=== PATIENT | male | born 1950 | race Caucasian/White ===

== ENCOUNTER 2020-11-28 06:53 | Outpatient (REF) | payer OTHER, SELFPAY ==
[2020-11-28 11:22] LABS: Estimated Average Glucose 148 mg/dL; Hemoglobin A1c % 6.8 %
[2020-11-28 11:23] LABS: Hematocrit 44.8 % (42-52); Hemoglobin 14.2 g/dl (14.0-18.0); Mean Corpuscular HGB Conc 31.7 g/dl (31.0-36.0); Mean Corpuscular Hemoglobin 30.2 pg (27.0-33.0); Mean Corpuscular Volume 95.3 fL (80-98); Mean Platelet Volume 10.6 fL (9.4-12.4); Platelet Count 388 X10*3/uL (160-400); Red Cell Distribution Width 14.3 % (11.0-16.0); White Blood Count 8.9 X10*3/uL (4.8-10.8)
[2020-11-28 11:45] LABS: Alanine Aminotransferase 15 U/L (0-40); Albumin Level 4.1 g/dL (3.5-5.0); Alkaline Phosphatase 62 U/L (39-117); Anion Gap 16 (12-20); Aspartate Amino Transferase 15 U/L (5-37); Blood Urea Nitrogen 37 mg/dL (9-16); Calcium 9.8 mg/dL (8.4-10.2); Carbon Dioxide 25 mmol/L (22-29); Chloride 103 mmol/L (96-108); Cholesterol 145 mg/dL; Estimated Glomerular Filt Rate 26; Glucose Fasting 109 mg/dL (60-99); HDL Cholesterol 31 mg/dL; LDL Cholesterol Calculated 63 mg/dl; Potassium 4.7 mmol/L (3.3-5.1); Sodium 139 mmol/L (135-145); Total Protein 6.9 g/dL (6.5-8.0); Triglycerides 258 mg/dL
[2020-11-28 12:08] LABS: TSH reflex Free T4 1.41 uIU/mL (0.32-4.0)
[2020-11-28 12:15] LABS: Vitamin B12 1770 pg/mL (200-900)
[2020-12-01 10:52] LABS: Vitamin D 25-OH, D2 <4 ng/mL; Vitamin D 25-OH, D3 57 ng/mL; Vitamin D 25-OH, Total 57 ng/mL (30-100)
[2020-12-02 16:27] LABS: Testosterone, Free 107.7 pg/mL (35.0-155.0); Testosterone, Total 411 ng/dL (250-1100)
== END 2020-11-28 06:54 | disposition home or self-care (01) ==
LOC: HO.HMGCLDS 06:53
PROVIDERS: PCP Internal Medicine; Visit Provider Internal Medicine
DX: E78.5 Hyperlipidemia, unspecified (principal); E11.22 Type 2 diabetes mellitus with diabetic chronic kidney disease; I12.9 Hypertensive chronic kidney disease with stage 1 through stage 4 chronic kidney disease, or unspecified chronic kidney disease; N18.30 Chronic kidney disease, stage 3 unspecified; E03.9 Hypothyroidism, unspecified; I25.10 Atherosclerotic heart disease of native coronary artery without angina pectoris; E53.8 Deficiency of other specified B group vitamins
CPT/HCPCS: 36415; 80053; 80061; 82306; 82607; 83036; 84402; 84403; 84443; 85027

== ENCOUNTER 2021-02-21 13:50 | Outpatient (REF) | payer OTHER, SELFPAY ==
[2021-02-21 16:46] LABS: Anion Gap 15 (12-20); Blood Urea Nitrogen 17 mg/dL (9-16); Calcium 9.6 mg/dL (8.4-10.2); Carbon Dioxide 24 mmol/L (22-29); Chloride 106 mmol/L (96-108); Estimated Glomerular Filt Rate 36; Glucose Random 101 mg/dL (60-115); Magnesium 2.2 mg/dL (1.6-2.6); Potassium 4.3 mmol/L (3.3-5.1); Sodium 141 mmol/L (135-145)
[2021-02-21 17:03] LABS: Microalbum/Creatinine Ratio Ur 219.6 ug/mg cr
[2021-02-21 17:11] LABS: TSH reflex Free T4 0.72 uIU/mL (0.32-4.0)
== END 2021-02-21 13:51 | disposition home or self-care (01) ==
LOC: HO.HMGCLDS 13:50
PROVIDERS: PCP Internal Medicine; Visit Provider Internal Medicine
DX: I12.9 Hypertensive chronic kidney disease with stage 1 through stage 4 chronic kidney disease, or unspecified chronic kidney disease (principal); N18.30 Chronic kidney disease, stage 3 unspecified; E11.22 Type 2 diabetes mellitus with diabetic chronic kidney disease; E03.9 Hypothyroidism, unspecified; E78.5 Hyperlipidemia, unspecified
CPT/HCPCS: 36415; 80048; 82043; 83735; 84443

== ENCOUNTER 2021-05-23 08:17 | Outpatient (REF) | payer OTHER, SELFPAY ==
[2021-05-23 11:45] LABS: Creatinine Urine 76.54 mg/dL; Microalbum/Creatinine Ratio Ur 410.2 ug/mg cr
[2021-05-23 11:52] LABS: Hematocrit 46.3 % (42-52); Hemoglobin 14.4 g/dl (14.0-18.0); Mean Corpuscular HGB Conc 31.1 g/dl (31.0-36.0); Mean Corpuscular Volume 93.3 fL (80-98); Platelet Count 289 X10*3/uL (160-400); Red Blood Count 4.96 X10*6/uL (4.60-5.80); Red Cell Distribution Width 14.8 % (11.0-16.0); White Blood Count 8.2 X10*3/uL (4.8-10.8)
[2021-05-23 11:55] LABS: Estimated Average Glucose 128 mg/dL; Hemoglobin A1c % 6.1 %
[2021-05-23 12:10] LABS: Glucose Urine UA NEG (NEG); Leukocyte Esterase Urine NEG (NEG); Nitrite Urine NEG (NEG); UACC Culture Trigger NO; Urine Blood 3+ (NEG); Urine Ketones NEG (NEG); Urine Protein 1+ MG/DL (NEG-TRACE)
[2021-05-23 12:10] LABS: Alanine Aminotransferase 14 U/L (0-40); Alkaline Phosphatase 68 U/L (39-117); Anion Gap 14 (12-20); Aspartate Amino Transferase 16 U/L (5-37); Bilirubin Total 1.3 mg/dL (0.0-1.0); Blood Urea Nitrogen 26 mg/dL (9-16); Calcium 9.8 mg/dL (8.4-10.2); Carbon Dioxide 25 mmol/L (22-29); Chloride 106 mmol/L (96-108); Cholesterol 141 mg/dL; Estimated Glomerular Filt Rate 34; Glucose Fasting 111 mg/dL (60-99); HDL Cholesterol 35 mg/dL; LDL Cholesterol Calculated 75 mg/dl; Potassium 4.8 mmol/L (3.3-5.1); Sodium 140 mmol/L (135-145); Total Protein 6.8 g/dL (6.5-8.0); Triglycerides 159 mg/dL
[2021-05-23 12:22] LABS: Appearance Urine HAZY; Color Urine YELLOW
[2021-05-23 12:46] LABS: RBC Urine 30-49 /HPF (0); Squamous Epithelial Cell Urine TRACE /LPF; WBC Urine 0-2 /HPF (0-4)
== END 2021-05-23 08:18 | disposition home or self-care (01) ==
LOC: HO.HMGCLDS 08:17
PROVIDERS: PCP Internal Medicine; Visit Provider Internal Medicine
DX: I12.9 Hypertensive chronic kidney disease with stage 1 through stage 4 chronic kidney disease, or unspecified chronic kidney disease (principal); N18.30 Chronic kidney disease, stage 3 unspecified; E03.9 Hypothyroidism, unspecified; E11.9 Type 2 diabetes mellitus without complications
CPT/HCPCS: 36415; 80053; 80061; 81001; 81003; 82043; 83036; 85027

== ENCOUNTER 2021-07-04 07:51 | Outpatient (RCR) | payer OTHER, SELFPAY | END 2021-07-10 15:45 | disposition home or self-care (01) | LOC: HO.WCC 07:51 | PROVIDERS: PCP Internal Medicine; Visit Provider Surgery | DX: S81.812D Laceration without foreign body, left lower leg, subsequent encounter (principal); R60.9 Edema, unspecified | CPT/HCPCS: 99212 ==

== ENCOUNTER 2021-07-17 08:16 | Outpatient (REF) | payer OTHER, SELFPAY ==
--- NOTE | ~2021-07-17 | CT_ITS ---
EXAMINATION: CT HEAD WITHOUT CONTRAST CLINICAL INFORMATION: TIA COMPARISON: None TECHNIQUE: Contiguous axial imaging was performed from the skull base to vertex without intravenous administration of contrast. This CT examination was performed using dose optimization techniques as appropriate, variously including the following: *Automated exposure control *Adjustment of mA and/or kV according to patient size (this includes techniques or standardized protocols for targeted exams where dose is matched to indication/reason for exam; i.e. extremities or head) *Use of iterative reconstruction technique DLP: 1095 mGy-cm FINDINGS: There is no evidence of acute intracranial hemorrhage or territorial infarction. No abnormal mass effect or midline shift is seen. Kovacs to white matter differentiation is well preserved. No extra-axial fluid collections are identified. The ventricles are normal in size. There is no abnormal attenuation within the brain parenchyma. There is mild mucoperiosteal thickening right posterior ethmoid sinus. CT/CT head/brain wo con IMPRESSION: 1. No acute intracranial process seen. 2. Mild chronic right posterior ethmoid sinus inflammatory changes.
== END 2021-07-17 08:17 | disposition home or self-care (01) ==
LOC: HO.CT 08:16
PROVIDERS: PCP Internal Medicine; Visit Provider Internal Medicine
DX: G45.9 Transient cerebral ischemic attack, unspecified (principal); E11.9 Type 2 diabetes mellitus without complications
CPT/HCPCS: 70450

== ENCOUNTER 2022-01-22 08:04 | Outpatient (REF) | payer OTHER, SELFPAY ==
[2022-01-22 12:02] LABS: Hematocrit 41.5 % (42.0-52.0); Hemoglobin 13.3 g/dl (14.0-18.0); Mean Corpuscular Hemoglobin 29.8 pg (27.0-33.0); Mean Corpuscular Volume 92.8 fL (80.0-98.0); Mean Platelet Volume 11.1 fL (9.4-12.4); Platelet Count 294 X10*3/uL (160-400); Red Blood Count 4.47 X10*6/uL (4.60-5.80); Red Cell Distribution Width 13.5 % (11.0-16.0); White Blood Count 6.8 X10*3/uL (4.8-10.8)
[2022-01-22 12:45] LABS: Alanine Aminotransferase 12 U/L (0-40); Albumin Level 3.8 g/dL (3.5-5.0); Alkaline Phosphatase 66 U/L (39-117); Anion Gap 10 (12-20); Aspartate Amino Transferase 12 U/L (5-37); Bilirubin Total 0.8 mg/dL (0.0-1.0); Blood Urea Nitrogen 19 mg/dL (9-16); Calcium 9.9 mg/dL (8.4-10.2); Carbon Dioxide 27 mmol/L (22-29); Chloride 108 mmol/L (96-108); Cholesterol 137 mg/dL; Estimated Glomerular Filt Rate 29; Glucose Fasting 131 mg/dL (60-99); HDL Cholesterol 33 mg/dL; LDL Cholesterol Calculated 80 mg/dl; Potassium 4.2 mmol/L (3.3-5.1); Sodium 141 mmol/L (135-145); Total Protein 6.7 g/dL (6.5-8.0); Triglycerides 121 mg/dL
[2022-01-22 12:59] LABS: Estimated Average Glucose 128 mg/dL; Hemoglobin A1c % 6.1 %
[2022-01-22 13:00] LABS: Microalbum/Creatinine Ratio Ur 501.1 ug/mg cr
== END 2022-01-22 08:05 | disposition home or self-care (01) ==
LOC: HO.HMGCLDS 08:04
PROVIDERS: PCP Internal Medicine; Visit Provider Internal Medicine
DX: I12.9 Hypertensive chronic kidney disease with stage 1 through stage 4 chronic kidney disease, or unspecified chronic kidney disease (principal); N18.30 Chronic kidney disease, stage 3 unspecified; E11.22 Type 2 diabetes mellitus with diabetic chronic kidney disease; F02.80 Dementia in other diseases classified elsewhere, unspecified severity, without behavioral disturbance, psychotic disturbance, mood disturbance, and anxiety; G31.09 Other frontotemporal neurocognitive disorder; E03.9 Hypothyroidism, unspecified
CPT/HCPCS: 36415; 80053; 80061; 82043; 83036; 85027

== ENCOUNTER 2022-02-06 06:35 | Outpatient (REF) | payer OTHER, SELFPAY ==
[2022-02-06 11:42] LABS: Anion Gap 17 (12-20); Blood Urea Nitrogen 32 mg/dL (9-16); Calcium 9.8 mg/dL (8.4-10.2); Carbon Dioxide 20 mmol/L (22-29); Chloride 108 mmol/L (96-108); Estimated Glomerular Filt Rate 23; Glucose Random 145 mg/dL (60-115); Potassium 4.4 mmol/L (3.3-5.1); Sodium 141 mmol/L (135-145)
== END 2022-02-06 06:36 | disposition home or self-care (01) ==
LOC: HO.HMGCLDS 06:35
PROVIDERS: Visit Provider Internal Medicine
DX: E86.0 Dehydration (principal)
CPT/HCPCS: 36415; 80048

== ENCOUNTER 2022-09-02 08:00 | Outpatient (REF) | payer OTHER, SELFPAY ==
[2022-09-02 12:05] LABS: Alanine Aminotransferase 21 U/L (0-40); Albumin Level 3.9 g/dL (3.5-5.0); Alkaline Phosphatase 80 U/L (39-117); Anion Gap 16 (12-20); Aspartate Amino Transferase 18 U/L (5-37); Blood Urea Nitrogen 25 mg/dL (9-16); Calcium 9.1 mg/dL (8.4-10.2); Carbon Dioxide 23 mmol/L (22-29); Chloride 105 mmol/L (96-108); Cholesterol 184 mg/dL; Estimated Glomerular Filt Rate 32; Glucose Fasting 219 mg/dL (60-99); HDL Cholesterol 38 mg/dL; LDL Cholesterol Calculated 102 mg/dl; Potassium 4.6 mmol/L (3.3-5.1); Sodium 139 mmol/L (135-145); Total Protein 6.9 g/dL (6.5-8.0); Triglycerides 224 mg/dL
[2022-09-02 12:31] LABS: Estimated Average Glucose 200 mg/dL; Hemoglobin A1c % 8.6 %; PSA,Total (Free>4and<10) 0.38 ng/mL (0.00-4.00)
[2022-09-02 12:51] LABS: Creatinine Urine 113.96 mg/dL
[2022-09-02 13:04] LABS: Microalbum/Creatinine Ratio Ur 620.3 ug/mg cr
[2022-09-07 21:28] LABS: Testosterone, Free 27.2 pg/mL (30.0-135.0); Testosterone, Total 171 ng/dL (250-1100)
== END 2022-09-02 08:01 | disposition home or self-care (01) ==
LOC: HO.HMGCLDS 08:00
PROVIDERS: PCP Internal Medicine; Visit Provider Internal Medicine
DX: Z12.5 Encounter for screening for malignant neoplasm of prostate (principal); E03.9 Hypothyroidism, unspecified; I12.9 Hypertensive chronic kidney disease with stage 1 through stage 4 chronic kidney disease, or unspecified chronic kidney disease; E11.22 Type 2 diabetes mellitus with diabetic chronic kidney disease; N18.30 Chronic kidney disease, stage 3 unspecified
CPT/HCPCS: 36415; 80053; 80061; 82043; 83036; 84153; 84402; 84403

== ENCOUNTER 2022-12-04 12:20 | Outpatient (REF) | payer OTHER, SELFPAY ==
[2022-12-04 14:16] LABS: Estimated Average Glucose 154 mg/dL
[2022-12-04 14:27] LABS: Cholesterol 180 mg/dL; HDL Cholesterol 33 mg/dL; LDL Cholesterol Calculated 105 mg/dl; Triglycerides 212 mg/dL
[2022-12-04 14:46] LABS: TSH reflex Free T4 1.42 uIU/mL (0.32-4.0)
== END 2022-12-04 12:21 | disposition home or self-care (01) ==
LOC: HO.HMGCLDS 12:20
PROVIDERS: PCP Internal Medicine; Visit Provider Internal Medicine
DX: E03.9 Hypothyroidism, unspecified (principal); I12.9 Hypertensive chronic kidney disease with stage 1 through stage 4 chronic kidney disease, or unspecified chronic kidney disease; E11.22 Type 2 diabetes mellitus with diabetic chronic kidney disease; N18.30 Chronic kidney disease, stage 3 unspecified
CPT/HCPCS: 36415; 80061; 83036; 84443

== ENCOUNTER 2023-02-25 09:17 | Outpatient (REF) | payer OTHER, SELFPAY ==
[2023-02-25 12:11] LABS: Alanine Aminotransferase 20 U/L (0-40); Albumin Level 3.7 g/dL (3.5-5.0); Alkaline Phosphatase 73 U/L (39-117); Anion Gap 11 (12-20); Aspartate Amino Transferase 19 U/L (5-37); Bilirubin Total 1.1 mg/dL (0.0-1.0); Blood Urea Nitrogen 28 mg/dL (9-16); Calcium 9.4 mg/dL (8.4-10.2); Carbon Dioxide 26 mmol/L (22-29); Chloride 109 mmol/L (96-108); Cholesterol 197 mg/dL; Estimated Glomerular Filt Rate 29; Glucose Fasting 154 mg/dL (60-99); HDL Cholesterol 35 mg/dL; LDL Cholesterol Calculated 114 mg/dl; Potassium 4.7 mmol/L (3.3-5.1); Sodium 141 mmol/L (135-145); Total Protein 6.7 g/dL (6.5-8.0); Triglycerides 241 mg/dL
[2023-02-25 12:14] LABS: TSH reflex Free T4 2.25 uIU/mL (0.32-4.0)
[2023-02-25 12:32] LABS: Creatinine Urine 80.11 mg/dL; Microalbum/Creatinine Ratio Ur 414.4 ug/mg cr
[2023-02-25 12:35] LABS: Estimated Average Glucose 183 mg/dL
== END 2023-02-25 09:18 | disposition home or self-care (01) ==
LOC: HO.HMGCLDS 09:17
PROVIDERS: PCP Internal Medicine; Visit Provider Internal Medicine
DX: E03.9 Hypothyroidism, unspecified (principal); I12.9 Hypertensive chronic kidney disease with stage 1 through stage 4 chronic kidney disease, or unspecified chronic kidney disease; N18.30 Chronic kidney disease, stage 3 unspecified
CPT/HCPCS: 36415; 80053; 80061; 82043; 83036; 84443

== ENCOUNTER 2023-03-12 09:31 | Outpatient (REF) | payer OTHER, SELFPAY ==
[2023-03-19 15:59] LABS: Testosterone, Free 119.8 pg/mL (30.0-135.0); Testosterone, Total 599 ng/dL (250-1100)
== END 2023-03-12 09:32 | disposition home or self-care (01) ==
LOC: HO.HMGCLDS 09:31
PROVIDERS: PCP Internal Medicine; Visit Provider Internal Medicine
DX: E29.1 Testicular hypofunction (principal)
CPT/HCPCS: 36415; 84402; 84403

== ENCOUNTER 2023-06-30 08:08 | Outpatient (REF) | payer OTHER, SELFPAY ==
[2023-06-30 11:24] LABS: MANUAL DIFF FLAG NO
[2023-06-30 11:27] LABS: Basophils Absolute Auto 0.1 X10*3/uL (0.0-0.2); Basophils Percent Auto 1.1 % (0-2); Eosinophils Absolute Auto 0.3 X10*3/uL (0.0-0.4); Eosinophils Percent Auto 3.7 % (0-4); Hematocrit 48.6 % (42.0-52.0); Hemoglobin 15.7 g/dl (14.0-18.0); Imm Gran Abs Auto 0.26 X10*3/uL (0.00-0.03); Imm Gran Pct Auto 3.6 % (0.0-0.4); Lymphocytes Absolute Auto 1.6 X10*3/uL (1.2-4.9); Mean Corpuscular HGB Conc 32.3 g/dl (31.0-36.0); Mean Corpuscular Hemoglobin 30.9 pg (27.0-33.0); Mean Corpuscular Volume 95.7 fL (80.0-98.0); Mean Platelet Volume 10.4 fL (9.4-12.4); Monocytes Absolute Auto 0.8 X10*3/uL (0.1-1.2); Monocytes Percent Auto 10.4 % (2-11); Neutrophils Absolute Auto 4.3 x10*3/uL (2.0-8.3); Neutrophils Percent Auto 59.2 % (45-73); Platelet Count 349 X10*3/uL (160-400); Red Blood Count 5.08 X10*6/uL (4.60-5.80); Red Cell Distribution Width 14.8 % (11.0-16.0); White Blood Count 7.3 X10*3/uL (4.8-10.8)
[2023-06-30 12:08] LABS: Appearance Urine Clear; Color Urine Yellow; Glucose Urine UA >=1000 mg/dL (Negative); Leukocyte Esterase Urine Negative (Negative); Nitrite Urine Negative (Negative); PH 6.5 (5.0-9.0); Specific Gravity - Urine 1.025 (1.005-1.025); UMIC TRIGGER UA YES; Urine Blood Small (1+) (Negative); Urine Ketones Negative (Negative); Urine Protein 100 (2+) mg/dL (Neg-Trace)
[2023-06-30 12:11] LABS: Bacteria Urine None Seen (None Seen); Hyaline Casts Urine 0-2 /LPF (0-2); RBC Urine >20 /HPF (0-2); Squamous Epithelial Cell Urine 0-2 /HPF (0-2); WBC Urine 0-5 /HPF (0-5)
[2023-06-30 12:25] LABS: Alanine Aminotransferase 29 U/L (0-40); Albumin Level 3.7 g/dL (3.5-5.0); Alkaline Phosphatase 72 U/L (39-117); Anion Gap 14 (12-20); Aspartate Amino Transferase 21 U/L (5-37); Bilirubin Total 0.7 mg/dL (0.0-1.0); Blood Urea Nitrogen 19 mg/dL (9-16); Calcium 9.4 mg/dL (8.4-10.2); Carbon Dioxide 23 mmol/L (22-29); Chloride 108 mmol/L (96-108); Cholesterol 171 mg/dL (<200); Estimated Glomerular Filt Rate 31; Glucose Fasting 167 mg/dL (60-99); HDL Cholesterol 33 mg/dL (>40); LDL Cholesterol Calculated 81 mg/dL (<100); Potassium 4.5 mmol/L (3.3-5.1); Sodium 140 mmol/L (135-145); Triglycerides 289 mg/dL (<150)
[2023-06-30 12:40] LABS: Estimated Average Glucose 140 mg/dL; Hemoglobin A1c % 6.5 % (<6.0)
[2023-06-30 12:51] LABS: Creatinine Urine 113.79 mg/dL; Microalbum/Creatinine Ratio Ur 326.9 ug/mg cr (<30)
== END 2023-06-30 08:09 | disposition home or self-care (01) ==
LOC: HO.HMGCLDS 08:08
PROVIDERS: PCP Internal Medicine; Visit Provider Internal Medicine
DX: E11.22 Type 2 diabetes mellitus with diabetic chronic kidney disease (principal); I12.9 Hypertensive chronic kidney disease with stage 1 through stage 4 chronic kidney disease, or unspecified chronic kidney disease; E03.9 Hypothyroidism, unspecified; N18.30 Chronic kidney disease, stage 3 unspecified
CPT/HCPCS: 36415; 80053; 80061; 81001; 82043; 82570; 83036; 85025

== ENCOUNTER 2023-07-06 08:49 | Outpatient (AMB) | payer OTHER, SELFPAY ==
[2023-07-06 08:51] VITALS: BP 118/68; PULSE 56; O2SAT 96; BMI 46.1
--- NOTE | 2023-07-06 08:51 | A.OFFPC_ITS ---
Vital Signs 07/06/23 08:51 Height 6 ft Weight 340 lb BMI 46.1 BP 118/68 Blood Pressure Location Lt brachial Position Sitting Pulse 56 Pulse Source Pulse Oximeter Pulse Oximetry (%) 96 Oxygen Delivery Method Room Air Intake Visit Reasons: Annual PE Intake Note: Pt is here today for PE. Allergies codeine Allergy (Unknown, Verified 07/06/23 08:58) Vomiting irbesartan Adverse Reaction (Unknown, Verified 07/06/23 08:58) worsening renal function Medication List - Last Reconciled 07/06/23 by Berenice Mix MD amlodipine 10 mg PO DAILY blood sugar diagnostic (FreeStyle Lite Strips) use 1 strip twice a day to test blood sugar 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 meter (FreeStyle Lite Meter kit) As directed cholecalciferol (vitamin D3) 125 mcg PO DAILY dapagliflozin propanediol (Farxiga) 5 mg PO DAILY dulaglutide (Trulicity) 3 mg (0.5 mL) subcut QWEEK flu vac 2020 [id number](PF) 60 mcg (15 mcg x 4)/0.5 mL mL IM insulin glargine-yfgn (Semglee (insulin glargine-yfgn) Pen) 40 units subcutaneously 2 times a day; levothyroxine 1 tab PO for 5 days and 2 tabs PO two days a week PO; losartan 25 mg PO DAILY metoprolol succinate ER 200 mg (2 x 100 mg) PO DAILY mirabegron ER 50 mg PO DAILY rosuvastatin 40 mg PO DAILY sertraline 50 mg PO DAILY syringe with needle As directed testosterone cypionate mg IM varicella-zoster [id number] (PF) 50 mcg/0.5 mL IM Tobacco use date assessed: 07/06/23 Dental Screening Dental Screen Date: 07/06/23 Did you have a dental visit in the last 12 months?: Yes Did you have a dental problem in the last 6 months where you did not have access to dental care?: No Was dental information given to patient?: Patient has dentist HPI Annual PE HPI Details Patient presents for physical. He follows up with Urology and will have a PET scan for increasing PSA level. Patient follows up with Urology at [facility]. [facility] Medical History (Updated 07/06/23 @ 09:36 by Berenice Mix MD) Frontal lobe dementia TIA (transient ischemic attack) Wound of left leg Memory loss Annual physical exam Hematuria Hypogonadism Vitamin B 12 deficiency Microalbuminuria CKD (chronic kidney disease), stage III Chronic venous insufficiency Hypothyroidism Prostate cancer Overweight Type 2 diabetes mellitus CAD (coronary artery disease) Hyperlipidemia HTN (hypertension) Surgical History H/O colonoscopy No pertinent past surgical history Family History (Updated 03/04/23 @ 11:50 by Latha Gunn [facility]) Father No problems noted. Mother No problems noted. Social History Housing: House Alcohol intake: unknown Patient Tobacco Use Status: Former Tobacco user e-Cigarette/Vaping Use: Never Used Second Hand Smoke Exposure: No Current occupational status: retired Cognitive needs: No Hearing needs: No Vision needs: Yes Questionnaire Thrive Questionnaire Date Thrive assessed: 12/04/22 AUDIT C Alcohol Use Questionnaire (AUDIT-C) 1. How often do you have a drink containing alcohol?: Never 3. How often do you have six or more drinks on one occasion?: Never Total Score: 0 NATANAEL-7 AMB Questionnaire NATANAEL-7 Date NATANAEL - 7 assessed: 12/04/22 Source: Developed by Drs. Kameron Cherry, Kiley Knapp, Shad Mosquera and colleagues, with an educational duane from [employer]. Review of Systems Const All systems reviewed & are unremarkable except as noted in HPI and below Reports no additional complaints Eyes Reports no additional complaints ENT Reports no additional complaints Card Reports no additional complaints Resp Reports no additional complaints GI Reports no additional complaints Reports no additional complaints Physical exam (Primary Care) Vital Signs: Last Vital Signs Pulse 56 07/06/23 08:51 BP 118/68 07/06/23 08:51 Pulse Ox 96 07/06/23 08:51 Oxygen Delivery Method Room Air 07/06/23 08:51 BMI result Body Mass Index 46.1 Tobacco/Smoking Status: Tobacco use Status Tobacco use date assessed 07/06/23 07/06/23 09:04 Patient Tobacco Use Status Former Tobacco user 07/06/23 09:04 e-Cigarette/Vaping Use Never Used 07/06/23 08:53 Thrive Assessment: Date of Thrive Assessment Date Thrive assessed 12/04/22 07/06/23 08:53 Const General: no acute distress HENMT Head: Yes normal to inspection General nose exam: Normal external nose present Eyes General: appearance normal, both eyes and all related structures Neck Neck: Yes supple Resp Effort & Inspection: normal respiratory effort Auscultation: clear to auscultation bilaterally Cardio Rhythm: regular rhythm Heart sounds: S1 normal heart sound present and S2 normal heart sound present GI Inspection: Yes normal to inspection Palpation (GI): Soft to palpation Percussion: Yes normal to percussion Auscultation: normal bowel sounds Extrem Other: 2+ pitting edema bilaterally and chronic venous stasis Assessment and Plan Assessment & Plan (1) Hypothyroidism: Code(s): E03.9 - Hypothyroidism, unspecified Plan: Continue levothyroxine (2) HTN (hypertension): Comment: Intolerant to ARB and JUAN inhibitor, hyperkalemia worsening renal function Code(s): I10 - Essential (primary) hypertension Plan: Continue current medications (3) CKD (chronic kidney disease), stage III: 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 pt follows up with Nephrology (4) Type 2 diabetes mellitus: Comment: on insulin Code(s): E11.9 - Type 2 diabetes mellitus without complications Plan: A1c is down to 6.9 and patient reports occasionally hypoglycemia. He will increase Farxiga to 10 mg a day and decreased Semglee to 30 u in AM and 40 q PM (5) Vitamin B 12 deficiency: Code(s): E53.8 - Deficiency of other specified B group vitamins (6) Prostate cancer: Comment: follows up with urologist at [facility] Code(s): C61 - Malignant neoplasm of prostate Orders: Orders Complete Blood Count Auto Diff 3 Months E03.9 - Hypothyroidism, unspecified, E11.9 - Type 2 diabetes mellitus without complications, E53.8 - Deficiency of other specified B group vitamins, I10 - Essential (primary) hypertension, N18.30 - Chronic kidney disease, stage 3 unspecified Hemoglobin A1c 3 Months E03.9 - Hypothyroidism, unspecified, E11.9 - Type 2 diabetes mellitus without complications, E53.8 - Deficiency of other specified B group vitamins, I10 - Essential (primary) hypertension, N18.30 - Chronic kidney disease, stage 3 unspecified TSH reflex Free T4 3 Months E03.9 - Hypothyroidism, unspecified, E11.9 - Type 2 diabetes mellitus without complications, E53.8 - Deficiency of other specified B group vitamins, I10 - Essential (primary) hypertension, N18.30 - Chronic kidney disease, stage 3 unspecified Comprehensive [place]. Panel Fast 3 Months E03.9 - Hypothyroidism, unspecified, E11.9 - Type 2 diabetes mellitus without complications, E53.8 - Deficiency of other specified B group vitamins, I10 - Essential (primary) hypertension, N18.30 - Chronic kidney disease, stage 3 unspecified Lipid Panel 3 Months E03.9 - Hypothyroidism, unspecified, E11.9 - Type 2 diabetes mellitus without complications, E53.8 - Deficiency of other specified B group vitamins, I10 - Essential (primary) hypertension, N18.30 - Chronic kidney disease, stage 3 unspecified Microalbumin, Random (w Creat) 3 Months E03.9 - Hypothyroidism, unspecified, E11.9 - Type 2 diabetes mellitus without complications, E53.8 - Deficiency of other specified B group vitamins, I10 - Essential (primary) hypertension, N18.30 - Chronic kidney disease, stage 3 unspecified Medications: New dapagliflozin propanediol (Farxiga) 10 mg PO DAILY 90 tabs 3RF Discontinued dapagliflozin propanediol (Farxiga) Discontinued Reason: Doctor's Order 5 mg PO DAILY 90 tabs 3RF Coding Level of Care Code Est Pt Prev Care >65y(13088) Diagnoses Hypothyroidism E03.9 HTN (hypertension) I10 CKD (chronic kidney disease), stage III N18.30 Type 2 diabetes mellitus E11.9 Vitamin B 12 deficiency E53.8 Prostate cancer C61
== END 2023-07-06 09:37 | disposition home or self-care (01) ==
PROVIDERS: Visit Provider Internal Medicine
DX: Z00.00 Encounter for general adult medical examination without abnormal findings (principal); I12.9 Hypertensive chronic kidney disease with stage 1 through stage 4 chronic kidney disease, or unspecified chronic kidney disease; N18.30 Chronic kidney disease, stage 3 unspecified; E11.22 Type 2 diabetes mellitus with diabetic chronic kidney disease; E03.9 Hypothyroidism, unspecified; C61 Malignant neoplasm of prostate; E53.8 Deficiency of other specified B group vitamins
CPT/HCPCS: 99397

== ENCOUNTER 2023-10-06 08:00 | Outpatient (AMB) | payer OTHER, SELFPAY ==
[2023-10-06 08:30] VITALS: BP 122/74; PULSE 69; O2SAT 97; BMI 43.8
--- NOTE | 2023-10-06 08:30 | MHC.PC.OV ---
Vital Signs 10/06/23 08:30 Height 6 ft Weight 323 lb BMI 43.8 BP 122/74 Blood Pressure Location Lt brachial Position Sitting Pulse 69 Pulse Source Pulse Oximeter Pulse Oximetry (%) 97 Oxygen Delivery Method Room Air Intake Visit Reasons: 3 month follow up Intake Note: Pt is here today for 3 months follow up visit. Allergies codeine Allergy (Unknown, Verified 10/06/23 08:36) Vomiting irbesartan Adverse Reaction (Unknown, Verified 10/06/23 08:36) worsening renal function Medication List - Last Reconciled 10/06/23 by Berenice Mix MD amlodipine 10 mg PO DAILY blood sugar diagnostic (FreeStyle Lite Strips) use 1 strip twice a day to test blood sugar 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 meter (FreeStyle Lite Meter kit) As directed cholecalciferol (vitamin D3) 125 mcg PO DAILY dapagliflozin propanediol (Farxiga) 10 mg PO DAILY donepezil (Aricept) 10 mg PO DAILY dulaglutide (Trulicity) 3 mg (0.5 mL) subcut QWEEK flu vac 2020 [id number](PF) 60 mcg (15 mcg x 4)/0.5 mL mL IM insulin glargine-yfgn (Semglee (insulin glargine-yfgn) Pen) 40 units subcutaneously 2 times a day; levothyroxine 1 tab PO for 5 days and 2 tabs PO two days a week PO; losartan 25 mg PO DAILY metoprolol succinate ER 200 mg (2 x 100 mg) PO DAILY mirabegron ER 50 mg PO DAILY rosuvastatin 40 mg PO DAILY sertraline 50 mg PO DAILY syringe with needle As directed testosterone cypionate mg IM varicella-zoster [id number] (PF) 50 mcg/0.5 mL IM Tobacco use date assessed: 07/06/23 Dental Screening Dental Screen Date: 10/06/23 Did you have a dental visit in the last 12 months?: Yes Did you have a dental problem in the last 6 months where you did not have access to dental care?: No Was dental information given to patient?: Patient has dentist HPI 3 month follow up HPI Details Patient presents for the follow-up of hypertension hyperlipidemia type 2 diabetes chronic kidney disease stage 3 and mild dementia. [facility] Medical History (Updated 10/06/23 @ 09:29 by Berenice Mix MD) Frontal lobe dementia TIA (transient ischemic attack) Wound of left leg Memory loss Annual physical exam Hematuria Hypogonadism Vitamin B 12 deficiency Microalbuminuria CKD (chronic kidney disease), stage III Chronic venous insufficiency Hypothyroidism Prostate cancer Overweight Type 2 diabetes mellitus CAD (coronary artery disease) Hyperlipidemia HTN (hypertension) Surgical History H/O colonoscopy No pertinent past surgical history Family History Father No problems noted. Mother No problems noted. Social History Housing: House Alcohol intake: unknown Patient Tobacco Use Status: Former Tobacco user e-Cigarette/Vaping Use: Never Used Second Hand Smoke Exposure: No Current occupational status: retired Cognitive needs: No Hearing needs: No Vision needs: Yes Questionnaire Thrive Questionnaire Date Thrive assessed: 12/04/22 NATANAEL-7 AMB Questionnaire NATANAEL-7 Date NATANAEL - 7 assessed: 12/04/22 Source: Developed by Drs. Kameron Cherry, Kiley Knapp, Shad Mosquera and colleagues, with an educational duane from [employer]. Review of Systems Const All systems reviewed & are unremarkable except as noted in HPI and below Reports no additional complaints Eyes Reports no additional complaints ENT Reports no additional complaints Card Reports no additional complaints Resp Reports no additional complaints GI Reports no additional complaints Reports no additional complaints Physical exam (Primary Care) Vital Signs: Last Vital Signs Pulse 69 10/06/23 08:30 BP 122/74 10/06/23 08:30 Pulse Ox 97 10/06/23 08:30 Oxygen Delivery Method Room Air 10/06/23 08:30 BMI result Body Mass Index 43.8 Tobacco/Smoking Status: Tobacco use Status Tobacco use date assessed 07/06/23 10/06/23 08:43 Patient Tobacco Use Status Former Tobacco user 10/06/23 08:43 e-Cigarette/Vaping Use Never Used 10/06/23 08:43 Thrive Assessment: Date of Thrive Assessment Date Thrive assessed 12/04/22 10/06/23 08:43 Const General: no acute distress HENMT Head: Yes normal to inspection Ears: hearing grossly normal bilaterally Face and sinus: Yes normal facial exam Throat: Yes posterior oropharynx normal Eyes General: appearance normal, both eyes and all related structures Neck Neck: Yes no lymphadenopathy and Yes supple Resp Effort & Inspection: normal respiratory effort Auscultation: clear to auscultation bilaterally Cardio Rhythm: regular rhythm Heart sounds: S1 normal heart sound present and S2 normal heart sound present GI Inspection: Yes normal to inspection Palpation (GI): Soft to palpation Percussion: Yes normal to percussion Auscultation: normal bowel sounds Assessment and Plan Assessment & Plan (1) Prostate cancer: Comment: follows up with urologist at [facility] negative PET scan for metastatic dx 10/17 Code(s): C61 - Malignant neoplasm of prostate Plan: f/u with urology (2) Frontal lobe dementia: Comment: f/u neurology at [facility] Code(s): G31.09 - Other frontotemporal neurocognitive disorder; F02.80 - Dementia in other diseases classified elsewhere, unspecified severity, without behavioral disturbance, psychotic disturbance, mood disturbance, and anxiety (3) CKD (chronic kidney disease), stage III: 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 Code(s): N18.30 - Chronic kidney disease, stage 3 unspecified Plan: monitor renal function (4) Type 2 diabetes mellitus: Comment: on insulin Code(s): E11.9 - Type 2 diabetes mellitus without complications Plan: cont ADA diet, increase exercise, check A1C today (5) Vitamin B 12 deficiency: Code(s): E53.8 - Deficiency of other specified B group vitamins (6) Hypothyroidism: Code(s): E03.9 - Hypothyroidism, unspecified Plan: cont Levothyroxine (7) HTN (hypertension): Comment: ARB and JUAN inhibitor caused hyperkalemia worsening renal function Code(s): I10 - Essential (primary) hypertension Plan: cont meds, f/u 3 months Orders: Orders Complete Blood Count Auto Diff 3 Months E03.9 - Hypothyroidism, unspecified, E11.9 - Type 2 diabetes mellitus without complications, I10 - Essential (primary) hypertension, N18.30 - Chronic kidney disease, stage 3 unspecified Lipid Panel 3 Months E03.9 - Hypothyroidism, unspecified, E11.9 - Type 2 diabetes mellitus without complications, I10 - Essential (primary) hypertension, N18.30 - Chronic kidney disease, stage 3 unspecified Comprehensive [place]. Panel Fast 3 Months E03.9 - Hypothyroidism, unspecified, E11.9 - Type 2 diabetes mellitus without complications, I10 - Essential (primary) hypertension, N18.30 - Chronic kidney disease, stage 3 unspecified Hemoglobin A1c 3 Months E03.9 - Hypothyroidism, unspecified, E11.9 - Type 2 diabetes mellitus without complications, I10 - Essential (primary) hypertension, N18.30 - Chronic kidney disease, stage 3 unspecified Medications: New losartan 50 mg PO DAILY 90 tabs 3RF Coding Level of Care Code Est Pt Level 4 (21572) Diagnoses Prostate cancer C61 Frontal lobe dementia G31.09; F02.80 CKD (chronic kidney disease), stage III N18.30 Type 2 diabetes mellitus E11.9 Vitamin B 12 deficiency E53.8 Hypothyroidism E03.9 HTN (hypertension) I10
== END 2023-10-06 09:33 | disposition home or self-care (01) ==
PROVIDERS: PCP Internal Medicine; Visit Provider Internal Medicine
DX: C61 Malignant neoplasm of prostate (principal); I12.9 Hypertensive chronic kidney disease with stage 1 through stage 4 chronic kidney disease, or unspecified chronic kidney disease; G31.09 Other frontotemporal neurocognitive disorder; F02.80 Dementia in other diseases classified elsewhere, unspecified severity, without behavioral disturbance, psychotic disturbance, mood disturbance, and anxiety; N18.30 Chronic kidney disease, stage 3 unspecified; E53.8 Deficiency of other specified B group vitamins; E03.9 Hypothyroidism, unspecified; I10 Essential (primary) hypertension
CPT/HCPCS: 99214

== ENCOUNTER 2023-10-06 09:20 | Outpatient (REF) | payer OTHER, SELFPAY ==
[2023-10-06 11:19] LABS: MANUAL DIFF FLAG NO
[2023-10-06 11:21] LABS: Basophils Absolute Auto 0.1 X10*3/uL (0.0-0.2); Basophils Percent Auto 0.6 % (0-2); Eosinophils Absolute Auto 0.3 X10*3/uL (0.0-0.4); Eosinophils Percent Auto 3.4 % (0-4); Hematocrit 42.9 % (42.0-52.0); Hemoglobin 13.7 g/dl (14.0-18.0); Imm Gran Abs Auto 0.08 X10*3/uL (0.00-0.03); Imm Gran Pct Auto 0.9 % (0.0-0.4); Lymphocytes Absolute Auto 1.4 X10*3/uL (1.2-4.9); Lymphocytes Percent Auto 16.1 % (20-40); Mean Corpuscular HGB Conc 31.9 g/dl (31.0-36.0); Mean Corpuscular Hemoglobin 30.6 pg (27.0-33.0); Mean Corpuscular Volume 95.8 fL (80.0-98.0); Mean Platelet Volume 10.7 fL (9.4-12.4); Monocytes Absolute Auto 0.8 X10*3/uL (0.1-1.2); Neutrophils Absolute Auto 6.1 x10*3/uL (2.0-8.3); Platelet Count 326 X10*3/uL (160-400); Red Blood Count 4.48 X10*6/uL (4.60-5.80); Red Cell Distribution Width 14.4 % (11.0-16.0); White Blood Count 8.6 X10*3/uL (4.8-10.8)
[2023-10-06 11:35] LABS: Estimated Average Glucose 192 mg/dL; Hemoglobin A1c % 8.3 % (<6.0)
[2023-10-06 11:50] LABS: Alanine Aminotransferase 18 U/L (0-40); Albumin Level 3.7 g/dL (3.5-5.0); Alkaline Phosphatase 76 U/L (39-117); Anion Gap 12 (12-20); Aspartate Amino Transferase 23 U/L (5-37); Bilirubin Total 0.8 mg/dL (0.0-1.0); Blood Urea Nitrogen 28 mg/dL (9-16); Calcium 9.3 mg/dL (8.4-10.2); Carbon Dioxide 24 mmol/L (22-29); Chloride 108 mmol/L (96-108); Cholesterol 162 mg/dL (<200); Estimated Glomerular Filt Rate 27; Glucose Fasting 163 mg/dL (60-99); HDL Cholesterol 32 mg/dL (>40); LDL Cholesterol Calculated 65 mg/dL (<100); Potassium 4.4 mmol/L (3.3-5.1); Sodium 140 mmol/L (135-145); Total Protein 7.3 g/dL (6.5-8.0); Triglycerides 327 mg/dL (<150)
[2023-10-06 12:12] LABS: TSH reflex Free T4 1.06 uIU/mL (0.32-4.0)
[2023-10-06 12:18] LABS: Creatinine Urine 106.46 mg/dL; Microalbum/Creatinine Ratio Ur 154.9 ug/mg cr (<30)
== END 2023-10-06 09:21 | disposition home or self-care (01) ==
LOC: HO.HMGCLDS 09:20
PROVIDERS: PCP Internal Medicine; Visit Provider Internal Medicine
DX: I12.9 Hypertensive chronic kidney disease with stage 1 through stage 4 chronic kidney disease, or unspecified chronic kidney disease (principal); E11.22 Type 2 diabetes mellitus with diabetic chronic kidney disease; N18.30 Chronic kidney disease, stage 3 unspecified; E53.8 Deficiency of other specified B group vitamins; E03.9 Hypothyroidism, unspecified
CPT/HCPCS: 36415; 80053; 80061; 82043; 82570; 83036; 84443; 85025

== ENCOUNTER 2024-01-05 07:26 | Outpatient (AMB) | payer OTHER, SELFPAY ==
--- NOTE | 2024-01-05 07:45 | MHC.PC.OV ---
Vital Signs 01/05/24 07:49 Height 6 ft Weight 347 lb BMI 47.1 BP 130/60 Blood Pressure Location Lt brachial Position Sitting Pulse 66 Pulse Source Pulse Oximeter Pulse Oximetry (%) 97 Oxygen Delivery Method Room Air Intake Visit Reasons: 3 Month follow Allergies codeine Allergy (Unknown, Verified 01/05/24 07:45) Vomiting irbesartan Adverse Reaction (Unknown, Verified 01/05/24 07:45) worsening renal function Medication List - Last Reconciled 01/05/24 by Berenice Mix MD amlodipine 10 mg PO DAILY blood sugar diagnostic (FreeStyle Lite Strips) use 1 strip twice a day to test blood sugar 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 meter (FreeStyle Lite Meter kit) As directed cholecalciferol (vitamin D3) 125 mcg PO DAILY dapagliflozin propanediol (Farxiga) 10 mg PO DAILY donepezil (Aricept) 10 mg PO DAILY dulaglutide (Trulicity) 3 mg (0.5 mL) subcut QWEEK insulin glargine-yfgn (Semglee (insulin glargine-yfgn) Pen) 40 units subcutaneously 2 times a day; levothyroxine 1 tab PO for 5 days and 2 tabs PO two days a week PO; losartan 50 mg PO DAILY metoprolol succinate ER 200 mg (2 x 100 mg) PO DAILY mirabegron ER 50 mg PO DAILY rosuvastatin 40 mg PO DAILY sertraline 50 mg PO DAILY syringe with needle As directed testosterone cypionate mg IM Tobacco use date assessed: 01/05/24 Fall risk assessment: 1 Fall in past year Last assessed Fall Risk: 01/05/24 Dental Screening Dental Screen Date: 01/05/24 Did you have a dental visit in the last 12 months?: Yes Did you have a dental problem in the last 6 months where you did not have access to dental care?: Yes Was dental information given to patient?: Patient has dentist HPI 3 Month follow HPI Details Patient presents for the follow-up of hypertension hyperlipidemia chronic kidney disease stage 3/4 type 2 diabetes. He underwent R percutaneous nephrostolithotomy at [facility] for large obstructing nephrolithiasis. Patient tolerated procedure well and has a follow-up next week for residual kidney stone fragments. He has not been compliant with ADA diet and has been checking blood glucose twice a day. 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 [facility] Medical History Frontal lobe dementia TIA (transient ischemic attack) Wound of left leg Memory loss Annual physical exam Hematuria Hypogonadism Vitamin B 12 deficiency Microalbuminuria CKD (chronic kidney disease), stage III Chronic venous insufficiency Hypothyroidism Prostate cancer Overweight Type 2 diabetes mellitus CAD (coronary artery disease) Hyperlipidemia HTN (hypertension) Surgical History H/O colonoscopy No pertinent past surgical history Family History Father No problems noted. Mother No problems noted. Social History Housing: House Alcohol intake: unknown Patient Tobacco Use Status: Former Tobacco user e-Cigarette/Vaping Use: Never Used Second Hand Smoke Exposure: No Current occupational status: retired Cognitive needs: No Hearing needs: No Vision needs: Yes Questionnaire PHQ-9 Over the last 2 weeks, how often have you been bothered by any of the following problems? 1. Little interest or pleasure in doing things: not at all 2. Feeling down, depressed, or hopeless: not at all 3. Trouble falling or staying asleep, or sleeping too much: not at all 4. Feeling tired or having little energy: not at all 5. Poor appetite or overeating: not at all 6. Feeling bad about yourself - or that you are a failure or have let yourself or your family down: not at all 7. Trouble concentrating on things, such as reading the newspaper or watching television: not at all 8. Moving or speaking so slowly that other people could have noticed. Or the opposite - being so fidgety or restless that you have been moving around a lot more than usual: not at all 9. Thoughts that you would be better off or of hurting yourself in some way: not at all Total score: 0 Depression Screening Interpretation: Negative Depression Screening Done: Yes Source: Developed by Drs. Kameron Cherry, Kiley Knapp, Shad Mosquera and colleagues, with an educational duane from [employer]. Thrive Questionnaire Date Thrive assessed: 01/05/24 I am a: Patient What is your living situation today?: I have a steady place to live Within the past 12 months, did the food you bought not last and you didn't have the money to get more?: Never true Within the past 12 months, did you worry whether your food would run out before you got money to buy more?: Never true Do you have trouble paying for medicines?: No Do you have trouble getting transportation to medical appointments?: No Do you have trouble paying your heating and electricity bill?: No Do you have trouble taking care of your child, family member or friend?: No Do you have trouble with day-to-day activities such as bathing, preparing meals, shopping, managing finances, etc.?: No Are you currently unemployed and looking for a job?: No Are you interested in more education?: No THRIVE Score: 0 NATANAEL-7 AMB Questionnaire NATANAEL-7 Date NATANAEL - 7 assessed: 01/05/24 Feeling nervous, anxious, or on edge: 0 = Not at all Not being able to stop or control worryin = Not at all Worrying too much about different things: 0 = Not at all Trouble relaxin = Not at all Being so restless that it is hard to sit still: 0 = Not at all Becoming easily annoyed or irritable: 0 = Not at all Feeling afraid as if something awful might happen: 0 = Not at all Total NATANAEL-7 score (0-4 normal; 5-9 mild; 10-14 moderate; 15-21 severe): 0 Source: Developed by Drs. Kameron Cherry, Kiley Knapp, Shad Mosquera and colleagues, with an educational duane from [employer]. Review of Systems Const All systems reviewed & are unremarkable except as noted in HPI and below Reports no additional complaints Eyes Reports no additional complaints ENT Reports no additional complaints Card Reports no additional complaints Resp Reports no additional complaints GI Reports no additional complaints Reports no additional complaints Physical exam (Primary Care) Vital Signs: Last Vital Signs Pulse 66 01/05/24 07:49 BP 130/60 01/05/24 07:49 Pulse Ox 97 01/05/24 07:49 Oxygen Delivery Method Room Air 01/05/24 07:49 BMI result Body Mass Index 47.1 Tobacco/Smoking Status: Tobacco use Status Tobacco use date assessed 01/05/24 01/05/24 07:48 Patient Tobacco Use Status Former Tobacco user 01/05/24 07:48 e-Cigarette/Vaping Use Never Used 01/05/24 07:48 PHQ-9: PHQ-9 Score PHQ-9: Total score 0 01/05/24 07:58 Depression Screening Interpretation: Negative Thrive Assessment: Date of Thrive Assessment Date Thrive assessed 01/05/24 01/05/24 07:58 Const General: no acute distress HENMT Head: Yes normal to inspection Mouth: Normal oral and palatal mucosa present Eyes General: appearance normal, both eyes and all related structures Neck Neck: Yes no lymphadenopathy and Yes supple Resp Effort & Inspection: normal respiratory effort Auscultation: clear to auscultation bilaterally Cardio Rhythm: regular rhythm Heart sounds: S1 normal heart sound present and S2 normal heart sound present GI Inspection: Yes normal to inspection Palpation (GI): Soft to palpation Percussion: Yes normal to percussion Auscultation: normal bowel sounds Extrem Other: 2+ nonpitting edema bilaterally Results AMB Hemoglobin A1c AMB Hemoglobin A1c 7.2 % Last Edit by Genesis Robert CMA on 01/05/24 08:16 Results Reviewed Results Reviewed: Laboratory Last Values Hgb A1c (Clinic) 7.2 % (4.0-6.0) H 01/05/24 07:57 Assessment and Plan Assessment & Plan (1) Lipoma: Comment: neck Code(s): D17.9 - Benign lipomatous neoplasm, unspecified Plan: refer to Dermatology (2) OSBORN (dyspnea on exertion): Code(s): R06.09 - Other forms of dyspnea Plan: Obtain echocardiogram to evaluate for ejection fraction and segmental wall motion abnormalities (3) HTN (hypertension): Code(s): I10 - Essential (primary) hypertension Plan: Continue current medications (4) Prostate cancer: Comment: follows up with urologist at [facility] negative PET scan for metastatic dx 10/17 Code(s): C61 - Malignant neoplasm of prostate Plan: Follow-up with urology (5) Frontal lobe dementia: Comment: f/u neurology at [facility] Code(s): G31.09 - Other frontotemporal neurocognitive disorder; F02.80 - Dementia in other diseases classified elsewhere, unspecified severity, without behavioral disturbance, psychotic disturbance, mood disturbance, and anxiety Plan: Continue donepezil and sertraline and follow-up with Neurology (6) CKD (chronic kidney disease), stage III: Comment: stage 3/4 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 He was advised to start monitoring his blood glucose with Dexcom 7 at least 3 times a day, patient will continue the same medications and will follow-up in 1 month to review blood glucose readings (8) Nephrolithiasis: Comment: Status post right percutaneous nephrostolithotomy at [facility] 12/31/23 Code(s): N20.0 - Calculus of kidney Plan: Follow-up with urology Orders: Orders AMB Hemoglobin A1c Today E11.9 - Type 2 diabetes mellitus without complications CA echo transthoracic complete Today R06.09 - Other forms of dyspnea Basic Metabolic Panel 6 Weeks I10 - Essential (primary) hypertension Referrals Dermatology Referral D17.9 - Benign lipomatous neoplasm, unspecified Medications: New mirabegron ER 50 mg PO DAILY 90 tabs 3RF 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 sensor (Dexcom G7 Sensor device) As directed 2 ea 3RF Coding Level of Care Code Est Pt Level 4 (47727) Diagnoses Lipoma D17.9 OSBORN (dyspnea on exertion) R06.09 HTN (hypertension) I10 Prostate cancer C61 Frontal lobe dementia G31.09; F02.80 CKD (chronic kidney disease), stage III N18.30 Type 2 diabetes mellitus E11.9 Nephrolithiasis N20.0
[2024-01-05 07:49] VITALS: BP 130/60; PULSE 66; O2SAT 97; BMI 47.1
== END 2024-01-05 08:28 | disposition home or self-care (01) ==
PROVIDERS: PCP Internal Medicine; Visit Provider Internal Medicine
DX: I12.9 Hypertensive chronic kidney disease with stage 1 through stage 4 chronic kidney disease, or unspecified chronic kidney disease (principal); N18.30 Chronic kidney disease, stage 3 unspecified; E11.22 Type 2 diabetes mellitus with diabetic chronic kidney disease; C61 Malignant neoplasm of prostate; G31.09 Other frontotemporal neurocognitive disorder; F02.80 Dementia in other diseases classified elsewhere, unspecified severity, without behavioral disturbance, psychotic disturbance, mood disturbance, and anxiety; D17.9 Benign lipomatous neoplasm, unspecified; R06.09 Other forms of dyspnea; N20.0 Calculus of kidney
CPT/HCPCS: 83036; 99214

== ENCOUNTER 2024-02-23 11:51 | Outpatient (AMB) | payer OTHER, SELFPAY ==
--- NOTE | 2024-02-23 11:54 | MHC.PC.OV ---
Vital Signs 02/23/24 11:55 Height 6 ft Weight 342 lb BMI 46.4 BP 120/74 Blood Pressure Location Rt brachial Position Sitting Pulse 74 Pulse Source Pulse Oximeter Pulse Oximetry (%) 97 Oxygen Delivery Method Room Air Intake Visit Reasons: 6WK F/U Intake Note: Pt is here today for 6 weeks follow up visit. Allergies codeine Allergy (Unknown, Verified 02/23/24 12:01) Vomiting irbesartan Adverse Reaction (Unknown, Verified 02/23/24 12:01) worsening renal function Medication List - Last Reconciled 02/23/24 by Berenice Mix MD amlodipine 10 mg PO DAILY blood sugar diagnostic (FreeStyle Lite Strips) use 1 strip twice a day to test blood sugar 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 meter (FreeStyle Lite Meter kit) As directed 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 sensor (Dexcom G7 Sensor device) As directed cholecalciferol (vitamin D3) 125 mcg PO DAILY dapagliflozin propanediol (Farxiga) 10 mg PO DAILY Dexcom G7 [employer] Vault Attendant (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 meter,continuous) As directed NS donepezil (Aricept) 10 mg PO DAILY dulaglutide (Trulicity) 3 mg (0.5 mL) subcut QWEEK insulin glargine-yfgn (Semglee (insulin glargine-yfgn) Pen) 40 units subcutaneously 2 times a day; levothyroxine 1 tab PO for 5 days and 2 tabs PO two days a week PO; losartan 50 mg PO DAILY metoprolol succinate ER 200 mg (2 x 100 mg) PO DAILY mirabegron ER 50 mg PO DAILY rosuvastatin 40 mg PO DAILY sertraline 50 mg PO DAILY syringe with needle As directed testosterone cypionate mg IM vibegron (Gemtesa) 75 mg PO DAILY Tobacco use date assessed: 02/23/24 Dental Screening Dental Screen Date: 01/05/24 HPI 6WK F/U HPI Details Patient presents for the follow-up on hypertension hyperlipidemia type 2 diabetes chronic kidney disease stage 3. Patient has not been monitoring his blood glucose with Dexcom and has not been compliant with ADA diet. He follows up with Urology at [facility] for nephrolithiasis. [facility] Medical History Frontal lobe dementia TIA (transient ischemic attack) Wound of left leg Memory loss Annual physical exam Hematuria Hypogonadism Vitamin B 12 deficiency Microalbuminuria CKD (chronic kidney disease), stage III Chronic venous insufficiency Hypothyroidism Prostate cancer Overweight Type 2 diabetes mellitus CAD (coronary artery disease) Hyperlipidemia HTN (hypertension) Surgical History H/O colonoscopy No pertinent past surgical history Family History Father No problems noted. Mother No problems noted. Social History Housing: House Alcohol intake: unknown Patient Tobacco Use Status: Former Tobacco user e-Cigarette/Vaping Use: Never Used Second Hand Smoke Exposure: No service: No Current occupational status: retired Cognitive needs: No Hearing needs: No Vision needs: Yes Questionnaire Thrive Questionnaire Date Thrive assessed: 01/05/24 NATANAEL-7 AMB Questionnaire NATANAEL-7 Date NATANAEL - 7 assessed: 01/05/24 Source: Developed by Drs. Kameron Cherry, Kiley Knapp, Shad Mosquera and colleagues, with an educational duane from [employer]. Review of Systems Const All systems reviewed & are unremarkable except as noted in HPI and below Eyes Reports no additional complaints ENT Reports no additional complaints Card Reports no additional complaints Resp Reports no additional complaints GI Reports no additional complaints Reports no additional complaints Physical exam (Primary Care) Vital Signs: Last Vital Signs Pulse 74 02/23/24 11:55 BP 120/74 02/23/24 11:55 Pulse Ox 97 02/23/24 11:55 Oxygen Delivery Method Room Air 02/23/24 11:55 BMI result Body Mass Index 46.4 Tobacco/Smoking Status: Tobacco use Status Tobacco use date assessed 02/23/24 02/23/24 11:56 Patient Tobacco Use Status Former Tobacco user 02/23/24 11:56 e-Cigarette/Vaping Use Never Used 02/23/24 11:56 Thrive Assessment: Date of Thrive Assessment Date Thrive assessed 01/05/24 02/23/24 11:56 Const General: no acute distress HENMT Face and sinus: Yes normal facial exam Eyes General: appearance normal, both eyes and all related structures Neck Neck: Yes supple Resp Effort & Inspection: normal respiratory effort Auscultation: clear to auscultation bilaterally Cardio Rhythm: regular rhythm Heart sounds: S1 normal heart sound present and S2 normal heart sound present GI Inspection: Yes normal to inspection Palpation (GI): Soft to palpation Percussion: Yes normal to percussion Auscultation: normal bowel sounds Assessment and Plan Assessment & Plan (1) HTN (hypertension): Code(s): I10 - Essential (primary) hypertension Plan: Continue medications (2) Type 2 diabetes mellitus: Comment: on insulin Code(s): E11.9 - Type 2 diabetes mellitus without complications Plan: ADA diet regular physical activity weight loss discussed with the patient continue Farxiga Trulicity and insulin. Patient is planning to start using Dexcom to monitor his glucose. Follow-up in 3 months with a fasting labs before (3) Hypothyroidism: Code(s): E03.9 - Hypothyroidism, unspecified Plan: Continue Levothyroxine (4) CKD (chronic kidney disease), stage III: Comment: stage 3/4 f/u [employer] Code(s): N18.30 - Chronic kidney disease, stage 3 unspecified Plan: Avoid nephrotoxins (5) Vitamin B 12 deficiency: Code(s): E53.8 - Deficiency of other specified B group vitamins Plan: Continue vitamin B12 supplement Orders: Orders Hemoglobin A1c 3 Months E03.9 - Hypothyroidism, unspecified, E11.9 - Type 2 diabetes mellitus without complications, E53.8 - Deficiency of other specified B group vitamins, I10 - Essential (primary) hypertension, N18.30 - Chronic kidney disease, stage 3 unspecified Complete Blood Count Auto Diff 3 Months E03.9 - Hypothyroidism, unspecified, E11.9 - Type 2 diabetes mellitus without complications, E53.8 - Deficiency of other specified B group vitamins, I10 - Essential (primary) hypertension, N18.30 - Chronic kidney disease, stage 3 unspecified TSH reflex Free T4 3 Months E03.9 - Hypothyroidism, unspecified, E11.9 - Type 2 diabetes mellitus without complications, E53.8 - Deficiency of other specified B group vitamins, I10 - Essential (primary) hypertension, N18.30 - Chronic kidney disease, stage 3 unspecified Microalbumin, Random (w Creat) 3 Months E03.9 - Hypothyroidism, unspecified, E11.9 - Type 2 diabetes mellitus without complications, E53.8 - Deficiency of other specified B group vitamins, I10 - Essential (primary) hypertension, N18.30 - Chronic kidney disease, stage 3 unspecified Comprehensive [place]. Panel Fast 3 Months E03.9 - Hypothyroidism, unspecified, E11.9 - Type 2 diabetes mellitus without complications, E53.8 - Deficiency of other specified B group vitamins, I10 - Essential (primary) hypertension, N18.30 - Chronic kidney disease, stage 3 unspecified Lipid Panel 3 Months E03.9 - Hypothyroidism, unspecified, E11.9 - Type 2 diabetes mellitus without complications, E53.8 - Deficiency of other specified B group vitamins, I10 - Essential (primary) hypertension, N18.30 - Chronic kidney disease, stage 3 unspecified Coding Level of Care Code Est Pt Level 4 (35918) Diagnoses HTN (hypertension) I10 Type 2 diabetes mellitus E11.9 Hypothyroidism E03.9 CKD (chronic kidney disease), stage III N18.30 Vitamin B 12 deficiency E53.8
[2024-02-23 11:55] VITALS: BP 120/74; PULSE 74; O2SAT 97; BMI 46.4
== END 2024-02-23 12:47 | disposition home or self-care (01) ==
PROVIDERS: PCP Internal Medicine; Visit Provider Internal Medicine
DX: I12.9 Hypertensive chronic kidney disease with stage 1 through stage 4 chronic kidney disease, or unspecified chronic kidney disease (principal); E11.22 Type 2 diabetes mellitus with diabetic chronic kidney disease; N18.30 Chronic kidney disease, stage 3 unspecified; E03.9 Hypothyroidism, unspecified; E53.8 Deficiency of other specified B group vitamins
CPT/HCPCS: 99214

== ENCOUNTER 2024-05-23 09:21 | Outpatient (AMB) | payer OTHER, SELFPAY ==
--- NOTE | 2024-05-23 09:44 | A.OFFPC_ITS ---
Vital Signs 05/23/24 09:45 Height 6 ft Weight 332 lb BMI 45.0 BP 120/72 Blood Pressure Location Rt brachial Position Sitting Pulse 75 Pulse Source Pulse Oximeter Pulse Oximetry (%) 98 Oxygen Delivery Method Room Air Intake Visit Reasons: 3M F/U Intake Note: Pt is here today for 3 months follow up visit on DM. Pt states that he does not like the Dexcom as he has been having issues with it. Pt states that he gets pain in the arm where the dexcome is. Allergies codeine Allergy (Unknown, Verified 05/23/24 10:12) Vomiting irbesartan Adverse Reaction (Unknown, Verified 05/23/24 10:12) worsening renal function Medication List - Last Reconciled 05/23/24 by Berenice Mix MD amlodipine 10 mg PO DAILY blood sugar diagnostic (FreeStyle Lite Strips) use 1 strip twice a day to test blood sugar 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 meter (FreeStyle Lite Meter kit) As directed 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 sensor (Dexcom G7 Sensor device) As directed cholecalciferol (vitamin D3) 125 mcg PO DAILY dapagliflozin propanediol (Farxiga) 10 mg PO DAILY Dexcom G7 Air Quality Specialist (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 meter,continuous) As directed NS donepezil (Aricept) 10 mg PO DAILY dulaglutide (Trulicity) 3 mg (0.5 mL) subcut QWEEK insulin glargine-yfgn (Semglee (insulin glargine-yfgn) Pen) 40 units subcutaneously 2 times a day; levothyroxine 1 tab PO for 5 days and 2 tabs PO two days a week PO; losartan 50 mg PO DAILY metoprolol succinate ER 200 mg (2 x 100 mg) PO DAILY mirabegron ER 50 mg PO DAILY rosuvastatin 40 mg PO DAILY semaglutide (Ozempic) 2 mg (0.75 mL) subcut QWEEK sertraline 50 mg PO DAILY syringe with needle As directed testosterone cypionate mg IM vibegron (Gemtesa) 75 mg PO DAILY Tobacco use date assessed: 05/23/24 Fall risk assessment: No Falls in past year Last assessed Fall Risk: 05/23/24 Dental Screening Dental Screen Date: 01/05/24 HPI 3M F/U HPI Details Patient presents for the follow-up of hypertension type 2 diabetes hyperlipidemia chronic kidney disease stage 4. He reports glucose control 85% according to Dexcom. Patient has been having difficulty with the attachment of the meter to the skin. Patient has difficulty walking because of bilateral knee pain. Patient denies knee swelling erythema or warmth [facility] Medical History Frontal lobe dementia TIA (transient ischemic attack) Wound of left leg Memory loss Annual physical exam Hematuria Hypogonadism Vitamin B 12 deficiency Microalbuminuria CKD (chronic kidney disease), stage III Chronic venous insufficiency Hypothyroidism Prostate cancer Overweight Type 2 diabetes mellitus CAD (coronary artery disease) Hyperlipidemia HTN (hypertension) Surgical History H/O colonoscopy No pertinent past surgical history Family History Father No problems noted. Mother No problems noted. Social History Housing: House Alcohol intake: unknown Patient Tobacco Use Status: Former Tobacco user e-Cigarette/Vaping Use: Never Used Second Hand Smoke Exposure: No service: No Current occupational status: retired Cognitive needs: No Hearing needs: No Vision needs: Yes Questionnaire PHQ-9 Over the last 2 weeks, how often have you been bothered by any of the following problems? 1. Little interest or pleasure in doing things: not at all 2. Feeling down, depressed, or hopeless: not at all 3. Trouble falling or staying asleep, or sleeping too much: not at all 4. Feeling tired or having little energy: not at all 5. Poor appetite or overeating: not at all 6. Feeling bad about yourself - or that you are a failure or have let yourself or your family down: not at all 7. Trouble concentrating on things, such as reading the newspaper or watching television: not at all 8. Moving or speaking so slowly that other people could have noticed. Or the opposite - being so fidgety or restless that you have been moving around a lot more than usual: not at all 9. Thoughts that you would be better off or of hurting yourself in some way: not at all Total score: 0 Depression Screening Interpretation: Negative Depression Screening Done: Yes Source: Developed by Geovanny Albertoet B.W. Ra, Shad Mosquera and colleagues, with an educational duane from [employer]. Thrive Questionnaire Date Thrive assessed: 05/23/24 I am a: Patient What is your living situation today?: I have a steady place to live Within the past 12 months, did the food you bought not last and you didn't have the money to get more?: I choose not to answer this question Within the past 12 months, did you worry whether your food would run out before you got money to buy more?: I choose not to answer this question Do you have trouble paying for medicines?: I choose not to answer this question Do you have trouble getting transportation to medical appointments?: I choose not to answer this question Do you have trouble paying your heating and electricity bill?: I choose not to answer this question Do you have trouble taking care of your child, family member or friend?: I choose not to answer this question Do you have trouble with day-to-day activities such as bathing, preparing meals, shopping, managing finances, etc.?: I choose not to answer this question Are you currently unemployed and looking for a job?: I choose not to answer this question Are you interested in more education?: I choose not to answer this question Please select the resources that you would like help with: Housing/Assisted Currently or been in a relationship where the following occur: I choose not to answer THRIVE Score: 0 AUDIT C Alcohol Use Questionnaire (AUDIT-C) 1. How often do you have a drink containing alcohol?: Never 3. How often do you have six or more drinks on one occasion?: Never Total Score: 0 NATANAEL-7 AMB Questionnaire NATANAEL-7 Date NATANAEL - 7 assessed: 05/23/24 Feeling nervous, anxious, or on edge: 0 = Not at all Not being able to stop or control worryin = Not at all Worrying too much about different things: 0 = Not at all Trouble relaxin = Not at all Being so restless that it is hard to sit still: 0 = Not at all Becoming easily annoyed or irritable: 0 = Not at all Feeling afraid as if something awful might happen: 0 = Not at all Total NATANAEL-7 score (0-4 normal; 5-9 mild; 10-14 moderate; 15-21 severe): 0 Source: Developed by Drs. Kameron Cherry, Kiley Knapp, Shad Mosquera and colleagues, with an educational duane from [employer]. Review of Systems Const All systems reviewed & are unremarkable except as noted in HPI and below Eyes Reports no additional complaints Card Reports no additional complaints Resp Reports no additional complaints GI Reports no additional complaints Physical exam (Primary Care) Vital Signs: Last Vital Signs Pulse 75 05/23/24 09:45 BP 120/72 05/23/24 09:45 Pulse Ox 98 05/23/24 09:45 Oxygen Delivery Method Room Air 05/23/24 09:45 BMI result Body Mass Index 45.0 Tobacco/Smoking Status: Tobacco use Status Tobacco use date assessed 05/23/24 05/23/24 09:46 Patient Tobacco Use Status Former Tobacco user 05/23/24 09:45 e-Cigarette/Vaping Use Never Used 05/23/24 09:45 PHQ-9: PHQ-9 Score PHQ-9: Total score 0 05/23/24 10:14 Depression Screening Interpretation: Negative Thrive Assessment: Date of Thrive Assessment Date Thrive assessed 05/23/24 05/23/24 10:14 Currently or been in a relationship where the following occur: I choose not to answer Const General: no acute distress HENMT Head: Yes normal to inspection Throat: Yes posterior oropharynx normal Neck Neck: Yes supple Resp Effort & Inspection: normal respiratory effort Auscultation: clear to auscultation bilaterally Cardio Rhythm: regular rhythm Heart sounds: S1 normal heart sound present and S2 normal heart sound present GI Inspection: Yes normal to inspection Palpation (GI): Soft to palpation Percussion: Yes normal to percussion Auscultation: normal bowel sounds Extrem Other: Decreased range of motion and crepitus of both knees, 2+ pitting edema and chronic venous stasis on both lower extremities Assessment and Plan Assessment & Plan (1) HTN (hypertension): Code(s): I10 - Essential (primary) hypertension Plan: Continue current medications (2) Type 2 diabetes mellitus: Comment: on insulin Code(s): E11.9 - Type 2 diabetes mellitus without complications Plan: ADA diet regular physical activity due weight loss discussed with the patient continue same medications patient will have blood work today and in 3 months (3) Hypothyroidism: Code(s): E03.9 - Hypothyroidism, unspecified Plan: Continue levothyroxine check TSH (4) CKD (chronic kidney disease), stage III: 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 Panel Fast 3 Months E03.9 - Hypothyroidism, unspecified, E11.9 - Type 2 diabetes mellitus without complications, I10 - Essential (primary) hypertension, N18.30 - Chronic kidney disease, stage 3 unspecified Complete Blood Count Auto Diff 3 Months E03.9 - Hypothyroidism, unspecified, E11.9 - Type 2 diabetes mellitus without complications, I10 - Essential (primary) hypertension, N18.30 - Chronic kidney disease, stage 3 unspecified Hemoglobin A1c 3 Months E03.9 - Hypothyroidism, unspecified, E11.9 - Type 2 diabetes mellitus without complications, I10 - Essential (primary) hypertension, N18.30 - Chronic kidney disease, stage 3 unspecified TSH reflex Free T4 3 Months E03.9 - Hypothyroidism, unspecified, E11.9 - Type 2 diabetes mellitus without complications, I10 - Essential (primary) hypertension, N18.30 - Chronic kidney disease, stage 3 unspecified PT Evaluation and Treatment Today M25.561 - Pain in right knee, M25.562 - Pain in left knee Lipid Panel 3 Months E03.9 - Hypothyroidism, unspecified, E11.9 - Type 2 diabetes mellitus without complications, I10 - Essential (primary) hypertension, N18.30 - Chronic kidney disease, stage 3 unspecified Medications: Discontinued dulaglutide (Trulicity) Discontinued Reason: Doctor's Order 3 mg (0.5 mL) subcut QWEEK 6 mL 3RF Coding Level of Care Code Est Pt Level 4 (20264) Diagnoses HTN (hypertension) I10 Type 2 diabetes mellitus E11.9 Hypothyroidism E03.9 CKD (chronic kidney disease), stage III N18.30 Bilateral knee pain M25.561; M25.562
[2024-05-23 09:45] VITALS: BP 120/72; PULSE 75; O2SAT 98; BMI 45.0
== END 2024-05-23 11:08 | disposition home or self-care (01) ==
PROVIDERS: PCP Internal Medicine; Visit Provider Internal Medicine
DX: I12.9 Hypertensive chronic kidney disease with stage 1 through stage 4 chronic kidney disease, or unspecified chronic kidney disease (principal); E11.22 Type 2 diabetes mellitus with diabetic chronic kidney disease; N18.30 Chronic kidney disease, stage 3 unspecified; E03.9 Hypothyroidism, unspecified; M25.561 Pain in right knee; M25.562 Pain in left knee
CPT/HCPCS: 99214

== ENCOUNTER 2024-05-23 10:36 | Outpatient (REF) | payer OTHER, SELFPAY ==
[2024-05-23 13:29] LABS: MANUAL DIFF FLAG NO
[2024-05-23 13:53] LABS: Basophils Absolute Auto 0.1 X10*3/uL (0.0-0.2); Eosinophils Absolute Auto 0.3 X10*3/uL (0.0-0.4); Eosinophils Percent Auto 3.7 % (0-4); Hematocrit 39.4 % (42.0-52.0); Hemoglobin 12.7 g/dl (14.0-18.0); Imm Gran Abs Auto 0.05 X10*3/uL (0.00-0.03); Imm Gran Pct Auto 0.7 % (0.0-0.4); Lymphocytes Absolute Auto 1.4 X10*3/uL (1.2-4.9); Lymphocytes Percent Auto 19.6 % (20-40); Mean Corpuscular HGB Conc 32.2 g/dl (31.0-36.0); Mean Corpuscular Hemoglobin 30.8 pg (27.0-33.0); Mean Corpuscular Volume 95.4 fL (80.0-98.0); Mean Platelet Volume 10.6 fL (9.4-12.4); Monocytes Absolute Auto 0.8 X10*3/uL (0.1-1.2); Monocytes Percent Auto 10.4 % (2-11); Neutrophils Absolute Auto 4.8 x10*3/uL (2.0-8.3); Neutrophils Percent Auto 64.6 % (45-73); Platelet Count 289 X10*3/uL (160-400); Red Blood Count 4.13 X10*6/uL (4.60-5.80); Red Cell Distribution Width 13.6 % (11.0-16.0); White Blood Count 7.3 X10*3/uL (4.8-10.8)
[2024-05-23 14:25] LABS: Alanine Aminotransferase 29 U/L (0-40); Albumin Level 3.8 g/dL (3.5-5.0); Alkaline Phosphatase 75 U/L (39-117); Anion Gap 12 (12-20); Aspartate Amino Transferase 26 U/L (5-37); Bilirubin Total 0.8 mg/dL (0.0-1.0); Blood Urea Nitrogen 22 mg/dL (9-16); Calcium 9.7 mg/dL (8.4-10.2); Carbon Dioxide 24 mmol/L (22-29); Chloride 109 mmol/L (96-108); Cholesterol 146 mg/dL (<200); Estimated Glomerular Filt Rate 30; Glucose Fasting 132 mg/dL (60-99); HDL Cholesterol 34 mg/dL (>40); LDL Cholesterol Calculated 75 mg/dL (<100); Potassium 4.5 mmol/L (3.3-5.1); Sodium 140 mmol/L (135-145); TSH reflex Free T4 0.09 uIU/mL (0.32-4.0); Total Protein 7.1 g/dL (6.5-8.0); Triglycerides 189 mg/dL (<150)
[2024-05-23 14:35] LABS: Estimated Average Glucose 174 mg/dL; Hemoglobin A1c % 7.7 % (<6.0)
[2024-05-23 14:43] LABS: Creatinine Urine 108.25 mg/dL; Microalbum/Creatinine Ratio Ur 87.7 ug/mg cr (<30)
[2024-05-23 15:25] LABS: Free T4 (Free Thyroxine) 1.13 ng/dL (0.71-1.85)
== END 2024-05-23 10:37 | disposition home or self-care (01) ==
LOC: HO.HMGCLDS 10:36
PROVIDERS: PCP Internal Medicine; Visit Provider Internal Medicine
DX: E53.8 Deficiency of other specified B group vitamins (principal); E03.9 Hypothyroidism, unspecified; I10 Essential (primary) hypertension; N18.30 Chronic kidney disease, stage 3 unspecified; E11.9 Type 2 diabetes mellitus without complications
CPT/HCPCS: 36415; 80053; 80061; 82043; 82570; 83036; 84439; 84443; 85025

== ENCOUNTER → 2024-07-06 08:48 | Outpatient (REF) | payer OTHER, SELFPAY ==
--- NOTE | 2024-07-06 08:50 | CA_ITS ---
Transthoracic Echocardiogram Patient (Last, First, Middle): Stanley Burton, Gender: Male Date of : 1950 Age: 74 Procedure Date: 07/06/2024 Procedure Type: Transthoracic Echocardiogram Location: OP Height: 185.42 cm Weight: 136.08 kg BSA: 2.56 m2 Heart Rate: bpm BP: 130 / 90 mmHg Kier Hand: TO Referring MD: Berenice Mix MD Telephone Cleaner: Boyd Leon MD Symptoms: R06.09 - Other forms of dyspnea Study Quality: Technically Difficult/Contrast ECG Rhythm: Sinus Conclusions: - 1. Technically difficult study 2. Normal LV ejection fraction of 60-65% with impaired relaxation filling pattern 3. Calcific mitral and aortic valve changes noted with slightly increased velocity across aortic valve which may suggest early aortic stenosis Findings Procedure Information Contrast agent, definity, is being given per protocol without apparent complications. The study quality is limited by patients body habitus. Left Ventricle The left ventricle was not well visualized. Normal left ventricular cavity size. The left ventricular systolic function is normal. The visually estimated ejection fraction is between 60-65%. Spectral Doppler is indicative of an impaired relaxation filling pattern. E/E prime ratio is between 8 and 15 consistent with indeterminate filling pressures. Right Ventricle The right ventricle was not well visualized. Atria The left atrium is normal in size. Interatrial shunt cannot be excluded. The right atrium was not well visualized. Aortic Valve The aortic valve was not well visualized. There is mild calcification of the aortic valve. There is no aortic valve stenosis. There is no aortic valve regurgitation. Mitral Valve The mitral valve was not well visualized. There is mild mitral annular calcification. There is no mitral valve regurgitation. There is no mitral valve stenosis. Pulmonic Valve The pulmonic valve was not well visualized. Tricuspid Valve The tricuspid valve was not well visualized. The right ventricular systolic pressure is not calculated. Indeterminate right atrial pressure. Great Vessels The aorta was not well visualized. The pulmonary artery was not well visualized. Venous The inferior vena cava was not well visualized. Pericardium/Pleural The pericardium was not well visualized. Prior Study Comparison No prior study available for comparison. Measurements 2D Linear Measurements LVOT Diam: 2.30 3.0+(-)1.3 cm 2D Systolic Function EF 2C: 58.50 >55% Mitral Valve MV Pk E: 0.72 MV PK A: 1.05 MV Decel Time: 336.00 E/A: 0.70 E'Lateral: 5.55 E'Medial: 4.24 E/E' Med: 17.10 E/E' Lat: 13.00 PHT: 98.00 MVA PHT: 2.24 Decel [place]: 2.16 Aortic Valve AoV Pk Rahul: 2.04 AoV Mn Rahul: 1.36 AoV VTI: 0.37 AoV Pk Grad: 17.00 Aov Mn Grad: 9.00 GINGER Cont.VTI: 2.90 LVOT LVOT Pk Rahul: 1.18 LVOT Mn Rahul: 0.78 LVOT VTI: 0.26 LVOT Pk Grad: 6.00 LVOT Mn Grad: 3.00 LVOT Diam: 2.30 LVOT Area: 4.15 Diastolic Function MV Pk E: 0.72 MV Pk A: 1.05 E/A: 0.70 E'Medial: 4.24 E/E' Med: 17.10 E' Laterial: 5.55 E/E' Lat: 13.00 Right Ventricle TAPSE (mm): 26.20 TVS' Rahul: 13.90 Great Vessels Aorta Sinus of Valsalva: 3.73 2.0-3.5 cm Ao Asc: 4.00 2.1-3.4 cm Updated in Other Vendor System with Status of Final Boyd Leon MD electronically signed on 07/07/2024 8:34:31 AM with status of Final
== END ==
LOC: HO.CARD 08:48
PROVIDERS: PCP Internal Medicine; Visit Provider Internal Medicine
DX: R06.09 Other forms of dyspnea (principal)
CPT/HCPCS: 93306; Q9957

== ENCOUNTER → 2024-07-06 08:50 | Outpatient (BNV) | payer OTHER, SELFPAY | PROVIDERS: PCP Internal Medicine; Visit Provider Internal Medicine Cardiovascular Disease | DX: I35.8 Other nonrheumatic aortic valve disorders (principal); I34.81 Nonrheumatic mitral (valve) annulus calcification | CPT/HCPCS: 93306 ==

== ENCOUNTER 2024-07-08 08:00 | Outpatient (AMB) | payer OTHER, SELFPAY ==
[2024-07-08 08:01] VITALS: BP 130/60; PULSE 74; O2SAT 98; BMI 44.6
--- NOTE | 2024-07-08 08:01 | A.OFFPC_ITS ---
Vital Signs 07/08/24 08:01 Height 6 ft Weight 329 lb BMI 44.6 BP 130/60 Blood Pressure Location Rt brachial Position Sitting Pulse 74 Pulse Source Pulse Oximeter Pulse Oximetry (%) 98 Oxygen Delivery Method Room Air Intake Visit Reasons: Annual PE Intake Note: pt is here for annual exam Required: No Accompanied by: Self / Same As Patient Allergies codeine Allergy (Unknown, Verified 07/08/24 08:02) Vomiting irbesartan Adverse Reaction (Unknown, Verified 07/08/24 08:02) worsening renal function Medication List - Last Reconciled 07/08/24 by Berenice Mix MD amlodipine 10 mg PO DAILY blood sugar diagnostic (FreeStyle Lite Strips) use 1 strip twice a day to test blood sugar 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 meter (FreeStyle Lite Meter kit) As directed 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 sensor (Dexcom G7 Sensor device) As directed cholecalciferol (vitamin D3) 125 mcg PO DAILY dapagliflozin propanediol (Farxiga) 10 mg PO DAILY Dexcom G7 Professor Of Historical Theology (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 meter,continuous) As directed NS donepezil (Aricept) 10 mg PO DAILY insulin glargine-yfgn (Semglee (insulin glargine-yfgn) Pen) 40 units subcutaneously 2 times a day; levothyroxine 1 tab PO for 5 days and 2 tabs PO two days a week PO; losartan 50 mg PO DAILY metoprolol succinate ER 200 mg (2 x 100 mg) PO DAILY rosuvastatin 40 mg PO DAILY semaglutide (Ozempic) 2 mg (0.75 mL) subcut QWEEK sertraline 50 mg PO DAILY syringe with needle As directed vibegron (Gemtesa) 75 mg PO DAILY Tobacco use date assessed: 05/23/24 Fall risk assessment: No Falls in past year Last assessed Fall Risk: 07/08/24 Dental Screening Dental Screen Date: 01/05/24 HPI Annual PE HPI0 Details Patient is for physical [facility] Medical History Frontal lobe dementia TIA (transient ischemic attack) Wound of left leg Memory loss Annual physical exam Hematuria Hypogonadism Vitamin B 12 deficiency Microalbuminuria CKD (chronic kidney disease), stage III Chronic venous insufficiency Hypothyroidism Prostate cancer Overweight Type 2 diabetes mellitus CAD (coronary artery disease) Hyperlipidemia HTN (hypertension) Surgical History H/O colonoscopy No pertinent past surgical history Family History Father No problems noted. Mother No problems noted. Social History Housing: House Alcohol intake: unknown Patient Tobacco Use Status: Former Tobacco user e-Cigarette/Vaping Use: Never Used Second Hand Smoke Exposure: No service: No Current occupational status: retired Cognitive needs: No Hearing needs: No Vision needs: Yes Questionnaire PHQ-9 Over the last 2 weeks, how often have you been bothered by any of the following problems? 1. Little interest or pleasure in doing things: not at all 2. Feeling down, depressed, or hopeless: not at all 3. Trouble falling or staying asleep, or sleeping too much: not at all 4. Feeling tired or having little energy: not at all 5. Poor appetite or overeating: not at all 6. Feeling bad about yourself - or that you are a failure or have let yourself or your family down: not at all 7. Trouble concentrating on things, such as reading the newspaper or watching television: not at all 8. Moving or speaking so slowly that other people could have noticed. Or the opposite - being so fidgety or restless that you have been moving around a lot more than usual: not at all 9. Thoughts that you would be better off or of hurting yourself in some way: not at all Total score: 0 Depression Screening Interpretation: Negative Depression Screening Done: Yes 33232 - PHQ-9 Billing: Yes Source: Developed by Drs. Kameron Cherry, Kiley Knapp, Shad Mosquera and colleagues, with an educational duane from [employer]. Thrive Questionnaire Date Thrive assessed: 07/08/24 I am a: Patient What is your living situation today?: I have a steady place to live Within the past 12 months, did the food you bought not last and you didn't have the money to get more?: I choose not to answer this question Within the past 12 months, did you worry whether your food would run out before you got money to buy more?: I choose not to answer this question Do you have trouble paying for medicines?: I choose not to answer this question Do you have trouble getting transportation to medical appointments?: I choose not to answer this question Do you have trouble paying your heating and electricity bill?: I choose not to answer this question Do you have trouble taking care of your child, family member or friend?: I choose not to answer this question Do you have trouble with day-to-day activities such as bathing, preparing meals, shopping, managing finances, etc.?: I choose not to answer this question Are you currently unemployed and looking for a job?: I choose not to answer this question Are you interested in more education?: I choose not to answer this question Please select the resources that you would like help with: None Currently or been in a relationship where the following occur: I choose not to answer THRIVE Score: 0 AUDIT C Alcohol Use Questionnaire (AUDIT-C) 1. How often do you have a drink containing alcohol?: Never 2. How many drinks containing alcohol do you have on a typical day when you are drinking?: 1 or 2 3. How often do you have six or more drinks on one occasion?: Never Total Score: 0 Score Reviewed/Action Taken: Yes NATANAEL-7 AMB Questionnaire NATANAEL-7 Date NATANAEL - 7 assessed: 07/08/24 Feeling nervous, anxious, or on edge: 0 = Not at all Not being able to stop or control worryin = Not at all Worrying too much about different things: 0 = Not at all Trouble relaxin = Not at all Being so restless that it is hard to sit still: 0 = Not at all Becoming easily annoyed or irritable: 0 = Not at all Feeling afraid as if something awful might happen: 0 = Not at all Total NATANAEL-7 score (0-4 normal; 5-9 mild; 10-14 moderate; 15-21 severe): 0 Source: Developed by Drs. Kameron Cherry, Kiley Knapp, Shad Mosquera and colleagues, with an educational duane from [employer]. NATANAEL-7 Assessment Billing NATANAEL-7 Assessment Tool: NATANAEL-7 Assessment 54942 Review of Systems Const All systems reviewed & are unremarkable except as noted in HPI and below Card Reports no additional complaints Resp Reports no additional complaints GI Reports no additional complaints Physical exam (Primary Care) Vital Signs: Last Vital Signs Pulse 74 07/08/24 08:01 BP 130/60 07/08/24 08:01 Pulse Ox 98 07/08/24 08:01 Oxygen Delivery Method Room Air 07/08/24 08:01 BMI result Body Mass Index 44.6 Tobacco/Smoking Status: Tobacco use Status Tobacco use date assessed 05/23/24 07/08/24 08:03 Patient Tobacco Use Status Former Tobacco user 07/08/24 08:03 e-Cigarette/Vaping Use Never Used 07/08/24 08:03 PHQ-9: PHQ-9 Score PHQ-9: Total score 0 07/08/24 08:09 Depression Screening Interpretation: Negative Thrive Assessment: Date of Thrive Assessment Date Thrive assessed 07/08/24 07/08/24 08:03 Currently or been in a relationship where the following occur: I choose not to answer Const General: no acute distress HENMT Head: Yes normal to inspection Ears: hearing grossly normal bilaterally Face and sinus: Yes normal facial exam Throat: Yes posterior oropharynx normal Eyes General: appearance normal, both eyes and all related structures Neck Neck: Yes supple Resp Effort & Inspection: normal respiratory effort Auscultation: clear to auscultation bilaterally Cardio Rhythm: regular rhythm Heart sounds: S1 normal heart sound present and S2 normal heart sound present GI Inspection: Yes normal to inspection Palpation (GI): Soft to palpation Percussion: Yes normal to percussion Auscultation: normal bowel sounds Assessment and Plan Assessment & Plan (1) Shoulder pain, left: Code(s): M25.512 - Pain in left shoulder Plan: pt will schedule PT in [place] (2) Prostate cancer: Comment: follows up with urologist at [facility] negative PET scan for metastatic dx 10/17 Code(s): C61 - Malignant neoplasm of prostate Plan: Follow-up with urology (3) Frontal lobe dementia: Comment: f/u neurology at 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 (6) Type 2 diabetes mellitus: Comment: on insulin Code(s): E11.9 - Type 2 diabetes mellitus without complications Plan: A1c is 7.7, ADA diet increase exercise weight loss discussed with the patient continue current medications Coding Level of Care Code Est Pt Prev Care >65y(37874) Diagnoses Shoulder pain, left M25.512 Prostate cancer C61 Frontal lobe dementia G31.09; F02.80 CKD (chronic kidney disease), stage III N18.30 Annual physical exam Z00.00 Type 2 diabetes mellitus E11.9 Additional Codes NATANAEL-7 Assessment Billing - NATANAEL-7 Assessment Tool: NATANAEL-7 Assessment 76303 ([id number])
== END 2024-07-08 08:41 | disposition home or self-care (01) ==
PROVIDERS: PCP Internal Medicine; Visit Provider Internal Medicine
DX: Z00.00 Encounter for general adult medical examination without abnormal findings (principal); C61 Malignant neoplasm of prostate; G31.09 Other frontotemporal neurocognitive disorder; F02.80 Dementia in other diseases classified elsewhere, unspecified severity, without behavioral disturbance, psychotic disturbance, mood disturbance, and anxiety; N18.30 Chronic kidney disease, stage 3 unspecified; E11.22 Type 2 diabetes mellitus with diabetic chronic kidney disease; M25.512 Pain in left shoulder
CPT/HCPCS: 99397

== ENCOUNTER 2024-09-06 09:51 | Outpatient (AMB) | payer OTHER, SELFPAY ==
[2024-09-06 09:59] VITALS: BP 134/76; PULSE 81; O2SAT 98; BMI 45.0
--- NOTE | 2024-09-06 09:59 | A.OFFPC_ITS ---
Vital Signs 09/06/24 09:59 Height 6 ft Weight 332 lb BMI 45.0 BP 134/76 Blood Pressure Location Rt brachial Position Sitting Pulse 81 Pulse Source Pulse Oximeter Pulse Oximetry (%) 98 Oxygen Delivery Method Room Air Intake Visit Reasons: 2 month f/u Intake Note: Pt is here today for 2 months follow up visit. Allergies codeine Allergy (Unknown, Verified 09/06/24 10:11) Vomiting irbesartan Adverse Reaction (Unknown, Verified 09/06/24 10:11) worsening renal function Medication List - Last Reconciled 09/06/24 by Berenice Mix MD amlodipine 10 mg PO DAILY blood sugar diagnostic (FreeStyle Lite Strips) use 1 strip twice a day to test blood sugar 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 meter (FreeStyle Lite Meter kit) As directed 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 sensor (Dexcom G7 Sensor device) As directed cholecalciferol (vitamin D3) 125 mcg PO DAILY dapagliflozin propanediol (Farxiga) 10 mg PO DAILY Dexcom G7 Equipment Operator/Laborer (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 meter,continuous) As directed NS donepezil (Aricept) 10 mg PO DAILY insulin glargine-yfgn (Semglee (insulin glargine-yfgn) Pen) 40 units subcutaneously 2 times a day; levothyroxine 1 tab PO for 5 days and 2 tabs PO two days a week PO; losartan 50 mg PO DAILY metoprolol succinate ER 200 mg (2 x 100 mg) PO DAILY rosuvastatin 40 mg PO DAILY sertraline 50 mg PO DAILY syringe with needle As directed Trulicity (dulaglutide) 4.5 mg (0.5 mL) subcut QWEEK NS vibegron (Gemtesa) 75 mg PO DAILY Tobacco use date assessed: 09/06/24 Dental Screening Dental Screen Date: 01/05/24 HPI 2 month f/u HPI Details Pt presents for f/u HTN, DM 2, CKD 3, dementia. Pt states Trulicity has not been effective but Ozempic is not covered by insurance. Patient has been attending physical therapy twice a week to improve lower extremity strength and balance. He is contemplating moving to [place] because his son and his family lives there. [facility] Medical History Frontal lobe dementia TIA (transient ischemic attack) Wound of left leg Memory loss Annual physical exam Hematuria Hypogonadism Vitamin B 12 deficiency Microalbuminuria CKD (chronic kidney disease), stage III Chronic venous insufficiency Hypothyroidism Prostate cancer Overweight Type 2 diabetes mellitus CAD (coronary artery disease) Hyperlipidemia HTN (hypertension) Surgical History H/O colonoscopy No pertinent past surgical history Family History Father No problems noted. Mother No problems noted. Social History Housing: House Alcohol intake: unknown Patient Tobacco Use Status: Former Tobacco user e-Cigarette/Vaping Use: Never Used Second Hand Smoke Exposure: No service: No Current occupational status: retired Cognitive needs: No Hearing needs: No Vision needs: Yes Questionnaire Thrive Questionnaire Date Thrive assessed: 05/23/24 I am a: Patient What is your living situation today?: I have a steady place to live Within the past 12 months, did the food you bought not last and you didn't have the money to get more?: I choose not to answer this question Within the past 12 months, did you worry whether your food would run out before you got money to buy more?: I choose not to answer this question Do you have trouble paying for medicines?: I choose not to answer this question Do you have trouble getting transportation to medical appointments?: I choose not to answer this question Do you have trouble paying your heating and electricity bill?: I choose not to answer this question Do you have trouble taking care of your child, family member or friend?: I choose not to answer this question Do you have trouble with day-to-day activities such as bathing, preparing meals, shopping, managing finances, etc.?: I choose not to answer this question Are you currently unemployed and looking for a job?: I choose not to answer this question Are you interested in more education?: I choose not to answer this question Please select the resources that you would like help with: None Currently or been in a relationship where the following occur: I choose not to answer THRIVE Score: 0 NATANAEL-7 AMB Questionnaire NATANAEL-7 Date NATANAEL - 7 assessed: 07/08/24 Source: Developed by Kiley Alberto Ra, Shad Mosquera and colleagues, with an educational duane from [employer]. Review of Systems Const All systems reviewed & are unremarkable except as noted in HPI and below Eyes Reports no additional complaints ENT Reports no additional complaints Card Reports no additional complaints Resp Reports no additional complaints GI Reports no additional complaints Reports no additional complaints Physical exam (Primary Care) Vital Signs: Last Vital Signs Pulse 81 09/06/24 09:59 BP 134/76 09/06/24 09:59 Pulse Ox 98 09/06/24 09:59 Oxygen Delivery Method Room Air 09/06/24 09:59 BMI result Body Mass Index 45.0 Tobacco/Smoking Status: Tobacco use Status Tobacco use date assessed 09/06/24 09/06/24 10:14 Patient Tobacco Use Status Former Tobacco user 09/06/24 10:00 e-Cigarette/Vaping Use Never Used 09/06/24 10:00 Thrive Assessment: Date of Thrive Assessment Date Thrive assessed 05/23/24 09/06/24 10:00 Currently or been in a relationship where the following occur: I choose not to answer Const General: no acute distress Eyes General: appearance normal, both eyes and all related structures Resp Effort & Inspection: normal respiratory effort Auscultation: clear to auscultation bilaterally Cardio Rhythm: regular rhythm Heart sounds: S1 normal heart sound present and S2 normal heart sound present GI Inspection: Yes normal to inspection Palpation (GI): Soft to palpation Percussion: Yes normal to percussion Auscultation: normal bowel sounds Coding Level of Care Code Est Pt Level 4 (65129) Diagnoses HTN (hypertension) I10 Type 2 diabetes mellitus E11.9 Hypothyroidism E03.9 CKD (chronic kidney disease), stage III N18.30 Assessment & Plan Assessment & Plan (1) HTN (hypertension): Code(s): I10 - Essential (primary) hypertension Category: Medical Plan: Continue current medications (2) Type 2 diabetes mellitus: Comment: on insulin Code(s): E11.9 - Type 2 diabetes mellitus without complications Category: Medical Plan: Check A1c today continue current medications. 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 Panel Fast 4 Months E03.9 - Hypothyroidism, unspecified, E11.9 - Type 2 diabetes mellitus without complications, I10 - Essential (primary) hypertension, N18.30 - Chronic kidney disease, stage 3 unspecified Microalbumin, Random (w Creat) 4 Months E03.9 - Hypothyroidism, unspecified, E11.9 - Type 2 diabetes mellitus without complications, I10 - Essential (primary) hypertension, N18.30 - Chronic kidney disease, stage 3 unspecified Lipid Panel 4 Months E03.9 - Hypothyroidism, unspecified, E11.9 - Type 2 diabetes mellitus without complications, I10 - Essential (primary) hypertension, N18.30 - Chronic kidney disease, stage 3 unspecified Medications: Discontinued Trulicity (dulaglutide) Discontinued Reason: Doctor's Order 4.5 mg (0.5 mL) subcut QWEEK 2 mL 3RF NS
== END 2024-09-06 10:49 | disposition home or self-care (01) ==
PROVIDERS: PCP Internal Medicine; Visit Provider Internal Medicine
DX: I10 Essential (primary) hypertension (principal); E11.9 Type 2 diabetes mellitus without complications; E03.9 Hypothyroidism, unspecified; N18.30 Chronic kidney disease, stage 3 unspecified

== ENCOUNTER 2024-09-06 09:51 | Outpatient (REF) | payer OTHER, SELFPAY ==
[2024-09-06 13:17] LABS: MANUAL DIFF FLAG NO
[2024-09-06 13:37] LABS: Basophils Absolute Auto 0.1 X10*3/uL (0.0-0.2); Basophils Percent Auto 0.9 % (0-2); Eosinophils Absolute Auto 0.3 X10*3/uL (0.0-0.4); Eosinophils Percent Auto 3.4 % (0-4); Hematocrit 37.4 % (42.0-52.0); Imm Gran Abs Auto 0.11 X10*3/uL (0.00-0.03); Imm Gran Pct Auto 1.5 % (0.0-0.4); Lymphocytes Absolute Auto 1.4 X10*3/uL (1.2-4.9); Lymphocytes Percent Auto 18.5 % (20-40); Mean Corpuscular HGB Conc 32.1 g/dl (31.0-36.0); Mean Corpuscular Hemoglobin 29.9 pg (27.0-33.0); Mean Corpuscular Volume 93.3 fL (80.0-98.0); Mean Platelet Volume 10.6 fL (9.4-12.4); Monocytes Absolute Auto 0.7 X10*3/uL (0.1-1.2); Monocytes Percent Auto 9.5 % (2-11); Neutrophils Absolute Auto 4.9 x10*3/uL (2.0-8.3); Neutrophils Percent Auto 66.2 % (45-73); Platelet Count 301 X10*3/uL (160-400); Red Blood Count 4.01 X10*6/uL (4.60-5.80); Red Cell Distribution Width 14.4 % (11.0-16.0); White Blood Count 7.4 X10*3/uL (4.8-10.8)
[2024-09-06 13:49] LABS: Estimated Average Glucose 131 mg/dL; Hemoglobin A1C 140.7385 umol/L; Hemoglobin A1c % 6.2 % (<6.0); Total Hemoglobin (HGBA1C) 3195.5923 umol/L
[2024-09-06 14:29] LABS: Alanine Aminotransferase 28 U/L (0-40); Albumin Level 3.7 g/dL (3.5-5.0); Alkaline Phosphatase 71 U/L (39-117); Anion Gap 11 (12-20); Aspartate Amino Transferase 29 U/L (5-37); Bilirubin Total 0.7 mg/dL (0.0-1.0); Blood Urea Nitrogen 18 mg/dL (9-16); Calcium 9.7 mg/dL (8.4-10.2); Carbon Dioxide 25 mmol/L (22-29); Chloride 109 mmol/L (96-108); Cholesterol 160 mg/dL (<200); Estimated Glomerular Filt Rate 33; Glucose Fasting 167 mg/dL (60-99); HDL Cholesterol 35 mg/dL (>40); LDL Cholesterol Calculated 73 mg/dL (<100); Potassium 4.4 mmol/L (3.3-5.1); Sodium 141 mmol/L (135-145); Total Protein 6.8 g/dL (6.5-8.0); Triglycerides 264 mg/dL (<150)
[2024-09-06 14:30] LABS: TSH reflex Free T4 1.21 uIU/mL (0.32-4.0)
== END 2024-09-06 09:52 | disposition home or self-care (01) ==
LOC: HO.HMGCLDS 09:51
PROVIDERS: PCP Internal Medicine; Visit Provider Internal Medicine
DX: I10 Essential (primary) hypertension (principal); E03.9 Hypothyroidism, unspecified; N18.30 Chronic kidney disease, stage 3 unspecified; E11.9 Type 2 diabetes mellitus without complications
CPT/HCPCS: 36415; 80053; 80061; 83036; 84443; 85025

== ENCOUNTER 2024-10-03 08:42 | Outpatient (REF) | payer OTHER, SELFPAY ==
[2024-10-03 10:49] LABS: Iron 91 mcg/dL (45-160); Percent Iron Saturation 35 % (15-50); Total Iron Binding Capacity 257 mcg/dL (228-428); Unsaturated Iron Binding 166 ug/dL
[2024-10-03 11:26] LABS: Folate 13.9 ng/mL (> or = 4.0); Vitamin B12 435 pg/mL (200-900)
--- OUTSIDE RECORDS SUMMARY | 2024-10-05 13:11 | XMS_ITS ---
[facility] Address [address] [place] [address] Care Team Providers Care Police Cadet Name Role Phone Berenice Mix MD Primary Care Provider Kb Andres Unavailable [phone] REASON FOR VISIT questioning Rx Encounters Encounter Location Date Provider Diagnosis [address] [address] 08/29/2024 Kb Marti Plan Of Treatment No Information Progress Notes * Stanley CH EDOB:[birth year] (74 yo M)Acc No.[id number]:08/29/2024 Patient:?Stanley Ch :1950???Age:74 Y???Sex:Male Address:[address] [place] [address], [id number] * true * Date:? Generated for Printi jad/Kin/eTransmitting on:?10/05/2024 01:11 PM EST
--- OUTSIDE RECORDS SUMMARY | 2024-10-05 13:12 | XMS_ITS ---
Author Organization [facility] [place] Address [address] [place] [address] Care Team Providers Care Brim Pouncer Name Role Phone Berenice Mix MD Primary Care Provider Kb Andres Unavailable [phone] Allergies No Known Allergies REASON FOR VISIT At Risk Footcare, Painful Nail(s) aggravated by shoes and causing difficulty standing/walking, Skinproblem(s) Medications Medication SIG (Take, Route, Frequency, Duration) Notes Start Date End Date Status Losartan Potassium 50 MG Oral for 90 Days Active Farxiga 10 MG TAKE 1 TABLET (10 MG ) ORALLY DAILY Oral for 90 Days Active oxyBUTYnin Chloride ER 10 MG Oral for 90 Days Active Metoprolol Succinate ER 100 MG Oral for 90 Days Active Levothyroxine Sodium 75 MCG Oral for 84 Days Active Ammonium Lactate 12 % 1 application Exte rnally to affected areas of skin to feet except for between the toes Twice a day for 30 days Active Testosterone Cypionate 200 MG/ML INJECT 1.5 ML (300 MG TOTAL) INTO THE SHOULDER, THIGH, OR BUTTOCKS MUSCLE DIRECTED EVERY 21 DAYS. Intramuscular for 21 Days Not-Taking Donepezil HCl 10 MG Oral for 90 Days Active Myrbetriq 50 MG Oral for 90 Days Not-Taking amLODIPine Besylate 10 MG Oral for 90 Days Active Extra Depth Orthopedic Shoes, (1) Pair With (3) Pair Custom Heat Molded Multidensity Innersoles Dx: NIDDM/PVD(E11.51), Hammertoe Foot Deformity(M20.41,M20.42) , Preulcerative Skin Lesion(s)(L85.1) Wear Daily for 365 days Active Trulicity 3 MG/0.5ML INJECT 3 MG (0.5 ML ) SUBCUTANEOUSLY EVERY WEEK Subcutaneous for 84 Days Active Sertraline HCl 50 MG Oral for 90 Days Active Rosuvastatin Calcium 40 MG Oral for 90 Days Active prednisoLONE 5 MG 1 tablet in the morn ing with food or milk Orally Once a day for 30 day(s) 10/12/2023 Active Social History Tobacco Use: Social History Observation Description Date Details (start date - stop date) Former Smoker NA - NA Tobacco Use/Smoking Question Answer Notes Are you a: former smoker Additional Findings: Tobacco Non-User Current no n-smoker Alcohol Screen Question Answer Notes Did you have a drink containing alcohol in the p ast year? Yes Points 0 Interpretation Negative Tobacco use other than smoking: Question Answer Notes Are you an other tobacco user? No Vital Signs Weight 330 lbs 08/29/2024 BMI 42.37 kg/m2 08/29/2024 Procedures Procedure Date Ordered Date Performed Result Body Sit e 73766-ABGGKAD NAIL, 6 OR MORE 08/29/2024 N/A 75028-RSIY SKIN LESIONS, OVER 4 08/29/2024 N/A Encounters Encounter Location Date Provider Diagnosis [facility] [address] [address] 08/29/2024 Kb Marti Type 2 diabetes mellitus with diabetic peripheral angiopathy without gangrene E11.51 ; Tinea unguium B35.1 ; Pain in right toe(s) M79.674 ; Pain in left toe(s) M79.675 and Xerosis of skin L85.3 Assessments Encounter Date Diagnosis (ICD Code) Assessment Notes Treatment Notes Treatment Clinical Notes Section Notes 08/29/2024 Type 2 diabetes mellitus with diabetic peripheral angiopathy without gangrene (ICD-10 - E11.51) Q7(A), Q8(2B), Q9(1B,2C) 08/29/2024 Tinea unguium (ICD-10 - B35.1) 08/29/2024 Pain in right toe(s) (ICD-10 - M79.674) 08/29/2024 Pain in left toe(s) (ICD-10 - M79.675) 08/29/2024 Xerosis of skin (ICD-10 - L85.3) Plan Of Treatment Medication Medication Name Sig Start Date Stop Date Notes Ammonium Lactate 12 % 1 application Exte rnally to affected areas of skin to feet except for between the toes Twice a day for 30 days Pending Test Test Name Order Date 77426-IZLZACJ NAIL, 6 OR MORE 08/29/2024 54763-FCFB SKIN LESIONS, OVER 4 08/29/20 24 Next Appt Details Follow Up: prn, Reason: Procedure Notes * Category Sub-Category Detail Notes Debride Nail 6-10 Nail debridement Performance o f this nail treatment by a nonprofessional would put this patients foot and overall health at risk. Therefore, nail debridement was performed extensively to reduce/remove overall nail length, girth, thickness, subungual debris, and necrotic tissue, by manual and/or electrical means through the use of a nail nipper and/or dremel-type refractory grinder operator, to a more viable healthy nail plate or bed tissue 6-10. Silver nitrate used for any petechial bleeding as necessary. Definitive antifungal treatment options have been reviewed and discussed with the patient. The patient chooses, no pharmaceutical tx - 13579 Keratoma Treatment Parring or Cutting o f Benign Hyperkeratotic Lesion(s) (-57) More than 4 Lesions - The Benign hyperkeratotic lesions, as described above were pared, and/or cut utilizing a sterile 15 blade, tissue nippers, and/or dremel - 78382 , Q8 Progress Notes * Stanley CH EDOB:[birth year] (74 yo M)Acc No.[id number]:08/29/2024 Progress Note Patient:?Stanley Ch Provider:?Kb Marti DPM :1950???Age:74 Y???Sex:Male Darrick e:08/29/2024 Address:[address] [place] [id number] Pcp:Berenice Mix MD Subjective: * Chief Complaints: * ???At Risk FootcarePainful N ail(s) aggravated by shoes and causing difficulty standing/walkingSkin problem(s) * HPI: ???At Risk footcare:?Pt States Last PCP Visit:?Date?04/20/2024 ???Skin problems:?Nature:?dryness , scaling.?Location:?B/L .?Duration:?several days.?Course:?worse.? * ROS:?General/Constitutional:?Nausea?denies.?Vomiting?denies.?Hunger Thirst?denies.?Loss appetite?denies.?Chills?denies.?Fatigue?denies.?Fever?denies.?Night Sweats?denies.?Unexplained weight loss?denies.?Unexplained weight gain?denies.?HEENTM:?Dentures?denies.?Dizziness?denies.?Glasses/contacts?admits.?Retinopathy?de nies.?Blurred/double vision?denies.?TMJ?denies.?Discharge/drainage?denies.?Implants?denies.?Sore throat?denies.?Dental implants?denies.?Hard of hearing ?denies.?Difficulty chewing/swallowing/speaking?denies.?Nose bleeds?denies.?Sore mouth?denies.?Respiratory:?On Oxygen?denies.?Pneumonia/pleurisy?denies.?Bronchitis?denies.?Emphysema?denies.?C oughing?denies.?Cough blood?denies.?Shortness of breath?denies.?Wheezing?denies.?Cardiovascular:?Pacemaker?denies.?MVP?denies.?WPW?denies.?CHF?denies.?Heart attack?denies.?Septal defect?denies.?Rapid beat?denies.?Chest pain ?denies.?Atrial Fib.?denies.?Murmur/Palpitations?denies.?Gastrointestinal:?Hemorrhoids?denies.?Stomach/Abdominal pain?denies.?Dark blood stool?denies.?Irritable bowel ?denies.?Constipation?denies.?Diarrhea?denies.?Hematology:?Swelling?admits.?Clots?denies.?Varicose Veins?denies.?Bruising?denies.?Bleeding problem?denies.?Genitourinary:?Blood urine?denies.?Frequent/Painfu/urination/bladder control?denies.?Kidney stones?denies.?Infection (UTI)?denies.?Nephropathy?denies.?sex trans dis (STD)?denies.?Prostate?denies.?Musculoskeletal:?Hammertoes?admits.?Bunions?denies.?Back Pain?admits.?Muscle Cramps/ Resting?denies.?Muscle cramps / walking?admits.?Generalized aches and pains?admits.?Weakness?denies.?Integ.:?Schaeffer?denies.?Scars?denies.?Corns/calluses?admits.?Ingrown nails?admits.?Painful nails?admits.?Open Sores?denies.?Rashes?denies.?Neurologic:?Difficulty sleeping?denies.?Brain disorder?denies.?Numbness?denies.?Balance trouble?admits.?Confusion?admits.?Fainting/blackouts?denies.?Tingling?denies.?Tr emors?denies.? * Medical History:? * Surgical History:?trans-radi al Breast Stents * Hospitalization/Major Diagno stic Procedure:?Denies Past Hospitalization * Family History:?Mother: dece ased, diagnosed with Diabetic - NIDDM, Unspecified essential hypertension.?Father: , diagnosed with Other malignant neoplasm of unspecified site.?Spouse: alive.? * Social History:?Tobacco Use:?Tobacco Use/Smoking?Are you a:?former smoker ?Additional Findings: Tobacco Non-User?Current non-smoker ?Tobacco use other than smoking?Are you an other tobacco user??No ???Drugs/Alcohol:?Drugs?Have you used drugs other than those for medical reasons in the past 12 months??No ?Alcohol Screen?Did you have a drink containing alcohol in the past year??Yes ?Points?0 ?Interpretation?Negative ???Miscellaneous:?Caffeine: yes, frequency:, 1-2 cups per day. ?no Children. ?Marital status: . ?Occupation: Retired. * Medications:?TakingamLODIPin e Besylate 10 MG Tablet Oral Donepezil HCl 10 MG Tablet Oral Farxiga 10 MG Tablet TAKE 1 TABLET (10 MG) ORALLY DAILY Oral Losartan Potassium 50 MG Tablet Oral Levothyroxine Sodium 75 MCG Tablet Oral Metoprolol Succinate ER 100 MG Tablet Extended Release 24 Hour Oral oxyBUTYnin Chloride ER 10 MG Tablet Extended Release 24 Hour Oral prednisoLONE 5 MG Tablet 1 tablet in the morning with food or milk Orally Once a dayRosuvastatin Calcium 40 MG Tablet Oral Sertraline HCl 50 MG Tablet Oral Trulicity 3 MG/0.5ML Solution Pen-injector INJECT 3 MG (0.5 ML) SUBCUTANEOUSLY EVERY WEEK Subcutaneous Extra Depth Orthopedic Shoes, (1) Pair With (3) Pair Custom Heat Molded Multidensity Innersoles . Dx: NIDDM/PVD(E11.51), Hammertoe Foot Deformity(M20.41,M20.42), Preulcerative Skin Lesion(s)(L85.1) Wear DailyTaking amLODIPine Besylate 10 MG Tablet Oral Taking Donepezil HCl 10 MG Tablet Oral Taking Farxiga 10 MG Tablet TAKE 1 TABLET (10 MG) ORALLY DAILY Oral Taking Losartan Potassium 50 MG Tablet Oral Taking Levothyroxine Sodium 75 MCG Tablet Oral Taking Metoprolol Succinate ER 100 MG Tablet Extended Release 24 Hour Oral Taking oxyBUTYnin Chloride ER 10 MG Tablet Extended Release 24 Hour Oral Taking prednisoLONE 5 MG Tablet 1 tablet in the morning with food or milk Orally Once a dayTaking Rosuvastatin Calcium 40 MG Tablet Oral Taking Sertraline HCl 50 MG Tablet Oral Taking Trulicity 3 MG/0.5ML Solution Pen-injector INJECT 3 MG (0.5 ML) SUBCUTANEOUSLY EVERY WEEK Subcutaneous Taking Extra Depth Orthopedic Shoes, (1) Pair With (3) Pair Custom Heat Molded Multidensity Innersoles . Dx: NIDDM/PVD(E11.51), Hammertoe Foot Deformity(M20.41,M20.42), Preulcerative Skin Lesion(s)(L85.1) Wear DailyNot-Taking/PRNMyrbetriq 50 MG Tablet Extended Release 24 Hour Oral Testosterone Cypionate 200 MG/ML Solution INJECT 1.5 ML (300 MG TOTAL) INTO THE SHOULDER, THIGH, OR BUTTOCKS MUSCLE DIRECTED EVERY 21 DAYS. Intramuscular Medication List reviewed and reconciled with the patientNot-Taking/PRN Myrbetriq 50 MG Tablet Extended Release 24 Hour Oral Not-Taking/PRN Testosterone Cypionate 200 MG/ML Solution INJECT 1.5 ML (300 MG TOTAL) INTO THE SHOULDER, THIGH, OR BUTTOCKS MUSCLE DIRECTED EVERY 21 DAYS. Intramuscular Medication List reviewed and reconciled with the patient * Allergies:?N.K.D.A.yes[Aller gies Verified] Objective: * Vitals:?Wt:330, BMI:42.37, S hoe size:12W, BS:227, Ht-cm: 187.96 cm, Wt-k.69 kg. * Examination: ???Vascular: ?DP PULSES(B):?1/4, B/L.?PT PULSES(B):? 0/4, B/L.?CAPILLARY FILL TIME:? delayed, all digits, B/L.?TROPHIC CONDITION-TEXTURE/ELASTICITY/TURGOR/HAIR GROWTH(B):? decreased, with sparse to absent hair growth, B/L.?TEMPERTURE GRADIENT(C):? decreased, cool to cool, proximal to distal, B/L.?PIGMENTATION:?rubrous, B/L.?EDEMA(C):?3/4 , pitting , without aching pain , Leg(s) , Ankle(s) , Foot , B/L.?CLAUDICATION(C):?denies, B/L.?REST PAIN:?denies, B/L.?Nails: ?NAILS are:?Elongated, overgrown, dystrophic, lytic, greater than 3mm thick, discolored and friable with crumbly malodorous subungual debris, with pain on palpation , 1-5 Left foot , T5 , T6 , T7 , T9.?Dermatologic: ?SKIN FINDINGS:?Skin exam reveals Keratotic lesion(s) located at , SUB MTH (s), 1, B/L, SUB MTH (s) , 5 , B/L , Heel(s) , B/L , Skin shows sign(s) of, dryness, scaling, in a stocking fashion, no fissure(s) present, B/L.? Assessment: * Assessment: 1.?Type 2 diabetes mellitus with diabetic peripheral angiopathy without gangrene - E11.51, Q7(A), Q8(2B), Q9(1B,2C)?2.?Tinea unguium - B35.1?3.?Pain in right toe(s) - M79.674 4.?Pain in left toe(s) - M79.675?5.?Xerosis of skin - L85.3, Acute problem, Uncomplicated (3),Rx Management (4)? Plan: * Treatment: 2.?Tinea unguium?Procedure: 07409-PVCOIWZ NAIL, 6 OR MORE 3.?Xerosis of skin? Start Ammonium Lactate Cream, 12 %, 1 application, Externally to affected areas of skin to feet except for between the toes, Twice a day, 30 days, 140, Refills 2.?? * Procedures:?Debride Nail 6-10:?Nail debridement?Performance of this nail treatment by a nonprofessional would put this patients foot and overall health at risk. Therefore, nail debridement was performed extensively to reduce/remove overall nail length, girth, thickness, subungual debris, and necrotic tissue, by manual and/or electrical means through the use of a nail nipper and/or dremel-type refractory grinder operator, to a more viable healthy nail plate or bed tissue 6-10. Silver nitrate used for any petechial bleeding as necessary. Definitive antifungal treatment options have been reviewed and discussed with the patient. The patient chooses, no pharmaceutical tx - 54762.?Keratoma Treatment:?Parring or Cutting of Benign Hyperkeratotic Lesion(s)?(-57) More than 4 Lesions - The Benign hyperkeratotic lesions, as described above were pared, and/or cut utilizing a sterile 15 blade, tissue nippers, and/or dremel - 97231 , Q8.? * Procedure Codes:?43504 DEBRI DE NAIL, 6 OR MORE, Modifiers: XS 81384 TRIM SKIN LESIONS, OVER 4, Modifiers: XS , Q8 * Preventive Medicine:? ??Counseling:?Discussion:?-13: Office or other outpatient visit for the evaluation and management of an established patient, which required a medically appropriate history and/or examination and LOW level of DECISION MAKING for: 1 STABLE ACUTE UNCOMPLICATED PROBLEM, 2 OR MORE MINOR PROBLEMS, OR 1 STABLE CHRONIC PROBLEM, THAT POSE(S) A LOW RISK FOR MORBIDITY/MORTALITY. The visit on the day of the encounter encompassed interpreting the data and educating the patient as to the nature of their condition, treatment options available according to their individual PMH, meds, allergies, and overall health/living conditions, as well as any potential risks or complications that may occur from a failure to adhere to, and participate in, the recommended course of therapy. The discussion included a complete verbal, and/or written explanation of the examination results, any x-rays taken, the proposed diagnosis, and outline of the treatment plan. A schedule for future care needs was also explained. The patient verbalized an understanding of the instructions at this time and agreed to be an active participant in their treatment. If the patient should think of any questions or concerns after the visit, I have encouraged the patient to call the office.?Xerosis:?The patient was counseled on the diagnosis, potential etiologies, and treatment options for their skin condition. We discussed the risks and benefits of each option from performing no treatment, to utilizing OTC topical skin creams/ointments, to utilizing prescription topical creams/ointments, to utilizing customized compounded topical medications and use of nocturnal occlusion with any/all previously detailed therapies. We discussed the advantages and disadvantages of each possible treatment and importance for adherence to all the recommended therapies for optimum success and avoid potential complications such as open sore/infection/possible hospitalization. We discussed the potential effectiveness of each topical preparation as well as each ones possible side effects and/or patient medication interactions. Patient questions re: use, dosage, successful outcomes, and application consistency were reviewed and the patient verbalized that all answers were clearly understood. The patient has decided to apply Rx skin creams to their feet save the interspaces while paying special attention to the heels. Such was sent to their pharmacy at the time of visit.? * Follow Up:?prn * Images: * Sign off status: Completed true * Provider:?Kb Marti DPM Date:?[address]/Kin/Jasvir on:?10/05/2024 01:11 PM EST History and Physical Notes * HPI (History of Present Illness) Category Sub-Category Detail Notes Category Not es Skin problems Nature: dryness , scaling Location: B/L Duration: several days Course: worse At Risk footcare Pt States Last PCP Visit: Date: 4 Examination Category Sub-Category Detail Notes Category Not es Dermatologic SKIN FINDINGS: Skin exam reveal s Keratotic lesion(s) located at , SUB MTH (s), 1, B/L, SUB MTH (s) , 5 , B/L , Heel(s) , B/L , Skin shows sign(s) of, dryness, scaling, in a stocking fashion, no fissure(s) present, B/L Vascular DP PULSES(B): 1/4, B/L PT PULSES(B): 0/4, B/L CAPILLARY FILL TIME: delayed, all digits , B/L TEMPERTURE GRADIENT(C): decreased, cool to cool, proximal to distal, B/L TROPHIC CONDITION-TEXTURE/ELASTICITY/TURGOR/HAIR GROWTH(B): decreased, with sparse to absent hair gr owth, B/L EDEMA(C): 3/4 , pitting , with out aching pain , Leg(s) , Ankle(s) , Foot , B/L CLAUDICATION(C): denies, B/L REST PAIN: denies, B/L PIGMENTATION: rubrous, B/L Nails NAILS are: Elongated, overg rown, dystrophic, lytic, greater than 3mm thick, discolored and friable with crumbly malodorous subungual debris, with pain on palpation , 1-5 Left foot , T5 , T6 , T7 , T9
--- OUTSIDE RECORDS SUMMARY | 2024-10-05 13:12 | XMS_ITS | Patient Health Record ---
Author Organization [facility] Radha nicky [place] Address [address] [place] [address] Care Team Providers Care Quotation Clerk Name Role Phone Berenice Mix MD Primary Care Provider Kb Andres Unavailable [phone] Allergies No Known Allergies Reason For Referral No Information Medications Medication SIG (Take, Route, Frequency, Duration) Notes Start Date End Date Status Ammonium Lactate 12 % 1 application Exte rnally to affected areas of skin to feet except for between the toes Twice a day for 30 days Active Losartan Potassium 50 MG Oral for 90 Days Active Farxiga 10 MG TAKE 1 TABLET (10 MG ) ORALLY DAILY Oral for 90 Days Active Testosterone Cypionate 200 MG/ML INJECT 1.5 [...] a day for 30 day(s) 10/12/2023 Active oxyBUTYnin Chloride ER 10 MG Oral for 90 Days Active Metoprolol Succinate ER 100 MG Oral for 90 Days Active Levothyroxine Sodium 75 MCG Oral for 84 Days Active Social History Tobacco Use: Social History [...] Are you an other tobacco user? No Problems Problem Type SNOMED Code ICD Code Onset Dates Problem Status W/U Status Risk Notes Problem Acquired hammer toe of right foot (0949879038651 105) Other hammer toe(s) (acquired), right foot (M20.41) Active confirmed Problem Type 2 diabetes mellitus with peripheral angiopathy (207427105) Type 2 diabetes mellitus with diabetic peripheral angiopathy without gangrene (E11.51) Active confirmed Q7(A), Q8(2B), Q9(1B,2C) Problem Acquired hammer toe of left foot (8240712107501 103) Other hammer toe(s) (acquired), left foot (M20.42) Active confirmed Vital Signs Height 6ft 2 in in 05/30/2024 Weight 330 lbs 08/29/2024 BMI 42.37 kg/m2 08/29/2024 Procedures Procedure Date Ordered Date Performed Result Body Sit e 31390-ZFIIWVV NAIL, 6 OR MORE 12/21/2023 N/A 50808-HHVS SKIN LESIONS, 2 TO 4 12/21/2023 N/A 51063-XSHMNGN NAIL, 6 OR MORE 05/30/2024 N/A 73565-Gjckuenk Plate 05/30/2024 N/A 72251-RCZV SKIN LESIONS, OVER 4 05/30/2024 N/A 68799-GNGCQNB NAIL, 6 OR MORE 08/29/2024 N/A 78393-BUSH SKIN LESIONS, OVER 4 08/29/2024 N/A Encounters Encounter Location Date Provider Diagnosis [facility] [address] [address] 12/21/2023 Kb Marti Type 2 diabetes mellitus with diabetic peripheral angiopathy without gangrene E11.51 ; Tinea unguium B35.1 ; Pain in right toe(s) M79.674 ; Pain in left toe(s) M79.675 ; Other hammer toe(s) (acquired), left foot M20.42 and Other hammer toe(s) (acquired), right foot M20.[address] [address] 05/30/2024 Kb Marti Type 2 diabetes mellitus with diabetic peripheral angiopathy without gangrene E11.51 ; Tinea unguium B35.1 ; Pain in right toe(s) M79.674 ; Pain in left toe(s) M79.675 ; Other hammer toe(s) (acquired), left foot M20.42 ; Other hammer toe(s) (acquired), right foot M20.41 and Ingrown nail L60.[address] [address] 08/29/2024 Kb Marti Type 2 diabetes mellitus with diabetic peripheral angiopathy without gangrene E11.51 ; Tinea unguium B35.1 ; Pain in right toe(s) M79.674 ; Pain in left toe(s) M79.675 and Xerosis of skin L85.[address] [address] 10/12/2023 Kb Marti [address] [address] 08/29/2024 Kb Marti Assessments Encounter Date Diagnosis (ICD Code) Assessment Notes Treatment Notes Treatment Clinical Notes Section Notes 12/21/2023 Type 2 diabetes mellitus with diabetic peripheral angiopathy without gangrene (ICD-10 - E11.51) 05/30/2024 Type 2 diabetes mellitus with diabetic peripheral angiopathy without gangrene (ICD-10 - E11.51) 08/29/2024 Type 2 diabetes mellitus with diabetic peripheral angiopathy without gangrene (ICD-10 - E11.51) Q7(A), Q8(2B), Q9(1B,2C) 08/29/2024 Tinea unguium (ICD-10 - B35.1) 08/29/2024 Pain in right toe(s) (ICD-10 - M79.674) 05/30/2024 Tinea unguium (ICD-10 - B35.1) 12/21/2023 Tinea unguium (ICD-10 - B35.1) 12/21/2023 Pain in right toe(s) (ICD-10 - M79.674) 05/30/2024 Pain in right toe(s) (ICD-10 - M79.674) 08/29/2024 Pain in left toe(s) (ICD-10 - M79.675) 08/29/2024 Xerosis of skin (ICD-10 - L85.3) 05/30/2024 Pain in left toe(s) (ICD-10 - M79.675) 12/21/2023 Pain in left toe(s) (ICD-10 - M79.675) 12/21/2023 Other hammer toe(s) (acquired), left foot (ICD-10 - M20.42) 05/30/2024 Other hammer toe(s) (acquired), left foot (ICD-10 - M20.42) 05/30/2024 Other hammer toe(s) (acquired), right foot (ICD-10 - M20.41) Patient Educated with: DIABETIC FOOT CARE INSTRUCTIONS.p df (DIABETIC FOOT CARE INSTRUCTIONS.p df) 05/30/2024 Ingrown nail (ICD-10 - L60.0) 12/21/2023 Other hammer toe(s) (acquired), right foot (ICD-10 - M20.41) Patient Educated with: DIABETIC FOOT CARE INSTRUCTIONS.p df (DIABETIC FOOT CARE INSTRUCTIONS.p df) Plan Of Treatment Pending Test Test Name Order Date 19154-BGKVLEL NAIL, 6 OR MORE 12/21/2023 28720-HZZZLFI NAIL, 6 OR MORE 05/30/2024 60087-HEKOXRR NAIL, 6 OR MORE 08/29/2024 58072-Jnixuggk Plate 05/30/2024 43409-RUUV SKIN LESIONS, OVER 4 05/30/20 24 49172-MLSG SKIN LESIONS, OVER 4 08/29/20 24 64296-GGOA SKIN LESIONS, 2 TO 4 12/21/19 24 Insurance Providers Payer Name Payer Address Payer Phone Subscriber Number Group Number Insured Name Patient Relationship to Insured Coverage Start Date Coverage End Date [facility] ([facility] [address] [place] [address] [phone] [id number] A[address] Burton Spouse - patient is the spouse of the insured Medical (General) History Medical History History ICD Code Anxiety Back,Hip,and Knee pain Cancer Dementia Diabetic High blood pressure Kidney disease Poor circulation Measles Mumps Chicken pox Surgical History Surgery Date(Month/Year) trans-radial Breast Stents
--- OUTSIDE RECORDS SUMMARY | 2024-10-05 13:12 | XMS_ITS ---
[facility] [place] Address [address] [place] [address] Care Team Providers Care Roll Bucker Name Role Phone Berenice Mix MD Primary Care Provider Kb Andres Unavailable [phone] Allergies No Known Allergies REASON FOR VISIT At Risk Footcare, Painful Nail(s) aggrevated by shoes and causing difficulty standing/walking, Toe Irritation, Ingrown Nail Medications Medication SIG (Take, Route, Frequency, Duration) Notes Start Date End Date Status Farxiga 10 MG TAKE 1 TABLET (10 MG ) ORALLY DAILY Oral for 90 Days Active Donepezil HCl 10 MG Oral for 90 Days Active Trulicity 3 MG/0.5ML INJECT 3 MG (0.5 ML ) SUBCUTANEOUSLY EVERY WEEK Subcutaneous for 84 Days Active Extra Depth Orthopedic Shoes, (1) Pair With (3) Pair Custom Heat Molded Multidensity Innersoles Dx: NIDDM/PVD(E11.51), Hammertoe Foot Deformity(M20.41,M20.42) , Preulcerative Skin Lesion(s)(L85.1) Wear Daily for 365 days Active amLODIPine Besylate 10 MG Oral for 90 Days Active Testosterone Cypionate 200 MG/ML INJECT 1.5 ML (300 MG TOTAL) INTO THE SHOULDER, THIGH, OR BUTTOCKS MUSCLE DIRECTED EVERY 21 DAYS. Intramuscular for 21 Days Not-Taking oxyBUTYnin Chloride ER 10 MG Oral for 90 Days Active prednisoLONE 5 MG 1 tablet in the morn ing with food or milk Orally Once a day for 30 day(s) 10/12/2023 Active Sertraline HCl 50 MG Oral for 90 Days Active Rosuvastatin Calcium 40 MG Oral for 90 Days Active Losartan Potassium 50 MG Oral for 90 Days Active Myrbetriq 50 MG Oral for 90 Days Not-Taking Metoprolol Succinate ER 100 MG Oral for [...] an other tobacco user? No Vital Signs Height 6ft 2 in in 05/30/2024 Weight 330 lbs 05/30/2024 BMI 42.36 kg/m2 05/30/2024 Procedures Procedure Date Ordered Date Performed Result Body Sit e 34610-IDPPGLC NAIL, 6 OR MORE 05/30/2024 N/A 33086-Pldghgmq Plate 05/30/2024 N/A 00436-VXZO SKIN LESIONS, OVER 4 05/30/2024 N/A Encounters Encounter Location Date Provider Diagnosis [facility] [address] [address] 05/30/2024 Kb Marti Type 2 diabetes mellitus with diabetic peripheral angiopathy without gangrene E11.51 ; Tinea unguium B35.1 ; Pain in right toe(s) M79.674 ; Pain in left toe(s) M79.675 ; Other hammer toe(s) (acquired), left foot M20.42 ; Other hammer toe(s) (acquired), right foot M20.41 and Ingrown nail L60.0 Assessments Encounter Date Diagnosis (ICD Code) Assessment Notes Treatment Notes Treatment Clinical Notes Section Notes 05/30/2024 Type 2 diabetes mellitus with diabetic peripheral angiopathy without gangrene (ICD-10 - E11.51) 05/30/2024 Tinea unguium (ICD-10 - B35.1) 05/30/2024 Pain in right toe(s) (ICD-10 - M79.674) 05/30/2024 Pain in left toe(s) (ICD-10 - M79.675) 05/30/2024 Other hammer toe(s) (acquired), left foot (ICD-10 - M20.42) 05/30/2024 Other hammer toe(s) (acquired), right foot (ICD-10 - M20.41) Patient Educated with: DIABETIC FOOT CARE INSTRUCTIONS.p df (DIABETIC FOOT CARE INSTRUCTIONS.p df) 05/30/2024 Ingrown nail (ICD-10 - L60.0) Plan Of Treatment Medication Medication Name Sig Start Date Stop Date Notes Extra Depth Orthopedic Shoes , (1) Pair With (3) Pair Custom Heat Molded Multidensity Innersoles Dx: NIDDM/PVD(E11.51), Hammertoe Foot Deformity(M20.41,M20.42), Preulcerative Skin Lesion(s)(L85.1) Wear Daily for 365 days Treatment Notes Assessment Notes Other hammer toe(s) (acquired), right fo ot Patient Educated with: DIABETIC FOOT CARE INSTRUCTIONS.pdf (DIABETIC FOOT CARE INSTRUCTIONS.pdf) Pending Test Test Name Order Date 65586-JBIPRUD NAIL, 6 OR MORE 05/30/2024 59879-Khmkesuq Plate 05/30/2024 09908-LXUU SKIN LESIONS, OVER 4 05/30/20 24 Next Appt Details Follow Up: 3 Months, Reason: Procedure Notes * Category Sub-Category Detail Notes Nail Avulsion Procedure A fine sterile e levator was placed between the eponychium, nail fold, and nail plate to separate the structures. A sterile nail splitter, and/or sterile 316 blade, was then used to longitudinally section the nail along its entire length through the eponychium to the area under the nail fold. The offending portion of nail was from the nail bed with a rolling action and then removed with a hemostat. No underlying bone was identified. There was minimal bleeding as hemostasis was achieved through the temporary use of either a digital tourniquet or the aforementioned local with epinephrine. A bacitracin sterile dressing was applied. Local wound aftercare instructions were discussed and dispensed. The patient was informed of both conservative and future surgical procedures to prevent recurrence. Tylenol or Motrin was recommended for pain or discomfort (25793) , DIABETES: Pt was advised as to the risk of delayed or nonhealing due to diabetes. Pt is to call the office with any questions, concerns, or complications Anesthesia was accomplished TOP ICALLY with Lidocaine Hydrochloride Jelly 2 percent Location Lateral nail border , T5 Debride Nail 6-10 Nail debridement Nail debridem ent performed extensively to reduce/remove overall nail length, girth, thickness, subungual debris, and necrotic tissue, by manual and electrical means through the use of a nail nipper and/or dremel, to more viable healthy nail plate or bed tissue 6-10. Silver nitrate used for any petechial bleeding as necessary. Patient chooses, no pharmaceutical tx (85792) Keratoma Treatment Parring or Cutting o f Benign Hyperkeratotic Lesion(s) 68509 ( More than 4 Lesions ) - The Benign hyperkeratotic lesions, as described above were pared, and/or cut utilizing a sterile 15 blade, tissue nippers, and/or dremel , Q8 Progress Notes * ERASMOStanley BOCANEGRA EDOB:[birth year] (74 yo M)Acc No.[id number]:05/30/2024 Progress Note Patient:?Stanley Burton Provider:?Kb Marti DPM :1950???Age:74 Y???Sex:Male Darrick e:05/30/2024 Address:[address] [place] [id number] Pcp:Berenice Mix MD Subjective: * Chief Complaints: * ???At Risk FootcarePainful N ail(s) aggrevated by shoes and causing difficulty standing/walkingToe IrritationIngrown Nail * HPI: ???At Risk footcare:?Pt States Last PCP Visit:?Date?04/20/2024 ???Toe pain:?Location:?B/L feet.?Duration:?several years.?Course:?worse.?Aggravated by:?shoes, any pressure.?Treatments:?change in shoes.? * ROS:?General/Constitutional:?Nausea?denies.?Vomiting?denies.?Hunger Thirst?denies.?Loss appetite?denies.?Chills?denies.?Fatigue?denies.?Fever?denies.?Night Sweats?denies.?Unexplained weight loss?denies.?Unexplained weight gain?denies.?HEENTM:?Dentures?denies.?Dizziness?denies.?Glasses/contacts?denies.?Retinopathy?de nies.?Blurred/double vision?denies.?TMJ?denies.?Discharge/drainage?denies.?Implants?denies.?Sore throat?denies.?Dental implants?denies.?Hard of hearing ?denies.?Difficulty [...] al Breast Stents * Hospitalization/Major Diagno stic Procedure:?No Hospitalization History. * Family History:?Spouse: vandana blackman?Mother: diagnosed with Diabetic - NIDDM, Unspecified essential hypertension.?Father: diagnosed with Other malignant neoplasm of unspecified site.? * Social History:?Tobacco Use:?Tobacco Use/Smoking?Are you a:?former [...] patient * Allergies:?N.K.D.A.yes[Aller gies Verified] Objective: * Vitals:?Ht:6ft 2 in, Wt:330, BMI:42.36, Shoe size:12W, Ht-cm: 187.96 cm, Wt-k.69 kg. * Examination: ???Vascular: ?DP PULSES:?1/4, B/L.?PT PULSES:? 0/4, B/L.?CAPILLARY FILL TIME:? delayed, all digits, B/L.?SKIN TEMPERTURE GRADIENT OF THE LOWER EXTERMITIES:? decreased, cool to cool, proximal to distal, B/L.?HAIR GROWTH/TEXTURE/ELASTICITY/TURGOR:? decreased, B/L.?PIGMENTATION:?rubrous, B/L.?EDEMA:?3/4 , pitting , without aching pain , Leg(s) , Ankle(s) , Foot , B/L.?CLAUDICATION:?denies, B/L.?REST PAIN:?denies, B/L.?Nails: ?NAILS are:?Elongated, overgrown, dystrophic, lytic, greater than 3mm thick, discolored and friable with crumbly malodorous subungual debris, with pain on palpation , 1-5 Left foot , T5 , T6 , T7 , T9.?Ingrown Nail: ?INSPECTION:?Reveals nail incurvation, pain on palpation, groove hypertrophy , Lateral nail border , T5.?Dermatologic: ?SKIN FINDINGS:?Skin exam reveals Keratotic lesion(s) located at , SUB MTH (s), 1, B/L, SUB MTH (s) , 5 , B/L , Heel(s) , B/L.?Orthopedic: ?MUSCLE STRENGTH:?5/5 all groups in a symmetrical fashion, B/L.?FOOT MORPHOLOGY:?Pes Planus structure, (-) Charcot collapse/destruction noted at MTJ.?DIGITAL DEFORMITIES:?Digital contracture, PIPJ, 2-5 B/L, incompl-reducible to push-up test, no over, nor underlapping, with evidence of shoe producing skin irritation.?FOOTWEAR:?worn, non-supportive, shoe gear properties exacerbate patient's foot/toe deformity , shoe gear properties exacerbate patients foot/toe deformity.?Neurological: ?SENSORY:?Neurological exam reveals intact sensorium, pain sensation normal, vibration sensation intact, pinprick sensation is normal in the lower extremities, 5.07 monofilament test performed at plantar aspects of 5 varied sites per foot shows sensation, normal, B/L, Pt denies, anesthesia, burning, paresthesia, tingling, B/L.?Ophthalmology Referral: ?DIABETES EYE EXAM?General Examination: ?GENERAL APPEARANCE:?Reveals a pleasant, alert, well nourished, well- developed, well hydrated individual, who demonstrates proper attention to hygiene/body habitus, and is in no acute distress, Pt serves as own historian for office visit today.?ORIENTED:?person, place, and time.?FOOT EXAM:?Footwear Evaluation? Assessment: * Assessment: 1.?Type 2 diabetes mellitus with diabetic peripheral angiopathy without gangrene - E11.51?2.?Tinea unguium - B35.1?3.?Pain in right toe(s) - M79.674?4.?Pain in left toe(s) - M79.675?5.?Other hammer toe(s) (acquired), left foot - M20.42, Chronic problem, Worse (4),Rx Management (4)?6.?Ingrown nail - L60.0, Lateral nail border , T5?7.?Other hammer toe(s) (acquired), right foot - M20.41 (Primary), Chronic problem, Worse (4),Rx Management (4)? Plan: * Treatment: 2.?Type 2 diabetes mellitus with diabetic peripheral angiopathy without gangrene?Procedure: 09927-VUOU SKIN LESIONS, OVER 4 3.?Tinea unguium?Procedure: 88786-MMTDGQA NAIL, 6 OR MORE 4.?Ingrown nail?Procedure: 87609-Hruqciyl Plate * Procedures:?Debride Nail 6-10:?Nail debridement?Nail debridement performed extensively to reduce/remove overall nail length, girth, thickness, subungual debris, and necrotic tissue, by manual and electrical means through the use of a nail nipper and/or dremel, to more viable healthy nail plate or bed tissue 6-10. Silver nitrate used for any petechial bleeding as necessary. Patient chooses, no pharmaceutical tx (18277).?Keratoma Treatment:?Parring or Cutting of Benign Hyperkeratotic Lesion(s)?06375 ( More than 4 Lesions ) - The Benign hyperkeratotic lesions, as described above were pared, and/or cut utilizing a sterile 15 blade, tissue nippers, and/or dremel , Q8.?Nail Avulsion:?Location?Lateral nail border?,?T5.?Anesthesia?was accomplished TOPICALLY with Lidocaine Hydrochloride Jelly 2 percent.?Procedure?A fine sterile elevator was placed between the eponychium, nail fold, and nail plate to separate the structures. A sterile nail splitter, and/or sterile 316 blade, was then used to longitudinally section the nail along its entire length through the eponychium to the area under the nail fold. The offending portion of nail was from the nail bed with a rolling action and then removed with a hemostat. No underlying bone was identified. There was minimal bleeding as hemostasis was achieved through the temporary use of either a digital tourniquet or the aforementioned local with epinephrine. A bacitracin sterile dressing was applied. Local wound aftercare instructions were discussed and dispensed. The patient was informed of both conservative and future surgical procedures to prevent recurrence. Tylenol or Motrin was recommended for pain or discomfort (21702) , DIABETES: Pt was advised as to the risk of delayed or nonhealing due to diabetes. Pt is to call the office with any questions, concerns, or complications.? * Procedure Codes:?42005 Avuls ion Plate, Modifiers: XS , [id number] DEBRIDE NAIL, 6 OR MORE, Modifiers: XS 42299 TRIM SKIN LESIONS, OVER 4, Modifiers: XS , Q8 * Preventive Medicine:? ??Counseling:?Discussion:?-14: Office or other outpatient visit for the evaluation and management of an established patient, which required a medically appropriate history and/or examination and MODERATE level of DECISION MAKING for: 1 OR MORE CHRONIC PROBLEM(S) THATS WORSENING, 2 STABLE CHRONIC PROBLEMS, A NEWLY DIAGNOSED PROBLEM WITH UNCERTAIN PROGNOSIS, AN ACUTE COMPLICATED INJURY WITH MULTIPLE TREATMENT OPTIONS, OR AN ACUTE PROBLEM WITH ACCOMPANYING SYSTEMIC SYMPTOMS, THAT POSE(S) A MODERATE RISK OF MORBIDITY. THIS CONDITION MAY ALSO INCLUDE RX DRUG MANAGEMENT, OR A DECISON FOR MINOR SURGERY. The visit on the day of the [...] have encouraged the patient to call the office.?Digital Surgery:?Digital surgery was discussed with the patient, We elected to try conservative treatment at the present time, due to the patients medical history and increased asssociated post-operative risks.?Digital Treatment:?HT- I explained to the patient the possible etiologies of Hammertoes, including genetics/foot type/shoegear/activity level/exercise routine and the risks/benefits of all the different treatment options for their pain including: No treatment at all, Rest, Ice, New/supportive/wider/deeper Shoegear, Digital Padding/Strapping/Taping/Bracing/Gel protective sleeves, Foot/Ankle AFO Bracing, Stretching exercises, Deep Tissue Massage, Arch support/shoe inserts with splay metatarsal padding, and Custom orthoses. I insisted that any digital devices be removed daily and not worn overnight for safety. The patient is to carefully examine the toes daily for any skin irritation while using any splinting or padding device. The advantages and disadvantages of each option were discussed and the patients questions re: shoegear, padding, custom vs prefabricated inserts, activity level, and consistency in home treatment regimens for optimal success were answered to their verbally confirmed satisfaction.?Shoe Gear Counseling:?SHOE Rx - The patient was counseled in great detail on their muscoloskeletal foot and toe deformities which coincided with the dermatological presentations visualized on exam. We discussed how their deformities put the integrity of their feet at risk for potential pedal complications which makes the accomidative diabetic shoes and cutomizable inserts medically necessary. We discussed the different shoe and insert treatment types and options, as well as the important advantages for adhering to regularly wearing these accomidative devices daily. The patient was made aware of the fact that a failure to abide by these recommedations may be deleterious to their foot health as they are able to prevent many pedal complications such as skin irritation, skin ulceration, infection, and even loss of toe/foot/leg/or life. Time was also spent with the patient dispensing and discussing proper diabetic footcare techniques including daily skin moisturization, daily foot inspection for any interruption in skin integrity including open lesions, or sign of infection such as redness/malodor/drainage/swelling. Also discussed and recommended were procedures regarding daily shoe inspection for the presence of internal foreign bodies as well as any visualized irregular shoe or insert wear. Patient questions re: shoes, inserts, and self foot inspections were answered to their satisfaction as the patient verbally confirmed a full understanding of the above information. A Rx for Extra Depth Orthopedic Shoes with 3 pair of custom heat-molded inserts was dispensed.? ??Screening/Special Tests:?Fall Risk?Assessment:?Performed ?Plan of Care:?Documented ?Screening:?No falls in the past year Despite related balance issues ?FALLS: Screening for Future Fall Risk?Have you had any falls with injury in the past year??No * Follow Up:?3 Months * Images: * Sign off status: Completed true * Provider:?Kb Marti DPM Date:?[address]/Kin/Jasvir on:?10/05/2024 01:11 PM EST History and Physical Notes * HPI (History of Present Illness) Category Sub-Category Detail Notes Category Not es Toe pain Location: B/L feet Duration: several years Course: worse Aggravated by: shoes, any pressure Treatments: change in shoes At Risk footcare Pt States Last PCP Visit: Date: 4 Examination Category Sub-Category Detail Notes Category Not es Ingrown Nail INSPECTION: Reveals nail inc urvation, pain on palpation, groove hypertrophy , Lateral nail border , T5 Neurological SENSORY: Neurological exa m reveals intact sensorium, pain sensation normal, vibration sensation intact, pinprick sensation is normal in the lower extremities, 5.07 monofilament test performed at plantar aspects of 5 varied sites per foot shows sensation, normal, B/L, Pt denies, anesthesia, burning, paresthesia, tingling, B/L Dermatologic SKIN FINDINGS: Skin exam reveal s Keratotic lesion(s) located at , SUB MTH (s), 1, B/L, SUB MTH (s) , 5 , B/L , Heel(s) , B/L Orthopedic FOOT MORPHOLOGY: Pes Planus stru cture, (-) Charcot collapse/destruction noted at MTJ FOOTWEAR: worn, non-supportive , shoe gear properties exacerbate patient's foot/toe deformity , shoe gear properties exacerbate patients foot/toe deformity DIGITAL DEFORMITIES: Digital contracture , PIPJ, 2-5 B/L, incompl-reducible to push-up test, no over, nor underlapping, with evidence of shoe producing skin irritation MUSCLE STRENGTH: 5/5 all groups in a symmetrical fashion, B/L General Examination GENERAL APPEARANCE: Reveals a pleasant, alert, well nourished, well-developed, well hydrated individual, who demonstrates proper attention to hygiene/body habitus, and is in no acute distress, Pt serves as own historian for office visit today FOOT EXAM: Lower Extremity Neurological Exa m performed:: Yes ORIENTED: person, place, and t jammie Footwear Evaluation Footwear Evaluation performe d:: Yes Ophthalmology Referral DIABETES EYE EXAM Diabetic Retinopa thy Screening:: No Vascular DP PULSES(B): 1/4, B/L PT PULSES(B): 0/4, B/L CAPILLARY FILL TIME: delayed, all digits , B/L TEMPERTURE GRADIENT(C): decreased, cool to cool, proximal to distal, B/L TROPHIC CONDITION-TEXTURE/ELASTICITY/TURGOR/HAIR GROWTH(B): decreased, B/L EDEMA(C): 3/4 , pitting , with [...]
[2024-10-05 23:09] LABS: IgA 602 mg/dL (70-320); IgG 997 mg/dL (600-1540); IgM 81 mg/dL (50-300)
== END 2024-10-03 08:43 | disposition home or self-care (01) ==
LOC: HO.HMGCLDS 08:42
PROVIDERS: PCP Internal Medicine; Visit Provider Internal Medicine
DX: D64.9 Anemia, unspecified (principal)
CPT/HCPCS: 36415; 82607; 82746; 82784; 83540; 86334

== ENCOUNTER 2025-01-03 08:03 | Outpatient (REF) | payer MEDICARE, OTHER, SELFPAY ==
--- OUTSIDE RECORDS SUMMARY | 2025-01-03 08:29 | XMS_ITS | Clinical Summary ---
Author Organization [facility] Address [address] [place] [address] Care Team Providers Care Surveillance Operator Name Role Phone Berenice Mix Primary Care Provider [phone] Allergies Active Allergy Reactions Criticality Noted Date Comments Latex Itching 12/18/2023 Medications metoprolol succinate XL (TOPROL XL) 100 mg tablet Take 200 mg by mouth once a day. 07/22/20 22 Active rosuvastatin (CRESTOR) 40 mg tablet Take 40 mg by mouth daily. 01/18/20 22 Active sertraline (ZOLOFT) 25 mg tablet Take 50 mg by mouth. 07/05/20 22 Active losartan (COZAAR) 25 mg tablet Take 50 mg by mouth once a day. 07/10/20 22 Active Semglee,insuli n glarg-yfgn,Pen 100 unit/mL (3 mL) insulin pen 40 Units 2 times a day. 07/14/20 22 Active amLODIPine (NORVASC) 10 mg tablet Take 10 mg by mouth daily. 02/18/20 22 Active BD Luer-Madeleine Syringe 3 mL 20 gauge x 1 1/2 syringe USE FOR TESTOSTERONE INJECTIONS EVERY 3 WEEKS 9 each 11 05/22/20 23 Active Freestyle Lite test strips USE 1 STRIP TWICE A DAY TO TEST BLOOD SUGAR 05/31/20 23 Active Farxiga 10 mg SMARTSI Tablet(s) By Mouth Daily Active donepeziL (ARICEPT) 10 mg tablet Take 10 mg by mouth daily. 07/20/20 23 Active levothyroxine (SYNTHROID, LEVOTHROID) 75 mcg tablet TAKE 1 TABLET BY MOUTH EVERY DAY FOR 5 DAYS A WEEK, AND 2 TABS TWO DAYS A WEEK 08/17/20 23 Active vit A/vit C/vit E/zinc/copper (PRESERVISION AREDS ORAL) Take 3 tablets by mouth daily. Active acetaminophen (TYLENOL) 325 mg tablet Take 2 tablets (650 mg total) by mouth every 6 hours as needed for pain. 01/01/20 24 Active Gemtesa 75 mg tablet SMARTSI Tablet(s) By Mouth Daily 01/08/20 24 Active tamsulosin (FLOMAX) 0.4 mg capsule Take 2 capsules (0.8 mg total) by mouth once a day. 30 capsule 4 11:36 AM EDT 02/03/20 24 Active acetaminophen (TYLENOL) 325 mg tablet Take 2 tablets (650 mg total) by mouth every 6 hours as needed for pain. 30 tablet 4 11:36 AM EDT 02/03/20 24 Active oxybutynin XL (DITROPAN XL) 10 mg tablet Take 1 tablet (10 mg total) by mouth once a day. 90 tablet 3 06/08/20 24 025 Active Dexcom G7 Sensor device USE DIRECTED, CHANGE EVERY 10 DAYS 07/08/20 24 Active Ozempic 2 mg/dose (8 mg/3 mL) pen injector SMARTSI.25 Milliliter(s) SUB-Q Once a Week 10/10/20 24 Active Trulicity 3 mg/0.5 mL injection dose SMARTSI.5 Milliliter(s) SUB-Q Once a Week 06/22/20 23 025 Discontinued Active Problems Problem Noted Date Diagnosed Date Hypertension 08/25/2022 Hyperlipidemia 08/25/2022 Hypogonadism in male 08/25/2022 Nephrolithiasis 08/25/2022 Stage 2 chronic kidney disease 03/10/2022 Malignant neoplasm of prostate 04/08/2012 Overview (08/08/2022): Malignant tumor of prostate Malignant tumor of prostate Hypothyroidism 04/08/2012 Overview (08/08/2022): Hypothyroidism Hypothyroidism Diabetes mellitus 04/08/2012 Overview (08/08/2022): Diabetes mellitus Diabetes mellitus Encounters Date Type Department Care Team Description 12/12/2024 Fliiby Message [facility] [address] [place] [phone] Encoding Clerk: Dennys Collins MD Missed your call 12/08/2024 Fliiby Message [facility] [address] [place] [phone] Encoding Clerk: Dennys Collins MD Lab test results questions 12/06/2024 8:20 AM EST Follow-Up [facility] [address] [place] [phone] Encoding Clerk: Dennys Collins MD Stage 3b chronic kidney disease (HCC) (Primary Dx); Pre-transplant evaluation for CKD (chronic kidney disease); Primary hypertension; Nephrolithiasis from Last 3 Months Family History Medical History Relation Name Comments Prostate cancer Father Cancer Mother Relation Name Status Comments Father Mother Social History Tobacco Use Types Packs/Day Years Used Date Smoking Tobacco: Former Cigarettes 2 10 1 992 - 2001 Smokeless Tobacco: Never Alcohol Use Standard Drinks/Week Comments Not Currently 0 (1 standard drink = 0.6 oz pur e alcohol) Occasionally Sex and Gender Information Value Date Recorded Sex Assigned at Male 02/05/2023 2:56 PM EDT Legal Sex Male 8:15 AM EDT Gender Identity Male 08/11/2023 8:30 AM EDT Sexual Orientation Straight 02/05/2023 2: 56 PM EDT Occupation Industry Job Start Date Job End Date Retired Not on file Not on file Not on file Last Filed Vital Signs Vital Sign Reading Time Taken Comments Blood Pressure 135/79 12/06/2024 8:38 AM EST Pulse 78 12/06/2024 8:38 AM EST Temperature 36.6 ??C (97.8 ??F) 12/06/2024 8:38 AM ES T Respiratory Rate 18 02/03/2024 12:5 1 PM EDT Oxygen Saturation 99% 02/03/2024 12: 51 PM EDT Inhaled Oxygen Concentration - - Weight 150.6 kg (332 lb 0.2 oz) 12/06/2024 8:38 AM EST Height 188 cm (6' 2 ) 12/06/2024 8:38 AM EST Body Mass Index 42.63 12/06/2024 8:38 AM EST Plan of Treatment Upcoming Encounters Date Type Department Care Team (Late st Contact Info) Description 02/08/2025 10:15 AM EDT Follow-Up [facility] [address] [place] [phone] Encoding Clerk: Johnna Moss, DENY Lara [address] [place] [phone] 03/07/2025 9:20 AM EDT Follow-Up [facility] [address] [place] [phone] Encoding Clerk: Dennys Collins MD [address] [place] [phone] Health Maintenance Due Date Last Done Comments 25 Hydroxy / Vitamin D 1950 Cologuard 1950 Colon Cancer Screening 1950 Colonoscopy 1950 FOBT / Fit Test 1950 Hepatitis C Screening 1950 Phosphorus 1950 Sigmoidoscopy 1950 Medicare AWV 1952 RSV Vaccine (60+ years old and patients) (1 - Risk 60-74 years 1-dose series) 2011 Hemoglobin A1C 01/13/2023 07/16/2022, 03/27, 03/10/2022 Ophthalmology Exam 09/10/2023 09/10/2022 COVID-19 Vaccine (2023- season) 2024 08/03/2022, 03/25/2022, 07/28/2021, Additional history exists Alcohol/Substance Use Screening 10/26/2024 Depression Screening and Follow-Up 10/26/2024 Health Care Proxy Review 10/26/2024 AJ Team Products of Health Annual Screening 10/26/2024 Basic Metabolic Panel 04/05/2025 12/06/2024 , 12/01/2024, 07/19/2024, Additional history exists PTH 07/19/2025 07/19/2024 Hemoglobin 12/06/2025 12/06/2024, 06/27, 01/01/2024, Additional history exists Urine Microalbumin 12/06/2025 12/06/2024, 0 07/19/2024, 11/26/2022, Additional history exists DTaP,Tdap,and Td Vaccines (3 - Td or Tdap) 06/17/2031 06/17/2021, 04/13/2012 Zoster Vaccines Completed 02/21/2022, 07/02/2020 Abdominal Aortic Aneurysm (AAA) Screening Completed 01/01/2024, 01/01/2024, 08/31/2023, Additional history exists Influenza Vaccine Completed 08/27/2024, , 07/15/2022, Additional history exists Pneumococcal Vaccine: 50+ Years Completed 10/04/2024 Hepatitis B Vaccines Aged Out No long er eligible based on patient's age to complete this topic Medical Devices Implanted Type Area Optician Device Identifier Shelf Expiration Date Model / Serial / Lot Stent Ureteral Firm Hydroplus Coating 6fr 28cm Percuflex Plus - [id number] - [id number] Implanted:Qty: 1 on 02/03/2024 by Sophia Salazar MD at [facility] Stent Right: Ureter [employer] 03/08/2026 [id number] / [id number] / [id number] Explanted Type Area Optician Device Identifier Shelf Expiration Date Model / Serial / Lot Stent Ureteral Firm Hydroplus Coating 6fr 28cm Percuflex Plus - [id number] Implanted:Qty: 1 on 12/31/2023 by Ernesto Freedman MD at [facility] Explanted:Qty: 1 on 02/03/2024 by Sophia Salazar MD at [facility] Stent Right: Ureter [employer] 04/17/2026 [id number] / / [id number] Procedures * Due to [place] state law, this organization might not be sharing negative HIV tests. Procedure Name Priority Date/Time Associated Diagnosis Comments VITAMIN D, 25-OH (D2, D3), LC/MS/MS Routine 12/06/2024 10:29 AM EST Stage 3b chronic kidney disease (HCC) SEDIMENTATION RATE, AUTOMATED Today 12/06/2024 10:29 AM EST Stage 3b chronic kidney disease (HCC) CBC AUTO DIFFERENTIAL Today 12/06/2024 10:29 AM EST Stage 3b chronic kidney disease (HCC) IMMUNOFIXATION, SERUM Routine 12/06/2024 10:28 AM EST Stage 3b chronic kidney disease (HCC) PSA Today 12/06/2024 10:28 AM EST Stage 3b chronic kidney disease (HCC) PROTEIN ELECTROPHORESIS W/REFLEX TO IMMUNOFIXATION, SERUM Today 12/06/2024 10:28 AM EST Stage 3b chronic kidney disease (HCC) C-REACTIVE PROTEIN Today 12/06/2024 10 :28 AM EST Stage 3b chronic kidney disease (HCC) KAPPA & LAMBDA, FREE W/RATIO Today 12/06/2024 10:28 AM EST Stage 3b chronic kidney disease (HCC) COMPREHENSIVE METABOLIC PANEL Today 12/06/2024 10:28 AM EST Stage 3b chronic kidney disease (HCC) PHILLIPS TOP, URN Today 12/06/2024 10:20 AM EST Stage 3b chronic kidney disease (HCC) UA/CULTURE REFLEX Today 12/06/2024 10: 20 AM EST Stage 3b chronic kidney disease (HCC) URINALYSIS W/REFLEX TO MICROSCOPIC & CULTURE Today 12/06/2024 10:20 AM EST Stage 3b chronic kidney disease (HCC) MICROALBUMIN, RANDOM URINE WITH CREATININE Today 12/06/2024 10:20 AM EST Stage 3b chronic kidney disease (HCC) PTH, INTACT (WITHOUT CALCIUM) Routine 07/19/2024 10:25 AM EDT Stage 3b chronic kidney disease (HCC) CT ABDOMEN PELVIS WO CONTRAST Routine 01/01/2024 8:22 AM EST from Last 3 Months or Most Recently Relevant to Health Maintenance Results * Due to [place] state law, this organization might not be sharing negative HIV tests. * Vitamin D, 25-OH (D2, D3), LC/MS/MS (12/06/2024 10:29 AM EST) Vitamin D, 25-OH, Total 40 30 - 100 ng/mL 12/09/2024 10:35 AM EST [facility] (ALEXANDRU) Comment: Vitamin D, 25-Hydroxy reports concentrations of two common forms, 25-OHD2 and 25-OHD3. 25-OHD3 indicates both endogenous production and supplementation. 25-OHD2 is an indicator of exogenous sources such as diet or supplementation. ??Therapy is based on measurement of Total 25-OHD, with levels <20 ng/mL indicative of Vitamin D deficiency, while levels between 20 ng/mL and 30 ng/mL suggest insufficiency. Optimal levels are > or = 30 ng/mL. For additional information, please refer to http://education.[employer].DFMSim/faq/FSX097 (This link is being provided for informational/ educational purposes only.) Vitamin D, 25-OH, D3 40 ng/mL 12/09/2024 10:35 AM EST [facility] (ALEXANDRU) Comment: This test was developed and its analytical performance characteristics have been determined by [facility] [place], [place]. It has not been cleared or approved by the U.S. Food and Drug Administration. This assay has been validated pursuant to the CLIA regulations and is used for clinical purposes. Vitamin D, 25-OH, D2 <4 ng/mL 12/09/2024 10:35 AM EST MARIOL[facility] TOMLIN (ALEXANDRU) Comment: This test was developed and its analytical performance characteristics have been determined by [facility] [place], [place]. It has not been cleared or approved by the U.S. Food and Drug Administration. This assay has been validated pursuant to the CLIA regulations and is used for clinical purposes. Blood Structure of peripheral vein / Unknown Venipuncture / Unknown 12/06/2024 10:29 AM EST 12/06/2024 10:30 AM EST [facility] - 12/09/2024 10:35 AM EST [facility] Received Date: us Dennys Roberto MD LAB BLOOD ORDERABLES Final Re sult [facility] LUNA [address] [place] [address] [address] Floor, [place] [address], MARIOLA TOMLIN (ALEXANDRU) [address] [place] [address], [place] * (ABNORMAL) CBC Auto Differential (12/06/2024 10:29 AM EST) WBC 8.4 3.8 - 10.8 10*3/uL 12/06/2024 10:38 AM EST [facility] RBC 4.26 4.20 - 5.80 10*6/uL 12/06/2024 10:38 AM EST [facility] Hemoglobin 12.5(L) 13.2 - 17.1 g/dL 12/06/2024 10:38 AM EST [facility] Hematocrit 38.7 38.5 - 50.0 % 12/06/2024 10:38 AM EST [facility] MCV 90.8 80.0 - 100.0 fL 12/06/2024 10:38 AM EST [facility] MCH 29.3 27.0 - 33.0 pg 12/06/2024 10:38 AM EST [facility] MCHC 32.3 32.0 - 36.0 g/dL 12/06/2024 10:38 AM EST [facility] RDW 14.0 11.0 - 15.0 % 12/06/2024 10:38 AM EST [facility] Platelets 295 140 - 400 10*3/uL 12/06/2024 10:38 AM EST [facility] MPV 10.8 7.5 - 12.5 fL 12/06/2024 10:38 AM EST [facility] Neutrophil % 70.2 % 12/06/2024 10:38 AM EST [facility] Immature Grans % 0.9 0.0 - 0.9 % 12/06/2024 10:38 AM EST [facility] Lymphocyte % 15.7 % 12/06/2024 10:38 AM EST [facility] Monocyte % 8.1 % 12/06/2024 10:38 AM EST [facility] Eosinophil % 4.0 % 12/06/2024 10:38 AM EST [facility] Basophil % 1.1 % 12/06/2024 10:38 AM EST [facility] Neutrophil # 5.92 1.50 - 7.80 10*3/uL 12/06/2024 10:38 AM EST [facility] Immature Grans # 0.08(H) <=0.03 10*3/uL 12/06/2024 10:38 AM EST [facility] Lymphocyte # 1.30 0.85 - 3.90 10*3/uL 12/06/2024 10:38 AM EST [facility] Monocyte # 0.70 0.20 - 0.95 10*3/uL 12/06/2024 10:38 AM EST [facility] Eosinophil # 0.30 0.02 - 0.50 10*3/uL 12/06/2024 10:38 AM EST [facility] Basophil # 0.10 0.00 - 0.20 10*3/uL 12/06/2024 10:38 AM EST [facility] nRBC % 0.0 /100 WBCs 12/06/2024 10:38 AM EST [facility] nRBC # <0.01 <0.01 10*3/uL 12/06/2024 10:38 AM EST [facility] Blood Structure of peripheral vein / Unknown Venipuncture / Unknown 12/06/2024 10:29 AM EST 12/06/2024 10:31 AM EST Dennys Roberto MD LAB BLOOD ORDERABLES Final Re sult Performing Organization Address City/[facility]/ZIP Co de Phone Number [facility] [address] [place] [phone], * (ABNORMAL) Sedimentation Rate (12/06/2024 10:29 AM EST) [facility] Sed Rate 37(H) <20 mm/Hr mm/Hr 12/06/2024 10:50 AM EST [facility] Blood Structure of peripheral vein / Unknown Venipuncture / Unknown 12/06/2024 10:29 AM EST 12/06/2024 10:31 AM EST Dennys Roberto MD LAB BLOOD ORDERABLES Final Re sult [facility] [address] [place] [address], [place] * Immunofixation, Serum (12/06/2024 10:28 AM EST) [facility] Immunofixation, Serum, Interpretation See Comments 12/08/2024 3:[address] [facility] [facility] Comment: No monoclonal proteins detected. Blood Structure of peripheral vein / Unknown Venipuncture / Unknown 12/06/2024 10:28 AM EST 12/06/2024 10:31 AM EST Narrative [facility] - 12/08/2024 3:00 PM EST [facility] Received Date: Dennys Roberto MD LAB BLOOD ORDERABLES Final Re sult [facility] [address] [facility] [address]rd Floor, [place] [address], [facility] [address] [facility] [address]rd Floor, [place] [address], * (ABNORMAL) [employer] [place] & Lambda, Free w/Ratio (12/06/2024 10:28 AM EST) [facility] [employer] [place] Light Chain, Free, Serum 99.6(H) 3.3 - 19.4 mg/L 12/07/2024 11:25 AM EST [employer] Lambda Light Chain, Free, Serum 52.3(H) 5.7 - 26.3 mg/L 12/07/2024 11:[address] [facility] [place]/Lambda Light Chains Free With Ratio 1.90(H) 0.26 - 1.65 12/07/2024 11:[address] [facility] Comment: Free kappa/lambda ratio in serum of normal individuals is 0.26-1.65. Excess production of free kappa or lambda chains can alter this ratio. Monoclonal free light chains are found in serum of patients with multiple myeloma, Waldenstrom's macroglobulinemia, mu-heavy chain disease, primary amyloidosis, light chain deposition disease, monoclonal gammopathy of undetermined significance, and lymphoproliferative disorders. Measurement of free light chain concentration in serum is useful for diagnosis, prognosis, monitoring disease activity and following response to therapy of these disorders. Blood Structure of peripheral vein / Unknown 12/06/2024 10:28 AM EST 12/06/2024 10:30 AM EST Narrative [facility] - 12/07/2024 11:25 AM EST [facility] Received Date: us Dennys Roberto MD LAB BLOOD ORDERABLES Final Re sult [facility] LU[facility] [address] [facility] [address]rd Floor, [place] [address], [place] [phone] [facility] [address] [facility] [address]rd Floor, [place] [address], [place] [phone] * (ABNORMAL) Protein Electrophoresis w/Reflex to Immunofixation, Serum (12/06/2024 10:28 AM EST) Protein, Total 6.4 6.1 - 8.1 g/dL 12/08/2024 7:52 AM EST [facility] Albumin 3.6(L) 3.8 - 4.8 g/dL 12/08/2024 7:52 AM EST [facility] Alpha 1 Globulin 0.3 0.2 - 0.3 g/dL 12/08/2024 7:52 AM EST [facility] Alpha 2 Globulin 0.5 0.5 - 0.9 g/dL 12/08/2024 7:52 AM EST [facility] Beta 1 Globulin 0.5 0.4 - 0.6 g/dL 12/08/2024 7:52 AM EST [facility] [facility] Beta 2 Globulin 0.6(H) 0.2 - 0.5 g/dL 12/08/2024 7:52 AM EST [facility] Gamma Globulin 1.0 0.8 - 1.7 g/dL 12/08/2024 7:52 AM EST [facility] Abnormal Protein Band 1 See Comments NONE DETECTED g/dL 12/08/2024 7:[address] [facility] Comment: See below Interpretation See Comments 12/08/2024 7:[address] [facility] [facility] Comment: Electrophoretic studies reveal an isolated elevation of beta-2 globulins. This pattern is suggestive of acute inflammation; however, the presence of a monoclonal protein cannot be ruled out. Consider serum immunofixation to rule out monoclonal protein (if not already ordered). Blood Structure of peripheral vein / Unknown Venipuncture / Unknown 12/06/2024 10:28 AM EST 12/06/2024 10:31 AM EST Narrative [facility] - 12/08/2024 7:52 AM EST [facility] Received Date: Dennys Roberto MD LAB BLOOD ORDERABLES Final Re sult [facility] [address] [facility] [address]rd Floor, [place] [address], [place] [phone] [employer] [address] [facility] [address]rd Floor, [place] [address], [place] [phone] * CRP (C-Reactive Protein) (12/06/2024 10:28 AM EST) C Reactive Protein <3.0 <=9.9 mg/L 12/06/2024 11:07 AM EST [facility] Blood Structure of peripheral vein / Unknown Venipuncture / Unknown 12/06/2024 10:28 AM EST 12/06/2024 10:31 AM EST Dennys Roberto MD LAB BLOOD ORDERABLES Final Re sult Performing Organization Address City/[facility]/ZIP Co de Phone Number [facility] [address] [place] [phone], * PSA (12/06/2024 10:28 AM EST) PSA 0.03 <=4.00 ng/mL 12/06/2024 11:06 AM EST [facility] Comment: The total PSA value from this assay system is standardized against the WHO standard. ??The test result will be slightly lower (< 3 %) when compared to the equimolar-standardized total PSA([place]). ??Comparison of Serial PSA results should be interpreted with this fact in mind. ??PSA level, regardless of value should not be interpreted as absolute evidence of the presence or absence of disease. This test was performed using Lynne chemiluminescent method. ??Values obtained by different assay methods cannot be used interchangeably. Blood Structure of peripheral vein / Unknown Venipuncture / Unknown 12/06/2024 10:28 AM EST 12/06/2024 10:31 AM EST us Dennys Roberto MD LAB BLOOD ORDERABLES Final Re sult [facility] [address] [place] [address], * (ABNORMAL) Comprehensive Metabolic Panel (12/06/2024 10:28 AM EST) NA 142 135 - 145 mmol/L 12/06/2024 11:06 AM EST [facility] K 4.2 3.5 - 5.3 mmol/L 12/06/2024 11:06 AM EST [facility] Cl 107 98 - 107 mmol/L 12/06/2024 11:06 AM EST [facility] CO2 23 22 - 32 mmol/L 12/06/2024 11:06 AM EST [facility] Anion Gap 12 5 - 15 12/06/2024 11:06 AM EST [facility] Glucose 180(H) 65 - 99 mg/dL 12/06/2024 11:06 AM EST [facility] Creatinine 2.27(H) 0.60 - 1.30 mg/dL 12/06/2024 11:06 AM EST [facility] Calcium 9.5 8.6 - 10.5 mg/dL 12/06/2024 11:06 AM EST [facility] Total Protein 6.6 6.0 - 8.0 g/dL 12/06/2024 11:06 AM EST [facility] Albumin 3.8 3.5 - 5.2 g/dL 12/06/2024 11:06 AM EST [facility] Bilirubin, Total 0.7 0.2 - 1.2 mg/dL 12/06/2024 11:06 AM EST [facility] Alkaline Phosphatase 76 35 - 129 U/L 12/06/2024 11:06 AM EST [facility] AST 25 10 - 40 U/L 12/06/2024 11:06 AM EST [facility] ALT 21 10 - 40 U/L 12/06/2024 11:06 AM EST [facility] BUN 23 7 - 23 mg/dL 12/06/2024 11:06 AM EST [facility] eGFR 30(L) >=60 mL/min/1 .73m2 12/06/2024 11:06 AM EST [facility] Comment:The estimated glomer ular filtration rate (eGFR) is calculated using a new formula developed by the NKF-ASN task force to eliminate race-based correction factors. The new formula uses serum/plasma creatinine, age, and gender to determine eGFR. A value below 60mls/min might indicate kidney disease and will be flagged. For additional information, see Jo et al, Am J Kidney Dis. 2021;79(2):268- 288, A Unifying Approach for GFR estimation: Recommendations of the NKF-ASN Task Force on Reassessing the Inclusion of Race in Diagnosing Kidney Disease . Globulin, Total 2.8 2.1 - 4.2 g/dL 12/06/2024 11:06 AM EST [facility] A/G Ratio 1.4(L) 1.5 - 3.0 12/06/2024 11:06 AM EST [facility] Blood Structure of peripheral vein / Unknown Venipuncture / Unknown 12/06/2024 10:28 AM EST 12/06/2024 10:31 AM EST us Dennys Roberto MD LAB BLOOD ORDERABLES Final Re sult [facility] [address] [place] [phone], [place] * Phillips Top, Urine (12/06/2024 10:20 AM EST) Extra Tube Hold for add-ons. 12/06/2024 3:06 PM EST [facility] Comment:Auto resulted. Urine Urine specimen collection, clean catch / Unknown Non-Blood Collection / Unknown 12/06/2024 10:20 AM EST 12/06/2024 10:20 AM EST us Dennys Roberto MD LAB URINE ORDERABLES Final Re sult [facility] [address] [place] [address], [place] * (ABNORMAL) Urinalysis W/Reflex to Microscopic & Culture (12/06/2024 10:20 AM EST) Color, Urine Light Yellow Colorless, Light Yellow, Yellow, Dark Yellow 12/06/2024 10:32 AM EST [facility] Clarity, Urine Clear Clear 12/06/2024 10:32 AM EST [facility] Specific [place], Urine 1.022 1.005 - 1.030 12/06/2024 10:32 AM EST [facility] pH, Urine 6.0 4.6 - 8.0 12/06/2024 10:32 AM EST [facility] Protein, Urine 1+(A) Negative 12/06/2024 10:32 AM EST [facility] Glucose, Urine 3+(A) Negative 12/06/2024 10:32 AM EST [facility] Ketones, Urine Negative Negative 12/06/2024 10:32 AM EST [facility] Bilirubin, Urine Negative Negative 12/06/2024 10:32 AM EST [facility] Blood, Urine Negative Negative 12/06/2024 10:32 AM EST [facility] Nitrite, Urine Negative Negative 12/06/2024 10:32 AM EST [facility] Urobilinogen, Urine Normal Normal 12/06/2024 10:32 AM EST [facility] Leukocyte Esterase, Urine Negative Negative 12/06/2024 10:32 AM EST [facility] WBC, Urine 2 0 - 2 /HPF 12/06/2024 10:32 AM EST [facility] RBC, Urine <1 0 - 2 /HPF 12/06/2024 10:32 AM EST [facility] Hyaline Casts, Urine 0 0 - 2 /LPF 12/06/2024 10:32 AM EST [facility] Squamous Epithelial Cells, Urine <1 /HPF 12/06/2024 10:32 AM EST [facility] Bacteria, Urine None None /HPF /HPF 12/06/2024 10:32 AM EST [facility] Mucus, Urine Rare /LPF 12/06/2024 10:32 AM EST [facility] Urine Urine specimen collection, clean catch / Unknown Non-Blood Collection / Unknown 12/06/2024 10:20 AM EST 12/06/2024 10:20 AM EST us Dennys Roberto MD LAB URINE ORDERABLES Final Re sult [facility] [address] [place] [address], * (ABNORMAL) Microalbumin, Random Urine with Creatinine (12/06/2024 10:20 AM EST) Microalbumin, Urine 4.2 mg/dL 12/06/2024 10:56 AM EST [facility] Creatinine, Urine 74 22 - 328 mg/dL 12/06/2024 10:56 AM EST [facility] Microalb/Creat Ratio, Random Urine 56.8(H) <30.0 mcg/mgCr 12/06/2024 10:56 AM EST [facility] Comment: Microalbumin Reference Range: Normal ? <30 mcg/mg Creatinine Microalbuminuria ? 30-300 mcg/mg Creatinine Clinical Albuminuria >300 mcg/mg Creatinine Reference: ADA Guideline. Diabetes Care. 2004;27 (suppl 1) Urine Voided urine specimen / Unknown Non-Blood Collection / Unknown 12/06/2024 10:20 AM EST 12/06/2024 10:20 AM EST us Dennys Roberto MD LAB URINE ORDERABLES Final Re sult [facility] [address] [place] [address], * PTH, Intact (without Calcium) (07/19/2024 10:25 AM EDT) Parathyroid Hormone, Intact 44 16 - 77 pg/mL 07/19/2024 10:55 PM EDT [facility] Comment: Interpretive Guide ?Intact PTH ? Calcium ? ------- Normal Parathyroid ?Normal ? Normal Hypoparathyroidism ?Low or Low Normal ?Low Hyperparathyroidism ?? Primary ?Normal or High ? High ?? Secondary ?High ? Normal or Low ?? Tertiary ? High ? High Non-Parathyroid ?? Hypercalcemia ?Low or Low Normal ?High Blood Structure of peripheral vein / Unknown Venipuncture / Unknown 07/19/2024 10:25 AM EDT 07/19/2024 10:51 AM EDT Narrative MARIOLA LUNA - 07/19/2024 10:55 PM EDT [facility] Received Date: us Dennys Roberto MD LAB BLOOD ORDERABLES Final Re sult [facility] [address] [facility] [address], [place] [address], [place] [phone] [employer] [facility] [address], [place] [address], [place] [phone] * CT Abdomen Pelvis without Contrast (01/01/2024 8:22 AM EST) Anatomical Region Laterality Modality Body Computed Tomogra phy 01/01/2024 9:17 AM EST Impressions 01/01/2024 10:14 AM EST Residual stone seen within the right lower pole kidney. 9 mm and 12 mm respectively. If this radiology report contains a blank impression section, it is an incomplete radiology report. ??Please contact the interpreting radiologist or applicable radiology division as soon as possible to obtain the completed interpretation. ? Workstation ID: [id number] Up-to-date CT equipment and radiation dose reduction techniques were employed. CTDIvol: 8.7 mGy. DLP: 478 mGy-cm. Narrative 01/01/2024 10:14 AM EST EXAMINATION: CT ABDOMEN PELVIS WO CONTRAST INDICATION: Status post percutaneous nephrolithotripsy: Evaluate stone burden. TECHNIQUE: Images of the abdomen and pelvis were obtained without intravenous contrast, without oral contrast. Coronal and sagittal reformats were generated. COMPARISON: 08/31/2023 ?? FINDINGS: Lack of intravenous contrast decreases sensitivity for the detection of focal lesions and vascular pathology. LOWER THORAX: Volume loss at the lung bases. Coronary artery calcification. HEPATOBILIARY: Liver contour mildly nodular. Cholelithiasis gallbladder. SPLEEN: No splenomegaly. PANCREAS: Normal-appearing pancreas. ADRENAL GLANDS: No adrenal nodules. KIDNEYS/URETERS: Symmetric sizes of the kidneys. Right kidney: Residual right renal calculi noted, lower pole, 1.2 cm and renal pelvis 9 mm image 480 series 904. Double-J stent seen from the right collecting system to the bladder. No obvious stones along the stent. Right upper pole renal cyst 3.4 cm. Left kidney demonstrates mild senescent perinephric fat stranding. Lower pole renal cyst is noted, 2.1 cm. GI TRACT: Bowel loops are not thick-walled or dilated. No evidence for bowel obstruction. No inflammatory change. PERITONEUM/RETROPERITONEUM: No ascites, no free air. LYMPH NODES: No retroperitoneal lymphadenopathy. VESSELS: Atherosclerotic changes are seen within the abdominal aorta and bilateral iliac arteries. No aneurysm. PELVIC ORGANS/BLADDER: Urinary bladder is unremarkable. The double-J stent from the right kidney terminates at the left aspect of the urinary bladder on image 86 of series 901. Changes of prior radical prostatectomy noted. BONES AND SOFT TISSUES: Multilevel degenerative disc disease seen in the spine. Kyphosis at the focal lumbar junction. Resulting Agency Comment [id number] Procedure Note Irina Gomez MD - 01/01/2024 EXAMINATION: CT ABDOMEN PELVIS WO CONTRAST INDICATION: Status post percutaneous nephrolithotripsy: Evaluate stoneburden. TECHNIQUE: Images of the abdomen and pelvis were obtained withoutintravenous contrast, without oral contrast. Coronal and sagittalreformats were generated. COMPARISON: 08/31/2023 FINDINGS: Lack of intravenous contrast decreases sensitivity for thedetection of focal lesions and vascular pathology. LOWER THORAX: Volume loss at the lung bases. Coronary arterycalcification. HEPATOBILIARY: Liver contour mildly nodular. Cholelithiasis gallbladder. SPLEEN: No splenomegaly. PANCREAS: Normal-appearing pancreas. ADRENAL GLANDS: No adrenal nodules. KIDNEYS/URETERS: Symmetric sizes of the kidneys. Right kidney: Residual right renal calculi noted, lower pole, 1.2 cm andrenal pelvis 9 mm image 480 series 904. Double-J stent seen from the rightcollecting system to the bladder. No obvious stones along the stent. Rightupper pole renal cyst 3.4 cm. Left kidney demonstrates mild senescent perinephric fat stranding. Lowerpole renal cyst is noted, 2.1 cm. GI TRACT: Bowel loops are not thick-walled or dilated. No evidence forbowel obstruction. No inflammatory change. PERITONEUM/RETROPERITONEUM: No ascites, no free air. LYMPH NODES: No retroperitoneal lymphadenopathy. VESSELS: Atherosclerotic changes are seen within the abdominal aorta andbilateral iliac arteries. No aneurysm. PELVIC ORGANS/BLADDER: Urinary bladder is unremarkable. The double-J stentfrom the right kidney terminates at the left aspect of the urinary bladderon image 86 of series 901. Changes of prior radical prostatectomy noted. BONES AND SOFT TISSUES: Multilevel degenerative disc disease seen in thespine. Kyphosis at the focal lumbar junction. IMPRESSION: Residual stone seen within the right lower pole kidney. 9 mm and 12 mmrespectively. If this radiology report contains a blank impression section, it is anincomplete radiology report. Please contact the interpreting radiologistor applicable radiology division as soon as possible to obtain thecompleted interpretation. Workstation ID: [id number] Up-to-date CT equipment and radiation dose reduction techniques wereemployed. CTDIvol: 8.7 mGy. DLP: 478 mGy-cm. 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
--- OUTSIDE RECORDS SUMMARY | 2025-01-03 08:29 | XMS_ITS | Continuity of Care Document ---
Author Organization [facility] Adult Address [address] [place] [address]- Care Team Providers Care Wildlife Officer Name Role Phone Berenice Mix MD Primary [id number] Date(s): 08/20/24 - 12/18/[address] [address] Type: Pre Office Visit Allergies, Adverse Reactions, Alerts No Known Allergies Immunizations Given and Recorded Vaccine Date Status Refusal Reason influenza virus vaccine, inactivated 1 01/14/06 [facility] 1Result Comment: Lot #[id number] Exp 01/15/06 Medications amlodipine 10 mg oral tablet By Mouth, Daily, 0 Refills, Maintenance, 08/10/13 6:30:28 PM EDT, Tablet Start Date: 08/10/13 Status: Ordered Repeat number: 1 Aspirin Tablet 81 mg, By Mouth, Daily, Maintenance, 08/10/13 6:30:37 PM EDT Start Date: 08/10/13 Status: Ordered Repeat number: 1 Crestor 40 mg oral tablet 1 tablet = 40 mg, By Mouth, Daily, # 30 tablet, 0 Refills, Maintenance, 08/07/13 11:54:11 PM EDT, Tablet Start Date: 08/07/13 Status: Ordered Quantity: 30.0 Unit: tablet Repeat number: 1 ergocalciferol 48800 iu oral capsule 1 capsule = 50,000 International_Units, By Mouth, Every 7 days, # 13 capsule, 1 Refills, Maintenance, 08/10/13 5:43:34 PM EDT, Capsule, [id number] Start Date: 08/10/13 Status: Ordered Quantity: 13.0 Unit: capsule Repeat number: 2 levothyroxine 75 mcg (0.075 mg) oral tablet By Mouth, Daily, 0 Refills, Maintenance, 08/10/13 6:30:51 PM EDT, Tablet Start Date: 08/10/13 Status: Ordered Repeat number: 1 metoprolol 100 mg oral tablet, extended release By Mouth, Daily, 0 Refills, Maintenance, 08/10/13 6:31:01 PM EDT, XL Tablet Start Date: 08/10/13 Status: Ordered Repeat number: 1 Patient Care team information Care Team Personnel Name: Berenice Mix MD Position: [facility] Physician - Primary Care Member Role: PCP Address: [address] [place] [address] Telecom: Care Team Related Persons Name: DEANNA CH Name: LIZZETH CH Insurance Providers Guarantor name: ARLETTE Health Plan Information #: 1 Payer: [facility] Member Number: [id number] Policy Number: NA Group Number: [id number] Health Plan Information #: 2 Payer: [facility] Member Number: [id number] Policy Number: NA Group Number: NA
--- OUTSIDE RECORDS SUMMARY | 2025-01-03 08:29 | XMS_ITS | Referral Summary ---
Author Organization [facility] Address [address] [place] [address] Care Team Providers Care Environmental Compliance Manager Name Role Phone Berenice Mix Primary Care Provider [phone] Encounters Date Type Department Care Team Description 12/12/2024 [employer]t Message [facility] [address] [place] [phone] Accounting Director: Dennys Collins MD Missed your call 12/08/2024 [employer] Message [facility] [address] [place] [address] [phone] Accounting Director: Dennys Collins MD Lab test results questions 12/06/2024 8:20 AM EST Follow-Up [facility] [address] [place] [phone] Accounting Director: Dennys Collins MD Stage 3b chronic kidney disease (HCC) (Primary Dx); Pre-transplant evaluation for CKD (chronic kidney disease); Primary hypertension; Nephrolithiasis from Last 3 Months Allergies Active Allergy Reactions Criticality Noted Date Comments Latex Itching 12/18/2023 Medications metoprolol succinate XL (TOPROL XL) 100 mg tablet Take 200 mg by mouth once a day. 07/22/20 22 Active rosuvastatin (CRESTOR) 40 mg tablet Take 40 mg by mouth daily. 01/18/20 Active sertraline (ZOLOFT) 25 mg tablet Take 50 mg by mouth. 07/05/20 Active losartan (COZAAR) 25 mg tablet Take 50 mg by mouth once a day. 07/10/20 Active corrie Ritchie glarg-yfgn,Pen 100 unit/mL (3 mL) insulin pen 40 Units 2 times a day. 07/14/20 Active amLODIPine (NORVASC) 10 mg tablet Take [...] Take 10 mg by mouth daily. 07/20/20 Active levothyroxine (SYNTHROID, LEVOTHROID) 75 mcg tablet [...] 6 hours as needed for pain. 01/01/20 Active Gemtesa 75 mg tablet SMARTSI Tablet(s) [...] 90 tablet 3 06/08/20 24 025 Active KrowdPad G7 Sensor device USE DIRECTED, CHANGE EVERY [...] 04/08/2012 Overview (08/08/2022): Diabetes mellitus Diabetes mellitus Social History Tobacco Use Types Packs/Day Years [...] Info) Description 02/08/2025 10:15 AM EDT Follow-Up [facility] [address] [place] [phone] Accounting Director: Johnna Moss, DENY Lara [address] [place] [address] 03/07/2025 9:20 AM EDT Follow-Up [facility] [address] [place] [address]139 Accounting Director: Dennys Collins MD [address] [place] [phone] Medical Devices Implanted Type Area Lawn Sprinkler Installer Device Identifier Shelf Expiration Date Model / Serial / Lot Stent Ureteral Firm Hydroplus Coating 6fr 28cm Percuflex Plus - [id number] - [id number] Implanted:Qty: 1 on 02/03/2024 by Sophia Salazar MD at [facility] Stent Right: Ureter [employer] 03/08/2026 [id number] / [id number] / [id number] Explanted Type Area Lawn Sprinkler Installer Device Identifier Shelf Expiration Date Model / Serial / Lot Stent Ureteral Firm Hydroplus Coating 6fr 28cm Percuflex Plus - [id number] Implanted:Qty: 1 on 12/31/2023 by Ernesto Freedman MD at [facility] Explanted:Qty: 1 on 02/03/2024 by Sophia Salazar MD at [facility] Stent Right: Ureter [employer] 04/17/2026 [id number] / / [id number] Procedures * Due to [place] state law, this organization might not be [...] to Health Maintenance Results * Due to [place] state law, this organization might not be sharing negative HIV tests. * Vitamin D, 25-OH (D2, D3), LC/MS/MS (12/06/2024 10:29 AM EST) Vitamin D, 25-OH, Total 40 30 - 100 ng/mL 12/09/2024 10:35 AM EST [facility] SADA (ALEXANDRU) Comment: Vitamin D, 25-Hydroxy reports [...] ng/mL. For additional information, please refer to http://education.Eventful.Habitissimo/faq/JEJ116 (This link is being provided for informational/ educational purposes only.) Vitamin D, 25-OH, D3 40 ng/mL 12/09/2024 10:35 AM EST [facility] SADA (ALEXANDRU) Comment: This test was developed and its analytical performance characteristics have been determined by [employer], [place]. It has not been cleared or approved by the U.S. Food and Drug Administration. This assay has been validated pursuant to the CLIA regulations and is used for clinical purposes. Vitamin D, 25-OH, D2 <4 ng/mL 12/09/2024 10:35 AM EST [facility]ADA (GUZMAN) Comment: This test was developed and its analytical performance characteristics have been determined by [employer] [place], [place]. It has not been cleared or approved by the U.S. Food and Drug Administration. This assay has been validated pursuant to the CLIA regulations and is used for clinical purposes. Blood Structure of peripheral vein / Unknown Venipuncture / Unknown 12/06/2024 10:29 AM EST 12/06/2024 10:30 AM EST N[facility]ative [facility] 12/09/2024 10:35 AM EST [facility] Received Date: us Dennys Roberto MD LAB BLOOD ORDERABLES Final Re sult MARIOLA LUNA [address] [place] [address] [address]rd Floor, [place] [address], [place] [phone] [facility] SADA (GUZMAN) [address] [place] [address], [place] * (ABNORMAL) CBC Auto Differential (12/06/2024 10:29 AM EST) WBC 8.4 3.8 - 10.8 10*3/uL 12/06/2024 10:38 AM EST [facility] RBC 4.26 4.20 - 5.80 10*6/uL 12/06/2024 10:38 AM EST [facility] Hemoglobin 12.5(L) 13.2 - 17.1 g/dL 12/06/2024 10:38 AM EST [facility] Hematocrit 38.7 38.5 - 50.0 % 12/06/2024 10:38 AM EST [facility] MCV 90.8 80.0 - [...] - 0.95 10*3/uL 12/06/2024 10:38 AM EST [facility] Eosinophil # 0.30 0.02 - 0.50 10*3/uL 12/06/2024 10:38 AM EST [facility] Basophil # 0.10 0.00 - 0.20 10*3/uL 12/06/2024 10:38 AM EST [facility] nRBC % 0.0 /100 WBCs 12/06/2024 10:38 AM EST [facility] nRBC # <0.01 <0.01 10*3/uL 12/06/2024 10:38 AM EST [facility] Blood Structure of peripheral vein / Unknown Venipuncture / Unknown 12/06/2024 10:29 AM EST 12/06/2024 10:31 AM EST Dennys Roberto MD LAB BLOOD ORDERABLES Final Re sult Performing Organization Address City/[facility]/ZIP Co de Phone Number [facility] [address] [place] [address], [place] * (ABNORMAL) Sedimentation Rate (12/06/2024 10:29 AM EST) [facility] Sed Rate 37(H) <20 mm/Hr mm/Hr 12/06/2024 10:50 AM EST [facility] Blood Structure of peripheral vein / Unknown Venipuncture / Unknown 12/06/2024 10:29 AM EST 12/06/2024 10:31 AM EST Dennys Roberto MD LAB BLOOD ORDERABLES Final Re sult Performing Organization Address City/[facility]/ZIP Co de Phone Number [facility] [address] [place] [address], [place] * Immunofixation, Serum (12/06/2024 10:28 AM EST) [facility] Immunofixation, Serum, Interpretation See Comments 12/08/2024 3:00 PM EST [employer] Comment: No monoclonal proteins detected. Blood Structure of peripheral vein / Unknown Venipuncture / Unknown 12/06/2024 10:28 AM EST 12/06/2024 10:31 AM EST [facility] CH[facility]L - 12/08/2024 3:00 PM EST [facility] Received Date: Dennys Roberto MD LAB BLOOD ORDERABLES Final Re sult [facility] LUNA [address] [facility] 3rd Floor, [place] [address], [facility] [address] [facility] 3rd Floor, [place] [address], * (ABNORMAL) [place] & Lambda, Free w/Ratio (12/06/2024 10:28 AM EST) [place] Light Chain, Free, Serum 99.6(H) 3.3 - 19.4 mg/L 12/07/2024 11:25 AM EST [employer] Lambda Light Chain, Free, Serum 52.3(H) 5.7 - 26.3 mg/L 12/07/2024 11:25 AM EST [facility] South End/Lambda Light Chains Free With Ratio 1.90(H) 0.26 - 1.65 12/07/2024 11:25 AM [employer] Comment: Free kappa/lambda ratio in serum of [...] ORDERABLES Final Re sult MAR[facility]OLA LUNA [address] [facility] [address]rd Floor, [place] [address], [place] [phone] [facility] [address] [facility] 3rd Floor, [place] [address], [place] [phone] * (ABNORMAL) Protein Electrophoresis w/Reflex to Immunofixation, Serum (12/06/2024 10:28 AM EST) Protein, Total 6.4 6.1 - 8.1 g/dL 12/08/2024 7:52 AM EST [facility] Albumin 3.6(L) 3.8 - 4.8 g/dL 12/08/2024 7:52 AM EST [facility] [employer] [facility] Alpha 1 Globulin 0.3 0.2 - 0.3 g/dL 12/08/2024 7:52 AM EST [employer] [facility] Alpha 2 Globulin 0.5 0.5 - 0.9 g/dL 12/08/2024 7:52 AM EST [facility] Beta 1 Globulin 0.5 0.4 - 0.6 g/dL 12/08/2024 7:52 AM EST [employer] [facility] Beta 2 Globulin 0.6(H) 0.2 - 0.5 g/dL 12/08/2024 7:52 AM EST [facility] Gamma Globulin 1.0 0.8 - 1.7 g/dL 12/08/2024 7:52 AM EST [facility] Abnormal Protein Band 1 See Comments NONE DETECTED g/dL 12/08/2024 7:52 AM EST [facility] Comment: See below Interpretation See Comments 12/08/2024 7:52 AM [employer] Comment: Electrophoretic studies reveal an isolated elevation of beta-2 globulins. This pattern is suggestive of acute inflammation; however, the presence of a monoclonal protein cannot be ruled out. Consider serum immunofixation to rule out monoclonal protein (if not already ordered). Blood Structure of peripheral vein / Unknown Venipuncture / Unknown 12/06/2024 10:28 AM EST 12/06/2024 10:31 AM EST Narrative [facility] - 12/08/2024 7:52 AM EST [facility] Received Date: Dennys Roberto MD LAB BLOOD ORDERABLES Final Re sult [facility] [address] [facility] [address]rd Floor, [place] [address], [place] [phone] [employer] [facility] [address] [facility] 3rd Floor, [place] [address], [place] [phone] * CRP (C-Reactive Protein) (12/06/2024 10:28 AM EST) C Reactive Protein <3.0 <=9.9 mg/L 12/06/2024 11:07 AM EST [facility] Blood Structure of peripheral vein / Unknown Venipuncture / Unknown 12/06/2024 10:28 AM EST 12/06/2024 10:31 AM EST Dennys Roberto MD LAB BLOOD ORDERABLES Final Re sult [facility] [address] [place] [address], * PSA (12/06/2024 10:28 AM EST) PSA 0.03 <=4.00 ng/mL 12/06/2024 11:06 AM EST [facility] Comment: The total PSA value from this assay system is standardized against the WHO standard. ??The test result will be slightly lower (< 3 %) when compared to the equimolar-standardized total PSA([place]). ??Comparison of Serial PSA results should be [...] MD LAB BLOOD ORDERABLES Final Re sult [facility] [address] [place] [address], * (ABNORMAL) Comprehensive Metabolic Panel (12/06/2024 10:28 AM EST) NA 142 135 - 145 mmol/L 12/06/2024 11:06 AM EST [facility] K 4.2 3.5 - 5.3 mmol/L 12/06/2024 11:06 AM EST [facility] Cl 107 98 - 107 mmol/L 12/06/2024 11:06 AM EST [facility] CO2 23 22 - 32 mmol/L 12/06/2024 11:06 AM EST [facility] Anion Gap 12 5 - 15 12/06/2024 11:06 AM EST [facility] Glucose 180(H) 65 - 99 mg/dL 12/06/2024 11:06 AM EST [facility] Creatinine 2.27(H) 0.60 - 1.30 mg/dL 12/06/2024 11:06 AM EST [facility] Calcium 9.5 8.6 - 10.5 mg/dL 12/06/2024 11:06 AM EST [facility] Total Protein 6.6 6.0 - 8.0 g/dL 12/06/2024 11:06 AM EST [facility] Albumin 3.8 3.5 - 5.2 g/dL 12/06/2024 11:06 AM EST [facility] Bilirubin, Total 0.7 0.2 - 1.2 mg/dL 12/06/2024 11:06 AM EST [facility] Alkaline Phosphatase 76 35 - 129 U/L 12/06/2024 11:06 AM EST [facility] AST 25 10 - 40 U/L 12/06/2024 11:06 AM EST [facility] ALT 21 10 - 40 U/L 12/06/2024 11:06 AM EST [facility]ERVennsa TechnologiesOR [facility] BUN 23 7 - 23 mg/dL 12/06/2024 11:06 AM EST [facility]123[facility] eGFR 30(L) >=60 mL/min/1 .73m2 12/06/2024 11:06 AM EST [facility] Comment:The estimated glomer ular [...] - 4.2 g/dL 12/06/2024 11:06 AM EST [facility] CENTERHyperWeekNORWALK [facility] A/G Ratio 1.4(L) 1.5 - 3.0 12/06/2024 11:06 AM EST [facility]azarus Effect[facility] Blood Structure of peripheral vein / Unknown Venipuncture / Unknown 12/06/2024 10:28 AM EST 12/06/2024 10:31 AM EST us Dennys Roberto MD LAB BLOOD ORDERABLES Final Re sult [facility] [address] [place] [address], [place] * Phillips Top, Urine (12/06/2024 10:20 AM EST) Extra Tube Hold for add-ons. 12/06/2024 3:06 PM EST [facility] Comment:Auto resulted. Urine Urine specimen collection, clean catch / Unknown Non-Blood Collection / Unknown 12/06/2024 10:20 AM EST 12/06/2024 10:20 AM EST us Dennys Roberto MD LAB URINE ORDERABLES Final Re sult [facility] [address] [place] [address], [place] * (ABNORMAL) Urinalysis W/Reflex to Microscopic & Culture (12/06/2024 10:20 AM EST) Pathologist [facility] Color, Urine Light Yellow Colorless, Light Yellow, Yellow, Dark Yellow 12/06/2024 10:32 AM EST [facility] Clarity, Urine Clear Clear 12/06/2024 10:32 AM EST [facility] Specific Coleridge, Urine 1.022 1.005 - 1.030 12/06/2024 10:32 AM EST [facility] pH, Urine 6.0 4.6 - 8.0 12/06/2024 10:32 AM EST [facility] Protein, Urine 1+(A) Negative 12/06/2024 10:32 AM EST [facility] Glucose, Urine 3+(A) Negative 12/06/2024 10:32 AM EST [facility] Ketones, Urine Negative Negative 12/06/2024 10:32 AM EST [facility] Bilirubin, Urine Negative Negative 12/06/2024 10:32 AM EST [facility] Blood, Urine Negative Negative 12/06/2024 10:32 AM EST [facility] Nitrite, Urine Negative Negative 12/06/2024 10:32 AM EST [facility] Urobilinogen, Urine Normal Normal 12/06/2024 10:32 AM EST [facility] Leukocyte Esterase, Urine Negative Negative 12/06/2024 10:32 AM EST [facility] WBC, Urine 2 0 - 2 /HPF 12/06/2024 10:32 AM EST [facility] RBC, Urine <1 0 - 2 /HPF 12/06/2024 10:32 AM EST [facility] Hyaline Casts, Urine 0 0 - 2 /LPF 12/06/2024 10:32 AM EST [facility] Squamous Epithelial Cells, Urine <1 /HPF 12/06/2024 10:32 AM EST [facility] Bacteria, Urine None None /HPF /HPF 12/06/2024 10:32 AM EST [facility] Mucus, Urine Rare /LPF 12/06/2024 10:32 AM EST [facility] Urine Urine specimen collection, clean catch / Unknown Non-Blood Collection / Unknown 12/06/2024 10:20 AM EST 12/06/2024 10:20 AM EST us Dennys Roberto MD LAB URINE ORDERABLES Final Re sult [facility] [address] [place] [address], * (ABNORMAL) Microalbumin, Random Urine with Creatinine (12/06/2024 10:20 AM EST) Microalbumin, Urine 4.2 mg/dL 12/06/2024 10:56 AM EST [facility] Creatinine, Urine 74 22 - 328 mg/dL 12/06/2024 10:56 AM EST [facility] Microalb/Creat Ratio, Random Urine 56.8(H) <30.0 mcg/mgCr 12/06/2024 10:56 AM EST [facility] Comment: Microalbumin Reference Range: Normal ? <30 mcg/mg Creatinine Microalbuminuria ? 30-300 mcg/mg Creatinine Clinical Albuminuria >300 mcg/mg Creatinine Reference: ADA Guideline. Diabetes Care. 2004;27 (suppl 1) Urine Voided urine specimen / Unknown Non-Blood Collection / Unknown 12/06/2024 10:20 AM EST 12/06/2024 10:20 AM EST us Dennys Roberto MD LAB URINE ORDERABLES Final Re sult [facility] [address] [place] [address], * PTH, Intact (without Calcium) (07/19/2024 10:25 AM EDT) Parathyroid Hormone, Intact 44 16 - 77 pg/mL 07/19/2024 10:55 PM EDT [facility] Comment: Interpretive Guide ?Intact PTH ? Calcium [...] 07/19/2024 10:55 PM EDT [facility] Received Date: Dennys Roberto MD LAB BLOOD ORDERABLES Final Re sult [facility] LUNA [address] [facility] [address], [place] [address], [place] [phone] [facility] [address] [facility] 3[address], [place] [address], [place] [phone] * CT Abdomen Pelvis without Contrast (01/01/2024 [...] obtain the completed interpretation. ? Workstation ID: [id number] Up-to-date CT equipment and radiation dose reduction [...] the focal lumbar junction. Resulting Agency Comment [id number] Procedure Note Irina Gomez MD - 01/01/2024 [...] possible to obtain thecompleted interpretation. Workstation ID: [id number] Up-to-date CT equipment and radiation dose reduction techniques wereemployed. CTDIvol: 8.7 mGy. DLP: 478 mGy-cm. Ernesto Freedman MD IMG CT PROCEDURES Final Re sult from Last 3 Months or Most Recently Relevant to Health [place] [id number] [facility] MEDICARE Advance Directives Documents on File Type Date Recorded Patient Radiation Therapist Expl anation Advance Directive 07/25/2013 12:00 AM Adva nce Care Directives Advance Directive 07/13/2013 12:00 AM Adva nce Care Directives Advance Directive 07/07/2013 12:00 AM sf M edical Dec Making (Adv.Dir) * Presumed Full Code (Latest Code Status on File) Date Activated Date Inactivated Comments 02/03/2024 6:12 AM 02/03/2024 3:22 PM * Presumed Full Code Date Activated Date Inactivated Comments 12/31/2023 8:26 AM 01/01/2024 2:37 PM Care Teams Environmental Compliance Manager Relationship Specialty Start Date End Date Berenice Mix [address] [place] [address] PCP - General 05/14/17
--- OUTSIDE RECORDS SUMMARY | 2025-01-03 08:29 | XMS_ITS | Patient Health Record ---
Author Organization [facility] Address [address] [place] [address] Care Team Providers Care Perianesthesia Rn Name Role Phone Berenice Mix MD Primary Care Provider Kb Andres Unavailable [phone] Allergies No Known Allergies Reason For Referral [...] Problem Acquired hammer toe of right foot (0027375680166 105) Other hammer toe(s) (acquired), right foot (M20.41) Active confirmed Problem Type 2 diabetes mellitus with peripheral angiopathy (744779222) Type 2 diabetes mellitus with diabetic peripheral angiopathy without gangrene (E11.51) Active confirmed Q7(A), Q8(2B), Q9(1B,2C) Problem Acquired hammer toe of left foot ([id number] 103) Other hammer toe(s) (acquired), left foot (M20.42) Active confirmed Vital Signs Height 6ft 2 in in 05/30/2024 Weight 330 lbs 08/29/2024 BMI 42.37 kg/m2 08/29/2024 Procedures Procedure Date Ordered Date Performed Result Body Sit e 74715-EPEUPSJ NAIL, 6 OR MORE 05/30/2024 N/A 56883-Pqncjtpg Plate 05/30/2024 N/A 06702-WFTO SKIN LESIONS, OVER 4 05/30/2024 N/A 05054-NFRWWUR NAIL, 6 OR MORE 08/29/2024 N/A 63648-PNYA SKIN LESIONS, OVER 4 08/29/2024 N/A Encounters Encounter Location Date Provider Diagnosis [facility] [place] [address] [place] [address] 05/30/2024 Kb Marti Type 2 diabetes mellitus with diabetic peripheral angiopathy without gangrene E11.51 ; Tinea unguium B35.1 ; Pain in right toe(s) M79.674 ; Pain in left toe(s) M79.675 ; Other hammer toe(s) (acquired), left foot M20.42 ; Other hammer toe(s) (acquired), right foot M20.41 and Ingrown nail L60.0 [facility] [address] [facility] [address] [place] [address] 08/29/2024 Kb Marti Type 2 diabetes mellitus with diabetic peripheral angiopathy without gangrene E11.51 ; Tinea unguium B35.1 ; Pain in right toe(s) M79.674 ; Pain in left toe(s) M79.675 and Xerosis of skin L85.3 [facility] [address] [address] 08/29/2024 Kb Marti Assessments Encounter Date Diagnosis [...] M79.674) 05/30/2024 Tinea unguium (ICD-10 - B35.1) 05/30/2024 [...] nail (ICD-10 - L60.0) Plan Of Treatment Pending Test Test Name Order Date 30829-ITIQKLI NAIL, 6 OR MORE 12/21/2023 60604-PKEJVDM NAIL, 6 OR MORE 05/30/2024 37640-ALBQTFX NAIL, 6 OR MORE 08/29/2024 81241-Kasdisps Plate 05/30/2024 66348-HSZL SKIN LESIONS, OVER 4 05/30/20 24 98956-YROK SKIN LESIONS, OVER 4 08/29/20 24 16247-KCCP SKIN LESIONS, 2 TO 4 12/21/19 24 Insurance Providers Payer Name Payer Address Payer Phone Subscriber Number Group Number Insured Name Patient Relationship to Insured Coverage Start Date Coverage End Date [facility] ([facility]) [address] [place] [address] [id number] Aundrea Burton Spouse - patient is the spouse of the insured Medical (General) History Medical History History ICD Code Anxiety Back,Hip,and Knee pain Cancer Dementia Diabetic High blood pressure Kidney disease Poor circulation Measles Mumps Chicken pox Surgical History Surgery Date(Month/Year) trans-radial Breast Stents
--- OUTSIDE RECORDS SUMMARY | 2025-01-03 08:29 | XMS_ITS | Encounter Summary ---
Author Organization [facility] Address [address] [place] [address] Care Team Providers Care Health Teacher Name Role Phone Berenice Mix Primary Care Provider [phone] Encounter Details Date Type Department Care Team (Late st Contact Info) Description 06/30/2023 Orders Only [facility] Interventional Radiology [address] [place] [address] Fran Conde, [address] [place] [address] Social History Tobacco Use Types Packs/Day Years Used Date Smoking Tobacco: Former Cigarettes Smokeless Tobacco: Never Alcohol Use Standard Drinks/Week Comments Yes 0 (1 standard drink = 0.6 oz [...] file Not on file Not on file documented as of this encounter Plan of Treatment Upcoming Encounters Date Type Department Care Team (Late st Contact Info) Description 02/08/2025 10:15 AM EDT Follow-Up [facility] [address] [place] [id number] Applications Support Lead: Olivia Batista PA [address] [place] [address] 03/07/2025 9:20 AM EDT Follow-Up [facility] Nephrology [facility] [address] [place] [address] Applications Support Lead: Dennys Collins MD [address] [place] [address] [phone] documented as of this encounter Visit Diagnoses Not on filedocumented in this encounter Care Teams Health Teacher Relationship Specialty Start Date End Date Berenice Mix [address] [place] [address] PCP - General 05/14/17 documented as of this encounter
--- OUTSIDE RECORDS SUMMARY | 2025-01-03 08:29 | XMS_ITS ---
Author Organization [facility] Address [address] [place] [address] Care Team Providers Care Estimator Paperboard Boxes Name Role Phone EvetteBerenice pereira Primary Care Provider [phone] Active Problems Problem Noted Date Diagnosed Date Hypertension 08/25/2022 Hyperlipidemia 08/25/2022 Hypogonadism in male 08/25/2022 Nephrolithiasis 08/25/2022 Stage 2 chronic kidney disease 03/10/2022 Malignant neoplasm of prostate 04/08/2012 Overview (08/08/2022): Malignant tumor of prostate Malignant tumor of prostate Hypothyroidism 04/08/2012 Overview (08/08/2022): Hypothyroidism Hypothyroidism Diabetes mellitus 04/08/2012 Overview (08/08/2022): Diabetes mellitus Diabetes mellitus Current Treatment and Therapy Plans No current plan information found. Past Treatment and Therapy Plans No past plan information found. Lifetime Dose Tracking * Chemical Lifetime Dose Automatic Entry Manual Entr y Fluoro Time 5.4 minutes 5.4 minutes 0 minutes TotalDLP 2,782 mGy 2,782 mGy 0 mGy [id number] 32 mSv 32 mSv 0 mSv CTDIvol Max 46.5 mGy 46.5 mGy 0 mGy CTDIvol Min 46.5 mGy 46.5 mGy 0 mGy Radiation - mGy 165.17 mGy 165.17 mGy 0 mGy
--- OUTSIDE RECORDS SUMMARY | 2025-01-03 08:29 | XMS_ITS | Continuity of Care Document ---
Author Organization [facility] Address [address] [place] [address]- Care Team Providers Care Windows Software Developer Name Role Phone Berenice Mix MD Primary Care Physician [phone] [id number] Date(s): 11/18/24 - 12/18/[address] [address] Attending Physician: Javier Randall Admitting Physician: Javier Randall Referring Physician: Javier Randall Encounter Type: Triage Allergies, Adverse Reactions, Alerts No Known Allergies Immunizations Given and Recorded Vaccine Date Status Refusal Reason influenza virus vaccine, inactivated 1 01/14/06 Gi ellen 1Result Comment: Lot #[id number] Exp 01/15/06 Medications amlodipine 10 mg oral [...] 30.0 Unit: tablet Repeat number: 1 ergocalciferol 40421 iu oral capsule 1 capsule = 50,000 [...] Team Personnel Name: Berenice Mix MD Position: [facility] Physician - Primary Care Member Role: PCP Address: [address] [place], [place] [address] Telecom: Care Team Related Persons Name: DEANNA CH Name: LIZZETH CH Insurance Providers Guarantor name: ARLETTE Health Plan Information #: 1 [facility] Member Number: ARLETTE Policy Number: NA Group Number: [id number]
--- OUTSIDE RECORDS SUMMARY | 2025-01-03 08:29 | XMS_ITS ---
Author [facility] [place] Address [address] [place] [address] Care Team Providers Care Lan/Wan Engineer Name Role Phone Berenice Mix MD Primary Care Provider Kb Andres Unavailable [phone] Allergies No Known Allergies REASON FOR VISIT [...] Ordered Date Performed Result Body Sit e 57787-FXBPRFD NAIL, 6 OR MORE 08/29/2024 N/A 00735-VFPI SKIN LESIONS, OVER 4 08/29/2024 N/A Encounters Encounter Location Date Provider Diagnosis [facility] [address] [address] 08/29/2024 Kb Marti Type 2 diabetes mellitus [...] days Pending Test Test Name Order Date 19923-GAMFLPG NAIL, 6 OR MORE 08/29/2024 18332-SVEG SKIN LESIONS, OVER 4 08/29/20 24 Next [...] use of a nail nipper and/or dremel-type external grinder, to a more viable healthy nail plate or bed tissue 6-10. Silver nitrate used for any petechial bleeding as necessary. Definitive antifungal treatment options have been reviewed and discussed with the patient. The patient chooses, no pharmaceutical tx - [address]19 Keratoma Treatment Parring or Cutting o f Benign Hyperkeratotic Lesion(s) (-57) More than 4 Lesions - The Benign hyperkeratotic lesions, as described above were pared, and/or cut utilizing a sterile 15 blade, tissue nippers, and/or dremel - 27746 , Q8 Progress Notes * Stanley CH EDOB:[birth year] (74 yo M)Acc No.[id number]:08/29/2024 Progress Note Patient:?Stanley Ch Provider:?Kb Marti DPM :1950???Age:74 Y???Sex:Male Darrick e:08/29/2024 Address:[address] [place] [phone] Pcp:Berenice Mix MD Subjective: * Chief Complaints: [...] Management (4)? Plan: * Treatment: 2.?Tinea unguium?Procedure: 41030-ZFURBIM NAIL, 6 OR MORE 3.?Xerosis of skin? [...] use of a nail nipper and/or dremel-type external grinder, to a more viable healthy nail plate or bed tissue 6-10. Silver nitrate used for any petechial bleeding as necessary. Definitive antifungal treatment options have been reviewed and discussed with the patient. The patient chooses, no pharmaceutical tx - 81000.?Keratoma Treatment:?Parring or Cutting of Benign Hyperkeratotic Lesion(s)?(-57) More than 4 Lesions - The Benign hyperkeratotic lesions, as described above were pared, and/or cut utilizing a sterile 15 blade, tissue nippers, and/or dremel - 90229 , Q8.? * Procedure Codes:?67939 DEBRI DE NAIL, 6 OR MORE, Modifiers: XS 78712 TRIM SKIN LESIONS, OVER 4, Modifiers: XS [...] Marti DPM Date:?[address]/Kin/Jasvir on:?01/03/2025 08:28 AM EDT History and Physical Notes * HPI (History of Present Illness) Category Sub-Category Detail Notes Category Not es Skin problems Nature: dryness , scaling Location: B/L Duration: several days Course: worse At Risk footcare Pt States Last PCP Visit: Date: Examination Category Sub-Category Detail Notes Category Not es Dermatologic SKIN FINDINGS: Skin exam reveal s Keratotic lesion(s) located at , SUB MTH (s), 1, B/L, SUB MTH (s) , 5 , B/L , Heel(s) , B/L , Skin shows sign(s) of, dryness, scaling, in a stocking fashion, no fissure(s) present, B/L Vascular DP PULSES (B): 1/4, B/L PT PULSES (B): 0/4, B/L CAPILLARY FILL TIME: delayed, all digits , B/L TEMPERTURE GRADIENT (C): decreased, cool to cool, proximal to distal, B/L TROPHIC CONDITION-TEXTURE/ELASTICITY/TURGOR/HAIR GROWTH (B): decreased, with sparse to absent hair gr owth, B/L EDEMA (C): 3/4 , pitting , with out aching pain , Leg(s) , Ankle(s) , Foot , B/L CLAUDICATION (C): denies, B/L REST PAIN: denies, B/L PIGMENTATION: rubrous, B/L Nails NAILS are: Elongated, overg rown, dystrophic, lytic, greater than 3mm thick, discolored and friable with crumbly malodorous subungual debris, with pain on palpation , 1-5 Left foot , T5 , T6 , T7 , T9
--- OUTSIDE RECORDS SUMMARY | 2025-01-03 08:29 | XMS_ITS ---
Author [facility] [place] Address [address] [place] [address] Care Team Providers Care Senior Recruitment Consultant Name Role Phone Berenice Mix MD Primary Care Provider Kb Andres Unavailable [phone] Allergies No Known Allergies REASON FOR VISIT [...] Ordered Date Performed Result Body Sit e 22307-TURCAYF NAIL, 6 OR MORE 05/30/2024 N/A 37826-Hlftuhmc Plate 05/30/2024 N/A 76969-TRNY SKIN LESIONS, OVER 4 05/30/2024 N/A Encounters Encounter Location Date Provider Diagnosis [facility] [address] [address] 05/30/2024 Kb Marti Type 2 diabetes mellitus [...] INSTRUCTIONS.pdf) Pending Test Test Name Order Date 79706-LKMUMCY NAIL, 6 OR MORE 05/30/2024 27612-Shcmdkfy Plate 05/30/2024 57129-TTQD SKIN LESIONS, OVER 4 05/30/20 24 Next [...] Motrin was recommended for pain or discomfort (96807) , DIABETES: Pt was advised as to [...] as necessary. Patient chooses, no pharmaceutical tx (02570) Keratoma Treatment Parring or Cutting o f Benign Hyperkeratotic Lesion(s) 70736 ( More than 4 Lesions ) - The Benign hyperkeratotic lesions, as described above were pared, and/or cut utilizing a sterile 15 blade, tissue nippers, and/or dremel , Q8 Progress Notes * ERASMOStanley BOCANEGRA EDOB:[birth year] (74 yo M)Acc No.[id number]:05/30/2024 Progress Note Patient:?Stanley CH Provider:?Kb Marti DPM :1950???Age:74 Y???Sex:Male Darrick e:05/30/2024 Address:[address] [place] [phone] Pcp:Berenice Mix MD Subjective: * Chief Complaints: [...] ???Miscellaneous:?Caffeine: yes, frequency:, 1-2 cups per day. ?Children: no. ?Marital status: . ?Occupation: Retired. * Medications:?TakingamLODIPin [...] food or milk Orally Once a day Rosuvastatin Calcium 40 MG Tablet Oral Sertraline HCl 50 MG Tablet Oral Trulicity 3 MG/0.5ML Solution Pen-injector INJECT 3 MG (0.5 ML) SUBCUTANEOUSLY EVERY WEEK Subcutaneous Extra Depth Orthopedic Shoes, (1) Pair With (3) Pair Custom Heat Molded Multidensity Innersoles . Dx: NIDDM/PVD(E11.51), Hammertoe Foot Deformity(M20.41,M20.42), Preulcerative Skin Lesion(s)(L85.1) Wear Daily Taking amLODIPine Besylate 10 MG Tablet Oral Taking [...] food or milk Orally Once a day Taking Rosuvastatin Calcium 40 MG Tablet Oral Taking Sertraline HCl 50 MG Tablet Oral Taking Trulicity 3 MG/0.5ML Solution Pen-injector INJECT 3 MG (0.5 ML) SUBCUTANEOUSLY EVERY WEEK Subcutaneous Taking Extra Depth Orthopedic Shoes, (1) Pair With (3) Pair Custom Heat Molded Multidensity Innersoles . Dx: NIDDM/PVD(E11.51), Hammertoe Foot Deformity(M20.41,M20.42), Preulcerative Skin Lesion(s)(L85.1) Wear Daily Not-Taking/PRNMyrbetriq 50 MG Tablet Extended Release 24 Hour [...] and reconciled with the patient * Allergies:?N.K.D.A.yes[Aller giiram Verified] Objective: * Vitals:?Ht:6ft 2 in, Wt:330, BMI:42.36, Shoe size:12W, Ht-cm: 187.96 cm, Wt-k.69 kg. * Examination: ???Vascular: ?DP PULSES (B):?1/4, B/L.?PT PULSES (B):? 0/4, B/L.?CAPILLARY FILL TIME:? delayed, all digits, B/L.?TROPHIC CONDITION-TEXTURE/ELASTICITY/TURGOR/HAIR GROWTH (B):? decreased, B/L.?TEMPERTURE GRADIENT (C):? decreased, cool to cool, proximal to distal, B/L.?PIGMENTATION:?rubrous, B/L.?EDEMA (C):?3/4 , pitting , without aching pain , Leg(s) , Ankle(s) , Foot , B/L.?CLAUDICATION (C):?denies, B/L.?REST PAIN:?denies, B/L.?Nails: ?NAILS are:?Elongated, overgrown, dystrophic, [...] burning, paresthesia, tingling, B/L.?Ophthalmology Referral: ?DIABETES EYE EXAM?Procedure Performed:?No ?Eye Exam not performed:?No reason specified ?Diabetic Retinopathy Screening:?No?General Examination: ?GENERAL APPEARANCE:?Reveals a pleasant, alert, well nourished, well- developed, well hydrated individual, who demonstrates proper attention to hygiene/body habitus, and is in no acute distress, Pt serves as own historian for office visit today.?ORIENTED:?person, place, and time.?FOOT EXAM:?Lower Extremity Neurological Exam performed:?Yes ?Visual exam of foot performed:?Yes ?Date?05/30/2024 ?Footwear Evaluation?Footwear Evaluation performed:?Yes??? Assessment: * Assessment: 1.?Type 2 diabetes mellitus with diabetic peripheral angiopathy without gangrene - E11.51???2.?Tinea unguium - B35.1???3.?Pain in right toe(s) - M79.674???4.?Pain in left toe(s) - M79.675???5.?Other hammer toe(s) (acquired), left foot - M20.42???Specify :Chronic problem, Worse (4),Rx Management (4)???6.?Ingrown nail - L60.0???Specify :Lateral nail border , T5???7.?Other hammer toe(s) (acquired), right foot - M20.41 (Primary)???Specify :Chronic problem, Worse (4),Rx Management (4)??? Plan: * Treatment: 2.?Type 2 diabetes mellitus with diabetic peripheral angiopathy without gangrene?Procedure: 25239-ROLT SKIN LESIONS, OVER 4 3.?Tinea unguium?Procedure: 27217-QLUYYGC NAIL, 6 OR MORE 4.?Ingrown nail?Procedure: 47050-Pbqgqcui Plate * Procedures:?Debride Nail 6-10:?Nail debridement?Nail debridement performed extensively to reduce/remove overall nail length, girth, thickness, subungual debris, and necrotic tissue, by manual and electrical means through the use of a nail nipper and/or dremel, to more viable healthy nail plate or bed tissue 6-10. Silver nitrate used for any petechial bleeding as necessary. Patient chooses, no pharmaceutical tx (05752).?Keratoma Treatment:?Parring or Cutting of Benign Hyperkeratotic Lesion(s)?61864 ( More than 4 Lesions ) - [...] Motrin was recommended for pain or discomfort (26937) , DIABETES: Pt was advised as to the risk of delayed or nonhealing due to diabetes. Pt is to call the office with any questions, concerns, or complications.? * Procedure Codes:?76605 Avuls ion Plate, Modifiers: XS , [id number] DEBRIDE NAIL, 6 OR MORE, Modifiers: XS 46972 TRIM SKIN LESIONS, OVER 4, Modifiers: XS [...] custom heat-molded inserts was dispensed.? ??Screening/Special Tests:?Fall Risk?Screening:?No falls in the past year Despite related [...] Lower Extremity Neurological Exa m performed:: Yes Visual exam of foot performed:: Yes Date: 05/30/2024 ORIENTED: person, place, and t jammie Footwear Evaluation Footwear Evaluation performe d:: Yes Ophthalmology Referral DIABETES EYE EXAM Procedure Perform ed:: No Eye Exam not performed:: No reason speci fied Diabetic Retinopathy Screening:: No Vascular DP PULSES (B): 1/4, B/L PT PULSES (B): 0/4, B/L CAPILLARY FILL TIME: delayed, all digits , B/L TEMPERTURE GRADIENT (C): decreased, cool to cool, proximal to distal, B/L TROPHIC CONDITION-TEXTURE/ELASTICITY/TURGOR/HAIR GROWTH (B): decreased, B/L EDEMA (C): 3/4 , pitting , [...]
--- OUTSIDE RECORDS SUMMARY | 2025-01-03 08:30 | XMS_ITS ---
Author Organization [facility] Address [address] [place] [address] Care Team Providers Care Webfocus Developer Name Role Phone Berenice Mix MD Primary Care Provider Kb Andres Unavailable [phone] REASON FOR VISIT questioning Rx Encounters Encounter Location Date Provider Diagnosis [address] [address] 08/29/2024 Kb Marti Plan Of Treatment No Information Progress Notes * Stanley CH EDOB:[birth year] (74 yo M)Acc No.[id number]:08/29/2024 Patient:?Stanley Ch :1950???Age:74 Y???Sex:Male Address:[address] [place] [address], [phone] * true * Date:? Generated for Printi ng/Fasjg/eTransmitting on:?01/03/2025 08:30 AM EDT
--- OUTSIDE RECORDS SUMMARY | 2025-01-03 08:30 | XMS_ITS | Clinical Summary ---
Author Organization [facility] Address [address] [place] [address] Phone Care Team Providers Care Accounting Machine Servicer Name Role Phone Berenice Mix MD Primary Care Provider [phone] Allergies Active Allergy Reactions Criticality Noted Date Comments Ibuprofen 08/11/2022 Medications [facility] D3 125 MCG (5000 UT) capsule 2 Active Trulicity 1.5 MG/0.5ML solution pen-injector 2 Active ergocalciferol 1.25 MG (37836 UT) capsule Take 50,000 Int'l Units by mouth 3 Active levothyroxine (SYNTHROID, LEVOTHROID) 75 MCG tablet Take by mouth 3 Active metoprolol succinate XL (TOPROL-XL) 100 MG 24 hr tablet Take 200 mg by mouth 1 (one) time each day 2 Active Myrbetriq 50 MG tablet sustained-releas e 24 hour Take 1 tablet by mouth 1 (one) time each day 2 Active oxyCODONE-acetam inophen (PERCOCET) 5-325 MG per tablet Take 1 tablet by mouth every 6 (six) hours if needed 2 Active rosuvastatin (CRESTOR) 40 MG tablet Take 40 mg by mouth 3 Active B-D 3CC LUER-LARS SYR 30DL5-3/2 20G X 1-1/2 3 ML misc USE DIRECTED ONCE EVERY 3 WEEKS 2 Active testosterone cypionate (DEPO-TESTOTERON E) 200 MG/ML injection INJECT 1.5MLS EVERY 3 WEEKS 2 Active Multiple Vitamins-Mineral s (ICAPS AREDS 2 PO) Take by mouth Active sertraline (ZOLOFT) 25 MG tablet Take 25 mg by mouth 1 (one) time each day Active amLODIPine (NORVASC) 10 MG tablet Take 10 mg by mouth 1 (one) time each day Active Dapagliflozin Propanediol (Farxiga) 10 MG tablet Take 10 mg by mouth 1 (one) time each day in the morning Active losartan (COZAAR) 50 MG tablet Take 1 tablet (50 mg total) by mouth 1 (one) time each day 90 tablet 3 3 Active Active Problems Problem Noted Date Diagnosed Date Hyperlipidemia 08/25/2022 05/27/2023 Male hypogonadism 08/25/2022 05/27/2023 Acute nontraumatic kidney injury 03/10/2022 Chronic kidney disease stage 2 03/10/2022 Acute nontraumatic kidney injury 03/10/2022 Diabetes mellitus 04/08/2012 Overview (03/10/2022): Diabetes mellitus Hypertensive disorder 04/08/2012 Overview (03/10/2022): Hypertensive disorder Hypothyroidism 04/08/2012 Overview (03/10/2022): Hypothyroidism Malignant neoplasm of prostate 04/08/2012 Overview (03/10/2022): Malignant tumor of prostate Social History Tobacco Use Types Packs/Day Years Used Date Smoking Tobacco: Never Smokeless Tobacco: Never Tobacco Cessation:Counseling Given: Not Answered Alcohol Use Standard Drinks/Week Comments Never 0 (1 standard drink = 0.6 oz pur e alcohol) Sex and Gender Information Value Date Recorded Sex Assigned at Not on file Legal Sex Male 5:05 PM EST Gender Identity Not on file Sexual Orientation Not on file Last Filed Vital Signs Vital Sign Reading Time Taken Comments Blood Pressure 142/70 07/29/2023 8:01 AM EDT Pulse 70 07/29/2023 8:01 AM EDT Temperature - - Respiratory Rate - - Oxygen Saturation 92% 07/29/2023 8:01 AM EDT Inhaled Oxygen Concentration - - Weight 156 kg (343 lb 3.2 oz) 07/29/2023 8:01 AM EDT Height 185.4 cm (6' 1 ) 11/26/2022 8:43 AM EST Body Mass Index 45.28 11/26/2022 8:43 AM EST Plan of Treatment Health Maintenance Due Date Last Done Comments Pneumococcal Vaccine: 65+ Years (1 of 2 - PCV) 1957 Colorectal Cancer Screening: Annual FOBT 2000 Colorectal Cancer Screening: Colonoscopy 2000 Colorectal Cancer Screening: Sigmoidoscopy 2000 Diabetes: Pedal Pulse Checked 03/10/2022 Diabetes: Sensory Foot Exam 03/10/2022 Diabetes: Visual Foot Exam 03/10/2022 Diabetes: Hemoglobin A1C 10/15/2022 022, 04/23/2022, 03/10/2022 Diabetes: Ophthalmology Exam 09/10/2023 09/10/2022 Influenza Vaccine (#1) 2024 07/15/2022 Hepatitis B Vaccine Aged Out No longe r eligible based on patient's age to complete this topic Procedures Procedure Name Priority Date/Time Associated Diagnosis Comments HEMOGLOBIN A1C Routine 07/16/2022 3:32 PM EDT Chronic kidney disease stage 2 Type 2 diabetes mellitus with diabetic chronic kidney disease (HCC) from Last 3 Months or Most Recently Relevant to Health Maintenance Results * (ABNORMAL) Hemoglobin A1c (07/16/2022 3:32 PM EDT) Hemoglobin A1C 7.7(H) (4.0-5.6) % [facility] Comment: MONITORING: In known diabetic patients, hemoglobin A1c targets should be discussed with health care provider. DIAGNOSTIC USE: ??The [place] Diabetes Association (ADA) and the World Health Organization (WHO) recommend the use of HbA1c to diagnose diabetes using a threshold of 6.5%. Patients who have an HbA1c between 5.7% and 6.4% are considered at increased risk for developing diabetes in the future. CAUTION: Falsely low HbA1c results may be observed in patients with hemolytic anemia, homozygous forms of abnormal hemoglobin (e.g. SS, CC, SC), , recent blood loss or hemoglobin F greater than 7%. Fructosamine may be used as an alternate test in these cases. REFERENCE: ADA: Standards of Medical Care in Diabetes 2020, The Journal of Clinical and Applied Research and Education Volume 43, Supplement 1 Testing performed or reported by [facility], a Service of [facility], [address] [place] [address] Renny Brenner MD, Petrophysicist [facility]# [id number] Blood (Blood, Venous) 07/16/2022 3:32 PM EDT 07/16/2022 3:39 PM EDT us Stanley Sánchez MD LAB BLOOD ORDERABLES Final Re sult [facility] from Last 3 Months or Most Recently Relevant to Health Maintenance Insurance [employer] [place] [id number] [place] [address] Care Teams Accounting Machine Servicer Relationship Specialty Start Date End Date Berenice Mix MD [address] [place], [place] [phone] PCP - General Internal Medicine 03/10/22
--- OUTSIDE RECORDS SUMMARY | 2025-01-03 08:31 | XMS_ITS | Encounter Summary ---
Author Organization [facility] Address [address] [place] [address] Care Team Providers Care Green Chain Operator Name Role Phone Berenice Mix Primary Care Provider [phone] Encounter Details Date Type Department Care Team (Late st Contact Info) Description 12/08/2024 myChart Message [facility] [address] [place] [phone] Internal Grinding Machine Operator: Dennys Collins MD [address] [place] [address] [phone] Lab test results questions Social History Tobacco Use Types Packs/Day Years Used Date Smoking Tobacco: Former Cigarettes 2 10 1 - 2001 Smokeless Tobacco: Never Alcohol Use [...] Info) Description 02/08/2025 10:15 AM EDT Follow-Up [facility] [address] [place] [address] Internal Grinding Machine Operator: Johnna Moss, DENY [address] [place] [address] 03/07/2025 9:20 AM EDT Follow-Up [facility] [address] [place] [address] [phone] Internal Grinding Machine Operator: Dennys Collins MD [address] [place] [phone] documented as of this encounter Visit Diagnoses Not on filedocumented in this encounter Care Teams Green Chain Operator Relationship Specialty Start Date End Date Berenice Mix [address] [place] [address] PCP - General 05/14/17 documented as of this encounter
--- OUTSIDE RECORDS SUMMARY | 2025-01-03 08:31 | XMS_ITS | Encounter Summary ---
Author Organization [facility] Address [address] [place] [address] Care Team Providers Care Poultry Packer Name Role Phone Berenice Mix Primary Care Provider [phone] Encounter Details Date Type Department Care Team (Late st Contact Info) Description 12/12/2024 myChart Message [facility] [address] [place] [address] [phone] Plant Hr Manager: Dennys Collins MD [address] [place] [address] Missed your call Social History Tobacco Use Types Packs/Day Years Used Date Smoking Tobacco: Former Cigarettes 2 10 1 2 - 2001 Smokeless Tobacco: Never Alcohol Use [...] Info) Description 02/08/2025 10:15 AM EDT Follow-Up [facility] [address] [place] [address] Plant Hr Manager: Johnna Moss, DENY [address] [place] [address] 03/07/2025 9:20 AM EDT Follow-Up [facility] [address] [place] [address] [phone] Plant Hr Manager: Dennys Collins MD [address] [place] [phone] documented as of this encounter Visit Diagnoses Not on filedocumented in this encounter Care Teams Poultry Packer Relationship Specialty Start Date End Date Berenice Mix [address] [place] [address] PCP - General 05/14/17 documented as of this encounter
--- OUTSIDE RECORDS SUMMARY | 2025-01-03 08:31 | XMS_ITS | Encounter Summary ---
Author Organization [facility] Address [address] [place] [address] Care Team Providers Care Presetter Operator Name Role Phone Berenice Mix Primary Care Provider [phone] Reason for Visit * Consultation (Routine) - Authorized Specialty Diagnoses / Procedures Referred By Dominick schroeder Referred To Contact Nephrology Diagnoses Nephrolithiasis Ernesto Freedman MD [address] [place] [address] Phone: tel: fax: Referral ID Status Reason Start Date Expiration Date Visits Requested Visits Authorized [id number] Authorized Specialty Services Required 03/14/2024 09/13/2025 6 6 Encounter Details Date Type Department Care Team (Late st Contact Info) Description 12/06/2024 8:20 AM EST Follow-Up [facility] [address] [place] [phone] Instructor Of Spanish: Dennys Collins MD [address] [place] [phone] Stage 3b chronic kidney disease (HCC) (Primary Dx); Pre-transplant evaluation for CKD (chronic kidney disease); Primary hypertension; Nephrolithiasis Social History Tobacco Use Types Packs/Day Years [...] on file documented as of this encounter Last Filed Vital Signs Vital Sign Reading Time Taken Comments Blood Pressure 135/79 12/06/2024 8:38 AM EST Pulse 78 12/06/2024 8:38 AM EST Temperature 36.6 ??C (97.8 ??F) 12/06/2024 8:38 AM ES T Respiratory Rate - - Oxygen Saturation - - Inhaled Oxygen Concentration - - Weight 150.6 kg (332 lb 0.2 oz) 025 8:38 AM EST Height 188 cm (6' 2 ) 12/06/2024 8:38 AM EST Body Mass Index 42.63 12/06/2024 8:38 AM EST documented in this encounter Patient Instructions * Patient Instructions* Dennys Roberto MD - 12/06/2024 9:23 AM EST A. Continue regular physical exercises 120-150 mint B. Blood sugar control C. Blood pressure eontrol D. Discuss ozempic dose with PCP to increase the dose to 2.5 mg per week based on the recent study ( FLOW STUDY) E. To cont Farxiga F. RTC in 3 months and to have BS and BP readings from home. . documented in this encounter Progress Notes * Dennys Roberto MD - 12/06/2024 8:59 AM EST Images from the original note were not included. [facility] DIVISION OF NEPHROLOGY AND TRANSPLANT Name: Stanley Burton MR#: [id number] : 1950 Date of service: 12/06/24 PCP: Berenice Mix Referring PHYSICIAN/PCP: Berenice Mix [address] [place] [address] Mix Thank you so much for sending Stanley Burton for [facility] renal clinic for follow up visit. I am delighted to meet him and his today in the renal clinic. CHIEF COMPLAINT: He presented today along with his for follow-up examination. He recently completed follow-up evaluation with Dr. Quintana for his new onset diagnosis of early Alzheimer's disease. He is currently tolerating Aricept and sertraline quite well. I am reading the note of Dr. Quintana I believe that he may be a candidate for therapy with Lecanemab- based therapy as well To prevent the progression in his Alzheimer's disease if confirmed amyloid related disease. We alsodiscussed in great detail about the status of his kidney disease today and the expected outcomes inthe next 3 to 5 years. Review of Systems: As per HPI; all systems reviewed and otherwise negative. Pt is doing well, tolerating current medications without adverse events Patient denies chest pain, shortness of breath, or PND. Patient denies N/V or abdominal pain. Patient denies dysuria or frequency of urination. Patient denies fever, or chills, or sweating. Patient reports good appetite and drinking plenty of fluids per day. Patient denies recent hospitalizations or ED visits HPI: Mx Stanley Burton is a 74 y.o. 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 He is here today with his , Aundrea. He has a history of prostate cancer and underwent a open radical prostatectomy in 06/2013 for Felicia grade 7 (3+4) stage [id number] adenocarcinoma of prostate with Dr Cason. Prior to surgery PSA 5.84. Hehas a family history of prostate cancer in his father. Most recent PSA from 06/2023 0.54, in 07/2023 returned at 0.3. At last visit we decided to obtain PSA which revealed no evidence of recurrent or metastatic disease. Urinary control - he has some urinary urgency. He wears 1 thick pad in a 24-hour period. He is known to have Hypogonadism - stopped taking it after the diagnosis of prostate cancer. Thoughhe is in remission of the disease after radical prostatectomy at [facility]. Nephrolithiasis - history of ESWL years ago, CT ABD/Pel from 08/31/2023 shows: H has had lithotripsyas well in the past. Focused PMH: - T2 DM for more than 25 years and uses ozempic now for the past five months 2 mg per week. 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 Focused Social History: -stopped smoking 23 years ago - social drinking - Not using marijuana any more PHYSICAL EXAM: Well developed and well nourished male without acute distress height is 1.88 m (6' 2 ) and weight is 150.6 kg (332 lb 0.2 oz) (abnormal). His oral temperature is36.6 ??C (97.8 ??F). His blood pressure is 135/79 and his pulse is 78. Wt Readings from Last 3 Encounters: 12/06/24 (!) 150.6 kg (332 lb 0.2 oz) 07/19/24 (!) 149.8 kg (330 lb 4 oz) 02/03/24 (!) 155.4 kg (342 lb 9.6 oz) Temp Readings from Last 3 Encounters: 12/06/24 36.6 ??C (97.8 ??F) (Oral) 07/19/24 36.3 ??C (97.3 ??F) (Oral) 02/03/24 36.4 ??C (97.5 ??F) (Axillary) BP Readings from Last 3 Encounters: 12/06/24 135/79 07/19/24 128/68 03/14/24 131/76 Pulse Readings from Last 3 Encounters: 12/06/24 78 07/19/24 73 03/14/24 76 Body mass index is 42.63 kg/m??. Weight: (!) 150.6 kg (332 lb 0.2 oz) General: Moderately obese, male, in no acute distress. HENT: Mild pallor. Normocephalic and atraumatic. Oropharynx clear, mucous membranes moist. Eyes: Conjunctivae pale, sclerae anicteric. Neck: Full, Supple without masses, or thyromegaly; no carotid bruits. Lymphatic: No cervical, axillary or inguinal adenopathy Respiratory: Good inspiratory effort. Lungs clear to auscultation bilaterally without crackles or wheezes. Cardiovascular: Regular rate and rhythm, S1 and S2 normal, no rubs, no gallops. no murmurs; trace edema Gastrointestinal/Abdomen: No adiposity or pannus, without hepatosplenomegaly or palpable masses, or hernias Musculoskeletal: No clubbing or cyanosis. No joint effusions, or joint deformities Vascular: 2+ bilateral femoral pulses. 2+ bilateral dorsalis pedis pulses. Integument: No rashes or nodules. No evidence of visible skin cancer Psychiatric: Normal mood and affect. Neurological: Cranial nerves grossly intact. Alert and oriented. No focal sensory or motor deficits. No asterixisor uremic flap/tremor. : No renal angle tenderness LABS/ IMAGING STUDIES: Lab Results Component Value Date NA 140 07/19/2024 K 4.0 07/19/2024 CL 108 (H) 07/19/2024 CO2 23 07/19/2024 BUN 22 07/19/2024 CREATININE 2.18 (H) 07/19/2024 EGFR 31 (L) 07/19/2024 EGFR 15 (L) 07/19/2024 GLUCOSE 143 (H) 07/19/2024 CALCIUM 8.9 07/19/2024 ALBUMIN 3.7 07/19/2024 ALBUMIN 3.5 (L) 07/19/2024 Lab Results Component Value Date EGFR 31 (L) 07/19/2024 EGFR 15 (L) 07/19/2024 EGFR 31 (L) 01/01/2024 EGFR 30 (L) 12/31/2023 EGFR 29 (L) 12/21/2023 Lab Results Component Value Date WBC 8.4 07/19/2024 HGB 11.5 (L) 07/19/2024 PLT 321 07/19/2024 Lab Results Component Value Date COLORU Light Yellow 01/25/2024 CLARITYU Slightly Cloudy (A) 01/25/2024 SPECGRAVU 1.020 01/25/2024 STEVEN 6.0 01/25/2024 LEUKESTU 1+ (A) 01/25/2024 NITRITEU Negative 01/25/2024 PROTEINU 1+ (A) 01/25/2024 GLUCOSEU 3+ (A) 01/25/2024 KETONESU Negative 01/25/2024 BILIRUBINU Negative 01/25/2024 UROBILINOGEN Normal 01/25/2024 BLOODU 3+ (A) 01/25/2024 Lab Results Component Value Date MICROALBCREA 89.9 (H) 07/19/2024 Lab Results Component Value Date NAUR 52 07/19/2024 CREATUR 99 07/19/2024 CREATUR 99 07/19/2024 Blood Cultures No results found for: BCRESULT Urine Microscopy and Urine Culture: N/A Lab Results Component Value Date COLORU Light Yellow 01/25/2024 CLARITYU Slightly Cloudy (A) 01/25/2024 SPECGRAVU 1.020 01/25/2024 STEVEN 6.0 01/25/2024 LEUKESTU 1+ (A) 01/25/2024 NITRITEU Negative 01/25/2024 PROTEINU 1+ (A) 01/25/2024 GLUCOSEU 3+ (A) 01/25/2024 KETONESU Negative 01/25/2024 BILIRUBINU Negative 01/25/2024 UROBILINOGEN Normal 01/25/2024 BLOODU 3+ (A) 01/25/2024 Urine culture : Culture Date Value Ref Range Status 01/25/2024 Final Mixed genital irwin isolated. These superficial bacteria are not indicative of a urinary tract infection. No further organism identification is warranted on this specimen. 01/09/2024 Final Additional non-predominating organism(s) isolated. These organisms, commonly found on external and internal genitalia, are considered colonizers. No further testing performed. 01/09/2024 Enterococcus faecalis (A) Final Comment: 10,000-49,000 CFU/mL of Enterococcus faecalis 12/21/2023 Final Mixed genital irwin isolated. These superficial bacteria are not indicative of a urinary tract infection. No further organism identification is warranted on this specimen. 11/16/2023 Final Mixed genital irwin isolated. These superficial bacteria are not indicative of a urinary tract infection. No further organism identification is warranted on this specimen. US Kidney Complete and Bladder Narrative: EXAMINATION: Ultrasound kidneys and bladder. INDICATION: History of kidney stones and ureteroscopy TECHNIQUE: Ultrasound evaluation of the kidneys and bladder. Multiple grayscale and color Doppler images were obtained. COMPARISON: 03/01/2023. Abdomen CT reports, 01/01/2024 and 08/31/2023 FINDINGS: RIGHT KIDNEY: The right kidney measures 12.8 cm. Exophytic at the mid to upper portion of the rightkidney is a simple cyst, 3.2 x 3.5 cm. The parenchyma is otherwise within normal limits. There is no shadowing stone or hydronephrosis. No perinephric urinoma. LEFT KIDNEY: The left kidney measures 11.3 cm. At the upper pole, a simple cyst measures 2.3 x 2.3 cm. The parenchyma is otherwise within normal limits. There is no shadowing stone or hydronephrosis.No perinephric urinoma. BLADDER: The bladder cannot be optimally assessed since it contains only 35 mL. However, no shadowing stone is identified. Impression: No residual shadowing stone fragments, hydronephrosis or perinephric urinoma. If this radiology report contains a blank impression section, it is an incomplete radiology report.Please contact the interpreting radiologist or applicable radiology division as soon as possible toobtain the completed interpretation. Workstation ID: [id number] No radiology results in the last 2 days Results for orders placed during the hospital encounter of 12/31/23 CT Abdomen Pelvis without Contrast Narrative EXAMINATION: CT ABDOMEN PELVIS WO CONTRAST INDICATION: Status post percutaneous nephrolithotripsy: Evaluate stone burden. TECHNIQUE: Images of the abdomen and pelvis were obtained without intravenous contrast, without oral contrast. Coronal and sagittal reformats were generated. COMPARISON: 08/31/2023 FINDINGS: Lack of intravenous contrast decreases sensitivity for the detection of focal lesions andvascular pathology. LOWER THORAX: Volume loss at the [...] collecting system to the bladder. No obvious stonesalong the stent. Right upper pole renal cyst [...] spine. Kyphosis at the focal lumbar junction. Impression Residual stone seen within the right lower pole kidney. 9 mm and 12 mm respectively. ASSESSMENT/PLAN: MDM: 12/06/24 Stanley Burton is a 74 y.o. male with T2DM, obesity, HTN, CAD with stents in place year 2005, hypothyroidism, macular degeneration, mild degree of dementia on medications, prostate cancer and treated with radical prostatectomy, and in remission of the disease, LIZABETH and not on CPAP, nephrolithiasis ( calcium oxalate stone and hyperurecemia). Last stone was removed on 02/03/2024 He is presenting today for the first time for the evaluation of his CKD. Review of date in his record demonstrates that he had elevated creat levels since 07/08/2013 with a first time creat noted at 1.50 mg/dL and then it peaked at 2.18 as of 07/19/2024. 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 His CKD in perhaps multifactorial. Whether the bump in his creat level is due to his progression orhas an element of [place] needs evaluation. He just completed his US via urology team following treatment of his stone disease, and it did not show any residual stones or obstructive uropathy. It was reassuring to see that kidney size was normal, though he is 62 inches tall male. Given the paucity of data regarding his CKD vas PAMELA on CKD, I discussed with them in details the goals of cares. Obviously, I plan to evaluate other systemic causes of his CKD, other than known risk factors such as T2 DM, HTN, Previous history of nephrolithiasis, and the control of his BS and BP. So initiated the work up today. Given the fact that he is already on Ozempic now and Dr. Mix has been kind enough to have it approved for use, I asked to him to discuss with you if it is possible to get the maximum dose now if possible. Given the recent evidence that dose of 2.5 mg per week can decrease the decay in renal function. On today s visit: A. Continue regular physical exercises 120 -150 mint/week B. To cont Fraxiga 10 mg daily and he is tolerating it well. C. Discuss with Dr. Mix to increase ozempic to 2.5 mg per week based on the FLOW Study dose usage, and he is tolerating it well 1. Chronic kidney disease (CKD), stage 3b Assessment & Plan -Detailed evaluation of the underlying cause of his CKD did not reveal any vasculitic disorders or intrinsic or extrinsic renal disease. He has of proteinuria, which has been nonprogressive, I believe could be related to very incipient type of diabetic nephropathy as well as age-related changes in the GFR. Nearly 6 months ago his Cystatin C level was 3.26, which corresponded to the GFR of 50 mL/min. However his creatinine based EGFR trends have been between 25 to 35 mL/min. Definitely remains at risk for further progression of his CKD and will bring the question about the potential need for renal replacement therapy. However I found it very reassuring when I look at the temporal trends of his creatinine based EGFR that since 2022 till now the lowest has been 29 pulm minute and the highesthas been 31 mL/min. Therefore it is very critical to control his blood pressure and sugar in a very meticulous manner. Furthermore we did discuss today about the benefit of escalating the dose of Ozempic since recent FLOWQ Study demonstrated preservation of GFR while on Ozempic 2.5 mg/week. I would like to discuss this dose escalation with Dr. Mix as well, since he is already tolerating current dose of 2 mg/week very nicely and without any adverse events. 2. CKD and Kidney function by Cystatin-C based GFR Assessment & Plan -Will need to repeated to see the temporal trends and Cystatin C based EGFR Lab Results Component Value Date CYSTATINC 3.26 (H) 07/19/2024 #. CKD AND LEVEL OF GFR for MEDICATION DOSE ADJUSTMENTS Assessment & Plan -To adjust all medication doses to eGFR 30 ml for now eGFR Calculator National [employer] - #. CKD AND ELECTROLYTES AND Metabolic acidosis Assessment & Plan - No evidence of metabolic acidosis - No Need for bicarbonate therapy 3. CKD AND Hypertension: Goal is to maintain a systolic blood pressure 130 or less Assessment & Plan BP Readings from Last 3 Encounters: 12/06/24 135/79 07/19/24 128/68 03/14/24 131/76 -need to optimize the therapy for CKD. He is already on farxiga and is tolerating it very well. Assessment & Plan -Need to review the trends in albuminuria to rule out progression in albumin/creat ratio Microalb/Creat Ratio, Random Urine (mcg/mgCr) Date Value 07/19/2024 89.9 (H) Lab Results Component Value Date MICROALBCREA 89.9 (H) 07/19/2024 No results found for: [id number] Lab Results Component Value Date CYSTATINC 3.26 (H) 07/19/2024 5. CKD symptoms: To determine the future need for CUSTOMER SERVICE RECEPTIONIST vs premptive kidney transplantation: Assessment & Plan -Deferred for now till more data points becomes available to FOLLOW PROGRESSION IN CKD. Latest Ref Rng & Units 07/19/2024 10:25 AM 01/01/2024 1:02 AM 12/31/2023 2:00 PM Creatinine Creatinine 0.60 - 1.30 mg/dL 2.18 2.18 2.26 EGFR >=60 mL/min/1.73m2 >=60 NA 31 15 31 30 Latest Ref Rng & Units 07/19/2024 10:25 AM Microalbumin/Creat Ratio Microalbumin/Creat Ratio <30.0 mcg/mgCr 89.9 6. CKD and USE of DISESE MODIFYING AGENTS to PREVENT THE PROGRESSION IN CKD: Assessment & Plan -Tolerating following CKD related disease modifying agents.combination of Cozarr, SGLT2 I and ozempic for now. 7. CKD AND VOLUME STATUS OR SIGNS OF CHRONIC HEART FAILURE: Assessment & Plan -No current signs or symptoms of either heart failure or volume overload. - to continue the maintenance Diuretic therapy for now or to increase the dose 8. CKD and ANEMIA: Assessment & Plan -Currently maintains a stable H&H and the goal is to keep the hematocrit level greater than 30-40. Iron deficiency to be excluded. Lab Results Component Value Date HCT 36.6 (L) 07/19/2024 HCT 34.9 (L) 01/01/2024 HCT 39.0 12/31/2023 Lab Results Component Value Date HGB 11.5 (L) 07/19/2024 HGB 11.5 (L) 01/01/2024 HGB 12.5 (L) 12/31/2023 No results found for: IRON , TIBC , FERRITIN 9. CKD AND SECONDARY/TERTIARY HYPERPARATHYROIDISM: Assessment & Plan -Currently no signs or symptoms of secondary hyperparathyroidism. Lab Results Component Value Date PTHINTACT 44 07/19/2024 CALCIUM 8.9 07/19/2024 11. CKD AND RENAL BONE MINERAL DISEASE/OSTEOPENIA/OSTEOPOROSIS: Assessment & Plan -For regular monitoring of PTH and vitamin D profile. Lab Results Component Value Date PTHINTACT 44 07/19/2024 CALCIUM 8.9 07/19/2024 12. CKD AND ATHEROSCLEROTIC CARDIOVASCULAR DISEASE & CKD: Score: not applicable due to his age. He is s.p. Stent placement in 2016. Assessment & Plan - Patient is currently on Fraxiag, metoprolol, losartan and crestor based therapy. NO active symptoms of angina although he does not move much based in the history for his . The 10-year ASCVD risk score (Mao TOSCANO, et al., 2019) is: 47.5% Values used to calculate the score: Age: 74 years Sex: Male Is Non- : No Diabetic: Yes Tobacco smoker: No Systolic Blood Pressure: 135 mmHg Is BP treated: Yes HDL Cholesterol: 32 mg/dL Total Cholesterol: 145 mg/dL Latest Ref Rng & Units 07/19/2024 10:25 AM Lipids Cholesterol <=199 mg/dL 145 Triglycerides <=149 mg/dL 180 Cholesterol, HDL 40 - 59 mg/dL 32 LDL Cholesterol <100 mg/dL 77 13. CKD AND FUNCTIONAL STATUS & FRAILTY: Yes Assessment & Plan -patient is frail and maintains a good quality of life with the use of the cane. 14. CKD AND NEED FOR ADVANCE CARE PLANNING: Assessment & Plan -Will be deferred at the moment given that kidney function is stable and we will monitor the progress. 15. CKD AND SOCIAL DETERMINANTS OF HEALTH(SDOH) & OTHER INITIATIVES: Assessment & Plan -None reported at the moment 16. ALLERGIES Allergies Allergen Reactions Latex Itching 17. Medication reconciliation: Refer to AVS I spent a total of 50 minutes on the date of encounter, which included: ?? Preparing to see the patient (e.g., review of test results) ?? Obtaining and/or reviewing separately obtained history ?? Performing a medically appropriate exam and/or evaluation ?? Counseling and educating the patient/family/caregiver ?? Ordering medications, tests, procedures ?? Referring and communicating with other healthcare professionals, when not separately reported ?? Independently interpreting results (not separately reported) and communicating results to the patient/family/caregiver ?? Care coordination not separately reported Dennys Roberto MD 12/06/2024 Pager: [phone] This note was generated, in part, by the [employer] system and the [employer] speech recognition program.It may contain unintended, inherent errors or omissions. documented in this encounter Plan of Treatment Upcoming Encounters Date Type Department Care Team (Late st Contact Info) Description 02/08/2025 10:15 AM EDT Follow-Up [facility] [address] [place] [id number] Instructor Of Spanish: Olivia Batista PA [address] [place] [phone] 03/07/2025 9:20 AM EDT Follow-Up [facility] [address] [place] [id number] Instructor Of Spanish: Dennys Collins MD [address] [place] [phone] documented as of this encounter Procedures * Due to [place] state law, this organization might not be [...] EST Stage 3b chronic kidney disease (HCC) documented in this encounter Results * Due to [place] state law, this organization might not be sharing negative HIV tests. * Vitamin D, 25-OH (D2, D3), LC/MS/MS (12/06/2024 10:29 AM EST) Vitamin D, 25-OH, Total 40 30 - 100 ng/mL 12/09/2024 10:35 AM EST [employer] (ALEXANDRU) Comment: Vitamin D, 25-Hydroxy reports concentrations [...] ng/mL. For additional information, please refer to http://education.menschmaschine publishing/faq/GSE897 (This link is being provided for informational/ educational purposes only.) Vitamin D, 25-OH, D3 40 ng/mL 12/09/2024 10:35 AM EST MARIOLA TOMLIN (ALEXANDRU) Comment: This test was developed and its analytical performance characteristics have been determined by [employer] [place], [place]. It has not been cleared or approved by the U.S. Food and Drug Administration. This assay has been validated pursuant to the CLIA regulations and is used for clinical purposes. Vitamin D, 25-OH, D2 <4 ng/mL 12/09/2024 10:35 AM EST MARIOLA TMOLIN (ALEXANDRU) Comment: This test was developed and its analytical performance characteristics have been determined by [employer] [place], [place]. It has not been cleared or approved by the U.S. Food and Drug Administration. This assay has been validated pursuant to the CLIA regulations and is used for clinical purposes. Blood Structure of peripheral vein / Unknown Venipuncture / Unknown 12/06/2024 10:29 AM EST 12/06/2024 10:30 AM EST Narrative [facility] - 12/09/2024 10:35 AM EST [facility] Received Date: us Dennys Roberto MD LAB BLOOD ORDERABLES Final Re sult MARIOLA LUNA [address] [place] [address] [address] Floor, [place] [address], MARIOLA NAVARRETE) [address] [place] [address], [place] * (ABNORMAL) Sedimentation Rate (12/06/2024 10:29 AM EST) Sed Rate 37(H) <20 mm/Hr mm/Hr 12/06/2024 10:50 AM EST [facility] Blood Structure of peripheral vein / Unknown Venipuncture / Unknown 12/06/2024 10:29 AM EST 12/06/2024 10:31 AM EST us Dennys Roberto MD LAB BLOOD ORDERABLES Final Re sult [facility] [address] [place] [address], [place] * (ABNORMAL) CBC Auto Differential (12/06/2024 10:29 AM EST) Pathologist [facility] WBC 8.4 3.8 - 10.8 10*3/uL 12/06/2024 10:38 AM EST [facility] RBC 4.26 4.20 - 5.80 10*6/uL 12/06/2024 10:38 AM EST [facility] Hemoglobin 12.5(L) 13.2 - 17.1 g/dL 12/06/2024 10:38 AM EST [facility] Hematocrit 38.7 38.5 - 50.0 % 12/06/2024 10:38 AM EST [facility] MCV 90.8 80.0 - 100.0 fL 12/06/2024 10:38 AM EST [facility] MCH 29.3 27.0 - 33.0 pg 12/06/2024 10:38 AM EST [facility] MCHC 32.3 32.0 - 36.0 g/dL 12/06/2024 10:38 AM EST [facility] [facility] RDW 14.0 [...] - 0.20 10*3/uL 12/06/2024 10:38 AM EST [facility] nRBC % 0.0 /100 WBCs 12/06/2024 10:38 AM EST [facility] nRBC # <0.01 <0.01 10*3/uL 12/06/2024 10:38 AM EST [facility] Blood Structure of peripheral vein / Unknown Venipuncture / Unknown 12/06/2024 10:29 AM EST 12/06/2024 10:31 AM EST Dennys Roberto MD LAB BLOOD ORDERABLES Final Re sult [facility] [address] [place] [address], * Immunofixation, Serum (12/06/2024 10:28 AM EST) Pathologist [facility] Immunofixation, Serum, Interpretation See Comments 12/08/2024 3:00 PM EST [facility] Comment: No monoclonal proteins detected. Blood Structure of peripheral vein / Unknown Venipuncture / Unknown 12/06/2024 10:28 AM EST 12/06/2024 10:31 AM EST Narrative [facility] - 12/08/2024 3:00 PM EST [facility] Received Date:[id number] Dennys Roberto MD LAB BLOOD ORDERABLES Final Re sult Performing Organization Address City/[facility]/ZIP Co de Phone Number [facility] [address] [facility] [address], [place] [address], [place] [phone] [facility] [address] [facility] [address], [place] [address], [place] [phone] * PSA (12/06/2024 10:28 AM EST) Pathologist [facility] PSA 0.03 <=4.00 ng/mL 12/06/2024 11:06 AM EST [facility] Comment: The total PSA value from this assay system is standardized against the WHO standard. ??The test result will be slightly lower (< 3 %) when compared to the equimolar-standardized total PSA(Leandro Shannock). ??Comparison of Serial PSA results should be [...] MD LAB BLOOD ORDERABLES Final Re sult [facility] [address] [place] [address], * (ABNORMAL) Protein Electrophoresis w/Reflex to Immunofixation, Serum (12/06/2024 10:28 AM EST) Protein, Total 6.4 6.1 - 8.1 g/dL 12/08/2024 7:52 AM EST [facility] Albumin 3.6(L) 3.8 - 4.8 g/dL 12/08/2024 7:52 AM [facility] Alpha 1 Globulin 0.3 0.2 - 0.3 g/dL 12/08/2024 7:52 AM [facility] [employer] Alpha 2 Globulin 0.5 0.5 - 0.9 g/dL 12/08/2024 7:52 AM EST [facility] [employer] Beta 1 Globulin 0.5 0.4 - 0.6 g/dL 12/08/2024 7:52 AM [facility] [employer] Beta 2 Globulin 0.6(H) 0.2 - 0.5 g/dL 12/08/2024 7:52 AM EST [facility] Gamma Globulin 1.0 0.8 - 1.7 g/dL 12/08/2024 7:52 AM [facility] Abnormal Protein Band 1 See Comments NONE DETECTED g/dL 12/08/2024 7:52 AM EST [facility] Comment: See below Interpretation See Comments 12/08/2024 7:52 AM EST [facility] Comment: Electrophoretic studies reveal an isolated elevation of beta-2 globulins. This pattern is suggestive of acute inflammation; however, the presence of a monoclonal protein cannot be ruled out. Consider serum immunofixation to rule out monoclonal protein (if not already ordered). Blood Structure of peripheral vein / Unknown Venipuncture / Unknown 12/06/2024 10:28 AM EST 12/06/2024 10:31 AM EST [facility] - 12/08/2024 7:52 AM EST [facility] Received Date: Dennys Roberto MD LAB BLOOD ORDERABLES Final Re sult [facility] [address] [facility] [address], [place] [address], [place] [phone] [facility] [address], [place] [address], [place] [phone] * CRP (C-Reactive Protein) (12/06/2024 10:28 AM EST) C Reactive Protein <3.0 <=9.9 mg/L 12/06/2024 11:07 AM EST [facility] Blood Structure of peripheral vein / Unknown Venipuncture / Unknown 12/06/2024 10:28 AM EST 12/06/2024 10:31 AM EST Dennys Roberto MD LAB BLOOD ORDERABLES Final Re sult [facility] [address] [place] [address], * (ABNORMAL) Foristell & Lambda, Free w/Ratio (12/06/2024 10:28 AM EST) [employer] Light Chain, Free, Serum 99.6(H) 3.3 - 19.4 mg/L 12/07/2024 11:25 AM EST [facility] Lambda Light Chain, Free, Serum 52.3(H) 5.7 - 26.3 mg/L 12/07/2024 11:25 AM EST [facility] Foristell/Lambda Light Chains Free With Ratio 1.90(H) 0.26 - 1.65 12/07/2024 11:25 AM EST [facility] Comment: Free kappa/lambda ratio in serum of [...] 10:28 AM EST 12/06/2024 10:30 AM EST [facility] [employer] [facility] - 12/07/2024 11:25 AM EST [facility] Received Date: Dennys Roberto MD LAB BLOOD ORDERABLES Final Re sult [facility] [address] [facility] [address], [place] [address], [facility] [address] [facility] [address], [place] [address], [place] [phone] * (ABNORMAL) Comprehensive Metabolic Panel (12/06/2024 10:28 AM EST) NA 142 135 - 145 mmol/L 12/06/2024 11:06 AM EST [facility] K 4.2 3.5 - 5.3 mmol/L 12/06/2024 11:06 AM EST [facility] Cl 107 98 - 107 mmol/L 12/06/2024 11:06 AM EST [facility] CO2 23 22 - 32 mmol/L 12/06/2024 11:06 AM EST [facility] Anion Gap 12 5 - 15 12/06/2024 11:06 AM [facility] Glucose 180(H) 65 - 99 mg/dL 12/06/2024 11:06 AM [facility] Creatinine 2.27(H) 0.60 - 1.30 mg/dL 12/06/2024 11:06 AM [facility] Calcium 9.5 8.6 - 10.5 mg/dL 12/06/2024 11:06 AM [facility] Total Protein 6.6 6.0 - 8.0 g/dL 12/06/2024 11:06 AM [facility] Albumin 3.8 3.5 - 5.2 g/dL 12/06/2024 11:06 AM [facility] Bilirubin, Total 0.7 0.2 - 1.2 mg/dL 12/06/2024 11:06 AM [facility] Alkaline Phosphatase 76 35 - 129 U/L 12/06/2024 11:06 AM [facility] AST 25 10 - 40 U/L 12/06/2024 11:06 AM [facility] ALT 21 10 - 40 U/L 12/06/2024 11:06 AM [facility] BUN 23 7 - 23 mg/dL 12/06/2024 11:06 AM [facility] eGFR 30(L) >=60 mL/min/1 .73m2 12/06/2024 11:06 AM [facility] Comment:The estimated glomer ular filtration rate (eGFR) is calculated using a new formula developed by the NKF-ASN task force to eliminate race-based correction factors. The new formula uses serum/plasma creatinine, age, and gender to determine eGFR. A value below 60mls/min might indicate kidney disease and will be flagged. For additional information, see Deysi et al, Am J Kidney Dis. 2021;79(2):268- 288, A Unifying Approach for GFR estimation: Recommendations of the NKF-ASN Task Force on Reassessing the Inclusion of Race in Diagnosing Kidney Disease . Globulin, Total 2.8 2.1 - 4.2 g/dL 12/06/2024 11:06 AM EST [facility] A/G Ratio 1.4(L) 1.5 - 3.0 12/06/2024 11:06 AM EST [facility] Blood Structure of peripheral vein / Unknown Venipuncture / Unknown 12/06/2024 10:28 AM EST 12/06/2024 10:31 AM EST Dennys Roberto MD LAB BLOOD ORDERABLES Final Re sult Performing Organization Address City/[facility]/ZIP Co de Phone Number [facility] [address] [place] [address], [place] * Phillips Top, Urine (12/06/2024 10:20 AM EST) Extra Tube Hold for add-ons. 12/06/2024 3:06 PM EST [facility] Comment:Auto resulted. Urine Urine specimen collection, clean catch / Unknown Non-Blood Collection / Unknown 12/06/2024 10:20 AM EST 12/06/2024 10:20 AM EST Dennys Roberto MD LAB URINE ORDERABLES Final Re sult Performing Organization Address City/[facility]/ZIP Co de Phone Number [facility] [address] [place] [address], [place] * (ABNORMAL) Urinalysis W/Reflex to Microscopic & Culture (12/06/2024 10:20 AM EST) Color, Urine Light Yellow Colorless, Light Yellow, Yellow, Dark Yellow 12/06/2024 10:32 AM EST [facility] Clarity, Urine Clear Clear 12/06/2024 10:32 AM EST [facility] Specific [place], Urine 1.022 1.005 - 1.030 12/06/2024 10:32 AM [facility] pH, Urine 6.0 4.6 - 8.0 12/06/2024 10:32 AM [facility] Protein, Urine 1+(A) Negative 12/06/2024 10:32 AM [facility] Glucose, Urine 3+(A) Negative 12/06/2024 10:32 AM [facility] Ketones, Urine Negative Negative 12/06/2024 10:32 AM [facility] Bilirubin, Urine Negative Negative 12/06/2024 10:32 AM [facility] Blood, Urine Negative Negative 12/06/2024 10:32 AM [facility] Nitrite, Urine Negative Negative 12/06/2024 10:32 AM [facility] Urobilinogen, Urine Normal Normal 12/06/2024 10:32 AM [facility] Leukocyte Esterase, Urine Negative Negative 12/06/2024 10:32 AM [facility] WBC, Urine 2 0 - 2 /HPF 12/06/2024 10:32 AM [facility] RBC, Urine <1 0 - 2 /HPF 12/06/2024 10:32 AM [facility] Hyaline Casts, Urine 0 0 - 2 /LPF 12/06/2024 10:32 AM [facility] Squamous Epithelial Cells, Urine <1 /HPF 12/06/2024 10:32 AM [facility] Bacteria, Urine None None /HPF /HPF 12/06/2024 10:32 AM [facility] Mucus, Urine Rare /LPF 12/06/2024 10:32 AM [facility] Urine Urine specimen collection, clean catch / Unknown Non-Blood Collection / Unknown 12/06/2024 10:20 AM EST 12/06/2024 10:20 AM EST us Dennys Roberto MD LAB URINE ORDERABLES Final Re sult Performing Organization Address [facility] Co de Phone Number [facility] [address] [place] [address], * (ABNORMAL) Microalbumin, Random Urine with Creatinine (12/06/2024 10:20 AM EST) Microalbumin, Urine 4.2 mg/dL 12/06/2024 10:56 AM EST [facility] Creatinine, Urine 74 22 - 328 mg/dL 12/06/2024 10:56 AM EST [facility] Microalb/Creat Ratio, Random Urine 56.8(H) <30.0 mcg/mgCr 12/06/2024 10:56 AM EST [facility] Comment: Microalbumin Reference Range: Normal ? <30 mcg/mg Creatinine Microalbuminuria ? 30-300 mcg/mg Creatinine Clinical Albuminuria >300 mcg/mg Creatinine Reference: ADA Guideline. Diabetes Care. 2004;27 (suppl 1) Urine Voided urine specimen / Unknown Non-Blood Collection / Unknown 12/06/2024 10:20 AM EST 12/06/2024 10:20 AM EST us Dennys Roberto MD LAB URINE ORDERABLES Final Re sult Performing Organization Address [facility] Co de Phone Number [facility] [address] [place] [address], documented in this encounter Visit Diagnoses Diagnosis Stage 3b chronic kidney disease (HCC)- Primary Pre-transplant evaluation for CKD (chronic kidney disease) Other specified pre-operative examination Primary hypertension Unspecified essential hypertension Nephrolithiasis Calculus of kidney documented in this encounter Care Teams Presetter Operator Relationship Specialty Start Date End Date Berenice Mix [address] [place] [address] PCP - General 05/14/17 documented as of this encounter
[2025-01-03 10:25] LABS: MANUAL DIFF FLAG NO
[2025-01-03 10:28] LABS: Basophils Absolute Auto 0.1 X10*3/uL (0.0-0.2); Basophils Percent Auto 1.2 % (0-2); Eosinophils Absolute Auto 0.5 X10*3/uL (0.0-0.4); Eosinophils Percent Auto 5.9 % (0-4); Hematocrit 40.1 % (42.0-52.0); Imm Gran Pct Auto 1.3 % (0.0-0.4); Lymphocytes Absolute Auto 1.6 X10*3/uL (1.2-4.9); Lymphocytes Percent Auto 20.9 % (20-40); Mean Corpuscular HGB Conc 32.4 g/dl (31.0-36.0); Mean Corpuscular Volume 92.6 fL (80.0-98.0); Mean Platelet Volume 10.8 fL (9.4-12.4); Monocytes Absolute Auto 0.7 X10*3/uL (0.1-1.2); Monocytes Percent Auto 9.5 % (2-11); Neutrophils Absolute Auto 4.7 x10*3/uL (2.0-8.3); Neutrophils Percent Auto 61.2 % (45-73); Platelet Count 320 X10*3/uL (160-400); Red Blood Count 4.33 X10*6/uL (4.60-5.80); Red Cell Distribution Width 14.1 % (11.0-16.0); White Blood Count 7.7 X10*3/uL (4.8-10.8)
[2025-01-03 10:37] LABS: Alanine Aminotransferase 26 U/L (0-40); Albumin Level 3.5 g/dL (3.5-5.0); Alkaline Phosphatase 72 U/L (39-117); Anion Gap 11 (12-20); Aspartate Amino Transferase 25 U/L (5-37); Bilirubin Total 0.9 mg/dL (0.0-1.0); Blood Urea Nitrogen 25 mg/dL (9-16); Carbon Dioxide 24 mmol/L (22-29); Chloride 111 mmol/L (96-108); Cholesterol 156 mg/dL (<200); Estimated Glomerular Filt Rate 29; Glucose Fasting 156 mg/dL (60-99); HDL Cholesterol 37 mg/dL (>40); LDL Cholesterol Calculated 88 mg/dL (<100); Potassium 4.3 mmol/L (3.3-5.1); Sodium 142 mmol/L (135-145); Total Protein 7.1 g/dL (6.5-8.0); Triglycerides 158 mg/dL (<150)
[2025-01-03 10:41] LABS: Creatinine Urine 125.06 mg/dL; Microalbum/Creatinine Ratio Ur 253.4 ug/mg cr (<30)
[2025-01-03 10:42] LABS: Estimated Average Glucose 157 mg/dL; Hemoglobin A1c % 7.1 % (<6.0)
== END 2025-01-03 08:04 | disposition home or self-care (01) ==
LOC: HO.HMGCLDS 08:03
PROVIDERS: PCP Internal Medicine; Visit Provider Internal Medicine
DX: D64.9 Anemia, unspecified (principal); N18.30 Chronic kidney disease, stage 3 unspecified; E11.9 Type 2 diabetes mellitus without complications; I10 Essential (primary) hypertension; E03.9 Hypothyroidism, unspecified
CPT/HCPCS: 36415; 80053; 80061; 82043; 82570; 83036; 85025

== ENCOUNTER 2025-01-06 08:49 | Outpatient (AMB) | payer MEDICARE, OTHER, SELFPAY ==
--- NOTE | 2025-01-06 08:58 | MHC.PC.OV ---
Vital Signs 01/06/25 08:59 Height 6 ft Weight 332 lb BMI 45.0 BP 106/66 Blood Pressure Location Rt brachial Position Sitting Pulse 64 Pulse Source Pulse Oximeter Temp 97.8 F Temp Source Oral Pulse Oximetry (%) 98 Oxygen Delivery Method Room Air Intake Visit Reasons: 4m follow up Intake Note: Pt is here today for 4 months follow up visit. Allergies codeine Allergy (Unknown, Verified 01/06/25 09:00) Vomiting irbesartan Adverse Reaction (Unknown, Verified 01/06/25 09:00) worsening renal function Medication List - Last Reconciled 01/06/25 by Berenice Mix MD amlodipine 10 mg PO DAILY blood sugar diagnostic (FreeStyle Lite Strips) use 1 strip twice a day to test blood sugar 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 meter (FreeStyle Lite Meter kit) As directed 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 sensor (Dexcom G7 Sensor device) Change sensor every 10 days cholecalciferol (vitamin D3) 125 mcg PO DAILY dapagliflozin propanediol (Farxiga) 10 mg PO DAILY Dexcom G7 Balloon Tester (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 meter,continuous) As directed NS donepezil (Aricept) 10 mg PO DAILY levothyroxine 1 tab PO for 5 days and 2 tabs PO two days a week PO; losartan 50 mg PO DAILY metoprolol succinate ER 200 mg (2 x 100 mg) PO DAILY Ozempic (semaglutide) 2 mg (0.75 mL) subcut QWEEK NS rosuvastatin 40 mg PO DAILY sertraline 50 mg PO DAILY syringe with needle As directed Tresiba FlexTouch U-100 (insulin degludec) 40 units (0.4 mL) subcut BID NS Trulicity (dulaglutide) 4.5 mg (0.5 mL) subcut QWEEK NS vibegron (Gemtesa) 75 mg PO DAILY Tobacco use date assessed: 01/06/25 Fall risk assessment: No Falls in past year Last assessed Fall Risk: 01/06/25 Dental Screening Dental Screen Date: 01/06/25 Did you have a dental visit in the last 12 months?: Yes Did you have a dental problem in the last 6 months where you did not have access to dental care?: No Was dental information given to patient?: Patient has dentist HPI 4m follow up HPI Details Patient presents for the follow-up on hypertension type 2 diabetes hypothyroidism hyperlipidemia chronic depression and recently diagnosed with Alzheimer disease by neurologist in [place]. Patient has been getting physical therapy for poor balance but is not interested in starting regular physical activity like riding stationary bike. [facility] Medical History (Updated 01/06/25 @ 15:53 by Berenice Mix MD) TIA (transient ischemic attack) Wound of left leg Annual physical exam Hematuria Hypogonadism Vitamin B 12 deficiency Microalbuminuria CKD (chronic kidney disease), stage III Chronic venous insufficiency Hypothyroidism Prostate cancer Overweight Type 2 diabetes mellitus CAD (coronary artery disease) Hyperlipidemia HTN (hypertension) Surgical History H/O colonoscopy No pertinent past surgical history Family History Father No problems noted. Mother No problems noted. Social History Housing: House Alcohol intake: unknown Patient Tobacco Use Status: Former Tobacco user e-Cigarette/Vaping Use: Never Used Second Hand Smoke Exposure: No service: No Current occupational status: retired Cognitive needs: No Hearing needs: No Vision needs: Yes Questionnaire PHQ-9 Over the last 2 weeks, how often have you been bothered by any of the following problems? 1. Little interest or pleasure in doing things: not at all 2. Feeling down, depressed, or hopeless: not at all 3. Trouble falling or staying asleep, or sleeping too much: not at all 4. Feeling tired or having little energy: not at all 5. Poor appetite or overeating: not at all 6. Feeling bad about yourself - or that you are a failure or have let yourself or your family down: not at all 7. Trouble concentrating on things, such as reading the newspaper or watching television: not at all 8. Moving or speaking so slowly that other people could have noticed. Or the opposite - being so fidgety or restless that you have been moving around a lot more than usual: not at all 9. Thoughts that you would be better off or of hurting yourself in some way: not at all Total score: 0 Depression Screening Interpretation: Negative Depression Screening Done: Yes 74935 - PHQ-9 Billing: Yes Source: Developed by Drs. Kameron Cherry, Kiley Knapp, Shad Mosquera and colleagues, with an educational duane from [employer]. Thrive Questionnaire Date Thrive assessed: 01/06/25 What is your living situation today?: I have a steady place to live Within the past 12 months, did the food you bought not last and you didn't have the money to get more?: I choose not to answer this question Within the past 12 months, did you worry whether your food would run out before you got money to buy more?: I choose not to answer this question Do you have trouble paying for medicines?: No Do you have trouble getting transportation to medical appointments?: No Do you have trouble paying your heating and electricity bill?: No Do you have trouble taking care of your child, family member or friend?: No Do you have trouble with day-to-day activities such as bathing, preparing meals, shopping, managing finances, etc.?: No Are you currently unemployed and looking for a job?: No Are you interested in more education?: I choose not to answer this question Please select the resources that you would like help with: None Currently or been in a relationship where the following occur: I choose not to answer THRIVE Score: 0 AUDIT C Alcohol Use Questionnaire (AUDIT-C) 1. How often do you have a drink containing alcohol?: Monthly or less 2. How many drinks containing alcohol do you have on a typical day when you are drinking?: 1 or 2 3. How often do you have six or more drinks on one occasion?: Never Total Score: 1 NATANAEL-7 AMB Questionnaire NATANAEL-7 Date NATANAEL - 7 assessed: 01/06/25 Feeling nervous, anxious, or on edge: 0 = Not at all Not being able to stop or control worryin = Not at all Worrying too much about different things: 0 = Not at all Trouble relaxin = Not at all Being so restless that it is hard to sit still: 0 = Not at all Becoming easily annoyed or irritable: 0 = Not at all Feeling afraid as if something awful might happen: 0 = Not at all Total NATANAEL-7 score (0-4 normal; 5-9 mild; 10-14 moderate; 15-21 severe): 0 Source: Developed by Drs. Kameron Cherry, Kiley Knapp, Shad Mosquera and colleagues, with an educational duane from [employer]. NATANAEL-7 Assessment Billing NATANAEL-7 Assessment Tool: NATANAEL-7 Assessment 42827 Review of Systems Const All systems reviewed & are unremarkable except as noted in HPI and below Eyes Reports no additional complaints ENT Reports no additional complaints Card Reports no additional complaints Resp Reports no additional complaints Reports no additional complaints Physical exam (Primary Care) Vital Signs: Last Vital Signs Temp 97.8 F 01/06/25 08:59 Pulse 64 01/06/25 08:59 BP 106/66 01/06/25 08:59 Pulse Ox 98 01/06/25 08:59 Oxygen Delivery Method Room Air 01/06/25 08:59 BMI result Body Mass Index 45.0 Tobacco/Smoking Status: Tobacco use Status Tobacco use date assessed 01/06/25 01/06/25 09:09 Patient Tobacco Use Status Former Tobacco user 01/06/25 09:00 e-Cigarette/Vaping Use Never Used 01/06/25 09:00 PHQ-9: PHQ-9 Score PHQ-9: Total score 0 01/06/25 09:09 Depression Screening Interpretation: Negative Thrive Assessment: Date of Thrive Assessment Date Thrive assessed 01/06/25 01/06/25 09:00 Currently or been in a relationship where the following occur: I choose not to answer Const General: no acute distress HENMT Head: Yes normal to inspection Neck Neck: Yes supple Resp Effort & Inspection: normal respiratory effort Auscultation: clear to auscultation bilaterally Cardio Rhythm: regular rhythm Heart sounds: S1 normal heart sound present and S2 normal heart sound present GI Inspection: Yes normal to inspection Palpation (GI): Soft to palpation Percussion: Yes normal to percussion Auscultation: normal bowel sounds Coding Level of Care Code Est Pt Level 4 (95932) Complex EM visit Add On G2211 Diagnoses Prostate cancer C61 Alzheimer dementia G30.9; F02.80 CKD (chronic kidney disease), stage III N18.30 Type 2 diabetes mellitus E11.9 HTN (hypertension) I10 Hypothyroidism E03.9 Additional Codes NATANAEL-7 Assessment Billing - NATANAEL-7 Assessment Tool: NATANAEL-7 Assessment 99943 ([id number]) PHQ-9 - 82651 - PHQ-9 Billing: Yes ([id number]) Assessment & Plan Assessment & Plan (1) Prostate cancer: Comment: follows up with urologist at [facility] negative PET scan for metastatic dx 10/17 Code(s): C61 - Malignant neoplasm of prostate Category: Medical Plan: Follow-up with urology (2) Alzheimer dementia: Code(s): G30.9 - Alzheimer's disease, unspecified; F02.80 - Dementia in other diseases classified elsewhere, unspecified severity, without behavioral disturbance, psychotic disturbance, mood disturbance, and anxiety Category: Medical Plan: Continue donepezil, increase physical activity discussed with the patient (3) CKD (chronic kidney disease), stage III: Comment: stage 3/4 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 Code(s): N18.30 - Chronic kidney disease, stage 3 unspecified Category: Medical Plan: Monitor renal function avoid nephrotoxins (4) Type 2 diabetes mellitus: Comment: on insulin Code(s): E11.9 - Type 2 diabetes mellitus without complications Category: Medical Plan: A1c is 7.1, ADA diet increase exercise weight loss discussed with the patient's continue Farxiga Ozempic and insulin (5) HTN (hypertension): Code(s): I10 - Essential (primary) hypertension Category: Medical Plan: Continue current medications (6) Hypothyroidism: Code(s): E03.9 - Hypothyroidism, unspecified Category: Medical Plan: Continue levothyroxine follow-up in 3 months with a fasting labs before Orders: Orders Comprehensive [place]. Panel Fast 3 Months E03.9 - Hypothyroidism, unspecified, E11.9 - Type 2 diabetes mellitus without complications, I10 - Essential (primary) hypertension, N18.30 - Chronic kidney disease, stage 3 unspecified Hemoglobin A1c 3 Months E03.9 - Hypothyroidism, unspecified, E11.9 - Type 2 diabetes mellitus without complications, I10 - Essential (primary) hypertension, N18.30 - Chronic kidney disease, stage 3 unspecified Complete Blood Count Auto Diff 3 Months E03.9 - Hypothyroidism, unspecified, E11.9 - Type 2 diabetes mellitus without complications, I10 - Essential (primary) hypertension, N18.30 - Chronic kidney disease, stage 3 unspecified Microalbumin, Random (w Creat) 3 Months E03.9 - Hypothyroidism, unspecified, E11.9 - Type 2 diabetes mellitus without complications, I10 - Essential (primary) hypertension, N18.30 - Chronic kidney disease, stage 3 unspecified Lipid Panel 3 Months E03.9 - Hypothyroidism, unspecified, E11.9 - Type 2 diabetes mellitus without complications, I10 - Essential (primary) hypertension, N18.30 - Chronic kidney disease, stage 3 unspecified TSH reflex Free T4 3 Months E03.9 - Hypothyroidism, unspecified, E11.9 - Type 2 diabetes mellitus without complications, I10 - Essential (primary) hypertension, N18.30 - Chronic kidney disease, stage 3 unspecified
[2025-01-06 08:59] VITALS: BP 106/66; PULSE 64; TEMP 36.6; O2SAT 98; BMI 45.0
--- OUTSIDE RECORDS SUMMARY | 2025-01-06 09:07 | XMS_ITS ---
Author Organization [facility] [place] [place] Address [address] [place] [address] Care Team Providers Care Pathology Secretary/Transcriptionist Name Role Phone Berenice Mix MD Primary Care Provider Kb Andres Unavailable [phone] Allergies No Known Allergies REASON FOR VISIT [...] Ordered Date Performed Result Body Sit e 48397-ADQKLOQ NAIL, 6 OR MORE 05/30/2024 N/A 19119-Uljiiwhy Plate 05/30/2024 N/A 72791-WXOX SKIN LESIONS, OVER 4 05/30/2024 N/A Encounters Encounter Location Date Provider Diagnosis [facility] [address] [address] 05/30/2024 Kb Marti Type 2 diabetes mellitus [...] INSTRUCTIONS.pdf) Pending Test Test Name Order Date 50019-DMQOASY NAIL, 6 OR MORE 05/30/2024 78094-Bsssxznh Plate 05/30/2024 93804-UPBO SKIN LESIONS, OVER 4 05/30/20 24 Next [...] Motrin was recommended for pain or discomfort (07305) , DIABETES: Pt was advised as to [...] as necessary. Patient chooses, no pharmaceutical tx (35285) Keratoma Treatment Parring or Cutting o f Benign Hyperkeratotic Lesion(s) 17494 ( More than 4 Lesions ) - The Benign hyperkeratotic lesions, as described above were pared, and/or cut utilizing a sterile 15 blade, tissue nippers, and/or dremel , Q8 Progress Notes * ERASMOStanley BOCANEGRA EDOB:[birth year] (74 yo M)Acc No.[id number]:05/30/2024 Progress Note Patient:?Stanley CH Provider:?Kb Marti DPM :1950???Age:74 Y???Sex:Male Darrick e:05/30/2024 Address:[address] [place] [id number] Pcp:Berenice Mix MD Subjective: * Chief Complaints: [...] mellitus with diabetic peripheral angiopathy without gangrene?Procedure: 92518-NXAO SKIN LESIONS, OVER 4 3.?Tinea unguium?Procedure: 79589-PXIZGXG NAIL, 6 OR MORE 4.?Ingrown nail?Procedure: 25464-Ulebzfdm Plate * Procedures:?Debride Nail 6-10:?Nail debridement?Nail debridement performed extensively to reduce/remove overall nail length, girth, thickness, subungual debris, and necrotic tissue, by manual and electrical means through the use of a nail nipper and/or dremel, to more viable healthy nail plate or bed tissue 6-10. Silver nitrate used for any petechial bleeding as necessary. Patient chooses, no pharmaceutical tx (63682).?Keratoma Treatment:?Parring or Cutting of Benign Hyperkeratotic Lesion(s)?29088 ( More than 4 Lesions ) - [...] Motrin was recommended for pain or discomfort (69421) , DIABETES: Pt was advised as to the risk of delayed or nonhealing due to diabetes. Pt is to call the office with any questions, concerns, or complications.? * Procedure Codes:?85392 Avuls ion Plate, Modifiers: XS , [id number] DEBRIDE NAIL, 6 OR MORE, Modifiers: XS 40283 TRIM SKIN LESIONS, OVER 4, Modifiers: XS [...] Marti DPM Date:?[address]/Kin/Jasvir on:?01/06/2025 09:07 AM EDT History and Physical Notes * [...]
--- OUTSIDE RECORDS SUMMARY | 2025-01-06 09:07 | XMS_ITS | Encounter Summary ---
Author Organization [facility] Address [address] [place] [address] Care Team Providers Care Real Estate Assistant Name Role Phone Berenice Mix Primary Care Provider [phone] Encounter Details Date Type Department Care Team (Late st Contact Info) Description 01/04/2025 myChart Message [facility] [address] [place] [address] [employer] Dies: Johnna Moss, Olivia Anderson, DENY [address] [place] [address] Raymundo's visit on 02/08/2025 Social History Tobacco Use Types Packs/Day Years [...] Info) Description 02/08/2025 10:15 AM EDT Follow-Up [facility] [address] [place] [address] [employer] Dies: Johnna Moss, DENY Lara [address] [place] [phone] 03/07/2025 9:20 AM EDT Follow-Up [facility] [address] [place] [phone] [employer] Dies: Dennys Collins MD [address] [place] [address] [phone] documented as of this encounter Visit Diagnoses Not on filedocumented in this encounter Care Teams Real Estate Assistant Relationship Specialty Start Date End Date Berenice Mix [address] [place] [address] PCP - General 05/14/17 documented as of this encounter
--- OUTSIDE RECORDS SUMMARY | 2025-01-06 09:07 | XMS_ITS | Encounter Summary ---
Author Organization [facility] Address [address] [place] [address] Care Team Providers Care Painter Foreman Name Role Phone Berenice Mix Primary Care Provider [phone] Encounter Details Date Type Department Care Team (Late st Contact Info) Description 06/30/2023 Orders Only [facility] Interventional Radiology [address] [place] [address] Fran Conde, [address] [place] [address] Social History Tobacco Use Types Packs/Day Years [...] Info) Description 02/08/2025 10:15 AM EDT Follow-Up [facility] [address] [place] [id number] [employer]: Olivia Batista PA [address] [place] [address] 03/07/2025 9:20 AM EDT Follow-Up [facility] [address] [place] [phone] [employer]: Dennys Collins MD [address] [place] [address] [phone] documented as of this encounter Visit Diagnoses Not on filedocumented in this encounter Care Teams Painter Foreman Relationship Specialty Start Date End Date Berenice Mix [address] [place] [address] PCP - General 05/14/17 documented as of this encounter
--- OUTSIDE RECORDS SUMMARY | 2025-01-06 09:07 | XMS_ITS | Clinical Summary ---
Author Organization [facility] Address [address] [place] [address] Care Team Providers Care Nursing Technician Name Role Phone Berenice Mix Primary Care Provider [phone] Allergies Active Allergy Reactions Criticality Noted Date Comments Latex Itching 12/18/2023 Medications metoprolol succinate XL (TOPROL XL) 100 mg tablet Take 200 mg by mouth once a day. 2 Active rosuvastatin (CRESTOR) 40 mg tablet Take 40 mg by mouth daily. 2 Active sertraline (ZOLOFT) 25 mg tablet Take 50 mg by mouth. 2 Active losartan (COZAAR) 25 mg tablet Take 50 mg by mouth once a day. 2 Active Semglee,insulin glarg-yfgn,Pen 100 unit/mL (3 mL) insulin pen 40 Units 2 times a day. 2 Active amLODIPine (NORVASC) 10 mg tablet Take 10 mg by mouth daily. 2 Active BD Luer-Madeleine Syringe 3 mL 20 gauge x 1 1/2 syringe USE FOR TESTOSTERONE INJECTIONS EVERY 3 WEEKS 9 each 11 3 Active Freestyle Lite test strips USE 1 STRIP TWICE A DAY TO TEST BLOOD SUGAR 3 Active Farxiga 10 mg SMARTSI Tablet(s) By Mouth Daily Active donepeziL (ARICEPT) 10 mg tablet Take 10 mg by mouth daily. 3 Active levothyroxine (SYNTHROID, LEVOTHROID) 75 mcg tablet TAKE 1 TABLET BY MOUTH EVERY DAY FOR 5 DAYS A WEEK, AND 2 TABS TWO DAYS A WEEK 3 Active vit A/vit C/vit E/zinc/copper (PRESERVISION AREDS ORAL) Take 3 tablets by mouth daily. Active acetaminophen (TYLENOL) 325 mg tablet Take 2 tablets (650 mg total) by mouth every 6 hours as needed for pain. 4 Active Gemtesa 75 mg tablet SMARTSI Tablet(s) By Mouth Daily 4 Active tamsulosin (FLOMAX) 0.4 mg capsule Take 2 capsules (0.8 mg total) by mouth once a day. 30 capsule 02/03/2024 11:36 AM EDT 4 Active acetaminophen (TYLENOL) 325 mg tablet Take 2 tablets (650 mg total) by mouth every 6 hours as needed for pain. 30 tablet 02/03/2024 11:36 AM EDT 4 Active oxybutynin XL (DITROPAN XL) 10 mg tablet Take 1 tablet (10 mg total) by mouth once a day. 90 tablet 3 4 06/08/20 25 Active Dexcom G7 Sensor device USE DIRECTED, CHANGE EVERY 10 DAYS 4 Active Ozempic 2 mg/dose (8 mg/3 mL) pen injector SMARTSI.25 Milliliter(s) SUB-Q Once a Week 4 Active Active Problems Problem Noted Date Diagnosed Date Hypertension 08/25/2022 Hyperlipidemia 08/25/2022 Hypogonadism in male 08/25/2022 Nephrolithiasis 08/25/2022 Stage 2 chronic kidney disease 03/10/2022 Malignant neoplasm of prostate 04/08/2012 Overview (08/08/2022): Malignant tumor of prostate Malignant tumor of prostate Hypothyroidism 04/08/2012 Overview (08/08/2022): Hypothyroidism Hypothyroidism Diabetes mellitus 04/08/2012 Overview (08/08/2022): Diabetes mellitus Diabetes mellitus Encounters Date Type Department Care Team Description 01/04/2025 [employer] Message [facility] [address] [place] [phone] Community Worker: Johnna Moss, DENY Lara's visit on 02/08/2025 12/12/2024 Immunity Project [facility] [address] [place] [address] Community Worker: Dennys Collins MD Missed your call 12/08/2024 Immun[employer] Project [facility] [address] [place] [address] Community Worker: Dennys Collins MD Lab test results questions 12/06/2024 8:20 AM EST Follow-Up [facility] [address] [place] [address] Community Worker: Dennys Collins MD Stage 3b chronic kidney [...] Info) Description 02/08/2025 10:15 AM EDT Follow-Up [facility] [address] [place] [address] Community Worker: Johnna Moss, DENY Lara [address] [place] [phone] 03/07/2025 9:20 AM EDT Follow-Up [facility] [address] [place] [address] Community Worker: Dennys Collins MD [address] [place] [address] Health Maintenance Due Date Last Done Comments [...] 03/10/2022 Ophthalmology Exam 09/10/2023 09/10/2022 COVID-19 Vaccine ( season) 2024 08/03/2022, 03/25/2022, 07/28/2021, Additional history exists Alcohol/Substance Use Screening 10/26/2024 Depression Screening and Follow-Up 10/26/2024 Health Care Proxy Review 10/26/2024 Social Drivers of Health Annual Screening 10/26/2024 Basic Metabolic [...] this topic Medical Devices Implanted Type Area Customer Resolution Specialist Device Identifier Shelf Expiration Date Model / Serial / Lot Stent Ureteral Firm Hydroplus Coating 6fr 28cm Percuflex Plus - [id number] - [id number] Implanted:Qty: 1 on 02/03/2024 by Sophia Salazar MD at [facility] Stent Right: Ureter [employer] 03/08/2026 [id number] / [id number] / [id number] Explanted Type Area Customer Resolution Specialist Device Identifier Shelf Expiration Date Model / Serial / Lot Stent Ureteral Firm Hydroplus Coating 6fr 28cm Percuflex Plus - [id number] Implanted:Qty: 1 on 12/31/2023 by Ernesto Freedman MD at [facility] Explanted:Qty: 1 on 02/03/2024 by Sophia Salazar MD at [facility] Stent Right: Ureter [employer] 04/17/2026 [id number] / / [id number] Procedures * Due to [place] state law, this organization might not be [...] to Health Maintenance Results * Due to [place] state law, this organization might not be sharing negative HIV tests. * Vitamin D, 25-OH (D2, D3), LC/MS/MS (12/06/2024 10:29 AM EST) Vitamin D, 25-OH, Total 40 30 - 100 ng/mL 12/09/2024 10:35 AM EST MARIOLA TOMLIN (ALEXANDRU) Comment: Vitamin D, 25-Hydroxy reports concentrations [...] ng/mL. For additional information, please refer to http://education.Familonet/faq/URN037 (This link is being provided for informational/ educational purposes only.) Vitamin D, 25-OH, D3 40 ng/mL 12/09/2024 10:35 AM EST [employer] SADA (HORVATH) Comment: This test was developed and its analytical performance characteristics have been determined by [employer] [place]. It has not been cleared or approved by the U.S. Food and Drug Administration. This assay has been validated pursuant to the CLIA regulations and is used for clinical purposes. Vitamin D, 25-OH, D2 <4 ng/mL 12/09/2024 10:35 AM EST [employer]IR[employer] To[employer]aden (HORVATH) Comment: This test was developed and its analytical performance characteristics have been determined by [employer] [place] [place]. It has not been cleared or approved by the U.S. Food and Drug Administration. This assay has been validated pursuant to the CLIA regulations and is used for clinical purposes. Blood Structure of peripheral vein / Unknown Venipuncture / Unknown 12/06/2024 10:29 AM EST 12/06/2024 10:30 AM EST [facility] - 12/09/2024 10:35 AM EST [facility] Received Date: us Dennys Roberto MD LAB BLOOD ORDERABLES Final Re sult [facility] [place] [address] [facility] 3rd Floor, [place] [address], [place] [phone] MARIOLA TOMLIN (travelfox) [address] [place] [address], [place] * (ABNORMAL) CBC Auto Differential (12/06/2024 10:29 AM EST) WBC 8.4 3.8 - 10.8 10*3/uL 12/06/2024 10:38 AM EST [facility] RBC 4.26 4.20 - 5.80 10*6/uL 12/06/2024 10:38 AM EST [facility] Hemoglobin 12.5(L) 13.2 - 17.1 g/dL 12/06/2024 10:38 AM EST [facility] Hematocrit 38.7 38.5 - 50.0 % 12/06/2024 10:38 AM EST [facility] MCV 90.8 [...] - 3.90 10*3/uL 12/06/2024 10:38 AM EST [facility] Monocyte # 0.70 0.20 - 0.95 10*3/uL 12/06/2024 10:38 AM EST [facility] Eosinophil # 0.30 0.02 - 0.50 10*3/uL 12/06/2024 10:38 AM EST [facility] Basophil # 0.10 0.00 - 0.20 10*3/uL 12/06/2024 10:38 AM EST [facility] nRBC % 0.0 /100 WBCs 12/06/2024 10:38 AM EST [facility] nRBC # <0.01 <0.01 10*3/uL 12/06/2024 10:38 AM EST [facility] [employer] [facility] Blood Structure of peripheral vein / Unknown Venipuncture / Unknown 12/06/2024 10:29 AM EST 12/06/2024 10:31 AM EST us Dennys Roberto MD LAB BLOOD ORDERABLES Final Re sult Performing Organization Address City/[facility]/ZIP Co de Phone Number [facility] [address] [place] [address], [place] * (ABNORMAL) Sedimentation Rate (12/06/2024 10:29 AM EST) Sed Rate 37(H) <20 mm/Hr mm/Hr 12/06/2024 10:50 AM EST [facility] Blood Structure of peripheral vein / Unknown Venipuncture / Unknown 12/06/2024 10:29 AM EST 12/06/2024 10:31 AM EST us Dennys Roberto MD LAB BLOOD ORDERABLES Final Re sult [facility] [address] [place] [address], [place] * Immunofixation, Serum (12/06/2024 10:28 AM EST) Immunofixation, Serum, Interpretation See Comments 12/08/2024 3:00 PM EST [facility] Comment: No monoclonal proteins detected. Blood Structure of peripheral vein / Unknown Venipuncture / Unknown 12/06/2024 10:28 AM EST 12/06/2024 10:31 AM EST Narrative [facility] - 12/08/2024 3:00 PM EST [facility] Received Date: us Dennys Roberto MD LAB BLOOD ORDERABLES Final Re sult MARIOLA ELMIRA [address] [facility] 3rd Floor, [place] [address], [facility] [address] [facility] 3rd Floor, [place] [address], * (ABNORMAL) [place] & Lambda, Free w/Ratio (12/06/2024 10:28 AM EST) Pathologist [facility] [place] Light Chain, Free, Serum 99.6(H) 3.3 - 19.4 mg/L 12/07/2024 11:25 AM EST [facility] Lambda Light Chain, Free, Serum 52.3(H) 5.7 - 26.3 mg/L 12/07/2024 11:25 AM EST [facility] [place]/Lambda Light Chains Free With Ratio 1.90(H) 0.26 - 1.65 12/07/2024 11:25 AM EST [facility] Comment: Free kappa/lambda ratio in [...] AM EST 12/06/2024 10:30 AM EST Narrative [facility] - 12/07/2024 11:25 AM EST [facility] Received Date: us Dennys Roberto MD LAB BLOOD ORDERABLES Final Re sult [facility] [address] [facility] [address]rd Floor, [place] [address], [facility] [address] [facility] 3rd Floor, [place] [address], * (ABNORMAL) Protein Electrophoresis w/Reflex to Immunofixation, Serum (12/06/2024 10:28 AM EST) Protein, Total 6.4 6.1 - 8.1 g/dL 12/08/2024 7:52 AM EST [facility] Albumin 3.6(L) 3.8 - 4.8 g/dL 12/08/2024 7:52 AM EST [facility] [place] [facility] Alpha 1 Globulin 0.3 0.2 - 0.3 g/dL 12/08/2024 7:52 AM [facility] [place] [facility] Alpha 2 Globulin 0.5 0.5 - 0.9 g/dL 12/08/2024 7:52 AM EST [facility] Beta 1 Globulin 0.5 0.4 - 0.6 g/dL 12/08/2024 7:52 AM EST [facility] Beta 2 Globulin 0.6(H) 0.2 - 0.5 g/dL 12/08/2024 7:52 AM EST [facility] Gamma Globulin 1.0 0.8 - 1.7 g/dL 12/08/2024 7:52 AM [employer] Abnormal Protein Band 1 See Comments NONE DETECTED g/dL 12/08/2024 7:52 AM EST [facility] Comment: See below Interpretation See Comments 12/08/2024 7:52 AM EST [facility] Comment: Electrophoretic studies reveal an isolated elevation of beta-2 globulins. This pattern is suggestive of acute inflammation; however, the presence of a monoclonal protein cannot be ruled out. Consider serum immunofixation to rule out monoclonal protein (if not already ordered). Blood Structure of peripheral vein / Unknown Venipuncture / Unknown 12/06/2024 10:28 AM EST 12/06/2024 10:31 AM EST Narrative [facility] - 12/08/2024 7:52 AM EST [facility] Received Date: Dennys Roberto MD LAB BLOOD ORDERABLES Final Re sult [facility] [address] [facility] 3rd [address], [place] [address], [place] [phone] [facility] [address] [facility], [place] [address], [place] [phone] * CRP (C-Reactive Protein) (12/06/2024 10:28 AM EST) C Reactive Protein <3.0 <=9.9 mg/L 12/06/2024 11:07 AM EST [facility] Blood Structure of peripheral vein / Unknown Venipuncture / Unknown 12/06/2024 10:28 AM EST 12/06/2024 10:31 AM EST Dennys Roberto MD LAB BLOOD ORDERABLES Final Re sult [facility] [address] [place] [address], [place] * PSA (12/06/2024 10:28 AM EST) PSA 0.03 <=4.00 ng/mL 12/06/2024 11:06 AM EST [facility] Comment: The total PSA value from this assay system is standardized against the WHO standard. ??The test result will be slightly lower (< 3 %) when compared to the equimolar-standardized total PSA(Leandro Emperatriz). ??Comparison of Serial PSA results should be [...] MD LAB BLOOD ORDERABLES Final Re sult [facility] [address] [place] [address], * (ABNORMAL) Comprehensive Metabolic Panel (12/06/2024 10:28 AM EST) NA 142 135 - 145 mmol/L 12/06/2024 11:06 AM EST [facility] K 4.2 3.5 - 5.3 mmol/L 12/06/2024 11:06 AM EST [facility] Cl 107 98 - 107 mmol/L 12/06/2024 11:06 AM EST [facility] CO2 23 22 - 32 mmol/L 12/06/2024 11:06 AM EST [facility] Anion Gap 12 5 - 15 12/06/2024 11:06 AM EST [facility] Glucose 180(H) 65 - 99 mg/dL 12/06/2024 11:06 AM EST [facility] Creatinine 2.27(H) 0.60 - 1.30 mg/dL 12/06/2024 11:06 AM EST [facility] Calcium 9.5 8.6 - 10.5 mg/dL 12/06/2024 11:06 AM EST [facility] Total Protein 6.6 6.0 - 8.0 g/dL 12/06/2024 11:06 AM EST [facility] Albumin 3.8 3.5 - 5.2 g/dL 12/06/2024 11:06 AM [facility] Bilirubin, Total 0.7 0.2 - 1.2 mg/dL 12/06/2024 11:06 AM [facility] Alkaline Phosphatase 76 35 - 129 U/L 12/06/2024 11:06 AM EST [facility] AST 25 10 - 40 U/L 12/06/2024 11:06 AM [facility] ALT 21 10 - 40 U/L 12/06/2024 11:06 AM EST [facility] BUN 23 7 - 23 mg/dL 12/06/2024 11:06 AM [facility] eGFR 30(L) >=60 mL/min/1 .73m2 12/06/2024 11:06 AM [facility] Comment:The estimated glomer ular [...] 2.1 - 4.2 g/dL 12/06/2024 11:06 AM [facility] A/G Ratio 1.4(L) 1.5 - 3.0 12/06/2024 11:06 AM [facility] Blood Structure of peripheral vein / Unknown Venipuncture / Unknown 12/06/2024 10:28 AM EST 12/06/2024 10:31 AM EST us Dennys Roberto MD LAB BLOOD ORDERABLES Final Re sult Performing Organization Address City/[facility]/ZIP Co de Phone Number [facility] [address] [place] [address], [place] * Phillips Top, Urine (12/06/2024 10:20 AM EST) Extra Tube Hold for add-ons. 12/06/2024 3:06 PM EST [facility] Comment:Auto resulted. Urine Urine specimen collection, clean catch / Unknown Non-Blood Collection / Unknown 12/06/2024 10:20 AM EST 12/06/2024 10:20 AM EST Dennys Roberto MD LAB URINE ORDERABLES Final Re sult Performing Organization Address [facility] Co de Phone Number [facility] [address] [place] [address], [place] * (ABNORMAL) Urinalysis W/Reflex to Microscopic & Culture (12/06/2024 10:20 AM EST) Pathologist [facility] [place] Color, Urine Light Yellow Colorless, Light Yellow, Yellow, Dark Yellow 12/06/2024 10:32 AM EST [facility] Clarity, Urine Clear Clear 12/06/2024 10:32 AM EST [facility] Specific Traphill, Urine 1.022 1.005 - 1.030 12/06/2024 10:32 AM EST [facility] pH, Urine 6.0 4.6 - 8.0 12/06/2024 10:32 AM EST [facility] [employer] [facility] Protein, Urine 1+(A) Negative 12/06/2024 10:32 AM EST [facility] Glucose, Urine 3+(A) Negative 12/06/2024 10:32 AM EST [facility] Ketones, Urine Negative Negative 12/06/2024 10:32 AM EST [facility] Bilirubin, Urine Negative Negative 12/06/2024 10:32 AM EST [facility] Blood, Urine Negative Negative 12/06/2024 10:32 AM EST [facility] Nitrite, Urine Negative Negative 12/06/2024 10:32 AM EST [facility] Urobilinogen, Urine Normal Normal 12/06/2024 10:32 AM EST [facility] Leukocyte Esterase, Urine Negative Negative 12/06/2024 10:32 AM EST [facility] WBC, Urine 2 0 - 2 /HPF 12/06/2024 10:32 AM EST [facility] RBC, Urine <1 0 - 2 /HPF 12/06/2024 10:32 AM EST [facility] Hyaline Casts, Urine 0 0 - 2 /LPF 12/06/2024 10:32 AM EST [facility] Squamous Epithelial Cells, Urine <1 /HPF 12/06/2024 10:32 AM EST [facility] Bacteria, Urine None None /HPF /HPF 12/06/2024 10:32 AM EST [facility] Mucus, Urine Rare /LPF 12/06/2024 10:32 AM EST [facility] Urine Urine specimen collection, clean catch / Unknown Non-Blood Collection / Unknown 12/06/2024 10:20 AM EST 12/06/2024 10:20 AM EST us Dennys Roberto MD LAB URINE ORDERABLES Final Re sult [facility] [address] [place] [address], * (ABNORMAL) Microalbumin, Random Urine with Creatinine (12/06/2024 10:20 AM EST) Microalbumin, Urine 4.2 mg/dL 12/06/2024 10:56 AM EST [facility] Creatinine, Urine 74 22 - 328 mg/dL 12/06/2024 10:56 AM EST [facility] Microalb/Creat Ratio, Random Urine 56.8(H) <30.0 mcg/mgCr 12/06/2024 10:56 AM EST [facility] Comment: Microalbumin Reference Range: Normal ? <30 mcg/mg Creatinine Microalbuminuria ? 30-300 mcg/mg Creatinine Clinical Albuminuria >300 mcg/mg Creatinine Reference: ADA Guideline. Diabetes Care. 2004;27 (suppl 1) Urine Voided urine specimen / Unknown Non-Blood Collection / Unknown 12/06/2024 10:20 AM EST 12/06/2024 10:20 AM EST us Dennys Roberto MD LAB URINE ORDERABLES Final Re sult [facility] [address] [place] [address], * PTH, Intact (without Calcium) (07/19/2024 10:25 AM EDT) Parathyroid Hormone, Intact 44 16 - 77 pg/mL 07/19/2024 10:55 PM EDT [facility] Comment: Interpretive Guide ?Intact PTH ? Calcium [...] LAB BLOOD ORDERABLES Final Re sult MARIOLA ELMIRA [address] [facility] [address]rd [address], [place] [address], [place] [phone] [facility] [address] [facility] 3rd [address], [place] [address], [place] [phone] * CT Abdomen Pelvis without Contrast (01/01/2024 [...] obtain the completed interpretation. ? Workstation ID: [id number] Up-to-date CT equipment and radiation dose reduction [...] the focal lumbar junction. Resulting Agency Comment [id number] Procedure Note Irina Gomez MD - 01/01/2024 [...] possible to obtain thecompleted interpretation. Workstation ID: [id number] Up-to-date CT equipment and radiation dose reduction techniques wereemployed. CTDIvol: 8.7 mGy. DLP: 478 mGy-cm. 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
--- OUTSIDE RECORDS SUMMARY | 2025-01-06 09:07 | XMS_ITS ---
Author Organization [facility] Address [address] [place] [address] Care Team Providers Care Biblical Studies Professor Name Role Phone EvetteBerenice pereira Primary Care Provider [phone] Active Problems Problem Noted Date Diagnosed Date [...] TotalDLP 2,782 mGy 2,782 mGy 0 mGy [id number] 32 mSv 32 mSv 0 mSv CTDIvol Max 46.5 mGy 46.5 mGy 0 mGy CTDIvol Min 46.5 mGy 46.5 mGy 0 mGy Radiation - mGy 165.17 mGy 165.17 mGy 0 mGy
--- OUTSIDE RECORDS SUMMARY | 2025-01-06 09:07 | XMS_ITS ---
Author Organization [facility] Address [address] [place] [address] Care Team Providers Care Informatics Educator Name Role Phone Berenice Mix MD Primary Care Provider Kb Andres Unavailable [phone] Allergies No Known Allergies REASON FOR VISIT [...] Ordered Date Performed Result Body Sit e 95362-SYTTYIZ NAIL, 6 OR MORE 08/29/2024 N/A 43289-LTBR SKIN LESIONS, OVER 4 08/29/2024 N/A Encounters Encounter Location Date Provider Diagnosis [facility] [address] [address] 08/29/2024 Kb Marti Type 2 diabetes mellitus [...] days Pending Test Test Name Order Date [id number] NAIL, 6 OR MORE 08/29/2024 86002-GEEW SKIN LESIONS, OVER 4 08/29/20 24 Next [...] use of a nail nipper and/or dremel-type tool grinder operator surface, to a more viable healthy nail plate or bed tissue 6-10. Silver nitrate used for any petechial bleeding as necessary. Definitive antifungal treatment options have been reviewed and discussed with the patient. The patient chooses, no pharmaceutical tx - 94532 Keratoma Treatment Parring or Cutting o f Benign Hyperkeratotic Lesion(s) (-57) More than 4 Lesions - The Benign hyperkeratotic lesions, as described above were pared, and/or cut utilizing a sterile 15 blade, tissue nippers, and/or dremel - 80456 , Q8 Progress Notes * Stanley CH EDOB:[birth year] (74 yo M)Acc No.[id number]:08/29/2024 Progress Note Patient:?Stanley Ch Provider:?Kb Marti DPM :1950???Age:74 Y???Sex:Male Darrick e:08/29/2024 Address:[address] [place] [id number] Pcp:Berenice Mix MD Subjective: * Chief Complaints: [...] Management (4)? Plan: * Treatment: 2.?Tinea unguium?Procedure: 72150-[id number] NAIL, 6 OR MORE 3.?Xerosis of skin? [...] use of a nail nipper and/or dremel-type tool grinder operator surface, to a more viable healthy nail plate or bed tissue 6-10. Silver nitrate used for any petechial bleeding as necessary. Definitive antifungal treatment options have been reviewed and discussed with the patient. The patient chooses, no pharmaceutical tx - 32220.?Keratoma Treatment:?Parring or Cutting of Benign Hyperkeratotic Lesion(s)?(-57) More than 4 Lesions - The Benign hyperkeratotic lesions, as described above were pared, and/or cut utilizing a sterile 15 blade, tissue nippers, and/or dremel - 63713 , Q8.? * Procedure Codes:?77394 DEBRI DE NAIL, 6 OR MORE, Modifiers: XS 81447 TRIM SKIN LESIONS, OVER 4, Modifiers: XS [...]
--- OUTSIDE RECORDS SUMMARY | 2025-01-06 09:07 | XMS_ITS | Referral Summary ---
Author Organization [facility] Address [address] [place] [address] Care Team Providers Care Agriculture Department Chair Name Role Phone Berenice Mix Primary Care Provider Encounters Date Type Department Care Team Description 01/04/2025 UK Work Studyt Message [facility] [address] [place] [address]43 Student Officer: Johnna Moss, DENY Lara's visit on 02/08/2025 12/12/2024 GO Outdoors Message [facility] [address] [place] [address] Student Officer: Dennys Collins MD Missed your call 12/08/2024 GO Outdoors Message [facility] [address] [place] [address] Student Officer: Dennys Collins MD Lab test results questions 12/06/2024 8:20 AM EST Follow-Up [facility] [address] [place] [address] Student Officer: Dennys Collins MD Stage 3b chronic kidney [...] Former Cigarettes 2 10 1 992 - 2002 Smokeless Tobacco: Never Alcohol Use Standard Drinks/Week [...] Info) Description 02/08/2025 10:15 AM EDT Follow-Up [facility] [address] [place] [address] 17221 Student Officer: Johnna Moss, DENY Lara [address] [place] [address] 03/07/2025 9:20 AM EDT Follow-Up [facility] [address] [place] [address] Student Officer: Dennys Collins MD [address] [place] [address]37 Medical Devices Implanted Type Area Cutter Out Device Identifier Shelf Expiration Date Model / Serial / Lot Stent Ureteral Firm Hydroplus Coating 6fr 28cm Percuflex Plus - [id number] - [id number] Implanted:Qty: 1 on 02/03/2024 by Sophia Salazar MD at [facility] Stent Right: Ureter [employer] [place] [employer] 03/08/2026 [id number] / [id number] / [id number] Explanted Type Area Cutter Out Device Identifier Shelf Expiration Date Model / Serial / Lot Stent Ureteral Firm Hydroplus Coating 6fr 28cm Percuflex Plus - [id number] Implanted:Qty: 1 on 12/31/2023 by Ernesto Freedman MD at [facility] Explanted:Qty: 1 on 02/03/2024 by Sophia Salazar MD at [facility] Stent Right: Ureter [employer] [place] [employer] 04/17/2026 [id number] / / [id number] Procedures * Due to [place] state law, this organization might not be [...] to Health Maintenance Results * Due to [place] state law, this organization might not be sharing negative HIV tests. * Vitamin D, 25-OH (D2, D3), LC/MS/MS (12/06/2024 10:29 AM EST) Vitamin D, 25-OH, Total 40 30 - 100 ng/mL 12/09/2024 10:35 AM EST [employer] (ALEXANDRU) Comment: Vitamin D, 25-Hydroxy reports concentrations [...] ng/mL. For additional information, please refer to http://education.Inspherion/faq/MMA771 (This link is being provided for informational/ educational purposes only.) Vitamin D, 25-OH, D3 40 ng/mL 12/09/2024 10:35 AM EST [employer] (ALEXANDRU) Comment: This test was developed and its analytical performance characteristics have been determined by [employer] [place], [place]. It has not been cleared or approved by the U.S. Food and Drug Administration. This assay has been validated pursuant to the CLIA regulations and is used for clinical purposes. Vitamin D, 25-OH, D2 <4 ng/mL 12/09/2024 10:35 AM EST MARIOLA TOMLIN (HORVATH) Comment: This test was developed and its analytical performance characteristics have been determined by [employer] [place]. It has not been cleared or approved by the U.S. Food and Drug Administration. This assay has been validated pursuant to the CLIA regulations and is used for clinical purposes. Blood Structure of peripheral vein / Unknown Venipuncture / Unknown 12/06/2024 10:29 AM EST 12/06/2024 10:30 AM EST [facility] - 12/09/2024 10:35 AM EST [facility] Received Date: us Dennys Roberto MD LAB BLOOD ORDERABLES Final Re sult MARIOLA FREEDGERMAINE [address] [facility] 3rd Floor, [place] [address], [place] [phone] MARIOLA TOMLIN (HORVATH) [address] [place] [address], [place] * (ABNORMAL) CBC Auto Differential (12/06/2024 10:29 AM EST) WBC 8.4 3.8 - 10.8 10*3/uL 12/06/2024 10:38 AM EST ip.access [facility] RBC 4.26 4.20 - 5.80 10*6/uL 12/06/2024 10:38 AM EST ip.access [facility] Hemoglobin 12.5(L) 13.2 - 17.1 g/dL 12/06/2024 10:38 AM EST ip.access [facility] Hematocrit 38.7 38.5 - [...] - 0.95 10*3/uL 12/06/2024 10:38 AM EST [facility] Eosinophil # 0.30 0.02 - 0.50 10*3/uL 12/06/2024 10:38 AM EST [facility] Basophil # 0.10 0.00 - 0.20 10*3/uL 12/06/2024 10:38 AM EST [facility] nRBC % 0.0 /100 WBCs 12/06/2024 10:38 AM EST [facility] nRBC # <0.01 <0.01 10*3/uL 12/06/2024 10:38 AM EST [employer] [employer] [facility] Blood Structure of peripheral vein / Unknown Venipuncture / Unknown 12/06/2024 10:29 AM EST 12/06/2024 10:31 AM EST Dennys Roberto MD LAB BLOOD ORDERABLES Final Re sult Performing Organization Address City/[facility]/ZIP Co de Phone Number [facility] [address] [place] [address], [place] * (ABNORMAL) Sedimentation Rate (12/06/2024 10:29 AM EST) Sed Rate 37(H) <20 mm/Hr mm/Hr 12/06/2024 10:50 AM EST ip.access [facility] Blood Structure of peripheral vein / Unknown Venipuncture / Unknown 12/06/2024 10:29 AM EST 12/06/2024 10:31 AM EST Dennys Roberto MD LAB BLOOD ORDERABLES [facility] [address] [place] [address], [place] * Immunofixation, Serum (12/06/2024 10:28 AM EST) Pathologist [facility] Immunofixation, Serum, Interpretation See Comments 12/08/2024 3:00 PM EST [facility] Comment: No monoclonal proteins detected. Blood Structure of peripheral vein / Unknown Venipuncture / Unknown 12/06/2024 10:28 AM EST 12/06/2024 10:31 AM EST Narrative [facility] CHERYL - 12/08/2024 3:00 PM EST [facility] Received Date: us Dennys Roberto MD LAB BLOOD ORDERABLES Final Re sult MARIOLA [place] [address] [facility] 3rd Floor, [place] [address], [facility] [address] [facility] 3rd Floor, [place] [address], * (ABNORMAL) [place] & Lambda, Free w/Ratio (12/06/2024 10:28 AM EST) Pathologist [facility] [place] Light Chain, Free, Serum 99.6(H) 3.3 - 19.4 mg/L 12/07/2024 11:25 AM EST [employer] Lambda Light Chain, Free, Serum 52.3(H) 5.7 - 26.3 mg/L 12/07/2024 11:25 AM EST [facility] [place]/Lambda Light Chains Free With Ratio 1.90(H) 0.26 - 1.65 12/07/2024 11:25 AM EST [facility] Comment: Free kappa/lambda ratio in serum [...] ORDERABLES Final Re sult MARIOLA LUNA [address] [facility] 3[address] Floor, [place] [address], [place] [phone] [facility] [address], [place] [address], [place] [phone] * (ABNORMAL) Protein Electrophoresis w/Reflex to Immunofixation, Serum (12/06/2024 10:28 AM EST) Protein, Total 6.4 6.1 - 8.1 g/dL 12/08/2024 7:52 AM EST [facility] Albumin 3.6(L) 3.8 - 4.8 g/dL 12/08/2024 7:52 AM EST [email or web address] [facility] Alpha 1 Globulin 0.3 0.2 - 0.3 g/dL 12/08/2024 7:52 AM EST [email or web address] [place] [employer] Alpha 2 Globulin 0.5 0.5 - 0.9 g/dL 12/08/2024 7:52 AM EST [email or web address] [place] [employer] Beta 1 Globulin 0.5 0.4 - 0.6 g/dL 12/08/2024 7:52 AM EST [email or web address] [facility] Beta 2 Globulin 0.6(H) 0.2 - 0.5 g/dL 12/08/2024 7:52 AM EST [facility] Gamma Globulin 1.0 0.8 - 1.7 g/dL 12/08/2024 7:52 AM EST [email or web address] [facility] Abnormal Protein Band 1 See Comments NONE DETECTED g/dL 12/08/2024 7:52 AM EST [facility] Comment: See below Interpretation See Comments 12/08/2024 7:52 AM [facility] Comment: Electrophoretic studies reveal an isolated [...] LAB BLOOD ORDERABLES Final Re sult [facility] [address] [facility] [address]rd [address], [place] [address], [place] [phone] [email or web address] [facility] [address] [facility] 3rd Floor, [place] [address], [place] [phone] * CRP (C-Reactive Protein) (12/06/2024 10:28 AM EST) C Reactive Protein <3.0 <=9.9 mg/L 12/06/2024 11:07 AM EST ip.access [facility] Blood Structure of peripheral vein / Unknown Venipuncture / Unknown 12/06/2024 10:28 AM EST 12/06/2024 10:31 AM EST Dennys Roberto MD LAB BLOOD ORDERABLES Final Re sult Performing Organization Address City/[facility]/ZIP Co de Phone Number ip.access [facility] [address] [place] [address], * PSA (12/06/2024 10:28 AM EST) PSA 0.03 <=4.00 ng/mL 12/06/2024 11:06 AM EST ip[facility]access [facility] Comment: The total PSA value from this assay system is standardized against the WHO standard. ??The test result will be slightly lower (< 3 %) when compared to the equimolar-standardized total PSA([place]). ??Comparison of Serial PSA results should be [...] MD LAB BLOOD ORDERABLES Final Re sult ip.access [facility] [address] [place] [address], * (ABNORMAL) Comprehensive Metabolic Panel (12/06/2024 10:28 AM EST) NA 142 135 - 145 mmol/L 12/06/2024 11:06 AM EST [facility]access [facility] K 4.2 3.5 - 5.3 mmol/L 12/06/2024 11:06 AM EST [facility]access [facility] Cl 107 98 - 107 mmol/L 12/06/2024 11:06 AM EST [facility]access [facility] CO2 23 22 - 32 mmol/L 12/06/2024 11:06 AM EST [facility]access [facility] Anion Gap 12 5 - 15 12/06/2024 11:06 AM EST [facility]access [facility] Glucose 180(H) 65 - 99 mg/dL 12/06/2024 11:06 AM EST [facility] Creatinine 2.27(H) 0.60 - 1.30 mg/dL 12/06/2024 11:06 AM EST [facility]access [facility] Calcium 9.5 8.6 - 10.5 mg/dL 12/06/2024 11:06 AM EST [facility]access [facility] Total Protein 6.6 6.0 - 8.0 g/dL 12/06/2024 11:06 AM EST [facility]access [facility] Albumin 3.8 3.5 - 5.2 g/dL 12/06/2024 11:06 AM EST [employer] [facility] Bilirubin, Total 0.7 0.2 - 1.2 mg/dL 12/06/2024 11:06 AM EST [facility] [employer] [facility] Alkaline Phosphatase 76 35 - 129 U/L 12/06/2024 11:06 AM EST [facility] AST 25 10 - 40 U/L 12/06/2024 11:06 AM EST [facility] [employer] [facility] ALT 21 10 - 40 U/L 12/06/2024 11:06 AM EST [employer] [facility] BUN 23 7 - 23 mg/dL 12/06/2024 11:06 AM [facility] [employer] [facility] eGFR 30(L) >=60 mL/min/1 .73m2 12/06/2024 11:06 AM EST [employer] [facility] Comment:The estimated glomer ular [...] 2.1 - 4.2 g/dL 12/06/2024 11:06 AM [facility] [employer] [facility] A/G Ratio 1.4(L) 1.5 - 3.0 12/06/2024 11:06 AM EST [employer] [facility] Blood Structure of peripheral vein / Unknown Venipuncture / Unknown 12/06/2024 10:28 AM EST 12/06/2024 10:31 AM EST us Dennys Roberto MD LAB BLOOD ORDERABLES Final Re sult ip.access [facility] [address] [place] [address], [place] * Phillips Top, Urine (12/06/2024 10:20 AM EST) Extra Tube Hold for add-ons. 12/06/2024 3:06 PM EST ip.access [facility] Comment:Auto resulted. Urine Urine specimen collection, clean catch / Unknown Non-Blood Collection / Unknown 12/06/2024 10:20 AM EST 12/06/2024 10:20 AM EST us Dennys Roberto MD LAB URINE ORDERABLES Final Re sult [employer] [facility] [address] [place] [address], [place] * (ABNORMAL) Urinalysis W/Reflex to Microscopic & Culture (12/06/2024 10:20 AM EST) Pathologist [facility] Color, Urine Light Yellow Colorless, Light Yellow, Yellow, Dark Yellow 12/06/2024 10:32 AM EST [facility]access [facility] Clarity, Urine Clear Clear 12/06/2024 10:32 AM EST [facility]access [facility] Specific [place], Urine 1.022 1.005 - 1.030 12/06/2024 10:32 AM EST [facility]access [facility] pH, Urine 6.0 4.6 - 8.0 12/06/2024 10:32 AM EST [facility]access [facility] Protein, Urine 1+(A) Negative 12/06/2024 10:32 AM EST [facility]access [facility] Glucose, Urine 3+(A) Negative 12/06/2024 10:32 AM EST [facility]access [facility] Ketones, Urine Negative Negative 12/06/2024 10:32 AM EST [facility]access [facility] Bilirubin, Urine Negative Negative 12/06/2024 10:32 AM EST [facility]access [facility] Blood, Urine Negative Negative 12/06/2024 10:32 AM EST [facility]access [facility] Nitrite, Urine Negative Negative 12/06/2024 10:32 AM EST [facility]access [facility] Urobilinogen, Urine Normal Normal 12/06/2024 10:32 AM EST [facility]access [facility] Leukocyte Esterase, Urine Negative Negative 12/06/2024 10:32 AM EST [facility]access [facility] WBC, Urine 2 0 - 2 /HPF 12/06/2024 10:32 AM EST [facility]access [facility] RBC, Urine <1 0 - 2 /HPF 12/06/2024 10:32 AM EST [facility]access [facility] Hyaline Casts, Urine 0 0 - 2 /LPF 12/06/2024 10:32 AM EST [facility]access [facility] Squamous Epithelial Cells, Urine <1 /HPF 12/06/2024 10:32 AM EST [facility]access [facility] Bacteria, Urine None None /HPF /HPF 12/06/2024 10:32 AM EST [facility]access [facility] Mucus, Urine Rare /LPF 12/06/2024 10:32 AM EST [facility]access [facility] Urine Urine specimen collection, clean catch / Unknown Non-Blood Collection / Unknown 12/06/2024 10:20 AM EST 12/06/2024 10:20 AM EST us Dennys Roberto MD LAB URINE ORDERABLES Final Re sult ip.access [facility] [address] [place] [address], [place] * (ABNORMAL) Microalbumin, Random Urine with Creatinine (12/06/2024 10:20 AM EST) Microalbumin, Urine 4.2 mg/dL 12/06/2024 10:56 AM EST [facility]access [facility] Creatinine, Urine 74 22 - 328 mg/dL 12/06/2024 10:56 AM EST ip.access [facility] Microalb/Creat Ratio, Random Urine 56.8(H) <30.0 mcg/mgCr 12/06/2024 10:56 AM EST [facility] [employer] [facility] PATH[facility] LAB[facility] Comment: Microalbumin Reference Range: Normal ? <30 mcg/mg Creatinine Microalbuminuria ? 30-300 mcg/mg Creatinine Clinical Albuminuria >300 mcg/mg Creatinine Reference: ADA Guideline. Diabetes Care. 2004;27 (suppl 1) Urine Voided urine specimen / Unknown Non-Blood Collection / Unknown 12/06/2024 10:20 AM EST 12/06/2024 10:20 AM EST us Dennys Roberto MD LAB URINE ORDERABLES Final Re sult [facility] LABORATORY [address] [place] [address], * PTH, Intact (without Calcium) (07/19/2024 10:25 AM EDT) Parathyroid Hormone, Intact 44 16 - 77 pg/mL 07/19/2024 10:55 PM EDT [employer] Comment: Interpretive Guide ?Intact PTH ? Calcium [...] LAB BLOOD ORDERABLES Final Re sult [facility] [address] [facility] 3rd [address], [place] [address], [place] [phone] [email or web address] [facility] [address] [facility] 3rd Floor, [place] [address], * CT Abdomen Pelvis without Contrast (01/01/2024 [...] obtain the completed interpretation. ? Workstation ID: [id number] Up-to-date CT equipment and radiation dose reduction [...] the focal lumbar junction. Resulting Agency Comment [id number] Procedure Note Irina Gomez MD - 01/01/2024 [...] possible to obtain thecompleted interpretation. Workstation ID: [id number] Up-to-date CT equipment and radiation dose reduction techniques wereemployed. CTDIvol: 8.7 mGy. DLP: 478 mGy-cm. Ernesto Freedman MD IMG CT PROCEDURES Final Re sult from Last 3 Months or Most Recently Relevant to Health [place] [id number] [facility] [place] [id number] MEDICARE Advance Directives Documents on File Type Date Recorded Patient Abalone Diver Expl anation Advance Directive 07/25/2013 12:00 AM [...] 8:26 AM 01/01/2024 2:37 PM Care Teams Agriculture Department Chair Relationship Specialty Start Date End Date Berenice Mix [address] [place] [address] PCP - General 05/14/17
--- OUTSIDE RECORDS SUMMARY | 2025-01-06 09:08 | XMS_ITS | Patient Health Record ---
Author Organization [facility] [place] Address [address] [place] [address] Care Team Providers Care Edger Machine Helper Name Role Phone Berenice Mix MD Primary Care Provider Kb Andres Unavailable [phone] Allergies No Known Allergies Reason For Referral [...] Problem Acquired hammer toe of right foot (7293740550114 105) Other hammer toe(s) (acquired), right foot (M20.41) Active confirmed Problem Type 2 diabetes mellitus with peripheral angiopathy (997771318) Type 2 diabetes mellitus with diabetic peripheral angiopathy without gangrene (E11.51) Active confirmed Q7(A), Q8(2B), Q9(1B,2C) Problem Acquired hammer toe of left foot (9678683273181 103) Other hammer toe(s) (acquired), left foot (M20.42) Active confirmed Vital Signs Height 6ft 2 in in 05/30/2024 Weight 330 lbs 08/29/2024 BMI 42.37 kg/m2 08/29/2024 Procedures Procedure Date Ordered Date Performed Result Body Sit e 38474-NVXSPIM NAIL, 6 OR MORE 05/30/2024 N/A 23248-Ldytfkmu Plate 05/30/2024 N/A 14108-PNTZ SKIN LESIONS, OVER 4 05/30/2024 N/A 32913-LVDGQZH NAIL, 6 OR MORE 08/29/2024 N/A 52187-YUGT SKIN LESIONS, OVER 4 08/29/2024 N/A Encounters Encounter Location Date Provider Diagnosis [facility] [place] [address] [place] [address] 05/30/2024 Kb Marti Type 2 diabetes mellitus with diabetic peripheral angiopathy without gangrene E11.51 ; Tinea unguium B35.1 ; Pain in right toe(s) M79.674 ; Pain in left toe(s) M79.675 ; Other hammer toe(s) (acquired), left foot M20.42 ; Other hammer toe(s) (acquired), right foot M20.41 and Ingrown nail L60.0 [facility] [address] [facility] [address] [place] [address] 08/29/2024 Kb Marti Type 2 diabetes mellitus with diabetic peripheral angiopathy without gangrene E11.51 ; Tinea unguium B35.1 ; Pain in right toe(s) M79.674 ; Pain in left toe(s) M79.675 and Xerosis of skin L85.3 [facility] [address] [address] 08/29/2024 Kb Marti Assessments Encounter Date Diagnosis [...] Treatment Pending Test Test Name Order Date 86182-FECDTIR NAIL, 6 OR MORE 12/21/2023 98061-LEAWNPZ NAIL, 6 OR MORE 05/30/2024 67407-GVUVJEJ NAIL, 6 OR MORE 08/29/2024 13509-Rnhtsusi Plate 05/30/2024 48095-OPKO SKIN LESIONS, OVER 4 05/30/20 24 30586-NRYP SKIN LESIONS, OVER 4 08/29/20 24 33251-XNWH SKIN LESIONS, 2 TO 4 12/21/19 24 Insurance Providers Payer Name Payer Address Payer Phone Subscriber Number Group Number Insured Name Patient Relationship to Insured Coverage Start Date Coverage End Date [facility] ([facility]) [address] [place] [address] [id number] Aundrea Burton Spouse - patient is the spouse of the insured Medical (General) History Medical History History ICD Code Anxiety Back,Hip,and Knee pain Cancer Dementia Diabetic High blood pressure Kidney disease Poor circulation Measles Mumps Chicken pox Surgical History Surgery Date(Month/Year) trans-radial Breast Stents
--- OUTSIDE RECORDS SUMMARY | 2025-01-06 09:08 | XMS_ITS | Encounter Summary ---
Author Organization [facility] Address [address] [place] [address] Care Team Providers Care Head Baker Name Role Phone Berenice Mix Primary Care Provider [phone] Encounter Details Date Type Department Care Team (Late st Contact Info) Description 12/08/2024 myChart Message [facility] [address] [place] [address] Body Die Maker: Dennys Collins MD [address] [place] [address] Lab test results questions Social History Tobacco [...] Info) Description 02/08/2025 10:15 AM EDT Follow-Up [facility] [address] [place] [address] Body Die Maker: Johnna Moss, DENY Lara [address] [place] [address] 03/07/2025 9:20 AM EDT Follow-Up [facility] [address] [place] [address] [phone] Body Die Maker: Dennys Collins MD [address] [place] [phone] documented as of this encounter Visit Diagnoses Not on filedocumented in this encounter Care Teams Head Baker Relationship Specialty Start Date End Date Berenice Mix [address] [place] [address] PCP - General 05/14/17 documented as of this encounter
--- OUTSIDE RECORDS SUMMARY | 2025-01-06 09:08 | XMS_ITS ---
Author Organization [facility] Address [address] [place] [address] Care Team Providers Care Case Management Coordinator Name Role Phone Berenice Mix MD Primary Care Provider Kb Andres Unavailable [phone] REASON FOR VISIT questioning Rx Encounters Encounter Location Date Provider Diagnosis [address] [address] 08/29/2024 Kb Marti Plan Of Treatment No Information Progress Notes * Stanley CH EDOB:[birth year] (74 yo M)Acc No.[id number]:08/29/2024 Patient:?Stanley Ch :1950???Age:74 Y???Sex:Male Address:[address] [place] [address], [phone] * true * Date:? Generated for Printi ng/Fasjg/eTransmitting on:?01/06/2025 09:08 AM EDT
--- OUTSIDE RECORDS SUMMARY | 2025-01-06 09:08 | XMS_ITS | Clinical Summary ---
Author Organization [facility] Address [address] [place] [address] Phone Care Team Providers Care Economics Lecturer Name Role Phone Berenice Mix MD Primary Care Provider [phone] Allergies Active Allergy Reactions Criticality Noted Date Comments Ibuprofen 08/11/2022 Medications [facility] D3 125 MCG (5000 UT) capsule 2 Active Trulicity 1.5 MG/0.5ML solution pen-injector 2 Active ergocalciferol 1.25 MG (83256 UT) capsule Take 50,000 Int'l Units by [...] mouth 3 Active B-D 3CC LUER-LARS SYR 34BY6-1/2 20G X 1-1/2 3 ML misc USE [...] PM EDT) Hemoglobin A1C 7.7(H) (4.0-5.6) % [facility] Comment: MONITORING: In known diabetic patients, hemoglobin A1c targets should be discussed with health care provider. DIAGNOSTIC USE: ??The [place] Diabetes Association (ADA) and the World Health [...] Supplement 1 Testing performed or reported by [facility], a Service of [facility], [address] [place] [address] Renny Brenner MD, Migration Specialist [facility]# [id number] Blood (Blood, Venous) 07/16/2022 3:32 PM EDT 07/16/2022 3:39 PM EDT us Stanley Sánchez MD LAB BLOOD ORDERABLES Final Re sult [facility] from Last 3 Months or Most Recently Relevant to Health Maintenance Insurance [employer] [place] [place] [id number] [place] [id number] Care Teams Economics Lecturer Relationship Specialty Start Date End Date Berenice Mix MD [address] [place], [place] [id number] PCP - General Internal Medicine 03/10/22
--- OUTSIDE RECORDS SUMMARY | 2025-01-06 09:08 | XMS_ITS | Encounter Summary ---
Author Organization [facility] Address [address] [place] [address] Care Team Providers Care Dressing Machine Operator Name Role Phone Berneice Mix Primary Care Provider Encounter Details Date Type Department Care Team (Late st Contact Info) Description 12/12/2024 myChart Message [facility] [address] [place] [address] [phone] Tool Drawing Checker: Dennys Collins MD [address] [place] [phone] Missed your call Social History Tobacco [...] Info) Description 02/08/2025 10:15 AM EDT Follow-Up [facility] [address] [place] [address] Tool Drawing Checker: Johnna Moss, DENY Lara [address] [place] [address] 03/07/2025 9:20 AM EDT Follow-Up [facility] [address] [place] [address] [phone] Tool Drawing Checker: Dennys Collins MD [address] [place] [phone] documented as of this encounter Visit Diagnoses Not on filedocumented in this encounter Care Teams Dressing Machine Operator Relationship Specialty Start Date End Date Berenice Mix [address] [place] [address] PCP - General 05/14/17 documented as of this encounter
== END 2025-01-06 09:35 | disposition home or self-care (01) ==
PROVIDERS: PCP Internal Medicine; Visit Provider Internal Medicine
DX: I12.9 Hypertensive chronic kidney disease with stage 1 through stage 4 chronic kidney disease, or unspecified chronic kidney disease (principal); C61 Malignant neoplasm of prostate; G30.9 Alzheimer's disease, unspecified; F02.80 Dementia in other diseases classified elsewhere, unspecified severity, without behavioral disturbance, psychotic disturbance, mood disturbance, and anxiety; N18.30 Chronic kidney disease, stage 3 unspecified; E11.9 Type 2 diabetes mellitus without complications; E03.9 Hypothyroidism, unspecified

== ENCOUNTER → 2025-01-06 08:49 | Outpatient (BNVA) | payer MEDICARE, OTHER, SELFPAY | PROVIDERS: PCP Internal Medicine; Visit Provider Internal Medicine | DX: C61 Malignant neoplasm of prostate (principal); G30.9 Alzheimer's disease, unspecified; F02.80 Dementia in other diseases classified elsewhere, unspecified severity, without behavioral disturbance, psychotic disturbance, mood disturbance, and anxiety; I12.9 Hypertensive chronic kidney disease with stage 1 through stage 4 chronic kidney disease, or unspecified chronic kidney disease; E11.22 Type 2 diabetes mellitus with diabetic chronic kidney disease; N18.30 Chronic kidney disease, stage 3 unspecified; E03.9 Hypothyroidism, unspecified | CPT/HCPCS: 96127; 99212 ==

== ENCOUNTER 2025-02-16 13:32 | Outpatient (REF) | payer MEDICARE, OTHER, SELFPAY ==
--- OUTSIDE RECORDS SUMMARY | 2025-02-16 16:25 | XMS_ITS | Clinical Summary ---
Author Organization [facility] Address [address] [place] [address] Care Team Providers Care Real Estate Analyst Name Role Phone Berenice Mix Primary Care Provider [phone] Allergies Active Allergy Reactions Criticality Noted Date [...] Department Care Team Description 02/14/2025 myChart Message [facility] [address] [place] [address] Senior Solutions Consultant: Olivia Batista PA Oxyb carolynin 01/18/2025 9:45 AM EDT Follow-Up [facility] [address] [place] [address] Senior Solutions Consultant: Olivia Batista PA Nephrolithiasis (Primary Dx); Right flank pain; Urinary urgency; History of radical prostatectomy 01/06/2025 myChart Message [facility] [address] [place] [address] Senior Solutions Consultant: Dennys Collins MD Ozempic question 01/04/2025 myChart Message [facility] [address] [place] [address] Senior Solutions Consultant: Olivia Batista PA Mike's visit on 02/08/2025 12/12/2024 myChart Message [facility] [address] [place] [address] Senior Solutions Consultant: Dennys Collins MD Missed your call 12/08/2024 myChart Message [facility] [address] [place] [address] Senior Solutions Consultant: TrinaDennys Cantu MD Lab test results questions 12/06/2024 8:20 AM EST Follow-Up [facility] [address] [place] [address] Senior Solutions Consultant: Dennys Collins MD Stage 3b chronic kidney [...] Info) Description 02/23/2025 12:15 PM EDT Appointment [facility] [address] [place] [address] 03/07/2025 9:20 AM EDT Follow-Up [facility] [address] [place] [address] Senior Solutions Consultant: Trina Roberto, Dennys Hall MD [address] [place] [address] 07/20/2025 10:30 AM EDT Follow-Up [facility] [address] [place] [address] Senior Solutions Consultant: Johnna Moss, DENY Lara [address] [place] [address] Health Maintenance Due Date Last Done Comments [...] this topic Medical Devices Implanted Type Area Human Resources Technician Device Identifier Shelf Expiration Date Model / Serial / Lot Stent Ureteral Firm Hydroplus Coating 6fr 28cm Percuflex Plus - [id number] - [id number] Implanted:Qty: 1 on 02/03/[address] Sophia Salazar MD at [facility] Stent Right: Ureter [employer] 03/08/2026 [id number] / [id number] / [id number] Explanted Type Area Human Resources Technician Device Identifier Shelf Expiration Date Model / Serial / Lot Stent Ureteral Firm Hydroplus Coating 6fr 28cm Percuflex Plus - [id number] Implanted:Qty: 1 on 12/31/[address] by Ernesto Freedman MD at [facility] Explanted:Qty: 1 on 02/03/[address]24 by Sophia Salazar MD at [facility] Stent Right: Ureter [employer] 04/17/2026 [id number] / / [id number] Procedures * Due to [place] state law, [...] - 100 ng/mL 12/09/2024 10:35 AM EST [facility] ([place]) Comment: Vitamin D, 25-Hydroxy reports [...] ng/mL. For additional information, please refer to http://education.Creating [employer]/faq/HXS057 (This link is being provided for informational/ educational purposes only.) Vitamin D, 25-OH, D3 40 ng/mL 12/09/2024 10:35 AM EST [facility]IOL[facility] TOMLIN (AL[place]) Comment: This test was developed and its analytical performance characteristics have been determined by [employer] [place], [place]. It has not been cleared or approved by the U.S. Food and Drug Administration. This assay has been validated pursuant to the CLIA regulations and is used for clinical purposes. Vitamin D, 25-OH, D2 <4 ng/mL 12/09/2024 10:35 AM EST [facility]IOLA TOMLIN (ALEXANDRU) Comment: This test was developed and its analytical performance characteristics have been determined by [employer] [place]. It has not been cleared or [...] MD LAB BLOOD ORDERABLES Final Re sult [address], [place] [address], [place] [phone] [facility] ([place]) [address] [place] [address], [place] * (ABNORMAL) CBC Auto Differential (12/06/2024 [...] 0.08(H) <=0.03 10*3/uL 12/06/2024 10:38 AM EST [facility] Lymphocyte # [...] - 0.20 10*3/uL 12/06/2024 10:38 AM EST [facility] nRBC % 0.0 /100 WBCs 12/06/2024 10:38 AM EST [facility] nRBC # <0.01 <0.01 10*3/uL 12/06/2024 10:38 AM EST [facility] Blood Structure of peripheral vein / Unknown Venipuncture / Unknown 12/06/2024 10:29 AM EST 12/06/2024 10:31 AM EST us Dennys Roberto MD LAB BLOOD ORDERABLES Final Re sult [facility] [address] [place] [address], * (ABNORMAL) Sedimentation Rate (12/06/2024 10:29 AM EST) Pathologist [facility] Sed Rate 37(H) <20 mm/Hr mm/Hr 12/06/2024 10:[address] [facility] [email or web address] CLINICAL PATHOLOGY LABORATORY Blood Structure of peripheral vein / Unknown Venipuncture / Unknown 12/06/2024 10:29 AM EST 12/06/2024 10:31 AM EST Dennys Roberto MD LAB BLOOD ORDERABLES Final Re sult Performing Organization Address [facility] Co de Phone Number [facility] [address] [place] [address], [place] * Immunofixation, Serum (12/06/2024 10:28 AM EST) [facility] Immunofixation, Serum, Interpretation See Comments 12/08/2024 3:00 PM EST [facility] Comment: No monoclonal proteins detected. Blood Structure of peripheral vein / Unknown Venipuncture / Unknown 12/06/2024 10:28 AM EST 12/06/2024 10:31 AM EST Narrative [facility] - 12/08/2024 3:00 PM EST [facility] Received Date:[id number] Dennys Roberto MD LAB BLOOD ORDERABLES Final Re sult Performing Organization Address City/[facility]/ZIP Co de Phone Number [facility] [address] [facility] [address]rd [address], [place] [address], [place] [phone] [facility] [address] [facility] 3rd Floor, [place] [address], [place] [phone] * (ABNORMAL) [place] & Lambda, Free w/Ratio (12/06/2024 10:28 AM EST) [facility] [place] Light Chain, Free, Serum 99.6(H) 3.3 - 19.4 mg/L 12/07/2024 11:25 AM EST [employer] [facility] Lambda Light Chain, Free, Serum 52.3(H) 5.7 - 26.3 mg/L 12/07/2024 11:25 AM EST [employer] [place]/Lambda Light Chains Free With Ratio 1.90(H) 0.26 - 1.65 12/07/2024 11:25 AM EST [employer] Comment: Free kappa/lambda ratio in serum of [...] 10:28 AM EST 12/06/2024 10:[address] [facility] - 12/07/2024 11:25 AM EST [facility] Received Date: Dennys Roberto MD LAB BLOOD ORDERABLES Final Re sult [facility] [address] [facility] [address] [facility], [place] [address], [employer] [facility] [address] [facility] [address] Floor, [place] [address], * (ABNORMAL) Protein Electrophoresis w/Reflex to Immunofixation, Serum (12/06/2024 10:28 AM EST) Protein, Total 6.4 6.1 - 8.1 g/dL 12/08/2024 7:52 AM EST [employer] [facility] Albumin 3.6(L) 3.8 - 4.8 g/dL 12/08/2024 7:52 AM EST [employer] [facility] Alpha 1 Globulin 0.3 0.2 - 0.3 g/dL 12/08/2024 7:52 AM EST [facility] Alpha 2 Globulin 0.5 0.5 - 0.9 g/dL 12/08/2024 7:52 AM EST [employer] [facility] Beta 1 Globulin 0.5 0.4 - 0.6 g/dL 12/08/2024 7:52 AM EST [facility] Beta 2 Globulin 0.6(H) 0.2 - 0.5 g/dL 12/08/2024 7:52 AM EST [employer] [facility] Gamma Globulin 1.0 0.8 - 1.7 g/dL 12/08/2024 7:52 AM EST [employer] [facility] Abnormal Protein Band 1 See Comments NONE DETECTED g/dL 12/08/2024 7:52 AM EST [employer] [facility] Comment: See below Interpretation See Comments 12/08/2024 7:52 AM EST [employer] [facility] Comment: Electrophoretic studies reveal an [...] ORDERABLES Final Re sult [facility] [address] [facility] [address], [place] [address], [place] [phone] [facility] [address] [facility] [address], [place] [address], [place] [phone] * CRP (C-Reactive Protein) (12/06/2024 10:28 AM EST) C Reactive Protein <3.0 <=9.9 mg/L 12/06/2024 11:07 AM EST [facility] Blood Structure of peripheral vein / Unknown Venipuncture / Unknown 12/06/2024 10:28 AM EST 12/06/2024 10:31 AM EST Dennys Roberto MD LAB BLOOD ORDERABLES Final Re sult Performing Organization Address [facility] Co de Phone Number [facility] [address] [place] [address], * PSA (12/06/2024 10:28 AM EST) PSA 0.03 <=4.00 ng/mL 12/06/2024 11:06 AM EST [facility] Comment: The total PSA value from this assay system is standardized against the WHO standard. ??The test result will be slightly lower (< 3 %) when compared to the equimolar-standardized total PSA(Leandro Williams). ??Comparison of Serial PSA results should be [...] ORDERABLES Final Re sult Performing Organization Address [facility] Co de Phone Number [facility] [address] [place] [address], * (ABNORMAL) Comprehensive Metabolic Panel (12/06/2024 10:28 AM EST) NA 142 135 - 145 mmol/L 12/06/2024 11:06 AM EST [facility] K 4.2 3.5 - 5.3 mmol/L 12/06/2024 11:06 AM EST [facility] Cl 107 98 - 107 mmol/L 12/06/2024 11:06 AM EST [facility] CO2 23 22 - 32 mmol/L 12/06/2024 11:06 AM EST [facility] Anion Gap 12 5 - 15 12/06/2024 11:06 AM [facility] LAB[facility] Glucose 180(H) 65 - 99 mg/dL 12/06/2024 11:06 AM [facility] Creatinine 2.27(H) 0.60 - 1.30 mg/dL 12/06/2024 11:06 AM [facility] Calcium 9.5 8.6 - 10.5 mg/dL 12/06/2024 11:06 AM [facility] Total Protein 6.6 6.0 - 8.0 g/dL 12/06/2024 11:06 AM [facility] Albumin 3.8 3.5 - 5.2 g/dL 12/06/2024 11:06 AM [facility] Bilirubin, Total 0.7 0.2 - 1.2 mg/dL 12/06/2024 11:06 AM [facility] Alkaline Phosphatase 76 35 - 129 U/L 12/06/2024 11:06 AM [facility] AST 25 10 - 40 U/L 12/06/2024 11:06 AM [facility] ALT 21 10 - 40 U/L 12/06/2024 11:06 AM [facility] BUN 23 7 - 23 mg/dL 12/06/2024 11:06 AM [facility] eGFR 30(L) >=60 mL/min/1 .73m2 12/06/2024 11:06 AM [facility] Comment:The estimated glomer ular [...] - 4.2 g/dL 12/06/2024 11:06 AM EST [facility] A/G Ratio 1.4(L) 1.5 - 3.0 12/06/2024 11:06 AM EST [facility] Blood Structure of peripheral vein / Unknown Venipuncture / Unknown 12/06/2024 10:28 AM EST 12/06/2024 10:31 AM EST Dennys Roberto MD LAB BLOOD ORDERABLES Final Re sult Performing Organization Address City/[facility]/ZIP Co de Phone Number [facility] PATHOLOG[facility] LAB[facility] [address] [place] [address], [place] * Phillips Top, Urine (12/06/2024 10:20 AM EST) Extra Tube Hold for add-ons. 12/06/2024 3:06 PM EST [facility] LAB[facility] Comment:Auto resulted. Urine Urine specimen collection, clean catch / Unknown Non-Blood Collection / Unknown 12/06/2024 10:20 AM EST 12/06/2024 10:20 AM EST Dennys Roberto MD LAB URINE ORDERABLES Final Re sult Performing Organization Address City/[facility]/ZIP Co de Phone Number [facility] [address] [place] [address], [place] * (ABNORMAL) Urinalysis W/Reflex to Microscopic & Culture (12/06/2024 10:20 AM EST) Color, Urine Light Yellow Colorless, Light Yellow, Yellow, Dark Yellow 12/06/2024 10:32 AM EST [facility] Clarity, Urine Clear Clear 12/06/2024 10:32 AM EST [facility] Specific [place], Urine 1.022 1.005 - 1.030 12/06/2024 10:32 AM EST [facility] pH, Urine 6.0 4.6 - 8.0 12/06/2024 10:32 AM EST [facility] Protein, Urine 1+(A) Negative 12/06/2024 10:32 AM EST [facility] Glucose, Urine 3+(A) Negative 12/06/2024 10:32 AM EST [facility] Ketones, Urine Negative Negative 12/06/2024 10:32 AM EST [facility] Bilirubin, Urine Negative Negative 12/06/2024 10:32 AM EST [facility] Blood, Urine Negative Negative 12/06/2024 10:32 AM EST [facility] Nitrite, Urine Negative Negative 12/06/2024 10:32 AM EST [facility] Urobilinogen, Urine Normal Normal 12/06/2024 10:32 AM EST [facility] Leukocyte Esterase, Urine Negative Negative 12/06/2024 10:32 AM EST [facility] WBC, Urine 2 0 - 2 /HPF 12/06/2024 10:32 AM EST [facility] RBC, Urine <1 0 - 2 /HPF 12/06/2024 10:32 AM EST [facility] Hyaline Casts, Urine 0 0 - 2 /LPF 12/06/2024 10:32 AM EST [facility] Squamous Epithelial Cells, Urine <1 /HPF 12/06/2024 10:32 AM EST [facility] Bacteria, Urine None None /HPF /HPF 12/06/2024 10:32 AM EST [facility] Mucus, Urine Rare /LPF 12/06/2024 10:32 AM EST [facility] Urine Urine specimen collection, clean catch / Unknown Non-Blood Collection / Unknown 12/06/2024 10:20 AM EST 12/06/2024 10:20 AM EST Dennys Roberto MD LAB URINE ORDERABLES Final Re sult Performing Organization Address [facility] Co de Phone Number [facility] [address] [place] [address], [place] * (ABNORMAL) Microalbumin, Random Urine with Creatinine (12/06/2024 10:20 AM EST) Microalbumin, Urine 4.2 mg/dL 12/06/2024 10:56 AM EST [facility] Creatinine, Urine 74 22 - 328 mg/dL 12/06/2024 10:56 AM EST [facility] Microalb/Creat Ratio, Random Urine 56.8(H) <30.0 mcg/mgCr 12/06/2024 10:56 AM EST [facility] Comment: Microalbumin Reference Range: Normal ? <30 mcg/mg Creatinine Microalbuminuria ? 30-300 mcg/mg Creatinine Clinical Albuminuria >300 mcg/mg Creatinine Reference: ADA Guideline. Diabetes Care. 2004;27 (suppl 1) Urine Voided urine specimen / Unknown Non-Blood Collection / Unknown 12/06/2024 10:20 AM EST 12/06/2024 10:20 AM EST us Denyns Roberto MD LAB URINE ORDERABLES Final Re sult Performing Organization Address [facility] Co de Phone Number [facility] [address] [place] [address], [place] * PTH, Intact (without Calcium) (07/19/2024 10:25 AM EDT) Parathyroid Hormone, Intact 44 16 - 77 pg/mL 07/19/2024 10:55 PM EDT [employer] Comment: Interpretive Guide ?Intact PTH ? Calcium [...] EDT 07/19/2024 10:51 AM EDT Narrative [facility] - 07/19/2024 10:55 PM EDT [facility] Received Date: us Dennys Roberto MD LAB BLOOD ORDERABLES Final Re sult [facility] [address] [facility] [address], [place] [address], [place] [phone] [employer] [facility] [address] [facility] [address], [place] [address], [place] [phone] * CT Abdomen Pelvis without Contrast (01/01/2024 [...] obtain the completed interpretation. ? Workstation ID: [id number] Up-to-date CT equipment and radiation dose reduction [...] the focal lumbar junction. Resulting Agency Comment [id number] Procedure Note Irina Gomez MD - 01/01/2024 [...] possible to obtain thecompleted interpretation. Workstation ID: [id number] Up-to-date CT equipment and radiation dose reduction techniques wereemployed. CTDIvol: 8.7 mGy. DLP: 478 mGy-cm. Ernesto Freedman MD [facility] CT PROCEDURES Final Re sult from Last 3 Months or Most Recently Relevant to Health Maintenance Insurance 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
--- OUTSIDE RECORDS SUMMARY | 2025-02-16 16:25 | XMS_ITS | Encounter Summary ---
Author Organization [facility] Address [address] [place] [address] Care Team Providers Care Laundry Attendant Name Role Phone Berenice Mix Primary Care Provider [phone] Encounter Details Date Type Department Care Team (Late st Contact Info) Description 02/14/2025 myChart Message [facility] [address] [place] [address] Night Shift Supervisor: Johnna Moss, Olivia Anderson, DENY [address] [place] [address] Nataliia orta Social History Tobacco Use Types [...] Info) Description 02/23/2025 12:15 PM EDT Appointment [facility] Ultrasound [address] [place] [address] 03/07/2025 9:20 AM EDT Follow-Up [facility] [address] [place] [address] Night Shift Supervisor: Dennys Collins MD [address] [place] [address] 07/20/2025 10:30 AM EDT Follow-Up [facility] [address] [place] [address] Night Shift Supervisor: Johnna Moss, DENY Lara [address] [place] [address] documented as of this encounter Visit Diagnoses Not on filedocumented in this encounter Care Teams Laundry Attendant Relationship Specialty Start Date End Date Berenice Mix [address] [place] [address] PCP - General 05/14/17 documented as of this encounter
--- OUTSIDE RECORDS SUMMARY | 2025-02-16 16:25 | XMS_ITS | Clinical Summary ---
Author Organization [facility] Address [address] [place] [address] Phone Care Team Providers Care Copra Sampler Name Role Phone Berenice Mix MD Primary Care Provider [phone] Allergies Active Allergy Reactions Criticality Noted Date Comments Ibuprofen 08/11/2022 Medications [facility] D3 125 MCG (5000 UT) capsule 2 Active Trulicity 1.5 MG/0.5ML solution pen-injector 2 Active ergocalciferol 1.25 MG (20826 UT) capsule Take 50,000 Int'l Units by [...] mouth 3 Active B-D 3CC LUER-LARS SYR 55MN8-7/2 20G X 1-1/2 3 ML misc USE [...] PM EDT) Hemoglobin A1C 7.7(H) (4.0-5.6) % [facility] Comment: MONITORING: In known diabetic patients, hemoglobin A1c targets should be discussed with health care provider. DIAGNOSTIC USE: ??The [place] Diabetes Association (ADA) and the World Health [...] Supplement 1 Testing performed or reported by [facility], a Service of [facility], [address] [place] [address] Renny Brenner MD, Wood Window [employer] Door Craftsman [facility]# [id number] Blood (Blood, Venous) 07/16/2022 3:32 PM EDT 07/16/2022 3:39 PM EDT us Stanley Sánchez MD LAB BLOOD ORDERABLES Final Re sult [facility] from Last 3 Months or Most Recently Relevant to Health Maintenance Insurance [employer] [place] [id number] [place] [id number] Care Teams Copra Sampler Relationship Specialty Start Date End Date Berenice Mix MD [address] [place], [place] [id number] PCP - General Internal Medicine 03/10/22
--- OUTSIDE RECORDS SUMMARY | 2025-02-16 16:25 | XMS_ITS | Referral Summary ---
Author Organization [facility] Address [address] [place] [address] Care Team Providers Care Sales Development Consultant Name Role Phone Berenice Mix Primary Care Provider [phone] Encounters Date Type Department Care Team Description 02/14/2025 Cloudcam Message [facility] [address] [place] [address] Husker Operator: Olivia Batista PA Oxyb utynin 01/18/2025 9:45 AM EDT Follow-Up [facility] [address] [place] [address] Husker Operator: Olivia Batista PA Nephrolithiasis (Primary Dx); Right flank pain; Urinary urgency; History of radical prostatectomy 01/06/2025 Cloudcam Message [facility] [address] [place] [address] Husker Operator: Dennys Collins MD Ozempic question 01/04/2025 Cloudcam Message [facility] [address] [place] [address] Husker Operator: Olivia Batista PA Mike's visit on 02/08/2025 12/12/2024 Snooth Mediahart Message [facility] [address] [place] [address] Husker Operator: Dennys Collins MD Missed your call 12/08/2024 Nexalogyt Message [facility] [address] [place] [phone] Husker Operator: Dennys Collins MD Lab test results questions 12/06/2024 8:20 AM EST Follow-Up [facility] [address] [place] [phone] Husker Operator: Dennys Collins MD Stage 3b chronic kidney [...] Info) Description 02/23/2025 12:15 PM EDT Appointment [facility] Ultrasound [address] [place] [address] 03/07/2025 9:20 AM EDT Follow-Up [facility] [address] [place] [phone] Husker Operator: Dennys Collins MD [address] [place] [address] 07/20/2025 10:30 AM EDT Follow-Up [facility] [address] [place] [address] Husker Operator: Johnna Moss, DENY Lara [address] [place] [address] Medical Devices Implanted Type Area Purification Supervisor Device Identifier Shelf Expiration Date Model / Serial / Lot Stent Ureteral Firm Hydroplus Coating 6fr 28cm Percuflex Plus - [id number] - [id number] Implanted:Qty: 1 on 02/03/2024 by Sophia aSlazar MD at [facility] Stent Right: Ureter [employer] 03/08/2026 [id number] / [id number] / [id number] Explanted Type Area Purification Supervisor Device Identifier Shelf Expiration Date Model / Serial / Lot Stent Ureteral Firm Hydroplus Coating 6fr 28cm Percuflex Plus - [id number] Implanted:Qty: 1 on 12/31/2023 by Ernesto Freedman MD at [facility] Explanted:Qty: 1 on 02/03/2024 by Sophia Salazar MD at [facility] Stent Right: Ureter [employer] 04/17/2026 [id number] / / [id number] Procedures * Due to [place] state law, this organization might not [...] to Health Maintenance Results * Due to [place] state law, this organization might not be sharing negative HIV tests. * Vitamin D, 25-OH (D2, D3), LC/MS/MS (12/06/2024 10:29 AM EST) Vitamin D, 25-OH, Total 40 30 - 100 ng/mL 12/09/2024 10:35 AM EST [employer] ([facility]) Comment: Vitamin D, 25-Hydroxy reports concentrations [...] ng/mL. For additional information, please refer to http://education.BATS/faq/FHD711 (This link is being provided for informational/ educational purposes only.) Vitamin D, 25-OH, D3 40 ng/mL 12/09/2024 10:35 AM EST [employer] (GUZ[facility]) Comment: This test was developed and its analytical performance characteristics have been determined by [facility] [place], [place]. It has not been cleared or approved by the U.S. Food and Drug Administration. This assay has been validated pursuant to the CLIA regulations and is used for clinical purposes. Vitamin D, 25-OH, D2 <4 ng/mL 12/09/2024 10:35 AM EST [employer] ([facility]) Comment: This test was developed and its analytical performance characteristics have been determined by [facility]. It has not been cleared or approved by the U.S. Food and Drug Administration. This assay has been validated pursuant to the CLIA regulations and is used for clinical purposes. Blood Structure of peripheral vein / Unknown Venipuncture / Unknown 12/06/2024 10:29 AM EST 12/06/2024 10:[address] [facility] - 12/09/2024 10:35 AM EST [facility] Received Date: us Dennys Roberto MD LAB BLOOD ORDERABLES Final Re sult [facility] [address] [facility] [address], [place] [address], [place] [phone] [facility] ([facility]) [address] [place] [address], [place] * (ABNORMAL) CBC Auto Differential (12/06/2024 [...] % 15.7 % 12/06/2024 10:38 AM EST [facility] Monocyte % 8.1 % 12/06/2024 10:38 AM EST [facility] Eosinophil % 4.0 % 12/06/2024 10:38 AM EST [facility] Basophil % 1.1 % 12/06/2024 10:38 AM EST [facility] Neutrophil # 5.92 1.50 - 7.80 10*3/uL 12/06/2024 10:38 AM EST [facility] Immature Grans # 0.08(H) <=0.03 10*3/uL 12/06/2024 10:38 AM EST [facility] Lymphocyte # 1.30 0.85 - 3.90 10*3/uL 12/06/2024 10:38 AM EST [facility] Monocyte # 0.70 0.20 - 0.95 10*3/uL 12/06/2024 10:38 AM EST [facility] Eosinophil # 0.30 0.02 - 0.50 10*3/uL 12/06/2024 10:38 AM EST [facility] Basophil # 0.10 0.00 - 0.20 10*3/uL 12/06/2024 10:38 AM EST [facility] nRBC % 0.0 /100 WBCs 12/06/2024 10:38 AM EST [facility] nRBC # <0.01 <0.01 10*3/uL 12/06/2024 10:38 AM EST [facility] Blood Structure of peripheral vein / Unknown Venipuncture / Unknown 12/06/2024 10:29 AM EST 12/06/2024 10:31 AM EST us Dennys Roberto MD LAB BLOOD ORDERABLES Final Re sult [facility] [address] [place] [address], [place] * (ABNORMAL) Sedimentation Rate (12/06/2024 10:29 AM EST) Pathologist [facility] Sed Rate 37(H) <20 mm/Hr mm/Hr 12/06/2024 10:50 AM EST [facility] Blood Structure of peripheral vein / Unknown Venipuncture / Unknown 12/06/2024 10:29 AM EST 12/06/2024 10:31 AM EST Dennys Roberto MD LAB BLOOD ORDERABLES Final Re sult Performing Organization Address City/[facility]/ZIP Co de Phone Number [facility] [place] [facility] [address] [place] [address], [place] * Immunofixation, Serum (12/06/2024 10:28 AM EST) [facility] Immunofixation, Serum, Interpretation See Comments 12/08/2024 3:00 PM EST [facility] Comment: No monoclonal proteins detected. Blood Structure of peripheral vein / Unknown Venipuncture / Unknown 12/06/2024 10:28 AM EST 12/06/2024 10:31 AM EST Narrative [facility] - 12/08/2024 3:00 PM EST [facility] Received Date:[id number] Dennys Roberto MD LAB BLOOD ORDERABLES Final Re sult [facility] [address] [facility] [address], [place] [address], [place] [phone] [facility] [address] [facility] [address] Floor, [place] [address], [place] [phone] * (ABNORMAL) [place] & Lambda, Free w/Ratio (12/06/2024 10:28 AM EST) [facility] [place] Light Chain, Free, Serum 99.6(H) 3.3 - 19.4 mg/L 12/07/2024 11:25 AM EST [facility] Lambda Light Chain, Free, Serum 52.3(H) 5.7 - 26.3 mg/L 12/07/2024 11:25 AM EST [facility] [place]/Lambda Light Chains Free With Ratio 1.90(H) 0.26 - 1.65 12/07/2024 11:25 AM EST [facility] Comment: Free kappa/lambda ratio in [...] 10:28 AM EST 12/06/2024 10:30 AM EST [facility] - 12/07/2024 11:25 AM EST [facility] Received Date: us Dennys Roberto MD LAB BLOOD ORDERABLES Final Re sult [facility] [address] [facility] [address], [place] [address], [facility] [address] [facility] [address], [place] [address], * (ABNORMAL) Protein Electrophoresis w/Reflex to Immunofixation, Serum (12/06/2024 10:28 AM EST) Protein, Total 6.4 6.1 - 8.1 g/dL 12/08/2024 7:52 AM EST [facility] Albumin 3.6(L) 3.8 - 4.8 g/dL 12/08/2024 7:52 AM EST [facility] Alpha 1 Globulin 0.3 0.2 - 0.3 g/dL 12/08/2024 7:52 AM EST [facility] Alpha 2 Globulin 0.5 0.5 - 0.9 g/dL 12/08/2024 7:52 AM EST [facility] Beta 1 Globulin 0.5 0.4 - 0.6 g/dL 12/08/2024 7:52 AM EST [facility] Beta 2 Globulin 0.6(H) 0.2 - 0.5 g/dL 12/08/2024 7:52 AM EST [facility] Gamma Globulin 1.0 0.8 - 1.7 g/dL 12/08/2024 7:52 AM EST [facility] Abnormal Protein Band 1 See Comments NONE DETECTED g/dL 12/08/2024 7:52 AM EST [facility] Comment: See below Interpretation See Comments 12/08/2024 7:52 AM EST [facility] Comment: Electrophoretic studies reveal an isolated elevation [...] ORDERABLES Final Re sult [facility] [address] [facility] [address], [place] [address], [place] [phone] [facility] [address] [facility] [address], [place] [address], [place] [phone] * CRP (C-Reactive Protein) (12/06/2024 10:28 AM EST) C Reactive Protein <3.0 <=9.9 mg/L 12/06/2024 11:07 AM EST [facility] Blood Structure of peripheral vein / Unknown Venipuncture / Unknown 12/06/2024 10:28 AM EST 12/06/2024 10:31 AM EST Dennys Roberto MD LAB BLOOD ORDERABLES Final Re sult Performing Organization Address [facility] Co de Phone Number [facility] [address] [place] [address], * PSA (12/06/2024 10:28 AM EST) PSA 0.03 <=4.00 ng/mL 12/06/2024 11:06 AM EST [facility] Comment: The total PSA value from this assay system is standardized against the WHO standard. ??The test result will be slightly lower (< 3 %) when compared to the equimolar-standardized total PSA(Leandro [place]). ??Comparison of Serial PSA results should be [...] ORDERABLES Final Re sult Performing Organization Address [facility] Co de Phone Number [facility] [address] [place] [address], * (ABNORMAL) Comprehensive Metabolic Panel (12/06/2024 10:28 AM EST) NA 142 135 - 145 mmol/L 12/06/2024 11:06 AM EST [facility] K 4.2 3.5 - 5.3 mmol/L 12/06/2024 11:06 AM EST [facility] Cl 107 98 - 107 mmol/L 12/06/2024 11:06 AM EST [facility] CO2 23 22 - 32 mmol/L 12/06/2024 11:06 AM [facility] Anion Gap 12 5 - 15 12/06/2024 11:06 AM [facility] Glucose 180(H) 65 - 99 mg/dL 12/06/2024 11:06 AM [facility] Creatinine 2.27(H) 0.60 - 1.30 mg/dL 12/06/2024 11:06 AM [facility] Calcium 9.5 8.6 - 10.5 mg/dL 12/06/2024 11:06 AM [facility] Total Protein 6.6 6.0 - 8.0 g/dL 12/06/2024 11:06 AM [facility] Albumin 3.8 3.5 - 5.2 g/dL 12/06/2024 11:06 AM [facility] Bilirubin, Total 0.7 0.2 - 1.2 mg/dL 12/06/2024 11:06 AM [facility] Alkaline Phosphatase 76 35 - 129 U/L 12/06/2024 11:06 AM [facility] AST 25 10 - 40 U/L 12/06/2024 11:06 AM [facility] ALT 21 10 - 40 U/L 12/06/2024 11:06 AM [facility] BUN 23 7 - 23 mg/dL 12/06/2024 11:06 AM [facility] eGFR 30(L) >=60 mL/min/1 .73m2 12/06/2024 11:06 AM [facility] Comment:The estimated glomer ular [...] - 4.2 g/dL 12/06/2024 11:06 AM EST [facility] A/G Ratio 1.4(L) 1.5 - 3.0 12/06/2024 11:06 AM EST [facility] Blood Structure of peripheral vein / Unknown Venipuncture / Unknown 12/06/2024 10:28 AM EST 12/06/2024 10:31 AM EST Dennys Roberto MD LAB BLOOD ORDERABLES Final Re sult Performing Organization Address City/[facility]/ZIP Co de Phone Number [facility] [address] [place] [address], [place] * Phillips Top, Urine (12/06/2024 10:20 AM EST) Extra Tube Hold for add-ons. 12/06/2024 3:06 PM EST [facility] Comment:Auto resulted. Urine Urine specimen collection, clean catch / Unknown Non-Blood Collection / Unknown 12/06/2024 10:20 AM EST 12/06/2024 10:20 AM EST Dennys Roberto MD LAB URINE ORDERABLES Final Re sult Performing Organization Address City/[facility]/ZIP Co de Phone Number [facility] [address] [place] [address], [place] * (ABNORMAL) Urinalysis W/Reflex to Microscopic & Culture (12/06/2024 10:20 AM EST) Color, Urine Light Yellow Colorless, Light Yellow, Yellow, Dark Yellow 12/06/2024 10:32 AM EST [facility] Clarity, Urine Clear Clear 12/06/2024 10:32 AM EST [facility] Specific [place], Urine 1.022 1.005 - 1.030 12/06/2024 10:32 AM EST [facility] pH, Urine 6.0 4.6 - 8.0 12/06/2024 10:32 AM EST [facility] Protein, Urine 1+(A) Negative 12/06/2024 10:32 AM EST [facility] Glucose, Urine 3+(A) Negative 12/06/2024 10:32 AM EST [email or web address] Ketones, Urine Negative Negative 12/06/2024 10:32 AM EST [facility] Bilirubin, Urine Negative Negative 12/06/2024 10:32 AM EST [email or web address] Blood, Urine Negative Negative 12/06/2024 10:32 AM EST [facility] Nitrite, Urine Negative Negative 12/06/2024 10:32 AM EST [email or web address] Urobilinogen, Urine Normal Normal 12/06/2024 10:32 AM EST [email or web address] Leukocyte Esterase, Urine Negative Negative 12/06/2024 10:32 AM EST [email or web address] WBC, Urine 2 0 - 2 /HPF 12/06/2024 10:32 AM EST [email or web address] RBC, Urine <1 0 - 2 /HPF 12/06/2024 10:32 AM EST [email or web address] Hyaline Casts, Urine 0 0 - 2 /LPF 12/06/2024 10:32 AM EST [email or web address] Squamous Epithelial Cells, Urine <1 /HPF 12/06/2024 10:32 AM EST [email or web address] Bacteria, Urine None None /HPF /HPF 12/06/2024 10:32 AM EST [email or web address] Mucus, Urine Rare /LPF 12/06/2024 10:32 AM EST [facility] Urine Urine specimen collection, clean catch / Unknown Non-Blood Collection / Unknown 12/06/2024 10:20 AM EST 12/06/2024 10:20 AM EST Dennys Roberto MD LAB URINE ORDERABLES Final Re sult Performing Organization Address City/[facility]/ZIP Co de Phone Number [facility] [address] [place] [address], * (ABNORMAL) Microalbumin, Random Urine with Creatinine (12/06/2024 10:20 AM EST) Microalbumin, Urine 4.2 mg/dL 12/06/2024 10:56 AM EST [facility] Creatinine, Urine 74 22 - 328 mg/dL 12/06/2024 10:56 AM EST [facility] Microalb/Creat Ratio, Random Urine 56.8(H) <30.0 mcg/mgCr 12/06/2024 10:56 AM EST [facility] Comment: Microalbumin Reference Range: Normal ? <30 mcg/mg Creatinine Microalbuminuria ? 30-300 mcg/mg Creatinine Clinical Albuminuria >300 mcg/mg Creatinine Reference: ADA Guideline. Diabetes Care. 2004;27 (suppl 1) Urine Voided urine specimen / Unknown Non-Blood Collection / Unknown 12/06/2024 10:20 AM EST 12/06/2024 10:20 AM EST Dennys Roberto MD LAB URINE ORDERABLES Final Re sult Performing Organization Address City/[facility]/ZIP Co de Phone Number [facility] [address] [place] [address], [place] * PTH, Intact (without Calcium) (07/19/2024 10:25 AM EDT) Parathyroid Hormone, Intact 44 16 - 77 pg/mL 07/19/2024 10:55 PM EDT [facility] Comment: Interpretive Guide ?Intact PTH ? Calcium [...] EDT 07/19/2024 10:51 AM EDT Narrative [facility] - 07/19/2024 10:55 PM EDT [facility] Received Date: us Dennys Roberto MD LAB BLOOD ORDERABLES Final Re sult [facility] [place] [address] [facility] [address] [facility], [place] [address], [place] [phone] [employer] [address], [place] [address], [place] [phone] * CT Abdomen Pelvis without Contrast (01/01/2024 [...] obtain the completed interpretation. ? Workstation ID: [id number] Up-to-date CT equipment and radiation dose reduction [...] the focal lumbar junction. Resulting Agency Comment [id number] Procedure Note Irina Gomez MD - 01/01/2024 [...] possible to obtain thecompleted interpretation. Workstation ID: [id number] Up-to-date CT equipment and radiation dose reduction techniques wereemployed. CTDIvol: 8.7 mGy. DLP: 478 mGy-cm. Ernesto Freedman MD IM CT PROCEDURES Final Re sult from Last 3 Months or Most Recently Relevant to Health Maintenance Insurance [facility] MEDICARE Advance Directives Documents on File Type Date Recorded Patient Strategy Intern Expl anation Advance Directive 07/25/2013 12:00 AM [...] 8:26 AM 01/01/2024 2:37 PM Care Teams Sales Development Consultant Relationship Specialty Start Date End Date Berenice Mix [address] [place] [address] PCP - General 05/14/17
--- OUTSIDE RECORDS SUMMARY | 2025-02-16 16:25 | XMS_ITS ---
Author Organization [facility] Address [address] [place] [address] Care Team Providers Care Web Content Executive Name Role Phone EvetteBerenice pereira Primary Care Provider [phone] Active Problems Problem Noted Date Diagnosed Date [...] TotalDLP 2,782 mGy 2,782 mGy 0 mGy [id number] 32 mSv 32 mSv 0 mSv CTDIvol Max 46.5 mGy 46.5 mGy 0 mGy CTDIvol Min 46.5 mGy 46.5 mGy 0 mGy Radiation - mGy 165.17 mGy 165.17 mGy 0 mGy
--- OUTSIDE RECORDS SUMMARY | 2025-02-16 16:25 | XMS_ITS | Encounter Summary ---
Author Organization [facility] Address [address] [place] [address] Care Team Providers Care Mobile Application Architect Name Role Phone Berenice Mix Primary Care Provider [phone] Encounter Details Date Type Department Care Team (Late st Contact Info) Description 06/30/2023 Orders Only [facility] Interventional Radiology [address] [place] [address] Fran Conde, [address] [place] [address] Social History Tobacco Use Types Packs/Day Years [...] Info) Description 02/23/2025 12:15 PM EDT Appointment [facility] Ultrasound [address] [place] [address] 03/07/2025 9:20 AM EDT Follow-Up [facility] [address] [place] [phone] Dielectric Testing Machine Operator: Dennys Collins MD [address] [place] [address] 07/20/2025 10:30 AM EDT Follow-Up [facility]rology Clinic [address] [place] [address] Dielectric Testing Machine Operator: Johnna Moss, DENY Lraa [address] [place] [address] documented as of this encounter Visit Diagnoses Not on filedocumented in this encounter Care Teams Mobile Application Architect Relationship Specialty Start Date End Date Berenice Mix [address] [place] [address] PCP - General 05/14/17 documented as of this encounter
[2025-02-16 16:31] LABS: Anion Gap 11 (12-20); Blood Urea Nitrogen 29 mg/dL (9-16); Calcium 9.4 mg/dL (8.4-10.2); Carbon Dioxide 23 mmol/L (22-29); Chloride 111 mmol/L (96-108); Estimated Glomerular Filt Rate 32; Glucose Random 105 mg/dL (60-115); Potassium 4.4 mmol/L (3.3-5.1); Sodium 141 mmol/L (135-145)
== END 2025-02-16 13:33 | disposition home or self-care (01) ==
LOC: HO.HMGCLDS 13:32
PROVIDERS: PCP Internal Medicine; Visit Provider Internal Medicine
DX: E11.22 Type 2 diabetes mellitus with diabetic chronic kidney disease (principal); I12.9 Hypertensive chronic kidney disease with stage 1 through stage 4 chronic kidney disease, or unspecified chronic kidney disease; N18.30 Chronic kidney disease, stage 3 unspecified; G30.9 Alzheimer's disease, unspecified; F02.80 Dementia in other diseases classified elsewhere, unspecified severity, without behavioral disturbance, psychotic disturbance, mood disturbance, and anxiety
CPT/HCPCS: 36415; 80048; 96127; 99212

== ENCOUNTER 2025-02-16 13:32 | Outpatient (AMB) | payer MEDICARE, OTHER, SELFPAY ==
--- NOTE | 2025-02-16 13:34 | MHC.PC.OV ---
Vital Signs 02/16/25 13:35 Height 6 ft Weight 325 lb BMI 44.1 BP 104/72 Blood Pressure Location Lt brachial Position Sitting Pulse 56 Pulse Source Pulse Oximeter Temp 97.6 F Temp Source Oral Pulse Oximetry (%) 97 Oxygen Delivery Method Room Air Intake Visit Reasons: Med review related to GI side effects Intake Note: Pt is here today for a follow up visit. Pt c/o diarrhea since starting Tresiba. Allergies codeine Allergy (Unknown, Verified 02/16/25 13:37) Vomiting irbesartan Adverse Reaction (Unknown, Verified 02/16/25 13:37) worsening renal function Medication List - Last Reconciled 02/16/25 by Berenice Mix MD amlodipine 10 mg PO DAILY Basaglar Tempo Pen(U-100)Insln (insulin glargine) 30 units (0.3 mL) subcut BID NS blood sugar diagnostic (FreeStyle Lite Strips) use 1 strip twice a day to test blood sugar 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 meter (FreeStyle Lite Meter kit) As directed 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 sensor (BATS G7 Sensor device) Change sensor every 10 days cholecalciferol (vitamin D3) 125 mcg PO DAILY dapagliflozin propanediol (Farxiga) 10 mg PO DAILY Dexcom G7 Planning Manager (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,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,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) As directed NS donepezil (Aricept) 10 mg PO DAILY levothyroxine 1 tab PO for 5 days and 2 tabs PO two days a week PO; losartan 50 mg PO DAILY metoprolol succinate ER 200 mg (2 x 100 mg) PO DAILY Ozempic (semaglutide) 2 mg (0.75 mL) subcut QWEEK NS rosuvastatin 40 mg PO DAILY sertraline 50 mg PO DAILY syringe with needle As directed Tresiba FlexTouch U-100 (insulin degludec) 40 units (0.4 mL) subcut BID NS vibegron (Gemtesa) 75 mg PO DAILY Tobacco use date assessed: 02/16/25 Dental Screening Dental Screen Date: 01/06/25 HPI Med review related to GI side effects HPI Details Patient presents complaining of having a diarrhea from Tresiba. He lowered the dose to 30 units twice a day without significant improvement. Patient has stopped Tresiba for 5 days and his diarrhea resolved. He denies abdominal pain nausea vomiting he has glucose readings have been between 120 to 160. Patient denies any new medications with possible side effect of diarrhea. Hypertension is controlled on current medications. Gemtesa was discontinued. [facility] Medical History TIA (transient ischemic attack) Wound of left leg Annual physical exam Hematuria Hypogonadism Vitamin B 12 deficiency Microalbuminuria CKD (chronic kidney disease), stage III Chronic venous insufficiency Hypothyroidism Prostate cancer Overweight Type 2 diabetes mellitus CAD (coronary artery disease) Hyperlipidemia HTN (hypertension) Surgical History H/O colonoscopy No pertinent past surgical history Family History Father No problems noted. Mother No problems noted. Social History Housing: House Alcohol intake: unknown Patient Tobacco Use Status: Former Tobacco user e-Cigarette/Vaping Use: Never Used Second Hand Smoke Exposure: No service: No Current occupational status: retired Cognitive needs: No Hearing needs: No Vision needs: Yes Questionnaire PHQ-9 Over the last 2 weeks, how often have you been bothered by any of the following problems? 1. Little interest or pleasure in doing things: nearly every day 2. Feeling down, depressed, or hopeless: nearly every day 3. Trouble falling or staying asleep, or sleeping too much: nearly every day 4. Feeling tired or having little energy: nearly every day 5. Poor appetite or overeating: nearly every day 6. Feeling bad about yourself - or that you are a failure or have let yourself or your family down: nearly every day 7. Trouble concentrating on things, such as reading the newspaper or watching television: nearly every day 8. Moving or speaking so slowly that other people could have noticed. Or the opposite - being so fidgety or restless that you have been moving around a lot more than usual: nearly every day 9. Thoughts that you would be better off or of hurting yourself in some way: nearly every day Total score: 27 Depression Screening Interpretation: Positive (Patient is established with counselor and geriatric psychiatrist at [facility]) Depression Screening Follow-up: Existing condition and In treatment Depression Screening Done: Yes Source: Developed by Drs. Kameron Cherry, Kiley Knapp, Shad Mosquera and colleagues, with an educational duane from [employer]. Thrive Questionnaire Date Thrive assessed: 02/16/25 I am a: Patient What is your living situation today?: I have a steady place to live Within the past 12 months, did the food you bought not last and you didn't have the money to get more?: I choose not to answer this question Within the past 12 months, did you worry whether your food would run out before you got money to buy more?: I choose not to answer this question Do you have trouble paying for medicines?: No Do you have trouble getting transportation to medical appointments?: No Do you have trouble paying your heating and electricity bill?: No Do you have trouble taking care of your child, family member or friend?: No Do you have trouble with day-to-day activities such as bathing, preparing meals, shopping, managing finances, etc.?: No Are you currently unemployed and looking for a job?: No Are you interested in more education?: I choose not to answer this question Please select the resources that you would like help with: None Currently or been in a relationship where the following occur: I choose not to answer THRIVE Score: 0 NATANAEL-7 AMB Questionnaire NATANAEL-7 Date NATANAEL - 7 assessed: 01/06/25 Source: Developed by Drs. Kameron Cherry, Kiley Knapp, Shad Mosquera and colleagues, with an educational duane from [employer]. Review of Systems Const All systems reviewed & are unremarkable except as noted in HPI and below Eyes Reports no additional complaints ENT Reports no additional complaints Card Reports no additional complaints Resp Reports no additional complaints GI Reports no additional complaints Reports no additional complaints Physical exam (Primary Care) Vital Signs: Last Vital Signs Temp 97.6 F 02/16/25 13:35 Pulse 56 02/16/25 13:35 BP 104/72 02/16/25 13:35 Pulse Ox 97 02/16/25 13:35 Oxygen Delivery Method Room Air 02/16/25 13:35 BMI result Body Mass Index 44.1 Tobacco/Smoking Status: Tobacco use Status Tobacco use date assessed 02/16/25 02/16/25 13:42 Patient Tobacco Use Status Former Tobacco user 02/16/25 13:42 e-Cigarette/Vaping Use Never Used 02/16/25 13:42 PHQ-9: PHQ-9 Score PHQ-9: Total score 27 02/16/25 13:42 Depression Screening Interpretation: Positive (Patient is established with counselor and geriatric psychiatrist at [facility]) Depression Screening Follow-up: Existing condition and In treatment Thrive Assessment: Date of Thrive Assessment Date Thrive assessed 02/16/25 02/16/25 13:42 Currently or been in a relationship where the following occur: I choose not to answer Const General: no acute distress HENMT Head: Yes normal to inspection Throat: Yes posterior oropharynx normal Neck Neck: Yes no lymphadenopathy and Yes supple Resp Effort & Inspection: normal respiratory effort Auscultation: clear to auscultation bilaterally Cardio Rhythm: regular rhythm Heart sounds: S1 normal heart sound present and S2 normal heart sound present GI Inspection: Yes normal to inspection Palpation (GI): Soft to palpation Percussion: Yes normal to percussion Auscultation: normal bowel sounds Coding Level of Care Code Est Pt Level 4 (20162) Diagnoses CKD (chronic kidney disease), stage III N18.30 Alzheimer dementia G30.9; F02.80 Type 2 diabetes mellitus E11.9 Assessment & Plan Assessment & Plan (1) CKD (chronic kidney disease), stage III: Comment: stage 3/4 f/u 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 at [facility] Code(s): N18.30 - Chronic kidney disease, stage 3 unspecified Category: Medical Plan: Follow-up with 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 and monitor renal function (2) Alzheimer dementia: Comment: Patient is established with neurologist at [facility] Code(s): G30.9 - Alzheimer's disease, unspecified; F02.80 - Dementia in other diseases classified elsewhere, unspecified severity, without behavioral disturbance, psychotic disturbance, mood disturbance, and anxiety Category: Medical Plan: Continue current medications (3) Type 2 diabetes mellitus: Comment: on insulin Code(s): E11.9 - Type 2 diabetes mellitus without complications Category: Medical Plan: Tresiba will be discontinued and Basaglar 30 units twice a day will be started patient will continue Farxiga and Ozempic. ADA diet increasing physical activity discussed with the patient he follow-up in 1 month Orders: Orders Basic Metabolic Panel Today N18.30 - Chronic kidney disease, stage 3 unspecified Medications: New Basaglar Tempo Pen(U-100)Insln (insulin glargine) 30 units (0.3 mL) subcut BID 15 mL 4RF NS
[2025-02-16 13:35] VITALS: BP 104/72; PULSE 56; TEMP 36.4; O2SAT 97; BMI 44.1
--- OUTSIDE RECORDS SUMMARY | 2025-02-16 15:55 | XMS_ITS | Patient Health Record ---
[facility] [place] Address [address] [place] [address] Care Team Providers Care Research/Program Director Name Role Phone Berenice Mix MD Primary Care Provider Kb Andres Unavailable [phone] Allergies No Known Allergies Reason For Referral [...] Problem Acquired hammer toe of right foot (5729375340241 105) Other hammer toe(s) (acquired), right foot (M20.41) Active confirmed Problem Type 2 diabetes mellitus with peripheral angiopathy (687984211) Type 2 diabetes mellitus with diabetic peripheral angiopathy without gangrene (E11.51) Active confirmed Q7(A), Q8(2B), Q9(1B,2C) Problem Acquired hammer toe of left foot ([id number] 103) Other hammer toe(s) (acquired), left foot (M20.42) Active confirmed Vital Signs Height 6ft 2 in in 05/30/2024 Weight 330 lbs 08/29/2024 BMI 42.37 kg/m2 08/29/2024 Procedures Procedure Date Ordered Date Performed Result Body Sit e 52927-FXGSPXM NAIL, 6 OR MORE 05/30/2024 N/A 07756-Hhsczewz Plate 05/30/2024 N/A 84461-VHME SKIN LESIONS, OVER 4 05/30/2024 N/A 33045-BCWIOOB NAIL, 6 OR MORE 08/29/2024 N/A 71327-EILU SKIN LESIONS, OVER 4 08/29/2024 N/A Encounters Encounter Location Date Provider Diagnosis [facility] [place] [address] [place] [phone] 05/30/2024 Kb Marti Type 2 diabetes mellitus with diabetic peripheral angiopathy without gangrene E11.51 ; Tinea unguium B35.1 ; Pain in right toe(s) M79.674 ; Pain in left toe(s) M79.675 ; Other hammer toe(s) (acquired), left foot M20.42 ; Other hammer toe(s) (acquired), right foot M20.41 and Ingrown nail L60.0 [facility] [address] [facility] [address] [place] [address] 08/29/2024 Kb Marti Type 2 diabetes mellitus with diabetic peripheral angiopathy without gangrene E11.51 ; Tinea unguium B35.1 ; Pain in right toe(s) M79.674 ; Pain in left toe(s) M79.675 and Xerosis of skin L85.[address] [facility] [address] [phone] 08/29/2024 Kb Marti Assessments Encounter Date Diagnosis [...] Treatment Pending Test Test Name Order Date 70858-PTZVPHL NAIL, 6 OR MORE 12/21/2023 10439-EQYCPHL NAIL, 6 OR MORE 05/30/2024 30530-XWDDGLH NAIL, 6 OR MORE 08/29/2024 68175-Fqkpcikr Plate 05/30/2024 08990-NGFP SKIN LESIONS, OVER 4 05/30/20 24 88709-CRXR SKIN LESIONS, OVER 4 08/29/20 08049-PVLV SKIN LESIONS, 2 TO 4 12/21/19 24 Next Appt Details Provider Name:Kb Marti , 05/11/2025 09:30:00 AM, [address] [facility], [facility] [address], [place], [address], Insurance Providers Payer Name Payer Address Payer Phone Subscriber Number Group Number Insured Name Patient Relationship to Insured Coverage Start Date Coverage End Date [facility] [address] [place] [address] [id number] Aundrea Burton Spouse - patient is the spouse of the insured Medical (General) History Medical History History ICD Code Anxiety Back,Hip,and Knee pain Cancer Dementia Diabetic High blood pressure Kidney disease Poor circulation Measles Mumps Chicken pox Surgical History Surgery Date(Month/Year) trans-radial Breast Stents
--- OUTSIDE RECORDS SUMMARY | 2025-02-16 15:55 | XMS_ITS | Clinical Summary ---
Author Organization [facility] Address [address] [place] [address] Care Team Providers Care Change Agent Name Role Phone Berenice Mix Primary Care Provider [phone] Allergies Active Allergy Reactions Criticality Noted Date [...] 4 11:36 AM EDT 02/03/20 24 Active Dexcom G7 Sensor device USE DIRECTED, CHANGE EVERY 10 DAYS 07/08/20 24 Active Ozempic 2 mg/dose (8 mg/3 mL) pen injector [id number].25 Milliliter(s) SUB-Q Once a Week 10/10/20 24 Active oxybutynin XL (DITROPAN XL) 10 mg tablet Take 1 tablet (10 mg total) by mouth once a day. 90 tablet 3 06/08/20 24 025 Discontinued Active Problems Problem Noted Date Diagnosed Date Hypertension 08/25/2022 Hyperlipidemia 08/25/2022 Hypogonadism in male 08/25/2022 Nephrolithiasis 08/25/2022 Stage 2 chronic kidney disease 03/10/2022 Malignant neoplasm of prostate 04/08/2012 Overview (08/08/2022): Malignant tumor of prostate Malignant tumor of prostate Hypothyroidism 04/08/2012 Overview (08/08/2022): Hypothyroidism Hypothyroidism Diabetes mellitus 04/08/2012 Overview (08/08/2022): Diabetes mellitus Diabetes mellitus Encounters Date Type Department Care Team Description 02/14/2025 myChart Message [facility] [address] [place] [phone] Computer Network Support Specialist: Olivia Batista PA Oxyb carolynin 01/18/2025 9:45 AM EDT Follow-Up [facility] [address] [place] [address] Computer Network Support Specialist: Olivia Batista PA Nephrolithiasis (Primary Dx); Right flank pain; Urinary urgency; History of radical prostatectomy 01/06/2025 myChart Message [facility] [address] [place] [address] Computer Network Support Specialist: Dennys Collins MD Ozempic question 01/04/2025 myChart Message [facility] [address] [place] [address] Computer Network Support Specialist: Olivia Batista PA Mike's visit on 02/08/2025 12/12/2024 myChart Message [facility] [address] [place] [phone] Computer Network Support Specialist: Dennys Collins MD Missed your call 12/08/2024 myChart Message [facility] [address] [place] [address] Computer Network Support Specialist: TrinaDennys Cantu MD Lab test results questions 12/06/2024 8:20 AM EST Follow-Up [facility] [address] [place] [address] Computer Network Support Specialist: Dennys Collins MD Stage 3b chronic kidney disease (Primary Dx); Pre-transplant evaluation for CKD (chronic [...] Sign Reading Time Taken Comments Blood Pressure 137/81 01/18/2025 9:25 AM EDT Pulse 60 01/18/2025 9:25 AM EDT Temperature 36.6 ??C (97.8 ??F) 12/06/2024 8:38 [...] Care Team (Late st Contact Info) Description 02/23/2025 12:15 PM EDT Appointment [facility] [address] [place] [address] 03/07/2025 9:20 AM EDT Follow-Up [facility] [address] [place] [address] Computer Network Support Specialist: Trina Roberto, Dennys Hall MD [address] [place] [phone] 07/20/2025 10:30 AM EDT Follow-Up [facility] [address] [place] [address] Computer Network Support Specialist: Johnna Moss, DENY Lara [address] [place] [phone] Health Maintenance Due Date Last Done Comments 25 Hydroxy / Vitamin D 1950 Cologuard 1950 Colon Cancer Screening 1950 Colonoscopy 1950 FOBT / Fit Test 1950 Hepatitis C Screening 1950 Phosphorus 1950 Sigmoidoscopy 1950 Medicare AWV 1951 Hemoglobin A1C 01/13/2023 07/16/2022, 03/27, 03/10/2022 Ophthalmology [...] exists Pneumococcal Vaccine: 50+ Years Completed 10/04/2024 RSV Vaccine (60+ years old and patients) Completed 01/13/2025 Hepatitis B Vaccines Aged Out No long er eligible based on patient's age to complete this topic Medical Devices Implanted Type Area Wafer Production Lead Worker Device Identifier Shelf Expiration Date Model / Serial / Lot Stent Ureteral Firm Hydroplus Coating 6fr 28cm Percuflex Plus - [id number] - [id number] Implanted:Qty: 1 on 02/03/2024 by Sophia Salazar MD at [facility] Stent Right: Ureter [employer] 03/08/2026 [id number] / [id number] / [id number] Explanted Type Area Wafer Production Lead Worker Device Identifier Shelf Expiration Date Model / Serial / Lot Stent Ureteral Firm Hydroplus Coating 6fr 28cm Percuflex Plus - [id number] Implanted:Qty: 1 on 12/31/2023 by Ernesto Freedman MD at [facility] Explanted:Qty: 1 on 02/03/2024 by Sophia Salazar MD at [facility] Stent Right: Ureter [employer] 04/17/2026 [id number] / / [id number] Procedures * Due to [place] state law, this organization might not be sharing negative HIV tests. Procedure Name Priority Date/Time Associated Diagnosis Comments VITAMIN D, 25-OH (D2, D3), LC/MS/MS Routine 12/06/2024 10:29 AM EST Stage 3b chronic kidney disease SEDIMENTATION RATE, AUTOMATED Today 12/06/2024 10:29 AM EST Stage 3b chronic kidney disease CBC AUTO DIFFERENTIAL Today 12/06/2024 10:29 AM EST Stage 3b chronic kidney disease IMMUNOFIXATION, SERUM Routine 12/06/2024 10:28 AM EST Stage 3b chronic kidney disease PSA Today 12/06/2024 10:28 AM EST Stage 3b chronic kidney disease PROTEIN ELECTROPHORESIS W/REFLEX TO IMMUNOFIXATION, SERUM Today 12/06/2024 10:28 AM EST Stage 3b chronic kidney disease C-REACTIVE PROTEIN Today 12/06/2024 10 :28 AM EST Stage 3b chronic kidney disease KAPPA & LAMBDA, FREE W/RATIO Today 12/06/2024 10:28 AM EST Stage 3b chronic kidney disease COMPREHENSIVE METABOLIC PANEL Today 12/06/2024 10:28 AM EST Stage 3b chronic kidney disease PHILLIPS TOP, URN Today 12/06/2024 10:20 AM EST Stage 3b chronic kidney disease UA/CULTURE REFLEX Today 12/06/2024 10: 20 AM EST Stage 3b chronic kidney disease URINALYSIS W/REFLEX TO MICROSCOPIC & CULTURE Today 12/06/2024 10:20 AM EST Stage 3b chronic kidney disease MICROALBUMIN, RANDOM URINE WITH CREATININE Today 12/06/2024 10:20 AM EST Stage 3b chronic kidney disease PTH, INTACT (WITHOUT CALCIUM) Routine 07/19/2024 10:25 AM EDT Stage 3b chronic kidney disease CT ABDOMEN PELVIS WO CONTRAST Routine 01/01/2024 8:22 AM EST from Last 3 Months or Most Recently Relevant to Health Maintenance Results * Due to [place] state law, this organization might not be sharing negative HIV tests. * Vitamin D, 25-OH (D2, D3), LC/MS/MS (12/06/2024 10:29 AM EST) Vitamin D, 25-OH, Total 40 30 - 100 ng/mL 12/09/2024 10:35 AM EST [facility] ([facility]) Comment: Vitamin D, 25-Hydroxy reports concentrations of [...] ng/mL. For additional information, please refer to http://education.[employer]./faq/ZNV879 (This link is being provided for informational/ educational purposes only.) Vitamin D, 25-OH, D3 40 ng/mL 12/09/2024 10:35 AM EST MARIOLA TOMLIN (ALEX[place]DRU) Comment: This test was developed and its analytical performance characteristics have been determined by [employer] [place], [place]. It has not been cleared or approved by the U.S. Food and Drug Administration. This assay has been validated pursuant to the CLIA regulations and is used for clinical purposes. Vitamin D, 25-OH, D2 <4 ng/mL 12/09/2024 10:35 AM EST MARIOLA TOMLIN (ALEXANDRU) Comment: This test was developed and its analytical performance characteristics have been determined by [employer], [place]. It has not been cleared or approved by the U.S. Food and Drug Administration. This assay has been validated pursuant to the CLIA regulations and is used for clinical purposes. Blood Structure of peripheral vein / Unknown Venipuncture / Unknown 12/06/2024 10:29 AM EST 12/06/2024 10:30 AM EST Edgar GARNETT CHERYL - 12/09/2024 10:35 AM EST [facility] Received Date: us Dennys Roberto MD LAB BLOOD ORDERABLES Final Re sult [address], [place] [address], [place] [phone] [facility] ([facility]) [address] [place] [address], [place] * (ABNORMAL) CBC Auto Differential (12/06/2024 10:29 AM EST) WBC 8.4 3.8 - 10.8 10*3/uL 12/06/2024 10:38 AM EST [facility] RBC 4.26 4.20 - 5.80 10*6/uL 12/06/2024 10:38 AM EST [facility] Hemoglobin 12.5(L) 13.2 - 17.1 g/dL 12/06/2024 10:38 AM EST [facility] Hematocrit 38.7 [...] 0.08(H) <=0.03 10*3/uL 12/06/2024 10:38 AM EST [facility] Lymphocyte # [...] - 0.20 10*3/uL 12/06/2024 10:38 AM EST [facility] nRBC % 0.0 /100 WBCs 12/06/2024 10:38 AM EST [facility] nRBC # <0.01 <0.01 10*3/uL 12/06/2024 10:38 AM EST [facility] Blood Structure of peripheral vein / Unknown Venipuncture / Unknown 12/06/2024 10:29 AM EST 12/06/2024 10:31 AM EST us Dennys Roberto MD LAB BLOOD ORDERABLES Final Re sult [facility] [address] [place] [address], * (ABNORMAL) Sedimentation Rate (12/06/2024 10:29 AM EST) Pathologist [facility] Sed Rate 37(H) <20 mm/Hr mm/Hr 12/06/2024 10:50 AM EST [facility] LAB[facility]ORY Blood Structure of peripheral vein / Unknown Venipuncture / Unknown 12/06/2024 10:29 AM EST 12/06/2024 10:31 AM EST Dennys Roberto MD LAB BLOOD ORDERABLES Final Re sult Performing Organization Address [facility] Co de Phone Number [facility] [address] [place] [phone], [place] * Immunofixation, Serum (12/06/2024 10:28 AM EST) [facility] Immunofixation, Serum, Interpretation See Comments 12/08/2024 3:00 PM EST [facility] Comment: No monoclonal proteins detected. Blood Structure of peripheral vein / Unknown Venipuncture / Unknown 12/06/2024 10:28 AM EST 12/06/2024 10:31 AM EST Narrative [facility] [place] - 12/08/2024 3:00 PM EST [facility] Received Date:[id number] Dennys Roberto MD LAB BLOOD ORDERABLES Final Re sult Performing Organization Address City/[facility]/ZIP Co de Phone Number [facility] [address] [facility] [address]rd [address], [place] [address], [place] [phone] [facility] [address] [facility] [address]rd Floor, [place] [address], [place] [phone] * (ABNORMAL) [place] & Lambda, Free w/Ratio (12/06/2024 10:28 AM EST) [facility] [place] Light Chain, Free, Serum 99.6(H) 3.3 - 19.4 mg/L 12/07/2024 11:25 AM EST [facility] Lambda Light Chain, Free, Serum 52.3(H) 5.7 - 26.3 mg/L 12/07/2024 11:25 AM EST [facility] [place]/Lambda Light Chains Free With Ratio 1.90(H) 0.26 - 1.65 12/07/2024 11:25 AM EST [facility] Comment: Free kappa/lambda ratio in serum of [...] 10:28 AM EST 12/06/2024 10:30 AM EST [facility] [place] [place] - 12/07/2024 11:25 AM EST [facility] Received Date: Dennys Roberto MD LAB BLOOD ORDERABLES Final Re sult [facility] [address] [facility] [address] [facility], [place] [address], [facility] [address] [facility] [address], [place] [address], * (ABNORMAL) Protein Electrophoresis w/Reflex to Immunofixation, Serum (12/06/2024 10:28 AM EST) Protein, Total 6.4 6.1 - 8.1 g/dL 12/08/2024 7:52 AM EST [facility] Albumin 3.6(L) 3.8 - 4.8 g/dL 12/08/2024 7:52 AM EST [facility] Alpha 1 Globulin 0.3 0.2 - 0.3 g/dL 12/08/2024 7:52 AM EST [facility] Alpha 2 Globulin 0.5 0.5 - 0.9 g/dL 12/08/2024 7:52 AM EST [facility] Beta 1 Globulin 0.5 0.4 - 0.6 g/dL 12/08/2024 7:52 AM EST [facility] Beta 2 Globulin 0.6(H) 0.2 - 0.5 g/dL 12/08/2024 7:52 AM EST [facility] Gamma Globulin 1.0 0.8 - 1.7 g/dL 12/08/2024 7:52 AM EST [facility] Abnormal Protein Band 1 See Comments NONE DETECTED g/dL 12/08/2024 7:52 AM EST [facility] Comment: See below Interpretation See Comments 12/08/2024 7:52 AM EST [facility] Comment: Electrophoretic studies reveal an isolated elevation of beta-2 globulins. This pattern is suggestive of acute inflammation; however, the presence of a monoclonal protein cannot be ruled out. Consider serum immunofixation to rule out monoclonal protein (if not already ordered). Blood Structure of peripheral vein / Unknown Venipuncture / Unknown 12/06/2024 10:28 AM EST 12/06/2024 10:31 AM EST Edgar LUNA - 12/08/2024 7:52 AM EST [facility] Received Date: us Dennys Roberto MD LAB BLOOD ORDERABLES Final Re sult [facility] [address] [facility] [address]rd [address], [place] [address], [place] [phone] [facility] [address] [facility] 3rd Floor, [place] [address], [place] [phone] * CRP (C-Reactive Protein) (12/06/2024 10:28 AM EST) C Reactive Protein <3.0 <=9.9 mg/L 12/06/2024 11:07 AM EST [facility] Blood Structure of peripheral vein / Unknown Venipuncture / Unknown 12/06/2024 10:28 AM EST 12/06/2024 10:31 AM EST Dennys Roberto MD LAB BLOOD ORDERABLES Final Re sult Performing Organization Address [facility] Co de Phone Number [facility] [address] [place] [address], * PSA (12/06/2024 10:28 AM EST) PSA 0.03 <=4.00 ng/mL 12/06/2024 11:06 AM EST [facility] Comment: The total PSA value from this assay system is standardized against the WHO standard. ??The test result will be slightly lower (< 3 %) when compared to the equimolar-standardized total PSA([place]). ??Comparison of Serial PSA results should be [...] ORDERABLES Final Re sult Performing Organization Address [facility] Co de Phone Number [facility] [address] [place] [address], * (ABNORMAL) Comprehensive Metabolic Panel (12/06/2024 10:28 AM EST) NA 142 135 - 145 mmol/L 12/06/2024 11:06 AM EST [facility] K 4.2 3.5 - 5.3 mmol/L 12/06/2024 11:06 AM EST [facility] Cl 107 98 - 107 mmol/L 12/06/2024 11:06 AM EST [facility] CO2 23 22 - 32 mmol/L 12/06/2024 11:06 AM EST [facility] Anion Gap 12 5 - 15 12/06/2024 11:06 AM [facility] Glucose 180(H) 65 - 99 mg/dL 12/06/2024 11:06 AM [facility] Creatinine 2.27(H) 0.60 - 1.30 mg/dL 12/06/2024 11:06 AM [facility] Calcium 9.5 8.6 - 10.5 mg/dL 12/06/2024 11:06 AM [facility] Total Protein 6.6 6.0 - 8.0 g/dL 12/06/2024 11:06 AM [facility] Albumin 3.8 3.5 - 5.2 g/dL 12/06/2024 11:06 AM [facility] Bilirubin, Total 0.7 0.2 - 1.2 mg/dL 12/06/2024 11:06 AM [facility] Alkaline Phosphatase 76 35 - 129 U/L 12/06/2024 11:06 AM [facility] AST 25 10 - 40 U/L 12/06/2024 11:06 AM [facility] ALT 21 10 - 40 U/L 12/06/2024 11:06 AM [facility] BUN 23 7 - 23 mg/dL 12/06/2024 11:06 AM [facility] eGFR 30(L) >=60 mL/min/1 .73m2 12/06/2024 11:06 AM [facility] Comment:The estimated glomer ular [...] - 4.2 g/dL 12/06/2024 11:06 AM EST [facility] A/G Ratio 1.4(L) 1.5 - 3.0 12/06/2024 11:06 AM EST [facility] Blood Structure of peripheral vein / Unknown Venipuncture / Unknown 12/06/2024 10:28 AM EST 12/06/2024 10:31 AM EST Dennys Roberto MD LAB BLOOD ORDERABLES Final Re sult Performing Organization Address City/[facility]/ZIP Co de Phone Number [facility] [employer] [facility] [address] [place] [address], [place] * Phillips Top, Urine (12/06/2024 10:20 AM EST) Extra Tube Hold for add-ons. 12/06/2024 3:06 PM EST [employer] [facility] Comment:Auto resulted. Urine Urine specimen collection, clean catch / Unknown Non-Blood Collection / Unknown 12/06/2024 10:20 AM EST 12/06/2024 10:20 AM EST Dennys Roberto MD LAB URINE ORDERABLES Final Re sult Performing Organization Address City/[facility]/ZIP Co de Phone Number [facility] [employer] [facility] [address] [place] [address], [place] * (ABNORMAL) Urinalysis W/Reflex to Microscopic & Culture (12/06/2024 10:20 AM EST) Color, Urine Light Yellow Colorless, Light Yellow, Yellow, Dark Yellow 12/06/2024 10:32 AM EST [facility] Clarity, Urine Clear Clear 12/06/2024 10:32 AM EST [employer] [facility] [facility] Specific [place], Urine 1.022 1.005 - 1.030 12/06/2024 10:32 AM EST [employer] [facility] pH, Urine 6.0 4.6 - 8.0 12/06/2024 10:32 AM EST [employer] [facility] Protein, Urine 1+(A) Negative 12/06/2024 10:32 AM EST [employer] [facility] Glucose, Urine 3+(A) Negative 12/06/2024 10:32 AM EST [employer] [facility] Ketones, Urine Negative Negative 12/06/2024 10:32 AM EST [employer] [facility] Bilirubin, Urine Negative Negative 12/06/2024 10:32 AM EST [employer] [facility] Blood, Urine Negative Negative 12/06/2024 10:32 AM EST [employer] [facility] Nitrite, Urine Negative Negative 12/06/2024 10:32 AM EST [employer] [facility] Urobilinogen, Urine Normal Normal 12/06/2024 10:32 AM EST [employer] [facility] Leukocyte Esterase, Urine Negative Negative 12/06/2024 10:32 AM EST [employer] [facility] WBC, Urine 2 0 - 2 /HPF 12/06/2024 10:32 AM EST [employer] [facility] RBC, Urine <1 0 - 2 /HPF 12/06/2024 10:32 AM EST [employer] [facility] Hyaline Casts, Urine 0 0 - 2 /LPF 12/06/2024 10:32 AM EST [employer] [facility] Squamous Epithelial Cells, Urine <1 /HPF 12/06/2024 10:32 AM EST [employer] [facility] Bacteria, Urine None None /HPF /HPF 12/06/2024 10:32 AM EST [employer] [facility] Mucus, Urine Rare /LPF 12/06/2024 10:32 AM EST [facility] Urine Urine specimen collection, clean catch / Unknown Non-Blood Collection / Unknown 12/06/2024 10:20 AM EST 12/06/2024 10:20 AM EST Dennys Roberto MD LAB URINE ORDERABLES Final Re sult Performing Organization Address [facility] Co de Phone Number [facility] [address] [place] [address], [place] * (ABNORMAL) Microalbumin, Random Urine with Creatinine (12/06/2024 10:20 AM EST) Microalbumin, Urine 4.2 mg/dL 12/06/2024 10:56 AM EST [facility] Creatinine, Urine 74 22 - 328 mg/dL 12/06/2024 10:56 AM EST [facility] Microalb/Creat Ratio, Random Urine 56.8(H) <30.0 mcg/mgCr 12/06/2024 10:56 AM EST [facility] Comment: Microalbumin Reference Range: Normal ? <30 mcg/mg Creatinine Microalbuminuria ? 30-300 mcg/mg Creatinine Clinical Albuminuria >300 mcg/mg Creatinine Reference: ADA Guideline. Diabetes Care. 2004;27 (suppl 1) Urine Voided urine specimen / Unknown Non-Blood Collection / Unknown 12/06/2024 10:20 AM EST 12/06/2024 10:20 AM EST us Dennys Roberto MD LAB URINE ORDERABLES Final Re sult Performing Organization Address [facility] Co de Phone Number [facility] [address] [place] [address], [place] * PTH, Intact (without Calcium) (07/19/2024 10:25 AM EDT) Parathyroid Hormone, Intact 44 16 - 77 pg/mL 07/19/2024 10:55 PM EDT [facility] [employer] Comment: Interpretive Guide ?Intact PTH ? Calcium [...] EDT 07/19/2024 10:51 AM EDT Narrative [facility] 07/19/2024 10:55 PM EDT [facility] Received Date: us Dennys Roberto MD LAB BLOOD ORDERABLES Final Re sult [facility] [place] [address] [facility] [address]rd [address], [place] [address], [place] [phone] [facility] [address] [facility] [address], [place] [address], [place] [phone] * CT Abdomen Pelvis without Contrast (01/01/2024 [...] obtain the completed interpretation. ? Workstation ID: [id number] Up-to-date CT equipment and radiation dose reduction [...] the focal lumbar junction. Resulting Agency Comment [id number] Procedure Note Irina Gomez MD - 01/01/2024 [...] possible to obtain thecompleted interpretation. Workstation ID: [id number] Up-to-date CT equipment and radiation dose reduction techniques wereemployed. CTDIvol: 8.7 mGy. DLP: 478 mGy-cm. Ernesto Freedman MD [facility] CT PROCEDURES Final Re sult from Last 3 Months or Most Recently Relevant to Health Maintenance Insurance [facility] MEDICARE Advance Directives Documents on File Type Date Recorded Patient Armor Reconnaissance Specialist Expl anation Advance Directive 07/25/2013 12:00 AM Adva nce Care Directives Advance Directive 07/13/2013 12:00 AM Adva nce Care Directives Advance Directive 07/07/2013 12:00 AM [place] Dec Making (Adv.Dir) * Presumed Full Code (Latest Code Status on File) Date Activated Date Inactivated Comments 02/03/2024 6:12 AM 02/03/2024 3:22 PM * Presumed Full Code Date Activated Date Inactivated Comments 12/31/2023 8:26 AM 01/01/2024 2:37 PM Care Teams Change Agent Relationship Specialty Start Date End Date Berenice [address] [place] [address] PCP - General 05/14/17
--- OUTSIDE RECORDS SUMMARY | 2025-02-16 15:55 | XMS_ITS ---
Author Organization [facility] Address [address] [place] [address] Care Team Providers Care Associate Entertainment Editor Name Role Phone EvetteBerenice pereira Primary Care Provider [phone] Active Problems Problem Noted Date Diagnosed Date [...] TotalDLP 2,782 mGy 2,782 mGy 0 mGy [id number] 32 mSv 32 mSv 0 mSv CTDIvol Max 46.5 mGy 46.5 mGy 0 mGy CTDIvol Min 46.5 mGy 46.5 mGy 0 mGy Radiation - mGy 165.17 mGy 165.17 mGy 0 mGy
--- OUTSIDE RECORDS SUMMARY | 2025-02-16 15:55 | XMS_ITS ---
Author Organization [facility] [place] Address [address] [place] [address] Care Team Providers Care Quarryman Name Role Phone Berenice Mix MD Primary Care Provider Kb Andres Unavailable [phone] Allergies No Known Allergies REASON FOR VISIT [...] Ordered Date Performed Result Body Sit e 94817-RUMAEQP NAIL, 6 OR MORE 05/30/2024 N/A 92522-Apjfygpt Plate 05/30/2024 N/A 95087-VPHV SKIN LESIONS, OVER 4 05/30/2024 N/A Encounters Encounter Location Date Provider Diagnosis [facility] [address] [address] 05/30/2024 Kb Marti Type 2 diabetes mellitus [...] INSTRUCTIONS.pdf) Pending Test Test Name Order Date 94284-JPUSPYY NAIL, 6 OR MORE 05/30/2024 19119-Qcjonieo Plate 05/30/2024 63031-RVSD SKIN LESIONS, OVER 4 05/30/20 24 Next Appt Details Follow Up: 3 Months, Reason: Provider Name:Kb Marti , 05/11/2025 09:30:00 AM, [address] [facility], [address], [place], [address], Procedure Notes * Category Sub-Category Detail Notes [...] Motrin was recommended for pain or discomfort (45347) , DIABETES: Pt was advised as to [...] as necessary. Patient chooses, no pharmaceutical tx (89786) Keratoma Treatment Parring or Cutting o f Benign Hyperkeratotic Lesion(s) 40525 ( More than 4 Lesions ) - The Benign hyperkeratotic lesions, as described above were pared, and/or cut utilizing a sterile 15 blade, tissue nippers, and/or dremel , Q8 Progress Notes * Stanley CH EDOB:[birth year] (74 yo M)Acc No.[id number]:05/30/2024 Progress Note Patient:?Stanley CH Provider:?Kb Marti DPM :1950???Age:74 Y???Sex:Male Darrick e:05/30/2024 Address:[address] [place], [place] [id number] Pcp:Berenice Mix MD Subjective: * Chief Complaints: [...] and reconciled with the patient * Allergies:?N.K.D.A.yes[Aller maddison Verified] Objective: * Vitals:?Ht:6ft 2 in, Wt:330, [...] mellitus with diabetic peripheral angiopathy without gangrene?Procedure: 78487-HYGM SKIN LESIONS, OVER 4 3.?Tinea unguium?Procedure: 28600-QEICXVF NAIL, 6 OR MORE 4.?Ingrown nail?Procedure: 95580-Nvlmivsv Plate * Procedures:?Debride Nail 6-10:?Nail debridement?Nail debridement performed extensively to reduce/remove overall nail length, girth, thickness, subungual debris, and necrotic tissue, by manual and electrical means through the use of a nail nipper and/or dremel, to more viable healthy nail plate or bed tissue 6-10. Silver nitrate used for any petechial bleeding as necessary. Patient chooses, no pharmaceutical tx (61130).?Keratoma Treatment:?Parring or Cutting of Benign Hyperkeratotic Lesion(s)?71597 ( More than 4 Lesions ) - [...] Motrin was recommended for pain or discomfort (53899) , DIABETES: Pt was advised as to the risk of delayed or nonhealing due to diabetes. Pt is to call the office with any questions, concerns, or complications.? * Procedure Codes:?36973 Avuls ion Plate, Modifiers: XS , [id number] DEBRIDE NAIL, 6 OR MORE, Modifiers: XS 03579 TRIM SKIN LESIONS, OVER 4, Modifiers: XS [...] Marti DPM Date:?[address]/Kin/Jasvir on:?02/16/2025 03:55 PM EDT History and Physical Notes * HPI [...] cture, (-) Charcot collapse/destruction noted at [facility] FOOTWEAR EVALUATION: worn, non-supportiv e, shoe gear properties exacerbate patient's foot/toe deformity [...]
--- OUTSIDE RECORDS SUMMARY | 2025-02-16 15:55 | XMS_ITS | Encounter Summary ---
Author Organization [facility] Address [address] [place] [address] Care Team Providers Care Hat Lacer Name Role Phone Berenice Mix Primary Care Provider [phone] Encounter Details Date Type Department Care Team (Late st Contact Info) Description 06/30/2023 Orders Only [facility] Interventional Radiology [address] [place] [address] Fran Conde, [address] [place] [address] Social History Tobacco Use Types Packs/Day Years [...] Info) Description 02/23/2025 12:15 PM EDT Appointment [facility] Ultrasound [address] [place] [address] 03/07/2025 9:20 AM EDT Follow-Up [facility] Nephrology Clinic [address] [place] [address] Electric Meter Installer Helper: Dennys Collins MD [address] [place] [address] 07/20/2025 10:30 AM EDT Follow-Up [facility] [address] [place] [address] Electric Meter Installer Helper: Johnna Moss, DENY Lara [address] [place] [address] documented as of this encounter Visit Diagnoses Not on filedocumented in this encounter Care Teams Hat Lacer Relationship Specialty Start Date End Date Berenice Mix [address] [place] [address] PCP - General 05/14/17 documented as of this encounter
--- OUTSIDE RECORDS SUMMARY | 2025-02-16 15:55 | XMS_ITS | Referral Summary ---
Author Organization [facility] Address [address] [place] [address] Care Team Providers Care Skin Care Technician Name Role Phone Berenice Mix Primary Care Provider [phone] Encounters Date Type Department Care Team Description 02/14/2025 Endovention Message [facility] [address] [place] [address] Tile Layer Drainage: Olivia Batista PA Oxyb utynin 01/18/2025 9:45 AM EDT Follow-Up [facility] [address] [place] [address] Tile Layer Drainage: Olivia Batista PA Nephrolithiasis (Primary Dx); Right flank pain; Urinary urgency; History of radical prostatectomy 01/06/2025 Endovention Message [facility]rology [facility] [address] [place] [address] Tile Layer Drainage: Dennys Collins MD Ozempic question 01/04/2025 Endovention Message [facility] [address] [place] [address] Tile Layer Drainage: Olivia Batista PA Mike's visit on 02/08/2025 12/12/2024 SafeAwakehart Message [facility] [address] [place] [address] Tile Layer Drainage: Dennys Collins MD Missed your call 12/08/2024 Lett Message [facility] [address] [place] [address] Tile Layer Drainage: Dennys Collins MD Lab test results questions 12/06/2024 8:20 AM EST Follow-Up [facility] [address] [place] [address] Tile Layer Drainage: Dennys Collins MD Stage 3b chronic kidney [...] TESTOSTERONE INJECTIONS EVERY 3 WEEKS 9 each 05/22/20 23 Active Freestyle Lite test strips [...] Smoking Tobacco: Former Cigarettes 2 10 1 2001 Smokeless Tobacco: Never Alcohol Use Standard [...] Info) Description 02/23/2025 12:15 PM EDT Appointment [facility] Ultrasound [address] [place] [address] 03/07/2025 9:20 AM EDT Follow-Up [facility] [address] [place] [address] Tile Layer Drainage: Dennys Collins MD [address] [place] [address] 07/20/2025 10:30 AM EDT Follow-Up [facility] [address] [place] [address] Tile Layer Drainage: Johnna Moss, DENY Lara [address] [place] [address] Medical Devices Implanted Type Area Audit Clerks Supervisor Device Identifier Shelf Expiration Date Model / Serial / Lot Stent Ureteral Firm Hydroplus Coating 6fr 28cm Percuflex Plus - [id number] - [id number] Implanted:Qty: 1 on 02/03/2024 by Sophia Salazar MD at [facility] Stent Right: Ureter [employer] 03/08/2026 [id number] / [id number] / [id number] Explanted Type Area Audit Clerks Supervisor Device Identifier Shelf Expiration Date Model / Serial / Lot Stent Ureteral Firm Hydroplus Coating 6fr 28cm Percuflex Plus - [id number] Implanted:Qty: 1 on 12/31/2023 by Ernesto Freedman MD at [facility] Explanted:Qty: 1 on 02/03/2024 by Sophia Salazar MD at [facility] Stent Right: Ureter [employer] 04/17/2026 [id number] / / [id number] Procedures * Due to [place] state law, this organization might not be [...] to Health Maintenance Results * Due to [place] state law, this organization might not be sharing negative HIV tests. * Vitamin D, 25-OH (D2, D3), LC/MS/MS (12/06/2024 10:29 AM EST) Vitamin D, 25-OH, Total 40 30 - 100 ng/mL 12/09/2024 10:35 AM EST [facility] (GUZMAN) Comment: Vitamin D, 25-Hydroxy reports concentrations [...] ng/mL. For additional information, please refer to http://education.Smarty Ring/faq/LYN074 (This link is being provided for informational/ educational purposes only.) Vitamin D, 25-OH, D3 40 ng/mL 12/09/2024 10:35 AM EST [facility] (GUZMAN) Comment: This test was developed and its analytical performance characteristics have been determined by [employer] [place], [place]. It has not been cleared or approved by the U.S. Food and Drug Administration. This assay has been validated pursuant to the CLIA regulations and is used for clinical purposes. Vitamin D, 25-OH, D2 <4 ng/mL 12/09/2024 10:35 AM EST [employer] (GUZMAN) Comment: This test was developed and its analytical performance characteristics have been determined by [employer]. It has not been cleared or approved by the U.S. Food and Drug Administration. This assay has been validated pursuant to the CLIA regulations and is used for clinical purposes. Blood Structure of peripheral vein / Unknown Venipuncture / Unknown 12/06/2024 10:29 AM EST 12/06/2024 10:30 AM EST [facility] - 12/09/2024 10:35 AM EST [facility] Received Date: us Dennys Roberto MD LAB BLOOD ORDERABLES Final Re sult MARIOLA LUNA [address] [facility] 3rd Floor, [place] [address], [place] [phone] [facility] [address] [place] [address], [place] * (ABNORMAL) CBC Auto Differential (12/06/2024 [...] % 15.7 % 12/06/2024 10:38 AM EST [facility] Monocyte % 8.1 % 12/06/2024 10:38 AM EST [facility] Eosinophil % 4.0 % 12/06/2024 10:38 AM EST [facility] Basophil % 1.1 % 12/06/2024 10:38 AM EST [facility] Neutrophil # 5.92 1.50 - 7.80 10*3/uL 12/06/2024 10:38 AM EST [facility] Immature Grans # 0.08(H) <=0.03 10*3/uL 12/06/2024 10:38 AM EST [facility] Lymphocyte # 1.30 0.85 - 3.90 10*3/uL 12/06/2024 10:38 AM EST [facility] Monocyte # 0.70 0.20 - 0.95 10*3/uL 12/06/2024 10:38 AM EST [facility] Eosinophil # 0.30 0.02 - 0.50 10*3/uL 12/06/2024 10:38 AM EST [facility] Basophil # 0.10 0.00 - 0.20 10*3/uL 12/06/2024 10:38 AM EST [facility] nRBC % 0.0 /100 WBCs 12/06/2024 10:38 AM EST [facility] nRBC # <0.01 <0.01 10*3/uL 12/06/2024 10:38 AM EST [facility] Blood Structure of peripheral vein / Unknown Venipuncture / Unknown 12/06/2024 10:29 AM EST 12/06/2024 10:31 AM EST us Dennys Roberto MD LAB BLOOD ORDERABLES Final Re sult [facility] [address] [place] [address], [place] * (ABNORMAL) Sedimentation Rate (12/06/2024 10:29 AM EST) Pathologist [facility] Sed Rate 37(H) <20 mm/Hr mm/Hr 12/06/2024 10:50 AM EST [facility] Blood Structure of peripheral vein / Unknown Venipuncture / Unknown 12/06/2024 10:29 AM EST 12/06/2024 10:31 AM EST Dennys Roberto MD LAB BLOOD ORDERABLES Final Re sult Performing Organization Address City/[facility]/ZIP Co de Phone Number [facility] [address] [place] [address], [place] * Immunofixation, Serum (12/06/2024 10:28 AM EST) [facility] Immunofixation, Serum, Interpretation See Comments 12/08/2024 3:00 PM EST [employer] [employer] [facility] Comment: No monoclonal proteins detected. Blood Structure of peripheral vein / Unknown Venipuncture / Unknown 12/06/2024 10:28 AM EST 12/06/2024 10:31 AM EST Narrative [facility] - 12/08/2024 3:00 PM EST [facility] Received Date:[id number] Dennys Roberto MD LAB BLOOD ORDERABLES Final Re sult [facility] [address] [facility] 3rd Floor, [place] [address], [place] [phone] [employer] [facility] [address] [facility] 3rd Floor, [place] [address], [place] [phone] * (ABNORMAL) [place] & Lambda, Free w/Ratio (12/06/2024 10:28 AM EST) [facility] [place] Light Chain, Free, Serum 99.6(H) 3.3 - 19.4 mg/L 12/07/2024 11:25 AM EST [employer] [facility] Lambda Light Chain, Free, Serum 52.3(H) 5.7 - 26.3 mg/L 12/07/2024 11:25 AM EST [facility] [place]/Lambda Light Chains Free With Ratio 1.90(H) 0.26 - 1.65 12/07/2024 11:25 AM EST [facility] Comment: Free kappa/lambda ratio in serum [...] 10:28 AM EST 12/06/2024 10:30 AM EST [facility] - 12/07/2024 11:25 AM EST [facility] Received Date: us Dennys Roberto MD LAB BLOOD ORDERABLES Final Re sult [facility] [address] [facility] [address]rd [address] [place] [address], [employer] [facility] [address] [facility] 3rd Floor, [place] [address], * (ABNORMAL) Protein Electrophoresis w/Reflex to Immunofixation, Serum (12/06/2024 10:28 AM EST) Protein, Total 6.4 6.1 - 8.1 g/dL 12/08/2024 7:52 AM EST [employer] [facility] Albumin 3.6(L) 3.8 - 4.8 g/dL 12/08/2024 7:52 AM EST [employer] [facility] Alpha 1 Globulin 0.3 0.2 - 0.3 g/dL 12/08/2024 7:52 AM EST [facility] Alpha 2 Globulin 0.5 0.5 - 0.9 g/dL 12/08/2024 7:52 AM EST [facility] Beta 1 Globulin 0.5 0.4 - 0.6 g/dL 12/08/2024 7:52 AM EST [facility] Beta 2 Globulin 0.6(H) 0.2 - 0.5 g/dL 12/08/2024 7:52 AM EST [facility] Gamma Globulin 1.0 0.8 - 1.7 g/dL 12/08/2024 7:52 AM EST [facility] Abnormal Protein Band 1 See Comments NONE DETECTED g/dL 12/08/2024 7:52 AM EST [facility] Comment: See below Interpretation See Comments 12/08/2024 7:52 AM EST [facility] Comment: Electrophoretic studies reveal an isolated elevation [...] ORDERABLES Final Re sult MARIOLA LUNA [address] [facility] 3rd Floor, [place] [address], [place] [phone] [facility] [address] [facility] 3rd Floor, [place] [address], [place] [phone] * CRP (C-Reactive Protein) (12/06/2024 10:28 AM EST) C Reactive Protein <3.0 <=9.9 mg/L 12/06/2024 11:07 AM EST [facility] Blood Structure of peripheral vein / Unknown Venipuncture / Unknown 12/06/2024 10:28 AM EST 12/06/2024 10:31 AM EST Dennys Roberto MD LAB BLOOD ORDERABLES Final Re sult Performing Organization Address [facility] Co de Phone Number [facility] [address] [place] [address], * PSA (12/06/2024 10:28 AM EST) PSA 0.03 <=4.00 ng/mL 12/06/2024 11:06 AM EST [facility] Comment: The total PSA value from this assay system is standardized against the WHO standard. ??The test result will be slightly lower (< 3 %) when compared to the equimolar-standardized total PSA(Leandro Chase). ??Comparison of Serial PSA results should be [...] ORDERABLES Final Re sult Performing Organization Address [facility] Co de Phone Number [facility] [address] [place] [address], * (ABNORMAL) Comprehensive Metabolic Panel (12/06/2024 10:28 AM EST) NA 142 135 - 145 mmol/L 12/06/2024 11:06 AM EST [facility] K 4.2 3.5 - 5.3 mmol/L 12/06/2024 11:06 AM EST [facility] Cl 107 98 - 107 mmol/L 12/06/2024 11:06 AM EST [facility] CO2 23 22 - 32 mmol/L 12/06/2024 11:06 AM [facility] Anion Gap 12 5 - 15 12/06/2024 11:06 AM [facility] Glucose 180(H) 65 - 99 mg/dL 12/06/2024 11:06 AM [facility] Creatinine 2.27(H) 0.60 - 1.30 mg/dL 12/06/2024 11:06 AM [facility] Calcium 9.5 8.6 - 10.5 mg/dL 12/06/2024 11:06 AM [facility] Total Protein 6.6 6.0 - 8.0 g/dL 12/06/2024 11:06 AM [facility] Albumin 3.8 3.5 - 5.2 g/dL 12/06/2024 11:06 AM [facility] Bilirubin, Total 0.7 0.2 - 1.2 mg/dL 12/06/2024 11:06 AM [facility] Alkaline Phosphatase 76 35 - 129 U/L 12/06/2024 11:06 AM [facility] AST 25 10 - 40 U/L 12/06/2024 11:06 AM [facility] ALT 21 10 - 40 U/L 12/06/2024 11:06 AM [facility] BUN 23 7 - 23 mg/dL 12/06/2024 11:06 AM [facility] eGFR 30(L) >=60 mL/min/1 .73m2 12/06/2024 11:06 AM [facility] Comment:The estimated glomer ular [...] - 4.2 g/dL 12/06/2024 11:06 AM EST [facility] A/G Ratio 1.4(L) 1.5 - 3.0 12/06/2024 11:06 AM EST [facility] Blood Structure of peripheral vein / Unknown Venipuncture / Unknown 12/06/2024 10:28 AM EST 12/06/2024 10:31 AM EST Dennys Roberto MD LAB BLOOD ORDERABLES Final Re sult Performing Organization Address City/[facility]/ZIP Co de Phone Number [facility] [address] [place] [address], [place] * Phillips Top, Urine (12/06/2024 10:20 AM EST) Extra Tube Hold for add-ons. 12/06/2024 3:06 PM EST [facility] Comment:Auto resulted. Urine Urine specimen collection, clean catch / Unknown Non-Blood Collection / Unknown 12/06/2024 10:20 AM EST 12/06/2024 10:20 AM EST Dennys Roberto MD LAB URINE ORDERABLES Final Re sult Performing Organization Address City/[facility]/ZIP Co de Phone Number [facility] [address] [place] [address], [place] * (ABNORMAL) Urinalysis W/Reflex to Microscopic & Culture (12/06/2024 10:20 AM EST) Color, Urine Light Yellow Colorless, Light Yellow, Yellow, Dark Yellow 12/06/2024 10:32 AM EST [facility] Clarity, Urine Clear Clear 12/06/2024 10:32 AM EST [facility] Specific Codorus, Urine 1.022 1.005 - 1.030 12/06/2024 10:32 AM EST [facility] pH, Urine 6.0 4.6 - 8.0 12/06/2024 10:32 AM EST [facility] Protein, Urine 1+(A) Negative 12/06/2024 10:32 AM EST [facility] Glucose, Urine 3+(A) Negative 12/06/2024 10:32 AM EST [facility] Ketones, Urine Negative Negative 12/06/2024 10:32 AM EST [facility] Bilirubin, Urine Negative Negative 12/06/2024 10:32 AM EST [facility] Blood, Urine Negative Negative 12/06/2024 10:32 AM EST [facility] Nitrite, Urine Negative Negative 12/06/2024 10:32 AM EST [facility] Urobilinogen, Urine Normal Normal 12/06/2024 10:32 AM EST [facility] Leukocyte Esterase, Urine Negative Negative 12/06/2024 10:32 AM EST [facility] WBC, Urine 2 0 - 2 /HPF 12/06/2024 10:32 AM EST [facility] RBC, Urine <1 0 - 2 /HPF 12/06/2024 10:32 AM EST [facility] Hyaline Casts, Urine 0 0 - 2 /LPF 12/06/2024 10:32 AM EST [facility] Squamous Epithelial Cells, Urine <1 /HPF 12/06/2024 10:32 AM EST [facility] Bacteria, Urine None None /HPF /HPF 12/06/2024 10:32 AM EST [facility] Mucus, Urine Rare /LPF 12/06/2024 10:32 AM EST [facility] Urine Urine specimen collection, clean catch / Unknown Non-Blood Collection / Unknown 12/06/2024 10:20 AM EST 12/06/2024 10:20 AM EST Dennys Roberto MD LAB URINE ORDERABLES Final Re sult Performing Organization Address City/[facility]/ZIP Co de Phone Number [facility] [address] [place] [address], * (ABNORMAL) Microalbumin, Random Urine with Creatinine (12/06/2024 10:20 AM EST) Microalbumin, Urine 4.2 mg/dL 12/06/2024 10:56 AM EST [facility] Creatinine, Urine 74 22 - 328 mg/dL 12/06/2024 10:56 AM EST [facility] Microalb/Creat Ratio, Random Urine 56.8(H) <30.0 mcg/mgCr 12/06/2024 10:56 AM EST [facility] Comment: Microalbumin Reference Range: Normal ? <30 mcg/mg Creatinine Microalbuminuria ? 30-300 mcg/mg Creatinine Clinical Albuminuria >300 mcg/mg Creatinine Reference: ADA Guideline. Diabetes Care. 2004;27 (suppl 1) Urine Voided urine specimen / Unknown Non-Blood Collection / Unknown 12/06/2024 10:20 AM EST 12/06/2024 10:20 AM EST Dennys Roberto MD LAB URINE ORDERABLES Final Re sult Performing Organization Address City/[facility]/ZIP Co de Phone Number [facility] [address] [place] [address], [place] * PTH, Intact (without Calcium) (07/19/2024 10:25 AM EDT) Parathyroid Hormone, Intact 44 16 - 77 pg/mL 07/19/2024 10:55 PM EDT [facility] Comment: Interpretive Guide ?Intact PTH ? Calcium [...] EDT 07/19/2024 10:51 AM EDT Narrative [facility] - 07/19/2024 10:55 PM EDT [facility] Received Date: us Dennys Roberto MD LAB BLOOD ORDERABLES Final Re sult [facility] [address] [facility] [address] [facility], [place] [address], [place] [phone] [facility] [address], [place] [address], [place] [phone] * CT Abdomen Pelvis without Contrast (01/01/2024 [...] obtain the completed interpretation. ? Workstation ID: [id number] Up-to-date CT equipment and radiation dose reduction [...] the focal lumbar junction. Resulting Agency Comment [id number] Procedure Note Irina Gomez MD - 01/01/2024 [...] possible to obtain thecompleted interpretation. Workstation ID: [id number] Up-to-date CT equipment and radiation dose reduction techniques wereemployed. CTDIvol: 8.7 mGy. DLP: 478 mGy-cm. 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
--- OUTSIDE RECORDS SUMMARY | 2025-02-16 15:55 | XMS_ITS ---
Author [facility] nick[facility] Drake Address [address] [place] [address] Care Team Providers Care Geneticist Name Role Phone Berenice Mix MD Primary Care Provider Kb Andres Unavailable [phone] Allergies No Known Allergies REASON FOR VISIT [...] Ordered Date Performed Result Body Sit e 97253-ZNIKANH NAIL, 6 OR MORE 08/29/2024 N/A 87766-PAQH SKIN LESIONS, OVER 4 08/29/2024 N/A Encounters Encounter Location Date Provider Diagnosis [facility] [address] [address] 08/29/2024 Kb Marti Type 2 diabetes mellitus [...] days Pending Test Test Name Order Date 39970-SDINEFI NAIL, 6 OR MORE 08/29/2024 34006-MMHL SKIN LESIONS, OVER 4 08/29/20 24 Next Appt Details Follow Up: prn, Reason: Provider Name:Kb Marti , 05/11/2025 09:30:00 AM, [address] [facility], [address], [place], [address], Procedure Notes * Category Sub-Category Detail Notes Debride Nail 6-10 Nail debridement Performance o f this nail treatment by a nonprofessional would put this patients foot and overall health at risk. Therefore, nail debridement was performed extensively to reduce/remove overall nail length, girth, thickness, subungual debris, and necrotic tissue, by manual and/or electrical means through the use of a nail nipper and/or dremel-type carbide grinder, to a more viable healthy nail plate or bed tissue 6-10. Silver nitrate used for any petechial bleeding as necessary. Definitive antifungal treatment options have been reviewed and discussed with the patient. The patient chooses, no pharmaceutical tx - 80242 Keratoma Treatment Parring or Cutting o f Benign Hyperkeratotic Lesion(s) (-57) More than 4 Lesions - The Benign hyperkeratotic lesions, as described above were pared, and/or cut utilizing a sterile 15 blade, tissue nippers, and/or dremel - 22771 , Q8 Progress Notes * DIMA Stanley EDOB:[birth year] (74 yo M)Acc No.[id number]:08/29/2024 Progress Note Patient:?Stanley Burton Provider:?Kb Marti DPM :1950???Age:74 Y???Sex:Male Darrick e:08/29/2024 Address:[address] [place], [place] [id number] Pcp:Berenice Mix MD Subjective: * Chief Complaints: [...] Management (4)? Plan: * Treatment: 2.?Tinea unguium?Procedure: 82001-WPJLESL NAIL, 6 OR MORE 3.?Xerosis of skin? [...] use of a nail nipper and/or dremel-type carbide grinder, to a more viable healthy nail plate or bed tissue 6-10. Silver nitrate used for any petechial bleeding as necessary. Definitive antifungal treatment options have been reviewed and discussed with the patient. The patient chooses, no pharmaceutical tx - 23144.?Keratoma Treatment:?Parring or Cutting of Benign Hyperkeratotic Lesion(s)?(-57) More than 4 Lesions - The Benign hyperkeratotic lesions, as described above were pared, and/or cut utilizing a sterile 15 blade, tissue nippers, and/or dremel - 30277 , Q8.? * Procedure Codes:?78755 DEBRI DE NAIL, 6 OR MORE, Modifiers: XS 41683 TRIM SKIN LESIONS, OVER 4, Modifiers: XS [...]
--- OUTSIDE RECORDS SUMMARY | 2025-02-16 15:55 | XMS_ITS | Clinical Summary ---
Author Organization [facility] Address [address] [place] [address] Phone Care Team Providers Care Supervisor Paint Name Role Phone Berenice Mix MD Primary Care Provider [phone] Allergies Active Allergy Reactions Criticality Noted Date Comments Ibuprofen 08/11/2022 Medications [facility] D3 125 MCG (5000 UT) capsule 2 Active Trulicity 1.5 MG/0.5ML solution pen-injector 2 Active ergocalciferol 1.25 MG (02420 UT) capsule Take 50,000 Int'l Units by [...] mouth 3 Active B-D 3CC LUER-LARS SYR 42QR2-8/2 20G X 1-1/2 3 ML misc USE [...] Due Date Last Done Comments Pneumococcal Vaccine: 50+ Years (1 of 2 - PCV) 1970 Colorectal Cancer Screening: Annual FOBT 2000 Colorectal Cancer Screening: Colonoscopy 2000 Colorectal Cancer Screening: Sigmoidoscopy 2000 Diabetes: Pedal Pulse Checked 03/10/2022 Diabetes: Sensory Foot Exam 03/10/2022 Diabetes: Visual Foot Exam 03/10/2022 Diabetes: Hemoglobin A1C 10/15/2022 022, 04/23/2022, 03/10/2022 Diabetes: Ophthalmology Exam 09/10/2023 09/10/2022 Influenza Vaccine (Season Ended) 2025 07/15/2022 Hepatitis B Vaccine Aged Out No [...] PM EDT) Hemoglobin A1C 7.7(H) (4.0-5.6) % [facility] Comment: MONITORING: In known diabetic patients, hemoglobin A1c targets should be discussed with health care provider. DIAGNOSTIC USE: ??The [place] [employer] (ADA) and the World Health [...] Supplement 1 Testing performed or reported by [facility], a Service of [facility], [address] [place] [address] Renny Brenner MD, [place] [facility]# [id number] Blood (Blood, Venous) 07/16/2022 3:32 PM EDT 07/16/2022 3:39 PM EDT us Stanley Sánchez MD LAB BLOOD ORDERABLES Final Re sult [facility] from Last 3 Months or Most Recently Relevant to Health Maintenance Insurance [employer] [place] [id number] [place] [id number] Care Teams Supervisor Paint Relationship Specialty Start Date End Date Berenice Mix MD [address] [place], [place] [id number] PCP - General Internal Medicine 03/10/22
--- OUTSIDE RECORDS SUMMARY | 2025-02-16 15:56 | XMS_ITS ---
Author Organization [facility] Address [address] [place] [address] Care Team Providers Care Guard Entrance Registrar Name Role Phone Berenice Mix MD Primary Care Provider Unavaila Kb Arnold Unavailable [phone] REASON FOR VISIT questioning Rx Encounters Encounter Location Date Provider Diagnosis [address] [address] 08/29/2024 Kb Marti Plan Of Treatment Next Appt Details Provider Name:bK Marti , 05/11/2025 09:30:00 AM, [address], [address], Progress Notes * Stanley CH EDOB:[birth year] (74 yo M)Acc No.[id number]:08/29/2024 Patient:?Stanley Ch :1950???Age:74 Y???Sex:Male Address:[address] [place] [address], [address] * true * Date:? Generated for Printi ng/Faxing/eTransmitting on:?02/16/2025 03:55 PM EDT
--- OUTSIDE RECORDS SUMMARY | 2025-02-16 15:56 | XMS_ITS | Encounter Summary ---
Author Organization [facility] Address [address] [place] [address] Care Team Providers Care Furnace Converter Name Role Phone Berenice Mix Primary Care Provider [phone] Encounter Details Date Type Department Care Team (Late st Contact Info) Description 02/14/2025 myChart Message [facility] [address] [place] [address] Ornamental Metal Erector Apprentice: Johnna Moss, Olivia Anderson, DENY [address] [place] [address] Nataliia orta Social History Tobacco Use Types Packs/Day Years [...] Info) Description 02/23/2025 12:15 PM EDT Appointment [facility] Ultrasound [address] [place] [address] 03/07/2025 9:20 AM EDT Follow-Up [facility] [address] [place] [address] Ornamental Metal Erector Apprentice: Dennys Collins MD [address] [place] [phone] 07/20/2025 10:30 AM EDT Follow-Up [facility] [address] [place] [address] Ornamental Metal Erector Apprentice: Johnna Moss, DENY Lara [address] [place] [phone] documented as of this encounter Visit Diagnoses Not on filedocumented in this encounter Care Teams Furnace Converter Relationship Specialty Start Date End Date Berenice Mix [address] [place] [address] PCP - General 05/14/17 documented as of this encounter
== END 2025-02-16 13:58 | disposition home or self-care (01) ==
LOC: HO.HMCC 13:33
PROVIDERS: PCP Internal Medicine; Visit Provider Internal Medicine
DX: N18.30 Chronic kidney disease, stage 3 unspecified (principal); G30.9 Alzheimer's disease, unspecified; F02.80 Dementia in other diseases classified elsewhere, unspecified severity, without behavioral disturbance, psychotic disturbance, mood disturbance, and anxiety; E11.9 Type 2 diabetes mellitus without complications

== ENCOUNTER 2025-04-07 08:52 | Outpatient (AMB) | payer MEDICARE, OTHER, SELFPAY ==
--- NOTE | 2025-04-07 08:56 | A.OFFPC_ITS ---
Vital Signs 04/07/25 08:58 Height 6 ft Weight 340 lb 2 oz BMI 46.1 BP 118/60 Blood Pressure Location Lt brachial Position Sitting Pulse 85 Pulse Source Pulse Oximeter Temp 97.4 F Temp Source Oral Pulse Oximetry (%) 99 Oxygen Delivery Method Room Air Intake Visit Reasons: 3m follow up Intake Note: Pt is here for 3m follow up. Allergies codeine Allergy (Unknown, Verified 04/07/25 08:59) Vomiting irbesartan Adverse Reaction (Unknown, Verified 04/07/25 08:59) worsening renal function Medication List - Last Reconciled 04/07/25 by Berenice Mix MD amlodipine 10 mg PO DAILY Basaglar Tempo Pen(U-100)Insln (insulin glargine) 30 units (0.3 mL) subcut BID NS blood sugar diagnostic (FreeStyle Lite Strips) use 1 strip twice a day to test blood sugar 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 meter (FreeStyle Lite Meter kit) As directed 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 sensor (Dexcom G7 Sensor device) Change sensor every 10 days cholecalciferol (vitamin D3) 125 mcg PO DAILY dapagliflozin propanediol (Farxiga) 10 mg PO DAILY Dexcom G7 Biomedical Instrument Technician (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,fire apparatus sprinkler inspector,cont) As directed NS donepezil (Aricept) 10 mg PO DAILY insulin glargine (Lantus Solostar U-100 Insulin) 40 units (0.4 mL) subcut BID levothyroxine 1 tab PO for 5 days and 2 tabs PO two days a week PO; losartan 50 mg PO DAILY metoprolol succinate ER 200 mg (2 x 100 mg) PO DAILY Ozempic (semaglutide) 2 mg (0.75 mL) subcut QWEEK NS rosuvastatin 40 mg PO DAILY sertraline 50 mg PO DAILY syringe with needle As directed Tresiba FlexTouch U-100 (insulin degludec) 40 units (0.4 mL) subcut BID NS vibegron (Gemtesa) 75 mg PO DAILY Tobacco use date assessed: 04/07/25 Fall risk assessment: 2 + Falls in past year Last assessed Fall Risk: 04/07/25 Dental Screening Dental Screen Date: 04/07/25 Did you have a dental visit in the last 12 months?: Yes Did you have a dental problem in the last 6 months where you did not have access to dental care?: No Was dental information given to patient?: Patient has dentist HPI 3m follow up HPI Details Patient presents for the follow-up of type 2 diabetes hypertension chronic kidney disease stage 4, chronic anxiety and depression. Ozempic was stopped by fork lift truck operator a month ago because patient complained of intermittent diarrhea. His blood glucose has been high in upper 200s since then. He gained 15 lb. He was prescribed Mounjaro 2.5 mg weekly by fork lift truck operator and will be starting this week. Patient has not been physically active. He states having small amount of watery bowel movement everyday, somewhat less since stopping Ozempic. Patient noticed shallow bilateral leg ulcers since his trip to [place] while he was sitting for many hours in the car. [facility] Medical History TIA (transient ischemic attack) Wound of left leg Annual physical exam Hematuria Hypogonadism Vitamin B 12 deficiency Microalbuminuria CKD (chronic kidney disease), stage III Chronic venous insufficiency Hypothyroidism Prostate cancer Overweight Type 2 diabetes mellitus CAD (coronary artery disease) Hyperlipidemia HTN (hypertension) Surgical History H/O colonoscopy No pertinent past surgical history Family History Father No problems noted. Mother No problems noted. Social History Housing: House Alcohol intake: unknown Patient Tobacco Use Status: Former Tobacco user e-Cigarette/Vaping Use: Never Used Second Hand Smoke Exposure: No service: No Current occupational status: retired Cognitive needs: No Hearing needs: No Vision needs: Yes Questionnaire PHQ-9 Over the last 2 weeks, how often have you been bothered by any of the following problems? 1. Little interest or pleasure in doing things: nearly every day 2. Feeling down, depressed, or hopeless: nearly every day 3. Trouble falling or staying asleep, or sleeping too much: nearly every day 4. Feeling tired or having little energy: nearly every day 5. Poor appetite or overeating: nearly every day 6. Feeling bad about yourself - or that you are a failure or have let yourself or your family down: nearly every day 7. Trouble concentrating on things, such as reading the newspaper or watching television: nearly every day 8. Moving or speaking so slowly that other people could have noticed. Or the opposite - being so fidgety or restless that you have been moving around a lot more than usual: nearly every day 9. Thoughts that you would be better off or of hurting yourself in some way: nearly every day Total score: 27 Depression Screening Interpretation: Positive (Patient is established with counselor and geriatric psychiatrist at [facility]) Depression Screening Follow- up: Existing condition and In treatment Depression Screening Done: Yes 03064 - PHQ-9 Billing: Yes Source: Developed by Drs. Kameron Cherry, Kiley Knapp, Shad Mosquera and colleagues, with an educational duane from [employer]. Thrive Questionnaire Date Thrive assessed: 04/07/25 I am a: Patient What is your living situation today?: I have a steady place to live Within the past 12 months, did the food you bought not last and you didn't have the money to get more?: I choose not to answer this question Within the past 12 months, did you worry whether your food would run out before you got money to buy more?: I choose not to answer this question Do you have trouble paying for medicines?: No Do you have trouble getting transportation to medical appointments?: No Do you have trouble paying your heating and electricity bill?: No Do you have trouble taking care of your child, family member or friend?: No Do you have trouble with day-to-day activities such as bathing, preparing meals, shopping, managing finances, etc.?: No Are you currently unemployed and looking for a job?: No Are you interested in more education?: I choose not to answer this question Please select the resources that you would like help with: None Currently or been in a relationship where the following occur: I choose not to answer THRIVE Score: 0 AUDIT C Alcohol Use Questionnaire (AUDIT-C) 1. How often do you have a drink containing alcohol?: Monthly or less 2. How many drinks containing alcohol do you have on a typical day when you are drinking?: 1 or 2 3. How often do you have six or more drinks on one occasion?: Never Total Score: 1 NATANAEL-7 AMB Questionnaire NATANAEL-7 Date NATANAEL - 7 assessed: 04/07/25 Source: Developed by Drs. Kameron Cherry, Kiley Knapp, Shad Mosquera and colleagues, with an educational duane from [employer]. Review of Systems Const All systems reviewed & are unremarkable except as noted in HPI and below Eyes Reports no additional complaints ENT Reports no additional complaints Card Reports no additional complaints Resp Reports no additional complaints GI Reports no additional complaints Reports no additional complaints Physical exam (Primary Care) Vital Signs: Last Vital Signs Temp 97.4 F 04/07/25 08:58 Pulse 85 04/07/25 08:58 BP 118/60 04/07/25 08:58 Pulse Ox 99 04/07/25 08:58 Oxygen Delivery Method Room Air 04/07/25 08:58 BMI result Body Mass Index 46.1 Tobacco/Smoking Status: Tobacco use Status Tobacco use date assessed 04/07/25 04/07/25 09:05 Patient Tobacco Use Status Former Tobacco user 04/07/25 09:05 e-Cigarette/Vaping Use Never Used 04/07/25 09:05 PHQ-9: PHQ-9 Score PHQ-9: Total score 27 04/07/25 09:40 Depression Screening Interpretation: Positive (Patient is established with counselor and geriatric psychiatrist at [facility]) Depression Screening Follow- up: Existing condition and In treatment Thrive Assessment: Date of Thrive Assessment Date Thrive assessed 04/07/25 04/07/25 09:05 Currently or been in a relationship where the following occur: I choose not to answer Const General: no acute distress HENMT Head: Yes normal to inspection Eyes General: appearance normal, both eyes and all related structures Neck Neck: Yes supple Resp Effort & Inspection: normal respiratory effort Auscultation: clear to auscultation bilaterally Cardio Rhythm: regular rhythm Heart sounds: S1 normal heart sound present and S2 normal heart sound present GI Inspection: Yes normal to inspection Palpation (GI): Soft to palpation Percussion: Yes normal to percussion Auscultation: normal bowel sounds Extrem Other: 4+ nonpitting edema chronic venous stasis, anterior pretibial shallow ulcers Coding Level of Care Code Est Pt Level 4 (20106) Diagnoses Venous ulcer of both lower extremities with varicose veins I83.019; I83.029; L97.919; L97.929 CKD (chronic kidney disease), stage III N18.30 Type 2 diabetes mellitus E11.9 HTN (hypertension) I10 Additional Codes PHQ-9 - 78054 - PHQ-9 Billing: Yes ([id number]) Assessment & Plan Assessment & Plan (1) Venous ulcer of both lower extremities with varicose veins: Code(s): I83.019 - Varicose veins of right lower extremity with ulcer of unspecified site; I83.029 - Varicose veins of left lower extremity with ulcer of unspecified site; L97.919 - Non-pressure chronic ulcer of unspecified part of right lower leg with unspecified severity; L97.929 - Non-pressure chronic ulcer of unspecified part of left lower leg with unspecified severity Category: Medical Plan: For venous insufficiency ulcers refer to wound clinic. Patient was advised to apply silver Silvadene there were compression knee-highs and elevate lower extreme (2) CKD (chronic kidney disease), stage III: Comment: stage 3/4 f/u fork lift truck operator at [facility] Code(s): N18.30 - Chronic kidney disease, stage 3 unspecified Category: Medical Plan: Avoid nephrotoxins monitor renal function (3) Type 2 diabetes mellitus: Comment: on insulin Code(s): E11.9 - Type 2 diabetes mellitus without complications Category: Medical Plan: For worsening glycemic control patient will restart Mounjaro. He will continue insulin and Farxiga. Patient was advised to take fiber supplements like Metamucil, increase fluid intake and ambulation. the diarrhea most likely is overflow diarrhea from chronic constipation. If patient's symptoms return abdominal or x-ray will be obtained to evaluate for constipation. Follow-up in 2 months with a fasting labs before (4) HTN (hypertension): Code(s): I10 - Essential (primary) hypertension Category: Medical Plan: Continue current medications Orders: Orders Comprehensive Met. Panel 2 Months E11.9 - Type 2 diabetes mellitus without complications, I10 - Essential (primary) hypertension, N18.30 - Chronic kidney disease, stage 3 unspecified Lipid Panel 2 Months E11.9 - Type 2 diabetes mellitus without complications, I10 - Essential (primary) hypertension, N18.30 - Chronic kidney disease, stage 3 unspecified Hemoglobin A1c 2 Months E11.9 - Type 2 diabetes mellitus without complications, I10 - Essential (primary) hypertension, N18.30 - Chronic kidney disease, stage 3 unspecified Complete Blood Count Auto Diff 2 Months E11.9 - Type 2 diabetes mellitus without complications, I10 - Essential (primary) hypertension, N18.30 - Chronic kidney disease, stage 3 unspecified Referrals Wound Care Referral I83.019 - Varicose veins of right lower extremity with ulcer of unspecified site, I83.029 - Varicose veins of left lower extremity with ulcer of unspecified site, L97.919 - Non-pressure chronic ulcer of unspecified part of right lower leg with unspecified severity, L97.929 - Non-pressure chronic ulcer of unspecified part of left lower leg with unspecified severity Medications: New silver sulfadiazine 1% apply a 1.5 mm thickness 1 appl topical DAILY 50 grams 0RF Discontinued Ozempic (semaglutide) Discontinued Reason: Doctor's Order 2 mg (0.75 mL) subcut QWEEK 9 mL 2RF NS Tresiba FlexTouch U-100 (insulin degludec) Discontinued Reason: Duplicate 40 units (0.4 mL) subcut BID 75 mL 3RF NS E11.9 - Type 2 diabetes mellitus without complications
[2025-04-07 08:58] VITALS: BP 118/60; PULSE 85; TEMP 36.3; O2SAT 99; BMI 46.1
--- OUTSIDE RECORDS SUMMARY | 2025-04-07 09:12 | XMS_ITS ---
Author Organization [facility] Address [address] [place] [address] Care Team Providers Care Cafeteria Cashier Name Role Phone Maria Del Rosario JAMES, Berenice Primary Care Provider Unavaila Kb Arnold Unavailable [phone] Fink Encounters Encounter Location Date Provider Diagnosis [address] [address] 03/23/2024 Kb Marti Plan Of Treatment Next Appt Details Provider Name:Kb Marti , 05/11/2025 09:30:00 AM, [address] [place] [address], [phone], Progress Notes * Stanley CH EDOB:[birth year] (74 yo M)Acc No.[id number]:03/23/2024 Progress Note Patient:?Stanley CH Provider:?Kb Marti DPM :1950???Age:73 Y???Sex:Male Darrick e:03/23/2024 Address:[address] [place] [address] [place], [place]-[id number] Pcp:Berenice Mix MD Subjective: * Chief Complaints: * ???1. Dr. Fink. * Medical History:? Objective: * Vitals:? Assessment: Plan: * Treatment: * Images: * The named appointment provid er may or may not be the originator of this progress note, and it is not deemed complete until electronically signed by the appointment provider. Sign off status: Pending * Provider:Sunny Marti DPM Date:?[address]/Kin/Jasvir on:?04/07/2025 09:12 AM EDT
== END 2025-04-07 09:49 | disposition home or self-care (01) ==
LOC: HO.HMCC 08:53
PROVIDERS: PCP Internal Medicine; Visit Provider Internal Medicine
DX: I12.9 Hypertensive chronic kidney disease with stage 1 through stage 4 chronic kidney disease, or unspecified chronic kidney disease (principal); N18.30 Chronic kidney disease, stage 3 unspecified; E11.9 Type 2 diabetes mellitus without complications; I83.019 Varicose veins of right lower extremity with ulcer of unspecified site; I83.029 Varicose veins of left lower extremity with ulcer of unspecified site; L97.919 Non-pressure chronic ulcer of unspecified part of right lower leg with unspecified severity; L97.929 Non-pressure chronic ulcer of unspecified part of left lower leg with unspecified severity

== ENCOUNTER → 2025-04-07 08:52 | Outpatient (BNVA) | payer MEDICARE, OTHER, SELFPAY | PROVIDERS: PCP Internal Medicine; Visit Provider Internal Medicine | DX: I12.9 Hypertensive chronic kidney disease with stage 1 through stage 4 chronic kidney disease, or unspecified chronic kidney disease (principal); E11.22 Type 2 diabetes mellitus with diabetic chronic kidney disease; N18.30 Chronic kidney disease, stage 3 unspecified; I83.019 Varicose veins of right lower extremity with ulcer of unspecified site; I83.029 Varicose veins of left lower extremity with ulcer of unspecified site; L97.919 Non-pressure chronic ulcer of unspecified part of right lower leg with unspecified severity; L97.929 Non-pressure chronic ulcer of unspecified part of left lower leg with unspecified severity | CPT/HCPCS: 96127; 99212 ==

== ENCOUNTER 2025-04-24 09:15 | Outpatient (RCR) | payer MEDICARE, OTHER, SELFPAY | END 2025-04-24 16:28 | disposition home or self-care (01) | LOC: HO.WCC 09:15 | PROVIDERS: PCP Internal Medicine; Visit Provider Surgery | DX: Q82.0 Hereditary lymphedema (principal); L97.822 Non-pressure chronic ulcer of other part of left lower leg with fat layer exposed; L97.812 Non-pressure chronic ulcer of other part of right lower leg with fat layer exposed; F03.A3 Unspecified dementia, mild, with mood disturbance; N18.6 End stage renal disease; Z87.891 Personal history of nicotine dependence; Z91.199 Patient's noncompliance with other medical treatment and regimen due to unspecified reason | CPT/HCPCS: 11042; 97597; 99213; 99214 ==

== ENCOUNTER 2025-04-25 13:57 | Outpatient (AMB) | payer MEDICARE, OTHER, SELFPAY ==
--- OUTSIDE RECORDS SUMMARY | 2024-03-23 05:00 | XMS_ITS ---
Author Organization [facility] Address [address] [place] [address] Care Team Providers Care Records Management Clerk Name Role Phone Maria Del Rosario JAMES, Berenice Primary Care Provider UnavailKb Mahoney Unavailable [phone] Fink Encounters Encounter Location Date Provider Diagnosis [address] [address] 03/23/2024 bK Marti Plan Of Treatment Next Appt Details Provider Name:Kb Marti , 05/11/2025 09:30:00 AM, [address] [place] [address], [id number], Progress Notes * Stanley CH EDOB:[birth year] (74 yo M)Acc No.[id number]:03/23/2024 Progress Note Patient: Stanley LONGO Teto Provider: Teto Marti DPM :1950 A ge:73 Y S ex:Male Date:03/23/2024 Address:[address] [place] [id number] Pcp:Berenice Mix MD Subjective: * Chief Complaints: * [address] Fink. * Medical History: Objective: * Vitals: Assessment: Plan: * Treatment: * Images: * The named appointment provid er may or may not be the originator of this progress note, and it is not deemed complete until electronically signed by the appointment provider. Sign off status: Pending * Provider: Teto Marti DPM Date: 0 03/23/2024 Generated for Marv Ivan on: 04/25/2025 03:08 PM EDT
--- NOTE | 2025-04-25 13:58 | A.OFFPC_ITS ---
Intake Visit Reasons: Telehealth visit [phone] Allergies codeine Allergy (Unknown, Verified 04/25/25 13:58) Vomiting irbesartan Adverse Reaction (Unknown, Verified 04/25/25 13:58) worsening renal function Medication List - Last Reconciled 04/25/25 by Berenice Mix MD amlodipine 10 mg PO DAILY Basaglar Tempo Pen(U-100)Insln (insulin glargine) 30 units (0.3 mL) subcut BID NS blood sugar diagnostic (FreeStyle Lite Strips) Test blood sugar 3 times per day 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 meter (FreeStyle Lite Meter kit) As directed 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 sensor (DexBurstly G7 Sensor device) Change sensor every 10 days cholecalciferol (vitamin D3) 125 mcg PO DAILY dapagliflozin propanediol (Farxiga) 10 mg PO DAILY Dexcom G7 Venetian Blind Worker (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,auriculotherapist,cont) As directed NS donepezil (Aricept) 10 mg PO DAILY insulin glargine (Lantus Solostar U-100 Insulin) 40 units (0.4 mL) subcut BID levothyroxine 1 tab PO for 5 days and 2 tabs PO two days a week PO; losartan 50 mg PO DAILY metoprolol succinate ER 200 mg (2 x 100 mg) PO DAILY Mounjaro (tirzepatide) 5 mg (0.5 mL) subcut QWEEK NS rosuvastatin 40 mg PO DAILY sertraline 50 mg PO DAILY silver sulfadiazine 1% 1 appl topical DAILY syringe with needle As directed vibegron (Gemtesa) 75 mg PO DAILY Tobacco use date assessed: 04/25/25 Dental Screening Dental Screen Date: 04/07/25 HPI Telehealth visit [phone] HPI Details This is a telehealth visit. Patient presents for f/u IDDM. He is reports high blood glucose readings occasionally up to 300 since patient has stopped Ozempic advised by his lard refiner at [facility] because of patient complaining of chronic diarrhea. Patient took 1 dose of Mounjaro but is concerned about side effects listed on the drug information. and refused to continue to take it. He would like to improve his diet and increase physical activity. Patient denies polyuria polydipsia [facility] Medical History TIA (transient ischemic attack) Wound of left leg Annual physical exam Hematuria Hypogonadism Vitamin B 12 deficiency Microalbuminuria CKD (chronic kidney disease), stage III Chronic venous insufficiency Hypothyroidism Prostate cancer Overweight Type 2 diabetes mellitus CAD (coronary artery disease) Hyperlipidemia HTN (hypertension) Surgical History H/O colonoscopy No pertinent past surgical history Family History Father No problems noted. Mother No problems noted. Social History Housing: House Alcohol intake: unknown Patient Tobacco Use Status: Former Tobacco user e-Cigarette/Vaping Use: Never Used Second Hand Smoke Exposure: No service: No Current occupational status: retired Cognitive needs: No Hearing needs: No Vision needs: Yes Questionnaire Thrive Questionnaire Date Thrive assessed: 04/07/25 NATANAEL-7 AMB Questionnaire NATANAEL-7 Date NATANAEL - 7 assessed: 04/07/25 Source: Developed by Drs. Kameron Cherry, Kiley Knapp, Shad Mosquera and colleagues, with an educational duane from [employer]. Review of Systems Const All systems reviewed & are unremarkable except as noted in HPI and below ENT Reports no additional complaints Card Reports no additional complaints Resp Reports no additional complaints GI Reports no additional complaints Reports no additional complaints Physical exam (Primary Care) Tobacco/Smoking Status: Tobacco use Status Tobacco use date assessed 04/25/25 04/25/25 13:59 Patient Tobacco Use Status Former Tobacco user 04/25/25 13:59 e-Cigarette/Vaping Use Never Used 04/25/25 13:59 Thrive Assessment: Date of Thrive Assessment Date Thrive assessed 04/07/25 04/25/25 13:59 Telehealth Telehealth Telehealth Platform: Telephone Location of provider rendering services: practice address Location of patient: address on file Patient Identification confirmed using: Name, : Yes Telehealth method: video Patient verbally consented to treatment: Yes Patient verbally consented to billing insurance company: Yes Patient informed of any privacy concerns related to visit: Yes Minutes spent on Phone/Video with Pt.: 15 Coding Level of Care Code Tele New Pt Level 3 (65955) Diagnoses Type 2 diabetes mellitus E11.9 Assessment & Plan Assessment & Plan (1) Type 2 diabetes mellitus: Comment: Ozempic caused diarrhea, patient refused to take Mounjaro because of possible side effects Code(s): E11.9 - Type 2 diabetes mellitus without complications Category: Medical Plan: ADA diet increase physical activity discussed with the patient he will continue current insulin regimen and Farxiga. Patient declined taking GLP 1 agonist or increasing insulin dose Medications: Discontinued Basaglar Tempo Pen(U-100)Insln (insulin glargine) Discontinued Reason: Doctor's Order 30 units (0.3 mL) subcut BID 15 mL 4RF NS Mounjaro (tirzepatide) Discontinued Reason: Doctor's Order 5 mg (0.5 mL) subcut QWEEK 2 mL 0RF NS
--- OUTSIDE RECORDS SUMMARY | 2025-04-25 15:09 | XMS_ITS | Clinical Summary ---
Author Organization [facility] Address [address] [place] [address] Phone Care Team Providers Care E Commerce Strategist Name Role Phone Berenice Mix MD Primary Care Provider [phone] Allergies Active Allergy Reactions Criticality Noted Date Comments Ibuprofen 08/11/2022 Medications [facility] D3 125 MCG (5000 UT) capsule 2 Active Trulicity 1.5 MG/0.5ML solution pen-injector 2 Active ergocalciferol 1.25 MG (56353 UT) capsule Take 50,000 Int'l Units by [...] mouth 3 Active B-D 3CC LUER-LARS SYR 40OV6-9/2 20G X 1-1/2 3 ML misc USE [...] PM EDT) Hemoglobin A1C 7.7(H) (4.0-5.6) % [facility] Comment: MONITORING: In known diabetic patients, hemoglobin A1c targets should be discussed with health care provider. DIAGNOSTIC USE: The [place] Diabetes Association (ADA) and the World Health [...] Supplement 1 Testing performed or reported by [facility], a Service of [address] [address] Renny Brenner MD, Oxygen System Tester [facility]# [id number] Blood specimen (specimen) Venous blood / Unknown 07/16/2022 3:32 PM EDT 07/16/2022 3:39 PM EDT us Stanley Sánchez MD LAB BLOOD ORDERABLES Final Re sult [facility] from Last 3 Months or Most Recently Relevant to Health Maintenance Insurance [employer] [place] [id number] [place] [id number] Care Teams E Commerce Strategist Relationship Specialty Start Date End Date Berenice Mix MD [address] [place], [place] [id number] PCP - General Internal Medicine 03/10/22
--- OUTSIDE RECORDS SUMMARY | 2025-04-25 15:09 | XMS_ITS | Encounter Summary ---
Author Organization [facility] Address [address] [place] [address] Care Team Providers Care Zyglo Inspector Name Role Phone Berenice Mix Primary Care Provider [phone] Encounter Details Date Type Department Care Team (Late Contact Info) Description 06/30/2023 Orders Only [facility] Interventional Radiology [address] [place] [phone] Fran Conde DO [address] [place] [address] Social History Tobacco Use Types Packs/Day Years [...] Encounters Date Type Department Care Team (Late Contact Info) Description 07/07/2025 3:00 PM EDT Office Visit [facility] [address] [place] [address] Feed Blender: Breanne M VanDora Lange MD [address] [place] [phone] 07/11/2025 9:20 AM EDT Follow-Up [facility] [address] [place] [address] Feed Blender: Dennys Collins MD [address] [place] [phone] 07/20/2025 10:30 AM EDT Follow-Up [facility] [address] [place] [phone] Feed Blender: Johnna Moss, DENY Lara [address] [place] [phone] documented as of this encounter Visit Diagnoses Not on filedocumented in this encounter Care Teams Zyglo Inspector Relationship Specialty Start Date End Date Berenice Mix [address] [place] [address] PCP - General 05/14/17 documented as of this encounter
== END 2025-04-25 14:36 | disposition home or self-care (01) ==
LOC: HO.HMCC 13:57
PROVIDERS: PCP Internal Medicine; Visit Provider Internal Medicine
DX: E11.9 Type 2 diabetes mellitus without complications (principal)

== ENCOUNTER 2025-07-28 12:35 | Outpatient (AMB) | payer MEDICARE, OTHER, SELFPAY ==
--- OUTSIDE RECORDS SUMMARY | 2024-03-23 05:00 | XMS_ITS ---
Author Organization [facility] Address [address] [facility] [address] Care Team Providers Care Street Commissioner Name Role Phone Maria Del Rosario JAMES, Berenice Primary Care Provider UnavailKb Mahoney Unavailable [phone] Fink Encounters Encounter Location Date Provider Diagnosis [address] [address] 03/23/2024 Kb Marti Plan Of Treatment Next Appt Details Provider Name:Kb Marti , 08/10/2025 09:30:00 AM, [address] [place] [address], [phone], Progress Notes * Stanley CH EDOB:[birth year] (75 yo M)Acc No.[id number]:03/23/2024 Progress Note Patient: Stanley LONGO Teto Provider: Teto Marti DPM :1950 A ge:73 Y S ex:Male Date:03/23/2024 Address:[address] [place] [phone] Pcp:Berenice Mix MD Subjective: * Chief Complaints: [...] 0 03/23/2024 Generated for Marv Ivan on: 01:12 PM EDT
[2025-07-28 12:37] VITALS: BP 118/68; PULSE 75; RESP 18; TEMP 36.7; O2SAT 97; BMI 46.4
--- NOTE | 2025-07-28 12:37 | A.OFFPC_ITS ---
Vital Signs 07/28/25 12:37 Height 6 ft Weight 342 lb BMI 46.4 BP 118/68 Blood Pressure Location Lt brachial Position Sitting Respiration 18 Pulse 75 Pulse Source Pulse Oximeter Temp 98.0 F Temp Source Oral Pulse Oximetry (%) 97 Oxygen Delivery Method Room Air Intake Visit Reasons: PE Intake Note: Pt is here today for PE. Allergies codeine Allergy (Unknown, Verified 07/28/25 12:41) Vomiting irbesartan Adverse Reaction (Unknown, Verified 07/28/25 12:41) worsening renal function Tobacco use date assessed: 07/28/25 Fall risk assessment: No Falls in past year Last assessed Fall Risk: 07/28/25 Dental Screening Dental Screen Date: 04/07/25 HPI HPI Comments History of Present Illness Details Pt presents for f/u IDDM, HTN, hyperlipid, hypothyroid, CKD 4, stable on meds. [facility] Medical History (Updated 07/28/25 @ 14:25 by Berenice Mix MD) TIA (transient ischemic attack) Wound of left leg Annual physical exam Hematuria Hypogonadism Vitamin B 12 deficiency Microalbuminuria CKD (chronic kidney disease), stage III Chronic venous insufficiency Hypothyroidism Prostate cancer Overweight Type 2 diabetes mellitus CAD (coronary artery disease) Hyperlipidemia HTN (hypertension) Surgical History H/O colonoscopy No pertinent past surgical history Family History Father No problems noted. Mother No problems noted. Social History Housing: House Alcohol intake: unknown Patient Tobacco Use Status: Former Tobacco user e-Cigarette/Vaping Use: Never Used Second Hand Smoke Exposure: No service: No Current occupational status: retired Cognitive needs: No Hearing needs: No Vision needs: Yes Questionnaire PHQ-9 Over the last 2 weeks, how often have you been bothered by any of the following problems? 1. Little interest or pleasure in doing things: nearly every day 2. Feeling down, depressed, or hopeless: nearly every day 3. Trouble falling or staying asleep, or sleeping too much: nearly every day 4. Feeling tired or having little energy: nearly every day 5. Poor appetite or overeating: nearly every day 6. Feeling bad about yourself - or that you are a failure or have let yourself or your family down: nearly every day 7. Trouble concentrating on things, such as reading the newspaper or watching television: nearly every day 8. Moving or speaking so slowly that other people could have noticed. Or the opposite - being so fidgety or restless that you have been moving around a lot more than usual: nearly every day 9. Thoughts that you would be better off or of hurting yourself in some way: nearly every day Total score: 27 Depression Screening Interpretation: Positive (Patient is established with counselor and geriatric psychiatrist at [facility]) Depression Screening Follow- up: Existing condition and In treatment Depression Screening Done: Yes Source: Developed by Drs. Kameron Cherry, Kiley Knapp, Shad Mosquera and colleagues, with an educational duane from [employer]. Thrive Questionnaire Date Thrive assessed: 02/16/25 I am a: Patient What is your living situation today?: I have a steady place to live Within the past 12 months, did the food you bought not last and you didn't have the money to get more?: I choose not to answer this question Within the past 12 months, did you worry whether your food would run out before you got money to buy more?: I choose not to answer this question Do you have trouble paying for medicines?: No Do you have trouble getting transportation to medical appointments?: No Do you have trouble paying your heating and electricity bill?: No Do you have trouble taking care of your child, family member or friend?: No Do you have trouble with day-to-day activities such as bathing, preparing meals, shopping, managing finances, etc.?: No Are you currently unemployed and looking for a job?: No Are you interested in more education?: I choose not to answer this question Please select the resources that you would like help with: None Currently or been in a relationship where the following occur: I choose not to answer THRIVE Score: 0 NATANAEL-7 AMB Questionnaire NATANAEL-7 Date NATANAEL - 7 assessed: 04/07/25 Source: Developed by Kiley Alberto Kurt Kroenke and colleagues, with an educational duane from [employer]. Review of Systems Const All systems reviewed & are unremarkable except as noted in HPI and below Eyes Reports no additional complaints ENT Reports no additional complaints Card Reports no additional complaints Resp Reports no additional complaints GI Reports no additional complaints Reports no additional complaints Physical exam (Primary Care) Vital Signs: Last Vital Signs Temp 98.0 F 07/28/25 12:37 Pulse 75 07/28/25 12:37 Resp 18 07/28/25 12:37 BP 118/68 07/28/25 12:37 Pulse Ox 97 07/28/25 12:37 Oxygen Delivery Method Room Air 07/28/25 12:37 BMI result Body Mass Index 46.4 Tobacco/Smoking Status: Tobacco use Status Tobacco use date assessed 07/28/25 07/28/25 12:42 Patient Tobacco Use Status Former Tobacco user 07/28/25 12:42 e-Cigarette/Vaping Use Never Used 07/28/25 12:42 PHQ-9: PHQ-9 Score PHQ-9: Total score 27 07/28/25 12:47 Depression Screening Interpretation: Positive (Patient is established with counselor and geriatric psychiatrist at [facility]) Depression Screening Follow- up: Existing condition and In treatment Thrive Assessment: Date of Thrive Assessment Date Thrive assessed 02/16/25 07/28/25 12:42 Currently or been in a relationship where the following occur: I choose not to answer Const General: no acute distress HENMT Head: Yes normal to inspection Throat: Yes posterior oropharynx normal Eyes General: appearance normal, both eyes and all related structures Resp Effort & Inspection: normal respiratory effort Auscultation: clear to auscultation bilaterally Cardio Rhythm: regular rhythm Heart sounds: S1 normal heart sound present and S2 normal heart sound present GI Inspection: Yes normal to inspection Palpation (GI): Soft to palpation Percussion: Yes normal to percussion Auscultation: normal bowel sounds Extrem Other: 4+ nonpitting edema bilaterally Coding Level of Care Code Est Pt Level 4 (89004) Diagnoses HTN (hypertension) I10 Type 2 diabetes mellitus E11.9 CKD (chronic kidney disease), stage III N18.30 Prostate cancer C61 Alzheimer dementia G30.9; F02.80 Obesity E66.9 Assessment & Plan Assessment & Plan (1) HTN (hypertension): Code(s): I10 - Essential (primary) hypertension Category: Medical Plan: Continue current medications (2) Type 2 diabetes mellitus: Comment: Ozempic and Mounjaro caused diarrhea, patient is established with [facility] endocrinology controlled on Trulicity and insulin Code(s): E11.9 - Type 2 diabetes mellitus without complications Category: Medical Plan: A1c was 6.0 last month at [facility], continue current medications and follow-up with endocrinology (3) CKD (chronic kidney disease), stage III: Comment: stage 3/4 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 [facility] Code(s): N18.30 - Chronic kidney disease, stage 3 unspecified Category: Medical Plan: Avoid nephrotoxins monitor renal function follow-up with nephrology at [facility] (4) Prostate cancer: Comment: follows up with urologist at [facility] negative PET scan for metastatic dx 10/17 Code(s): C61 - Malignant neoplasm of prostate Category: Medical Plan: Follow-up with urology at [facility] (5) Alzheimer dementia: Comment: Patient is established with neurologist at [facility] Code(s): G30.9 - Alzheimer's disease, unspecified; F02.80 - Dementia in other diseases classified elsewhere, unspecified severity, without behavioral disturbance, psychotic disturbance, mood disturbance, and anxiety Category: Medical Plan: Continue donepezil follow-up with Neurology (6) Obesity: Comment: BMI 46.4 Code(s): E66.9 - Obesity, unspecified Category: Medical Plan: Decreasing caloric intake increasing physical activity discussed with the patient
--- OUTSIDE RECORDS SUMMARY | 2025-07-28 13:12 | XMS_ITS | Encounter Summary ---
Author Organization [facility] Address [address] [place] [address] Care Team Providers Care Supervisor Type Bar And Segment Name Role Phone Berenice Mix Primary Care Provider [phone] Encounter Details Date Type Department Care Team (Late st Contact Info) Description 07/10/2025 myChart Message [facility] [address] [place] [phone] Ham Curer: Dennys Collins MD [address] [place] [phone] Need to discuss some things at visit on 07/11/25 Social History Tobacco Use Types Packs/Day Years [...] Care Team (Late st Contact Info) Description 09/14/2025 8:15 AM EST Follow-Up [facility] [address] [place] [phone] Ham Curer: Johnna Moss, DENY Lara [address] [place] [phone] 10/10/2025 10:00 AM EST Follow-Up [facility] [address] [place] [phone] Ham Curer: Dennys Collins MD [address] [place] [phone] 11/24/2025 2:30 PM EST Office Visit [facility] [address] [address] Ham Curer: Breanne Herrera, Breanne Morales NP [address] [place] [phone] 04/19/2026 2:30 PM EDT Office Visit [facility] [address] [address] Ham Curer: Dora Bonds MD [address] [place] [phone] documented as of this encounter Visit Diagnoses Not on filedocumented in this encounter Care Teams Supervisor Type Bar And Segment Relationship Specialty Start Date End Date Berenice Mix [address] [place] [address] PCP - General 05/14/17 documented as of this encounter
--- OUTSIDE RECORDS SUMMARY | 2025-07-28 13:12 | XMS_ITS | Encounter Summary ---
Author Organization [facility] Address [address] [place] [address] Care Team Providers Care Looping Machine Operator Name Role Phone Berenice Mix Primary Care Provider [phone] Encounter Details Date Type Department Care Team (Late st Contact Info) Description 06/30/2023 Orders Only [facility] Interventional Radiology [address] [place] [phone] Fran Conde, [address] [place] [address] Social History Tobacco Use Types Packs/Day Years [...] Info) Description 09/14/2025 8:15 AM EST Follow-Up [facility] [address] [place] [phone] [employer]: Olivia Batista PA [address] [place] [address] 10/10/2025 10:00 AM EST Follow-Up [facility] [address] [place] [phone] [employer]: Dennys Collins MD [address] [place] [address] 11/24/2025 2:30 PM EST Office Visit [facility] [address] [place] [phone] [employer]: Breanne Sabillon NP [address] [place] [address] 04/19/2026 2:30 PM EDT Office Visit [facility] [address] [place] [phone] [employer]: Dora Bonds MD [address] [place] [phone] documented as of this encounter Visit Diagnoses Not on filedocumented in this encounter Care Teams Looping Machine Operator Relationship Specialty Start Date End Date Berenice Mix [address] [place] [address] PCP - General 05/14/17 documented as of this encounter
--- OUTSIDE RECORDS SUMMARY | 2025-07-28 13:12 | XMS_ITS | Encounter Summary ---
Author Organization [facility] Address [address] [place] [address] Phone Care Team Providers Care Rrts Name Role Phone Berenice Mix MD Primary Care Provider [phone] Kary Quintana MD Unavailable [phone] Shari Chamorro MD Unavailable [phone] Encounter Details Date Type Department Care Team (Late st Contact Info) Description 10/12/2024 Procedure Pass MRI, [facility] [address] [place] [address] Social History Tobacco Use Types Packs/Day Years Used Date Smoking Tobacco: Former Cigarettes Pipe Cigars Passive Smoke Exposure: Past Smokeless Tobacco: Never Comments:Quit smokin10/26 Education Answer Date Recorded Are you interested in more education? Not on tiffanie e 02/24/2023 Are you concerned about learning? Not on file 02/24/2023 No 02/24/2023 No 02/24/2023 Digital Access Answer Date Recorded No 03/23/2023 No 03/23/2023 Reliable internet access at home? Not on file 03/23/2023 Device with a working camera? Not on file Sex and Gender Information Value Date Recorded Sex Assigned at Not on file Legal Sex Male 7:03 PM EST Gender Identity Not on file Sexual Orientation Not on file documented as of this encounter Plan of Treatment Upcoming Encounters Date Type Department Care Team (Late st Contact Info) Description 01/08/2026 1:00 PM EDT Office Visit [facility] Department of Neurology [address] [place] [address], [address] Floor, [address] [place] [address] Kary Quintana MD [address] [place] [address] [email or web address] documented as of this encounter Visit Diagnoses Not on filedocumented in this encounter Care Teams Rrts Relationship Specialty Start Date End Date Berenice Mix MD [address] [place] [address] PCP - General 04/25/14 Kary Quintana MD [address] [place] [address] [email or web address] 04/20/25 Shari Chamorro MD [address] [place] [phone] [email or web address] [email or web address] 04/20/25 documented as of this encounter Additional Source Comments The information contained in this document represents components of the legal health record. It is not the complete legal health record.[facility]
--- OUTSIDE RECORDS SUMMARY | 2025-07-28 13:13 | XMS_ITS ---
Author Organization [facility] Address [address] [place] [address] Care Team Providers Care Payroll Professional Name Role Phone Maria Del RosarioBerenice Primary Care Provider [phone] Active Problems Problem Noted Date Diagnosed Date Class 3 severe obesity with serious comorbidity and body mass index (BMI) of 40.0 to 44.9 in adult 07/10/2025 Hypertension 08/25/2022 Hyperlipidemia 08/25/2022 Hypogonadism in male [...] TotalDLP 2,782 mGy 2,782 mGy 0 mGy [id number] 32 mSv 32 mSv 0 mSv CTDIvol Max 46.5 mGy 46.5 mGy 0 mGy CTDIvol Min 46.5 mGy 46.5 mGy 0 mGy Radiation - mGy 165.17 mGy 165.17 mGy 0 mGy
--- OUTSIDE RECORDS SUMMARY | 2025-07-28 13:13 | XMS_ITS | Clinical Summary ---
Author Organization [facility] Address [address] [place] [address] Care Team Providers Care Reconciliation Accountant Name Role Phone Berenice Mix Primary Care Provider [phone] Allergies Active Allergy Reactions Criticality Noted Date Comments Latex Itching 12/18/2023 Medications metoprolol succinate XL (TOPROL XL) 100 mg tablet Take 100 mg by mouth once a day. 022 Active rosuvastatin (CRESTOR) 40 mg tablet Take 40 mg by mouth daily. 022 Active amLODIPine (NORVASC) 10 mg tablet Take 10 mg by mouth daily. 022 Active Freestyle Lite test strips USE 1 STRIP TWICE A DAY TO TEST BLOOD SUGAR Active Farxiga 10 mg SMARTSI Tablet(s) By Mouth Daily Active donepeziL (ARICEPT) 10 mg tablet Take 10 mg by mouth daily. 023 Active levothyroxine (SYNTHROID, LEVOTHROID) 75 mcg tablet TAKE 1 TABLET BY MOUTH EVERY DAY FOR 5 DAYS A WEEK, AND 2 TABS TWO DAYS A WEEK 023 Active vit A/vit C/vit E/zinc/copper (PRESERVISION AREDS ORAL) Take 3 tablets by mouth daily. Active Gemtesa 75 mg tablet SMARTSI Tablet(s) By Mouth Daily 024 Active ammonium lactate (AMLACTIN) 12 % cream APPLY EXTERNALLY TO AFFECTED AREAS OF SKIN TO FEET EXCEPT FOR BETWEEN THE TOES TWICE A DAY Active silver sulfadiazine (SILVADENE) 1% cream APPLY TOPICALLY DAILY APPLY A 1.5 MM THICKNESS Active losartan (COZAAR) 50 mg tablet Take 50 mg by mouth once a day. Active sertraline (ZOLOFT) 50 mg tablet Take 75 mg by mouth daily. Active Dexcom G7 Sensor device Change sensor every 10 days. E11.65 3 each Active dulaglutide (TRULICITY) 0.75 mg/0.5 mL injection doseIndications :Type 2 diabetes mellitus with hyperglycemia, with long-term current use of insulin Inject 0.5 mL (0.75 mg total) under the skin once a week. 2 mL Active Lantus Solostar U-100 Insulin 100 unit/mL (3 mL) pen injection Inject 20 Units under the skin 2 times a day. 15 mL Active sertraline (ZOLOFT) 25 mg tablet Take 50 mg by mouth. 2024 Discontinued losartan (COZAAR) 25 mg tablet Take 50 mg by mouth once a day. 2024 Discontinued Semglee,insulin glarg-yfgn,Pen 100 unit/mL (3 mL) insulin pen 40 Units 2 times a day. 022 2024 Discontinued BD Luer-Madeleine Syringe 3 mL 20 gauge x 1 1/2 syringe USE FOR TESTOSTERONE INJECTIONS EVERY 3 WEEKS 9 each 11 023 2024 Discontinued acetaminophen (TYLENOL) 325 mg tablet Take 2 tablets (650 mg total) by mouth every 6 hours as needed for pain. 2024 Discontinued tamsulosin (FLOMAX) 0.4 mg capsule Take 2 capsules (0.8 mg total) by mouth once a day. 30 capsule 02/03/20 24 11:36 AM EDT 024 2024 Discontinued acetaminophen (TYLENOL) 325 mg tablet Take 2 tablets (650 mg total) by mouth every 6 hours as needed for pain. 30 tablet 02/03/20 24 11:36 AM EDT 2024 Discontinued Ozempic 2 mg/dose (8 mg/3 mL) pen injector SMARTSI.25 Milliliter(s) SUB-Q Once a Week 024 2024 Discontinued insulin glargine (Lantus U-100 Insulin) 100 units/mL solution injection Inject 40 Units under the skin 2 (two) times a day. 2024 Discontinued Mounjaro 2.5 mg/0.5 mL pen injectorIndicat ions:Type 2 diabetes mellitus with stage 3b chronic kidney disease, unspecified whether salvage determiner insulin use INJECT 0.5 ML (2.5 MG) SUBCUTANEOUSLY ONE TIME PER WEEK 6 mL 2 025 2024 Discontinued tirzepatide (Mounjaro) 5 mg/0.5 mL pen injectorIndicat ions:Type 2 diabetes mellitus with hyperglycemia, with long-term current use of insulin Inject 0.5 mL (5 mg total) under the skin once a week. 2 mL 11 025 2024 Discontinued Active Problems Problem Noted Date Diagnosed [...] Encounters Date Type Department Care Team Description 07/27/2025 Orders Only [facility] [address] [place] [phone] Maintenance Advisor: Dora Bonds MD 07/25/2025 myChart Message [facility] [address] [place] [phone] Maintenance Advisor: Dora Bonds MD [facility]25 Orders Only [facility] [address] [place] [address]26 Maintenance Advisor: Dora Bonds MD 07/17/2025 [id number] Message [facility] [address] [place] [address] Maintenance Advisor: Dennys Collins MD Lab work results/2 questions 07/13/2025 Orders Only [facility] [address] [place] [address] [phone] Maintenance Advisor: Dora Bonds MD 07/11/2025 9:20 AM EDT Follow-Up [facility] [address] [place] [address] [phone] Maintenance Advisor: Dennys Collins MD Stage 4 chronic kidney disease (HCC) (Primary Dx); 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); Liver disease, chronic, with cirrhosis (HCC); Class 3 severe obesity with body mass index (BMI) of 40.0 to 44.9 in adult, unspecified obesity type, unspecified whether serious comorbidity present; Hypertension, unspecified type 07/10/2025 Orders Only [facility] [address] [place] [address] 13865 Maintenance Advisor: Dora Bonds MD Type 2 diabetes mellitus with hyperglycemia, with long-term current use of insulin (HCC) (Primary Dx) 07/10/2025 Telephone [facility] [address] [address] Maintenance Advisor: Dora Bonds MD Symptom Concern 07/10/2025 myChart Message [facility] [address] [place] [address] [phone] Maintenance Advisor: Dennys Collins MD Need to discuss some things at visit on 07/11/25 07/07/2025 3:00 PM EDT Office Visit [facility] [address] [address] Maintenance Advisor: Dora Bonds MD Type 2 diabetes mellitus with hyperglycemia, with long-term current use of insulin (HCC) (Primary Dx); Type 2 diabetes mellitus with diabetic nephropathy, with long-term current use of insulin (HCC); Class 3 severe obesity with serious comorbidity and body mass index (BMI) of 40.0 to 44.9 in adult, unspecified obesity type 07/07/2025 Access MediQuiphart Message [facility] [address] [address] Maintenance Advisor: Dora Bonds MD Question about visits 06/19/2025 Access MediQuiphart Message [facility] [address] [place] [address] 28834 Maintenance Advisor: Dennys Collins MD Mounjaro versus Ozempic 05/19/2025 Access MediQuiphart Message [facility] [address] [place] [address] Maintenance Advisor: Dennys Collins MD Update on blood glucose levels since starting Mounjaro 05/10/2025 Refill [facility] [address] [place] [phone] Maintenance Advisor: Vielka Kincaid NP Type 2 diabetes mellitus with stage 3b chronic kidney disease, unspecified whether long-term insulin use (HCC) from Last 3 Months Family History Medical History Relation Name Comments Prostate cancer Father Cancer Mother Diabetes type II Mother Relation Name Status Comments Father Mother Other Alive Social History Tobacco Use Types Packs/Day Years Used Date Smoking Tobacco: Former Cigarettes 2 10 1 2001 Smokeless Tobacco: Never Tobacco Cessation:Counseling Given: Not Answered Alcohol Use Standard Drinks/Week Comments Not Currently [...] Sign Reading Time Taken Comments Blood Pressure 134/71 07/11/2025 9:07 AM EDT Pulse 60 07/11/2025 9:07 AM EDT Temperature 36.3 C (97.4 F) 07/11/2025 9:07 AM EDT Respiratory Rate 18 02/03/2024 12:5 1 PM EDT Oxygen Saturation 99% 02/03/2024 12: 51 PM EDT Inhaled Oxygen Concentration - - Weight 153.7 kg (338 lb 13.6 oz) 07/11/2025 9:07 AM EDT Height 188 cm (6' 2 ) 07/11/2025 9:07 AM EDT Body Mass Index 43.51 07/11/2025 9:07 AM EDT Plan of Treatment Upcoming Encounters Date Type Department Care Team (Late st Contact Info) Description 09/14/2025 8:15 AM EST Follow-Up [facility] [address] [place] [phone] Maintenance Advisor: Johnna Moss, DENY Lara [address] [place] [address] [phone] 10/10/2025 10:00 AM EST Follow-Up [facility] [address] [place] [address] [phone] Maintenance Advisor: Dennys Collins MD [address] [place] [phone] 11/24/2025 2:30 PM EST Office Visit [facility] [address] [place] [address] 80167 Maintenance Advisor: Breanne Herrera, Breanne Morales NP [address] [place] [phone] 04/19/2026 2:30 PM EDT Office Visit [facility] [address] [place] [address]01 Maintenance Advisor: Dora Bonds MD [address] [place] [address] Health Maintenance Due Date Last Done Comments 25 Hydroxy / Vitamin D 1951 Cologuard 1951 Colon Cancer Screening 1950 Colonoscopy 1951 FOBT / Fit Test 1951 Phosphorus 1951 Sigmoidoscopy 1951 Medicare AWV 1952 Hepatitis B Vaccines (1 of 3 - Risk 3-dose series) 2011 Ophthalmology Exam 09/10/2023 09/10/2022 Alcohol/Substance Use Screening 10/26/2024 Depression Screening and Follow-Up 10/26/2024 Health Care Proxy Review 10/26/2024 Social Drivers of Health Karen ual Screening 10/26/2024 COVID-19 Vaccine (6 2024-2 6 season) 2025 08/03/2022, 03/25/2022, 07/28/2021, Additional history exists Influenza Vaccine (#1) 2025 4, 07/12/2023, 07/15/2022, Additional history exists Basic Metabolic Panel 11/10/2025 07/11/2025 , 03/07/2025, 12/06/2024, Additional history exists Hemoglobin A1C 01/04/2026 07/07/2025, 02/23, 07/16/2022, Additional history exists Hemoglobin 07/11/2026 07/11/2025, 02/23, 12/06/2024, Additional history exists PTH 07/11/2026 07/11/2025, 07/19/2024 Urine Microalbumin 07/11/2026 07/11/2025, 0 03/07/2025, 12/06/2024, Additional history exists DTaP,Tdap,and Td Vaccines (3 - Td or Tdap) 06/17/2031 06/17/2021, 04/13/2012 Zoster Vaccines Completed 02/21/2022, 07/02/2020 Abdominal Aortic Aneurysm (A AA) Screening Completed 01/01/2024, 01/01/2024, 08/31/2023, Additional history exists Pneumococcal Vaccine: 50+ Years Completed RSV Vaccine (60+ years old a nd patients) Completed 01/13/2025 CKD: Referral to Nephrology Completed 07/11/2025 Hepatitis C Screening Completed 07/11/2025 Medical Devices Implanted Type Area Data Conversion Developer Device Identifier Shelf Expiration Date Model / Serial / Lot Stent Ureteral Firm Hydroplus Coating 6fr 28cm Percuflex Plus - [id number] - [id number] Implanted:Qty: 1 on 02/03/2024 by Sophia Salazar MD at [facility] Stent Right: Ureter [employer] 03/08/2026 [id number] / [id number] / [id number] Explanted Type Area Data Conversion Developer Device Identifier Shelf Expiration Date Model / Serial / Lot Stent Ureteral Firm Hydroplus Coating 6fr 28cm Percuflex Plus - [id number] Implanted:Qty: 1 on 12/31/2023 by Ernesto Freedman MD at [facility] Explanted:Qty: 1 on 02/03/2024 by Sophia Salazar MD at [facility] Stent Right: Ureter [employer] 04/17/2026 [id number] / / [id number] Procedures * Due to [place] state law, this organization might not be sharing negative HIV tests. 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) PROTEIN ELECTROPHORESIS W/REFLEX TO IMMUNOFIXATION, SERUM Today 07/11/2025 9:52 AM EDT Stage 4 chronic kidney disease (HCC) KAPPA & LAMBDA, FREE W/RATIO Today 07/11/2025 9:52 AM EDT Stage 4 chronic kidney disease (HCC) VITAMIN D, 25-OH (D2, D3), LC/MS/MS Today 07/11/2025 9:52 AM EDT Stage 4 chronic kidney disease (HCC) IRON, TIBC AND FERRITIN PANEL (5616) Today 07/11/2025 9:52 AM EDT Stage 4 chronic kidney disease (HCC) IRON SATURATION Today 07/11/2025 9:52 AM EDT Stage 4 chronic kidney disease (HCC) SEDIMENTATION RATE, AUTOMATED Today 07/11/2025 9:52 AM EDT Stage 4 chronic kidney disease (HCC) LIPID PANEL W/REFLEX TO DIRECT LDL Today 07/11/2025 9:52 AM EDT Stage 4 chronic kidney disease (HCC) CYSTATIN C WITH GLOMERULAR FILTRATION RATE, ESTIMATED (EGFR)-[id number] Today 07/11/2025 9:52 AM EDT Stage 4 chronic kidney disease (HCC) PTH, INTACT (WITHOUT CALCIUM) Today 07/11/2025 9:52 AM EDT Stage 4 chronic kidney disease (HCC) URIC ACID Today 07/11/2025 9:52 AM EDT Stage 4 chronic kidney disease (HCC) HEPATITIS PANEL, ACUTE Today 9:52 AM EDT Stage 4 chronic kidney disease (HCC) Liver disease, chronic, with cirrhosis (HCC) COMPREHENSIVE METABOLIC PANEL Today 07/11/2025 9:52 AM EDT Stage 4 chronic kidney disease (HCC) CBC AUTO DIFFERENTIAL Today 07/11/2025 9:52 AM EDT Stage 4 chronic kidney disease (HCC) POCT GLYCOSYLATED HEMOGLOBIN (HGB A1C) Routine 07/07/2025 2:[address] ABDOMEN PELVIS WO CONTRAST Routine 01/01/2024 8:22 AM EST from Last 3 Months or Most Recently Relevant to Health Maintenance Results * Due to [place] state law, this organization might not be sharing negative HIV tests. * (ABNORMAL) Cystatin C with Glomerular Filtration Rate, Estimated (eGFR) (07/11/2025 9:52 AM EDT) Cystatin C 2.79(H) 0.52 - 1.16 mg/L 07/13/2025 12:48 PM EDT [facility] (ALEXANDRU) eGFR Non- 19(L) >=60 NA 07/13/2025 12:48 PM EDT [facility] (ALEXANDRU) Comment: REFERENCE RANGE:>=60 mL/min/1.73mE2 Blood Structure of peripheral vein / Unknown Venipuncture / Unknown 07/11/2025 9:52 AM EDT 07/11/2025 10:43 AM EDT Narrative MARIOLA NAVARRETE) - 07/13/2025 12:48 PM EDT [facility] Received Date:[id number] us Dennys Roberto MD LAB BLOOD ORDERABLES Final Re sult MARIOLA NAVARRETE) [address] [place] [address], [place] * Vitamin D, 25-OH (D2, D3), LC/MS/MS (07/11/2025 9:52 AM EDT) [facility] Vitamin D, 25-OH, Total 39 30 - 100 ng/mL 07/17/2025 11:28 PM EDT [facility]OL[facility] TOMLIN (GUZMAN) Comment: Vitamin D, 25-Hydroxy reports concentrations of two common forms, 25-OHD2 and 25-OHD3. 25-OHD3 indicates both endogenous production and supplementation. 25-OHD2 is an indicator of exogenous sources such as diet or supplementation. Therapy is based on measurement of Total 25-OHD, with levels <20 ng/mL indicative of Vitamin D deficiency, while levels between 20 ng/mL and 30 ng/mL suggest insufficiency. Optimal levels are > or = 30 ng/mL. For additional information, please refer to http://education.Scary Mommy/faq/CKZ853 (This link is being provided for informational/ educational purposes only.) Vitamin D, 25-OH, D3 39 ng/mL 07/17/2025 11:28 PM EDT [facility]OL[facility] TOMLIN (GUZMAN) Comment: This test was developed and its analytical performance characteristics have been determined by [facility] [place], [place]. It has not been cleared or approved by the U.S. Food and Drug Administration. This assay has been validated pursuant to the CLIA regulations and is used for clinical purposes. Vitamin D, 25-OH, D2 <4 ng/mL 07/17/2025 11:28 PM EDT MARIOLA RODRIGUEZJaden (ALEXANDRU) Comment: This test was developed and its analytical performance characteristics have been determined by [facility] [place]. It has not been cleared or approved by the U.S. Food and Drug Administration. This assay has been validated pursuant to the CLIA regulations and is used for clinical purposes. Blood Structure of peripheral vein / Unknown Venipuncture / Unknown 07/11/2025 9:52 AM EDT 07/11/2025 10:42 AM EDT Narrative [facility]OLA LUNA - 07/17/2025 11:28 PM EDT [facility] Received Date:[id number] us Dennys Roberto MD LAB BLOOD ORDERABLES Final Re sult MARIOLA LUNA [address] [place] [address] [address]rd Floor, [place] [address], [facility] [address] [place] [address] , [place] * N-terminal ProBrain Natriuretic Peptide - [facility] & MEM/MARTAV/Nicole Only (07/11/2025 9:52 AM EDT) Pro-B-Type Natriuretic Peptide 209 <300 pg/mL 07/11/2025 11:26 AM EDT [facility] Comment: Patient Age: Congestive Heart Failure (CHF) Risk <18 Years: Not Established 18-49 Years: <300 pg/mL - Normal, CHF Unlikely >=450 pg/mL - High Probability of CHF 50-75 Years: <300 pg/mL - Normal, CHF Unlikely >=900 pg/mL - High Probability of CHF >75 Years: <300 pg/mL - Normal, CHF Unlikely >=1800 pg/mL - High Probability of CHF Blood Structure of peripheral vein / Unknown Venipuncture / Unknown 07/11/2025 9:52 AM EDT 07/11/2025 10:44 AM EDT us Dennys Roberto MD LAB BLOOD ORDERABLES Final Re sult [facility] [address] [place] [id number], * (ABNORMAL) Topaz & Lambda, Free w/Ratio (07/11/2025 9:52 AM EDT) Pathologist [facility] Topaz Light Chain, Free, Serum 87.0(H) 3.3 - 19.4 mg/L 07/13/2025 10:37 AM EDT [facility] Lambda Light Chain, Free, Serum 50.1(H) 5.7 - 26.3 mg/L 07/13/2025 10:37 AM EDT [facility] Topaz/Lambda Light Chains Free With Ratio 1.74(H) 0.26 - 1.65 07/13/2025 10:37 AM EDT [facility] Comment: Free kappa/lambda ratio in serum [...] peripheral vein / Unknown Venipuncture / Unknown 07/11/2025 9:52 AM EDT 07/11/2025 10:43 AM EDT [facility] - 07/13/2025 10:37 AM EDT [facility] Received Date: us Dennys Roberto MD LAB BLOOD ORDERABLES Final Re sult [facility] [address] [facility] [address]rd Floor, [place] [address], [place] [phone] [facility] [address], [place] [address], [place] [phone] * (ABNORMAL) SPEP (Protein Electrophoresis w/Reflex to Immunofixation) (07/11/2025 9:52 AM EDT) [facility] Protein, Total 6.5 6.1 - 8.1 g/dL 07/13/2025 11:15 PM EDT [facility] Albumin 3.5(L) 3.8 - 4.8 g/dL 07/13/2025 11:15 PM EDT [facility] Alpha 1 Globulin 0.4(H) 0.2 - 0.3 g/dL 07/13/2025 11:15 PM EDT [facility] Alpha 2 Globulin 0.6 0.5 - 0.9 g/dL 07/13/2025 11:15 PM EDT [facility] Beta 1 Globulin 0.5 0.4 - 0.6 g/dL 07/13/2025 11:15 PM EDT [facility] Beta 2 Globulin 0.6(H) 0.2 - 0.5 g/dL 07/13/2025 11:15 PM EDT [facility] Gamma Globulin 1.0 0.8 - 1.7 g/dL 07/13/2025 11:15 PM EDT [facility] Interpretation See Comments 07/13/2025 11:15 PM EDT [facility] Comment: Suggestive of acute inflammation pattern with elevation of acute phase proteins Blood Structure of peripheral vein / Unknown Venipuncture / Unknown 07/11/2025 9:52 AM EDT 07/11/2025 10:42 AM EDT Narrative [facility] - 07/13/2025 11:15 PM EDT [facility] Received Date: Dennys Roberto MD LAB BLOOD ORDERABLES Final Re sult [facility] [address] [facility] [address]rd Floor, [place] [address], [place] [phone] [facility] [address] [facility] 3rd Floor, [place] [address], [place] [phone] * (ABNORMAL) Iron Saturation (07/11/2025 9:52 AM EDT) Iron Saturation 18(L) 20 - 50 % 11:23 AM EDT [facility] Iron 51 45 - 160 ug/dL 07/11/2025 11:23 AM EDT [facility] Transferrin 227 200 - 360 mg/dL 07/11/2025 11:23 AM EDT [facility] Total Iron Binding Capacity 284 255 - 450 ug/dL 07/11/2025 11:23 AM EDT [facility] Blood Structure of peripheral vein / Unknown Venipuncture / Unknown 07/11/2025 9:52 AM EDT 07/11/2025 10:44 AM EDT us Dennys Roberto MD LAB BLOOD ORDERABLES Final Re sult [facility] [address] [place] [address], * (ABNORMAL) Lipid Panel w/Reflex to Direct LDL (07/11/2025 9:52 AM EDT) Cholesterol 169 <=199 mg/dL 07/11/2025 11:23 AM EDT [facility] Triglycerides 147 <=149 mg/dL 07/11/2025 11:23 AM EDT [facility] Cholesterol, HDL 39(L) 40 - 59 mg/dL 07/11/2025 11:23 AM EDT [facility] Cholesterol, Non-HDL 130 mg/dL 07/11/2025 11:23 AM EDT [facility] LDL Cholesterol 101(H) <100 mg/dL 07/11/2025 11:23 AM EDT [facility] Comment:LDL-C is calculated using the Friedewald calculation. VLDL 29.4 mg/dL 07/11/2025 11:23 AM EDT [facility] Cholesterol/HDL Ratio 4.3 <5.0 07/11/2025 11:23 AM EDT [facility] Blood Structure of peripheral vein / Unknown Venipuncture / Unknown 07/11/2025 9:52 AM EDT 07/11/2025 10:44 AM EDT Narrative [facility] - 07/11/2025 11:23 AM EDT Adult Treatment Panel III Guidelines of NCEP 2001 Category: Total Cholesterol (mg/dL) Desirable <200 Borderline High 200-239 High >=240 Category: LDL Cholesterol (mg/dL) Optimal <100 Near Optimal/Above Optimal 100-129 Borderline High 130-159 High 160-189 Very High >=190 Category: HDL Cholesterol (mg/dL) Low <40 High >=60 NCEP's Expert Panel on Blood Cholesterol in Children and Adolescents Category: Total Cholesterol (mg/dL) Desirable <170 Borderline High 170-199 High >=200 Category: LDL Cholesterol (mg/dL) Desirable <110 Borderline High 110-129 High >=130 us Dennys Roberto MD LAB BLOOD ORDERABLES Final Re sult [facility] [address] [place] [address], * (ABNORMAL) CBC Auto Differential (07/11/2025 9:52 AM EDT) WBC 8.0 3.8 - 10.8 10*3/uL 07/11/2025 10:51 AM EDT [facility] RBC 4.36 4.20 - 5.80 10*6/uL 07/11/2025 10:51 AM EDT [facility] Hemoglobin 12.8(L) 13.2 - 17.1 g/dL 07/11/2025 10:51 AM EDT [facility] Hematocrit 40.1 38.5 - 50.0 % 07/11/2025 10:51 AM EDT [facility] MCV 92.0 80.0 - 100.0 fL 07/11/2025 10:51 AM EDT [facility] MCH 29.4 27.0 - 33.0 pg 07/11/2025 10:51 AM EDT [facility] MCHC 31.9(L) 32.0 - 36.0 g/dL 07/11/2025 10:51 AM EDT [facility] RDW 13.9 11.0 - 15.0 % 07/11/2025 10:51 AM EDT [facility] Platelets 309 140 - 400 10*3/uL 07/11/2025 10:51 AM EDT [facility] MPV 10.8 7.5 - 12.5 fL 07/11/2025 10:51 AM EDT [facility] Neutrophil % 72.5 % 07/11/2025 10:51 AM EDT [facility] Immature Grans % 0.8 0.0 - 0.9 % 07/11/2025 10:51 AM EDT [facility] Lymphocyte % 15.1 % 07/11/2025 10:51 AM EDT [facility] Monocyte % 8.4 % 07/11/2025 10:51 AM EDT [facility] Eosinophil % 2.3 % 07/11/2025 10:51 AM EDT [facility] Basophil % 0.9 % 07/11/2025 10:51 AM EDT [facility] Neutrophil # 5.77 1.50 - 7.80 10*3/uL 07/11/2025 10:51 AM EDT [facility] Immature Grans # 0.06(H) <=0.03 10*3/uL 07/11/2025 10:51 AM EDT [facility] Lymphocyte # 1.20 0.85 - 3.90 10*3/uL 07/11/2025 10:51 AM EDT [facility] Monocyte # 0.70 0.20 - 0.95 10*3/uL 07/11/2025 10:51 AM EDT [facility] Eosinophil # 0.20 0.02 - 0.50 10*3/uL 07/11/2025 10:51 AM EDT [facility] CLINICAL PATHOLOGY LABORATORY Basophil # 0.10 0.00 - 0.20 10*3/uL 07/11/2025 10:51 AM EDT [facility] CLINICAL PATHOLOGY LABORATORY nRBC % 0.0 /100 WBCs 07/11/2025 10:51 AM EDT [facility] CLINICAL PATHOLOGY LABORATORY nRBC # <0.01 <0.01 10*3/uL 07/11/2025 10:51 AM EDT [facility] CLINICAL PATHOLOGY LABORATORY Blood Structure of peripheral vein / Unknown Venipuncture / Unknown 07/11/2025 9:52 AM EDT 07/11/2025 10:44 AM EDT us Dennys Roberto MD LAB BLOOD ORDERABLES Final Re sult [facility] CLINICAL PATHOLOGY LABORATORY [address] [place] [address], * (ABNORMAL) Microalbumin, Random Urine with Creatinine (07/11/2025 9:52 AM EDT) Microalbumin, Urine 10.7 mg/dL 07/11/2025 11:18 AM EDT [facility]sale[facility] CLINICAL PATHOLOGY LABORATORY Creatinine, Urine 123 22 - 328 mg/dL 07/11/2025 11:18 AM EDT [facility]EROzsaleSELECT [facility] CLINICAL PATHOLOGY LABORATORY Microalb/Creat Ratio, Random Urine 87.0(H) <30.0 mcg/mgCr 07/11/2025 11:18 AM EDT [facility]zsaleSELECT [facility] LABORATORY Comment: Microalbumin Reference Range: Normal <30 mcg/mg Creatinine Microalbuminuria 30-300 mcg/mg Creatinine Clinical Albuminuria >300 mcg/mg Creatinine Reference: ADA Guideline. Diabetes Care. 2004;27 (suppl 1) Urine Voided urine specimen / Unknown Non-Blood Collection / Unknown 07/11/2025 9:52 AM EDT 07/11/2025 10:38 AM EDT Dennys Roberto MD LAB URINE ORDERABLES Final Re sult [facility] CLIN[facility] LAB[facility]ORY [address] [place] [address], [place] * Hepatitis Panel, Acute (07/11/2025 9:52 AM EDT) Hepatitis A IgM NON-REACT ENIO NON-REACT ENIO 07/12/2025 1:16 AM EDT [facility] Hepatitis B Surface Antigen NON-REACT ENIO NON-REACT ENIO 07/12/2025 1:16 AM EDT [facility] Hepatitis B Core Antibody NON-REACT ENIO NON-REACT ENIO 07/12/2025 1:16 AM EDT [facility] Hepatitis C Antibody NON-REACT ENIO NON-REACT ENIO 07/12/2025 1:16 AM EDT [facility] Comment: HCV antibody was non-reactive. There is no laboratory evidence of HCV infection. In most cases, no further action is required. However, if recent HCV exposure is suspected, a test for HCV RNA (test code 13741) is suggested. For additional information please refer to [email or web address]/faq/ZQD97s6 (This link is being provided for informational/ educational purposes only.) For additional information, please refer to [email or web address]/faq/YZX063 (This link is being provided for informational/ educational purposes only.) Blood Structure of peripheral vein / Unknown Venipuncture / Unknown 07/11/2025 9:52 AM EDT 07/11/2025 10:43 AM EDT Narrative [facility] - 07/12/2025 1:16 AM EDT [facility] Received Date:[id number] Dennys Roberto MD LAB BLOOD ORDERABLES Final Re sult [facility] [address] [place] [address] [address], [place] [address], [place] [phone] [facility] [address], [place] [address], [place] [phone] * Sodium, Random Urine with Creatinine (07/11/2025 9:52 AM EDT) Pathologist [facility] Sodium, Urine 36 mmol/L 07/11/2025 11:18 AM EDT [facility] CLINICAL PATHOLOGY LABORATORY Creatinine, Urine 123 22 - 328 mg/dL 07/11/2025 11:18 AM EDT [facility] CLINICAL PATHOLOGY LABORATORY Sodium/Creatin ine, Urine Ratio 29 23 - 229 mmol/gmCr 07/11/2025 11:18 AM EDT [facility] CLINICAL PATHOLOGY LABORATORY Urine Voided urine specimen / Unknown Non-Blood Collection / Unknown 07/11/2025 9:52 AM EDT 07/11/2025 10:38 AM EDT Dennys Roberto MD LAB URINE ORDERABLES Final Re sult Performing Organization Address City/[facility]/ZIP Co de Phone Number [facility] CLINICAL PATHOLOGY LABORATORY [address] [place] [address], [place] * (ABNORMAL) Sedimentation Rate (07/11/2025 9:52 AM EDT) Pathologist [facility] Sed Rate 42(H) <20 mm/Hr mm/Hr 07/11/2025 10:52 AM EDT [facility] CLINICAL PATHOLOGY LABORATORY Blood Structure of peripheral vein / Unknown Venipuncture / Unknown 07/11/2025 9:52 AM EDT 07/11/2025 10:44 AM EDT Dennys Roberto MD LAB BLOOD ORDERABLES Final Re sult [facility] CLINICAL PATHOLOGY LABORATORY [address] [place] [address], [place] * Uric Acid (07/11/2025 9:52 AM EDT) Pathologist [facility] Uric Acid 5.1 2.5 - 8.0 mg/dL 07/11/2025 11:23 AM EDT [facility] CLINICAL PATHOLOGY LABORATORY Blood Structure of peripheral vein / Unknown Venipuncture / Unknown 07/11/2025 9:52 AM EDT 07/11/2025 10:44 AM EDT Dennys Roberto MD LAB BLOOD ORDERABLES Final Re sult [facility] CLINICAL PATHOLOGY LABORATORY [address] [place] [address], * PTH, Intact (without Calcium) (07/11/2025 9:52 AM EDT) Parathyroid Hormone, Intact 55 16 - 77 pg/mL 07/12/2025 7:47 PM EDT [facility] Comment: Interpretive Guide Intact PTH Calcium ------- Normal Parathyroid Normal Normal Hypoparathyroidism Low or Low Normal Low Hyperparathyroidism Primary Normal or High High Secondary High Normal or Low Tertiary High High Non-Parathyroid Hypercalcemia Low or Low Normal High Blood Structure of peripheral vein / Unknown Venipuncture / Unknown 07/11/2025 9:52 AM EDT 07/11/2025 10:44 AM EDT Narrative [facility] 07/12/2025 7:47 PM EDT [facility] Received Date:[id number] Dennys Roberto MD LAB BLOOD ORDERABLES Final Re sult Performing Organization Address City/[facility]/ZIP Co de Phone Number [facility] [address] [facility] [address], [place] [address], [place] [phone] [facility] [address] [facility] [address] [facility], [place] [address], [place] [phone] * Ferritin (07/11/2025 9:52 AM EDT) Ferritin 322.0 23.0 - 336.0 ng/mL 07/11/2025 11:23 AM EDT [facility] CLINICAL PATHOLOGY LABORATORY Blood Structure of peripheral vein / Unknown Venipuncture / Unknown 07/11/2025 9:52 AM EDT 07/11/2025 10:44 AM EDT us Dennys Roberto MD LAB BLOOD ORDERABLES Final Re sult [facility]ENTERLocal [facility]CT [facility] CLINICAL PATHOLOGY LABORATORY [address] [place] [address], * (ABNORMAL) Comprehensive metabolic panel (07/11/2025 9:52 AM EDT) NA 141 135 - 145 mmol/L 07/11/2025 11:23 AM EDT [facility] CL[facility] PATHOLOGY LABORAT[facility] K 4.3 3.5 - 5.3 mmol/L 07/11/2025 11:23 AM EDT [facility] LAB[facility] Cl 107 98 - 107 mmol/L 07/11/2025 11:23 AM EDT [facility] LAB[facility] CO2 23 22 - 32 mmol/L 07/11/2025 11:23 AM EDT [facility] LAB[facility] Anion Gap 11 5 - 15 07/11/2025 11:23 AM EDT [facility] LAB[facility] Glucose 121(H) 65 - 99 mg/dL 07/11/2025 11:23 AM EDT [facility] PATHOLOGY LABORATORY Creatinine 2.08(H) 0.60 - 1.30 mg/dL 07/11/2025 11:23 AM EDT [facility] LAB[facility] Calcium 9.3 8.6 - 10.5 mg/dL 07/11/2025 11:23 AM EDT [facility] PATHOLOGY LABORAT[facility] Total Protein 6.8 6.0 - 8.0 g/dL 07/11/2025 11:23 AM EDT [facility] CL[facility] PATHOLOGY LABORATORY Albumin 3.7 3.5 - 5.2 g/dL 07/11/2025 11:23 AM EDT [facility] CL[facility] PATHOLOG[facility] LABORATORY Bilirubin, Total 0.8 0.2 - 1.2 mg/dL 07/11/2025 11:23 AM EDT [facility]EROzsaleSELECT [facility] CLINICAL PATHOLOGY LABORATORY Alkaline Phosphatase 78 35 - 129 U/L 07/11/2025 11:23 AM EDT [facility]EROzsalePREMIER [facility] AST 22 10 - 40 U/L 07/11/2025 11:23 AM EDT [facility]salePRE[facility] CL[facility] PATH[facility] LAB[facility] ALT 13 10 - 40 U/L 07/11/2025 11:23 AM EDT [facility]EROzsaleSELECT [facility] CLINICAL PATHOLOGY LABORATORY BUN 25(H) 7 - 23 mg/dL 07/11/2025 11:23 AM EDT [facility]EROzsaleSELECT [facility] CLINICAL PATHOLOGY LABORATORY eGFR 33(L) >=60 mL/min/1 .73m2 07/11/2025 11:23 AM T [facility]PRE[facility] CL[facility] LAB[facility] Comment:The estimated glomer ular [...] in Diagnosing Kidney Disease . Globulin, Total 3.1 2.1 - 4.2 g/dL 07/11/2025 11:23 AM EDT [facility]salePRE[facility] CL[facility] PATH[facility] LAB[facility] A/G Ratio 1.2(L) 1.5 - 3.0 07/11/2025 11:23 AM T [facility]salePRE[facility] CL[facility] PATH[facility] LAB[facility]AT[facility] Blood Structure of peripheral vein / Unknown Venipuncture / Unknown 07/11/2025 9:52 AM EDT 07/11/2025 10:44 AM EDT us Dennys Roberto MD LAB BLOOD ORDERABLES Final Re sult Performing Organization Address [facility] Co de Phone Number [facility] CL[facility] LAB[facility] [address] [place] [address], [place] * (ABNORMAL) POCT Glycosylated Hemoglobin (HGB A1C), interfaced (07/07/2025 2:37 PM EDT) Hemoglobin A1C, POCT 6.1(H) <=5.6 % 07/07/2025 2:58 PM EDT [facility] Comment: A1C Recommendation for Non- Adults with Diabetes: <7.0% ADA 2011 Standards of Medical Care in Diabetes Blood 07/07/2025 2:37 PM EDT 07/07/2025 2:58 PM EDT us Dora Vidal MD LAB POCT ORDERABLES - DEVICE Fin al Result Performing Organization Address [facility] de Phone Number [facility] [address] [place] [address], [place] * CT Abdomen Pelvis without Contrast (01/01/2024 8:22 AM EST) Anatomical Region Laterality Modality Body Computed Tomogra phy 01/01/2024 9:17 AM EST Impressions 01/01/2024 10:14 AM EST Residual stone seen within the right lower pole kidney. 9 mm and 12 mm respectively. If this radiology report contains a blank impression section, it is an incomplete radiology report. Please contact the interpreting radiologist or applicable radiology division as soon as possible to obtain the completed interpretation. Workstation ID: [id number] Up-to-date CT equipment and radiation dose reduction [...] the focal lumbar junction. Resulting Agency Comment [id number] Procedure Note Irina Gomez MD - 01/01/2024 [...] possible to obtain thecompleted interpretation. Workstation ID: [id number] Up-to-date CT equipment and radiation dose reduction techniques wereemployed. CTDIvol: 8.7 mGy. DLP: 478 mGy-cm. 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
--- OUTSIDE RECORDS SUMMARY | 2025-07-28 13:13 | XMS_ITS | Clinical Summary ---
Author Organization [facility] Address [address] [place] [address] Phone Care Team Providers Care Front Desk Administrator Name Role Phone Berenice Mix MD Primary Care Provider [phone] Kary Quintana MD Unavailable [phone] Shari Chamorro MD Unavailable [phone] Allergies Active Allergy Reactions Criticality Noted Date Comments Ibuprofen 08/11/2022 Medications amLODIPine (NORVASC) 10 MG tablet Take 10 mg by mouth daily. Active rosuvastatin (CRESTOR) 40 MG tablet Take 40 mg by mouth daily. Active levothyroxine (SYNTHROID, LEVOTHROID) 75 MCG tablet Active metoprolol succinate-hydro CHLOROthiazide 100-12.5 mg Tb24 Active DEXCOM G7 SENSOR Tanisha USE DIRECTED, CHANGE EVERY 10 DAYS Active losartan (COZAAR) 50 MG tablet Take 50 mg by mouth daily. Active GEMTESA 75 mg tablet Take 75 mg by mouth daily. Active metoprolol succinate (TOPROL-XL) 100 MG 24 hr tablet TAKE 2 TABLETS (200 MG) ORALLY DAILY Active MOUNJARO 2.5 mg/0.5 mL PnIj subcutaneous pen INJECT 0.5 ML (2.5 MG) SUBCUTANEOUSLY ONE TIME PER WEEK Active LANTUS SOLOSTAR U-100 INSULIN 100 unit/mL (3 mL) InPn injection pen 40 Units. Active silver sulfADIAZINE (SILVADENE) 1 % cream APPLY TOPICALLY DAILY APPLY A 1.5 MM THICKNESS 025 Active FARXIGA 10 mg tablet TAKE 1 TABLET (10 MG) ORALLY DAILY Oral; Duration: 90 Days Active sertraline (ZOLOFT) 50 MG tablet Take 1.5 tablets (75 mg total) by mouth daily. 135 tablet 3 025 Active donepeziL (ARICEPT) 10 MG tabletIndicatio ns:Alzheimer's disease TAKE 1 TABLET BY MOUTH EVERY DAY 90 tablet 3 025 Active sertraline (ZOLOFT) 50 MG tablet take 1 tablet by mouth every day 90 tablet 3 024 2024 Discontinued donepeziL (ARICEPT) 10 MG tablet take 1 tablet by mouth every day 90 tablet 3 024 2024 Discontinued Active Problems Problem Noted Date Diagnosed Date Alzheimer's disease 12/01/2024 Overview (01/17/2025): New dx from Dr. Kary Quintana Hyperlipidemia 08/25/2022 CKD (chronic kidney disease) 05/14/2022 Hypertensive disorder 04/08/2012 Overview (12/16/2014): Hypertensive disorder Malignant tumor of prostate 04/08/2012 Overview (12/16/2014): Malignant tumor of prostate Diabetes mellitus 04/08/2012 Overview (12/16/2014): Diabetes mellitus Hypothyroidism 04/08/2012 Overview (12/16/2014): Hypothyroidism Encounters Date Type Department Care Team Description 07/19/2025 1:45 PM EDT Procedure visit [facility] [address] [place] [address] Heydi Donohue MD, PhD Exudative age-related macular degeneration of right eye with active choroidal neovascularization (Primary Dx) 07/16/2025 Refill [facility] [place] of [place]rology [address], [address], [address] [place] [address] Kary Quintana MD Medication Refill 06/29/2025 9:00 AM EDT Office Visit [facility] [place] of [place]rology [address], [address] [place] [address] Kary Quintana MD Alzheimer's disease (Primary Dx); Major neurocognitive disorder 06/21/2025 1:30 PM EDT Procedure visit [facility] [address] [place] [address] Heydi Donohue MD, PhD Exudative age-related macular degeneration of right eye with active choroidal neovascularization (Primary Dx) 05/19/2025 Documentation [facility] [address] [address] Chase Contreras MD 2025 1:30 PM EDT Procedure visit [facility] [address] [place] [address] Heydi Donohue MD, PhD Exudative age-related macular degeneration of right eye with active choroidal neovascularization (Primary Dx) 05/01/2025 2:30 PM EDT Office Visit [facility] [place] of [place]rology [address] [facility] [address], [address] [place] [address] Shari Chamorro MD Alzheimer's disease (Primary Dx) from Last 3 Months Social History Tobacco Use Types Packs/Day Years Used Date Smoking Tobacco: Former Cigarettes Pipe Cigars Passive Smoke Exposure: Past Smokeless Tobacco: Never Tobacco Cessation:Counseling Given: Not Answered Comments:Quit smokin10/26/1993 Education Answer Date Recorded Are you interested [...] Sign Reading Time Taken Comments Blood Pressure 126/77 06/29/2025 8:27 AM EDT Pulse 55 06/29/2025 8:27 AM EDT Temperature 36.4 C (97.5 F) 06/29/2025 8:27 AM EDT Respiratory Rate 18 07/20/2024 11:22 AM EDT Oxygen Saturation 97% 06/29/2025 8:27 AM EDT Inhaled Oxygen Concentration - - Weight 153.3 kg (338 lb) 06/29/2025 8:27 AM EDT Height 180.3 cm (5' 11 ) 06/29/2025 8:27 AM EDT Body Mass Index 47.14 06/29/2025 8:27 AM EDT Plan of Treatment Upcoming Encounters Date Type Department Care Team ([facility] st Contact Info) Description 01/08/2026 1:00 PM EDT Office [place] [facility] [place] of [place]rology [address] [place] [address], 8th Floor, [address] [place] [address] Kary Quintana MD [address] [place] [id number] [email or web address] Health Maintenance Due Date Last Done Comments DEPRESSION SCREENING 1963 HEPATITIS C SCREENING 1969 PNEUMOCOCCAL VACCINES (50+ years) (1 of 2 - PCV) 1970 COLOGUARD 1996 COLONOSCOPY 1996 COLORECTAL CANCER SCREENING 1996 FIT TEST 1996 FOBT 1996 SIGMOIDOSCOPY 1996 VIRTUAL COLONOSCOPY 1996 RSV VACCINE (1 - Risk 50-74 years 1-dose series) 2001 ZOSTER VACCINES (2 of 2) 08/27/2020 07/02/2020 Adult Td,Tdap Booster 04/13/2022 04/13/2012 INFLUENZA VACCINE (#1) 2025 2, 07/02/2020, 07/20/2019, Additional history exists COVID-19 VACCINE (2 - 2024-26 season) 2025 12/27/2020 CREATININE LEVEL 12/01/2025 12/01/2024, 07/02/2023 POTASSIUM LEVEL 12/01/2025 12/01/2024 TSH LEVEL 12/01/2025 12/01/2024 BLOOD PRESSURE 12/27/2025 06/29/2025 HEMOGLOBIN A1C 01/04/2026 07/07/2025, 06/26, 03/07/2025, Additional history exists DIABETIC EYE EXAM 03/29/2026 03/29/2025, , 03/29/2025, Additional history exists SMOKING Hx and SMOKELESS TOBACCO SCREENING 07/19/2026 07/19/2025 ABDOMINAL AORTIC ANEURYSM (AAA) SCREENING Completed 01/01/2024, 03/26/2013 HEPATITIS A VACCINES Aged Out No long er eligible based on patient's age to complete this topic HIB VACCINES Aged Out No longer eligi ble based on patient's age to complete this topic MENINGOCOCCAL VACCINES (ACWY) Aged Out No longer eligible based on patient's age to complete this topic MENINGOCOCCAL VACCINES (B) Aged Out N o longer eligible based on patient's age to complete this topic Medical Devices Implanted Type Area Stone Dresser Device Identifier Shelf Expiration Date Model / Serial / Lot Coronary Stents Description:X2 Cypher stents - Static magnetic field of 1.5 or 3 Carla .Spatial gradient field of 1350 Gauss/cm or less Taxus Stent- Static magnetic field of 1.5 or 3 Carla Spatial gradient field of 700 Gauss/cm or less -[id number] 10/30/24 Procedures Procedure Name Priority Date/Time Associated Diagnosis Comments OCT, RETINA - OU - BOTH EYES Routine 07/19/2025 2:21 PM EDT Exudative age-related macular degeneration of right eye with active choroidal neovascularization INTRAVITREAL INJECTION, PHARMACOLOGIC AGENT - OD - RIGHT EYE Routine 07/19/2025 2:18 PM EDT Exudative age-related macular degeneration of right eye with active choroidal neovascularization OCT, RETINA - OU - BOTH EYES Routine 06/21/2025 1:44 PM EDT Exudative age-related macular degeneration of right eye with active choroidal neovascularization INTRAVITREAL INJECTION, PHARMACOLOGIC AGENT - OD - RIGHT EYE Routine 06/21/2025 1:41 PM EDT Exudative age-related macular degeneration of right eye with active choroidal neovascularization OCT, RETINA - OU - BOTH EYES Routine 2025 1:35 PM EDT Exudative age-related macular degeneration of right eye with active choroidal neovascularization INTRAVITREAL INJECTION, PHARMACOLOGIC AGENT - OD - RIGHT EYE Routine 2025 1:27 PM EDT Exudative age-related macular degeneration of right eye with active choroidal neovascularization TSH WITH REFLEX Routine 12/01/2024 12:17 PM EST Major neurocognitive disorder COMPREHENSIVE METABOLIC PANEL Routine 12/01/2024 12:17 PM EST Major neurocognitive disorder CT ABDOMEN/PELVIS (GI) WITH CONTRAST Routine 03/26/2013 5:20 PM EDT from Last 3 Months or Most Recently Relevant to Health Maintenance Results * OCT, RETINA - OU - BOTH EYES - [place] (07/19/2025 2:21 PM EDT) Narrative ILA - 07/19/2025 2:21 PM EDT OD: PED, no SRF OS: PED, no SRF us Heydi Donohue MD, PhD OPHTHALMOLOGY IMAGING Final Result ILA * Intravitreal Injection, Pharmacologic Agent - OD - Right Eye (07/19/2025 2:18 PM EDT) Other Narrative Heydi Donohue MD, PhD - 07/19/2025 2:18 PM EDT Pre-Procedure Fall Risk Assessment: age >65 (10 pts). VA Right Eye cc: 20/50 +2. Ph cc: NI. Left Eye cc: 20/60 +2. Ph cc: NI. Pre Procedure Drops to Injected Eye Anesthetic Medication: Proparacaine 0.5%. Antibiotic/Antiseptic Medications: Moxifloxacin 0.5%, Povidone Iodine 5%. Injection Information Timeout performed: Yes. Anesthetic Medication: Proparacaine 0.5%. Anesthetic Medication, time: 2:07 PM. Antiseptic Medication Povidone Iodine. Antiseptic Medication, Time: 2:07 PM. Antibiotic Medications: Moxifloxacin 0.5%. Injection Medication: 2 mg aflibercept 2 mg/0.05 mL Route: Intravitreal, Site: Right Eye [facility]: 31369-638-29, Lot: [id number], Expiration date: 09/04/2026, Waste: 0 mL Notes Lid speculum was inserted after a drop of proparacaine and 5% povidone-iodine Q-tip soaked in ?4% lidocaine was applied to the conjunctiva One drop 5% Povidone-Iodine given on the injection site Medication injected 3.5-4.0 mm posterior to limbus temporally One drop of antibiotic applied at end of procedure All medications administered as ordered and at the times indicated above Discharge instructions were reviewed with the patient. Patient knows to report increasing redness and pain and loss of vision immediately. The patient can continue all medications. Heydi Donohue MD, PhD Heydi Donohue MD, PhD OPHTHALMOLOGY PROCEDURES Fi nal Result * OCT, RETINA - OU - BOTH EYES - [place] (06/21/2025 1:44 PM EDT) Edgar THORPE - 06/21/2025 1:44 PM EDT OD: PED, trace SRF OS: PED, no SRF Heydi Donohue MD, PhD OPHTHALMOLOGY IMAGING Final Result ILA * Intravitreal Injection, Pharmacologic Agent - OD - Right Eye (06/21/2025 1:41 PM EDT) Other Narrative Heydi Donohue MD, PhD - 06/21/2025 1:41 PM EDT Pre-Procedure Fall Risk Assessment: age >65 (10 pts). VA Right Eye cc: 20/40. Ph cc: NI. Left Eye cc: 20/60-2. Ph cc: NI. Pre Procedure Drops to Injected Eye Anesthetic Medication: Proparacaine 0.5%. 1:16 PM. Antibiotic/Antiseptic Medications: Moxifloxacin 0.5%, Povidone Iodine 5%. Antibiotic/Antiseptic Medication, time: 1:16 PM. Injection Information Timeout performed: Yes. Anesthetic Medication: Proparacaine 0.5%. Antiseptic Medication Povidone Iodine. Antibiotic Medications: Moxifloxacin 0.5%. Injection Medication: 2 mg aflibercept 2 mg/0.05 mL Route: Intravitreal, Site: Right Eye [facility]: 88084-348-92, Lot: [id number], Expiration date: 08/21/2026, Waste: 0 mL Notes Lid speculum was inserted after a drop of proparacaine and 5% povidone-iodine Q-tip soaked in ?4% lidocaine was applied to the conjunctiva One drop 5% Povidone-Iodine given on the injection site Medication injected 3.5-4.0 mm posterior to limbus temporally One drop of antibiotic applied at end of procedure All medications administered as ordered and at the times indicated above Discharge instructions were reviewed with the patient. Patient knows to report increasing redness and pain and loss of vision immediately. The patient can continue all medications. Heydi Donohue MD, PhD Heydi Donohue MD, PhD OPHTHALMOLOGY PROCEDURES Fi nal Result * OCT, RETINA - OU - BOTH EYES - [place] (2025 1:35 PM EDT) Edgar THORPE - 2025 1:35 PM EDT OD: PED, trace SRF OS: PED, no SRF Heydi Donohue MD, PhD OPHTHALMOLOGY IMAGING Final Result ILA * Intravitreal Injection, Pharmacologic Agent - OD - Right Eye (2025 1:27 PM EDT) Other Narrative Heydi Donohue MD, PhD - 2025 1:27 PM EDT Pre Procedure Drops to Injected Eye Anesthetic Medication: Proparacaine 0.5%. Antibiotic/Antiseptic Medications: Moxifloxacin 0.5%, Povidone Iodine 5%. Injection Information Timeout performed: Yes. Anesthetic Medication: Proparacaine 0.5%. Antiseptic Medication Povidone Iodine. Antibiotic Medications: Moxifloxacin 0.5%. Injection Medication: 2 mg aflibercept 2 mg/0.05 mL Route: Intravitreal, Site: Right Eye [facility]: 77448-412-62, Lot: [id number], Expiration date: 05/04/2026, Waste: 0 mL Notes Lid speculum was inserted after a drop of proparacaine and 5% povidone-iodine Q-tip soaked in ?4% lidocaine was applied to the conjunctiva One drop 5% Povidone-Iodine given on the injection site Medication injected 3.5-4.0 mm posterior to limbus temporally One drop of antibiotic applied at end of procedure All medications administered as ordered and at the times indicated above Discharge instructions were reviewed with the patient. Patient knows to report increasing redness and pain and loss of vision immediately. The patient can continue all medications. Heydi Donohue MD, PhD us Heydi Donohue MD, PhD OPHTHALMOLOGY PROCEDURES Fi nal Result * (ABNORMAL) Comprehensive metabolic panel (12/01/2024 12:17 PM EST) SODIUM 145 135 - 145 mmol/L [facility] POTASSIUM 4.3 3.4 - 5.0 mmol/L [facility] CHLORIDE 107 98 - 108 mmol/L [facility] CO2 23 23 - 32 mmol/L [facility] BUN 27(H) 8 - 25 mg/dL [facility] CREATININE 2.40(H) 0.60 - 1.30 mg/dL [facility] GLUCOSE 164(H) 70 - 110 mg/dL [facility] ALBUMIN 3.8 3.3 - 5.0 g/dL [facility] TOTAL PROTEIN 6.9 6.0 - 8.3 g/dL [facility] CALCIUM 9.6 8.5 - 10.5 mg/dL [facility] ALKALINE PHOSPHATASE 82 45 - 115 U/L [facility] TOTAL BILIRUBIN 1.0 0.0 - 1.0 mg/dL [facility] AST 21 10 - 40 U/L [facility] ALT 18 10 - 55 U/L [facility] GLOBULIN 3.1 1.9 - 4.1 g/dL [facility] EGFR 28(L) >59 mL/min/1. 73m2 [facility] Comment:Estimated glomerular filtration rate calculated using the CKD-EPI refit equation. ANION GAP 15 3 - 17 mmol/L [facility] 12/01/2024 12:1 7 PM EST 12/01/2024 6:04 PM EST Kary Quintana MD LAB BLOOD ORDERABLES Final Result Performing Organization Address City/[facility] [place] [address] * TSH with reflex (12/01/2024 12:17 PM EST) SCREENING PANEL: TSH 0.97 0.40 - 5.00 uIU/mL [facility] 12/01/2024 12:1 7 PM EST 12/01/2024 6:02 PM EST Result [facility] Kary Quintana MD LAB BLOOD ORDERABLES Final Result Performing Organization Address [facility] Co de Phone Number [address] [address] * CT Abdomen/Pelvis (GI) With Contrast (03/26/2013 5:20 PM EDT) Anatomical Region Laterality Modality Abdomen, Pelvis Computed Tomogra phy 04/07/2013 11:4 8 AM EDT Narrative 04/07/2013 5:20 PM EDT Exam Number: [id number] Report Status: Final Type: CTAb&CTPelw/C Date/Time: 04/07/2013 11:48 Exam Code: CTABPW Ordering Provider: Kane Beauchamp MD PHD HISTORY: - Neoplasm - Prostate staging - 62 yo M with new diagnosis of [place] 7 prostate cancer. Assess for lymphadenopathy and metastases REPORT TECHNIQUE: CT of the abdomen and pelvis WITH intravenous contrast. Scans were continued into the pelvis to evaluate for metastases. COMPARISON: None available. FINDINGS: LOWER THORAX: There is a 4 mm nodule in the right lower lobe that appears calcified and likely represents a granuloma (series 2, image 1). HEPATOBILIARY: There is a subcentimeter hypodensity (series 2, image 16) that is too small to characterize but likely represents a cyst. No biliary ductal dilatation. SPLEEN: No splenomegaly. PANCREAS: No focal masses or ductal dilatation. ADRENALS: No adrenal nodules. KIDNEYS/URETERS: There is a 1.5 mm stone in the right renal pelvis which measures 1000 Hounsfield units. There is no hydronephrosis. There is a 1.6 cm cyst in the upper pole of the right kidney. Additional subcentimeter hypodensities in the right kidney are too small to characterize but likely represent cysts. No solid mass lesions. PELVIC ORGANS/BLADDER: There is prostatomegaly, measuring 6.6 cm. PERITONEUM / RETROPERITONEUM: No free air or fluid. LYMPH NODES: There is a 1.2 cm para-aortic lymph node which contains a fatty hilum and appears benign (series 2, image 39). VESSELS: There are scattered atherosclerotic calcifications within the abdominal aorta and its visualized branches. GI TRACT: No distention or wall thickening. BONES AND SOFT TISSUES: Degenerative changes are noted in the visualized skeleton. No suspicious lytic or blastic lesions are identified. IMPRESSION: No evidence of lymphadenopathy or metastatic disease in the abdomen or pelvis. PROVIDERS: SIGNATURES: Rika Donnelly MD, Ashraf MD Thabet, Ashraf MD Procedure Note Sys, Conversion Provider Not In - 03/06/2015 Exam Number: [id number] Report Status: Final Type: CTAb&CTPelw/C Date/Time: 04/07/2013 11:48 Exam Code: CTABPW Ordering Provider: Kane Beauchamp MD PHD HISTORY: - Neoplasm - Prostate staging - 62 yo M with new diagnosis ofGleason 7 prostate cancer. Assess for lymphadenopathy and metastases REPORT TECHNIQUE: CT of the abdomen and pelvis WITH intravenous contrast. Scans were continued into the pelvis to evaluate for metastases. COMPARISON: None available. FINDINGS: LOWER THORAX: There is a 4 mm nodule in the right lower lobe that appears calcified and likely represents a granuloma (series 2, image 1). HEPATOBILIARY: There is a subcentimeter hypodensity (series 2, image 16) that is too small to characterize but likely represents a cyst. No biliary ductal dilatation. SPLEEN: No splenomegaly. PANCREAS: No focal masses or ductal dilatation. ADRENALS: No adrenal nodules. KIDNEYS/URETERS: There is a 1.5 mm stone in the right renal pelvis which measures 1000 Hounsfield units. There is no hydronephrosis. There is a 1.6 cm cyst in the upper pole of the right kidney. Additional subcentimeter hypodensities in the right kidney are too small to characterize but likely represent cysts. No solid mass lesions. PELVIC ORGANS/BLADDER: There is prostatomegaly, measuring 6.6 cm. PERITONEUM / RETROPERITONEUM: No free air or fluid. LYMPH NODES: There is a 1.2 cm para-aortic lymph node which contains a fatty hilum and appears benign (series 2, image 39). VESSELS: There are scattered atherosclerotic calcifications within the abdominal aorta and its visualized branches. GI TRACT: No distention or wall thickening. BONES AND SOFT TISSUES: Degenerative changes are noted in the visualized skeleton. No suspicious lytic or blastic lesions are identified. IMPRESSION: No evidence of lymphadenopathy or metastatic disease in the abdomen or pelvis. PROVIDERS: SIGNATURES: Rika Donnelly MD, Ashraf MD Thabet, Ashraf MD Kane Beauchamp MD, PhD IMG CT ABD/PELVIS Final Result from Last 3 Months or Most Recently Relevant to Health Maintenance Insurance MEDICARE PART A & B [facility] MEDICARE SUPPLEMENT MEDICARE PART A & B [facility] MEDICARE SUPPLEMENT [facility]IC[facility] SUPPLE[facility] MEDICARE PART A & B [facility] MEDICARE SUPPLEMENT MEDICARE PART A & B [facility] MEDICARE SUPPLEMENT MEDICARE PART A & B [employer] [place] [id number] [email or web address] MEDICARE SUPPLEMENT MED[place] PART A & [place] [id number] [facility] MEDICARE SUPPLEMENT Care Teams Front Desk Administrator Relationship Specialty Start Date End Date Berenice Mix MD [address] [place] [address] PCP - General 04/25/14 Kary Quintana MD [address] [place] [address] [address] [place] [address] [email or web address] 04/20/25 Shari Chamorro MD [address] [place] [address] [address] [place] [address] [email or web address] 04/20/25 Additional Source Comments The information contained in this document represents components of the legal health record. It is not the complete legal health record.[facility]
--- OUTSIDE RECORDS SUMMARY | 2025-07-28 13:13 | XMS_ITS | Encounter Summary ---
Author Organization [facility] Address [address] [place] [address] Care Team Providers Care Medical Dermatologist Name Role Phone Berenice Mix Primary Care Provider [phone] Encounter Details Date Type Department Care Team (Late st Contact Info) Description 07/07/2025 myChart Message [facility] [address] [place] [address] [employer] Consultant: Dora Bonds MD [address] [place] [phone] Question about visits Social History Tobacco Use Types Packs/Day Years [...] Info) Description 09/14/2025 8:15 AM EST Follow-Up [facility] [address] [place] [address] [employer] Consultant: Johnna Moss, DENY Lara [address] [place] [address] 10/10/2025 10:00 AM EST Follow-Up [facility] [address] [place] [address] [employer] Consultant: Dennys Collins MD [address] [place] [phone] 11/24/2025 2:30 PM EST Office Visit [facility] [address] [place] [address] [employer] Consultant: Breanne Herrera, Breanne Morales NP [address] [place] [phone] 04/19/2026 2:30 PM EDT Office Visit [facility] [address] [place] [address] [employer] Consultant: Dora Bonds MD [address] [place] [phone] documented as of this encounter Visit Diagnoses Not on filedocumented in this encounter Care Teams Medical Dermatologist Relationship Specialty Start Date End Date Berenice Mix [address] [place] [address] PCP - General 05/14/17 documented as of this encounter
--- OUTSIDE RECORDS SUMMARY | 2025-07-28 13:13 | XMS_ITS | Patient Health Record ---
Author Organization [facility] [place] Address [address] [place] [address] Care Team Providers Care Comber Operator Name Role Phone Berenice Mix MD Primary Care Provider Kb Andres Unavailable [phone] Allergies No Known Allergies Results Component Value Reference Range Notes HEMOGLOBIN A1C (GLYCOHEMOGLO BIN) Reviewed date:05/11/2025 09:52:42 AM Interpretation: Performing Lab: Notes/Report: HEMOGLOBIN A1C % (HH) 5.7 Reason For Referral No Information Medications Medication SIG (Take, Route, Frequency, Duration) Notes Start Date End Date Status Farxiga 10 MG TAKE 1 TABLET (10 MG ) ORALLY DAILY Oral; Duration: 90 Days Active amLODIPine Besylate 10 MG Oral; Duration: 90 Days Acti ve prednisoLONE 5 MG 1 tablet in the morn ing with food or milk Orally Once a day; Duration: 30 day(s) 10/12/2023 Not-Taking Donepezil HCl 10 MG Oral; Duration: 90 Days Active Trulicity 3 MG/0.5ML INJECT 3 MG (0.5 ML ) SUBCUTANEOUSLY EVERY WEEK Subcutaneous; Duration: 84 Days Not-Taking Lantus SoloStar 100 UNIT/ML as directed Subcutaneous Act janelle Dex Combo Active oxyBUTYnin Chloride ER 10 MG Oral; Duration: 90 Days Not- Taking Ammonium Lactate 12 % 1 application Exte rnally to affected areas of skin to feet except for between the toes Twice a day; Duration: 30 days Active Sertraline HCl 50 MG Oral; Duration: 90 Days Active Extra Depth Orthopedic Shoes, (1) Pair With (3) Pair Custom Heat Molded Multidensity Innersoles Dx: NIDDM/PVD(E11.51), Hammertoe Foot Deformity(M20.41,M20.42) , Preulcerative Skin Lesion(s)(L85.1) Wear Daily; Duration: 365 days Active Mounjaro 2.5 MG/0.5ML as directed Subcutaneous Active Metoprolol Succinate ER 100 MG Oral; Duration: 90 Days Acti ve Rosuvastatin Calcium 40 MG Oral; Duration: 90 Days Acti ve Losartan Potassium 50 MG Oral; Duration: 90 Days Active Testosterone Cypionate 200 MG/ML INJECT 1.5 ML (300 MG TOTAL) INTO THE SHOULDER, THIGH, OR BUTTOCKS MUSCLE DIRECTED EVERY 21 DAYS. Intramuscular; Duration: 21 Days Not-Taking Levothyroxine Sodium 75 MCG Oral; Duration: 84 Days Acti ve Myrbetriq 50 MG Oral; Duration: 90 Days Not-Taking Immunizations Vaccine Route Administration Date Status Comme nts Influenza Unknown 06/27/2024 Administered Social History Tobacco Use: Social History Observation Description Date Details (start date - stop date) Never Smoker NA - NA Tobacco use other than smoking: Question Answer Notes Are you an other tobacco user? No Tobacco Control (Standard) Question Answer Notes Tobacco use: Nonsmoker Additional Findings: Tobacco non-user Current no nsmoker AUDIT-C (Standard) Question Answer Notes Did you have a drink containing alcohol in the p ast year? No Points 0 Interpretation Negative Problems Problem Type SNOMED Code ICD Code Onset Dates Problem Status W/U Status Risk Notes Problem Acquired hammer toe of right foot (3428924517110 105) Other hammer toe(s) (acquired), right foot (M20.41) Active confirmed Problem Type 2 diabetes mellitus with peripheral angiopathy (362292497) Type 2 diabetes mellitus with diabetic peripheral angiopathy without gangrene (E11.51) Active confirmed Q7(A), Q8(2B), Q9(1B,2C) Problem Acquired hammer toe of left foot (3569391310449 103) Other hammer toe(s) (acquired), left foot (M20.42) Active confirmed Vital Signs Height 6ft 2in in 05/11/2025 Weight 340 lbs 05/11/2025 BMI 43.65 kg/m2 05/11/2025 Procedures Procedure Date Ordered Date Performed Result Body Sit e 16710-RXPYNGO NAIL, 6 OR MORE 08/29/2024 N/A 55597-MIVA SKIN LESIONS, OVER 4 08/29/2024 N/A 42119-LRCCBYP NAIL, 6 OR MORE 05/11/2025 N/A 02549-ZKGM SKIN LESIONS, OVER 4 05/11/2025 N/A Encounters Encounter Location Date Provider Diagnosis [address] [address] 08/29/2024 Kb Spencerunier Type 2 diabetes mellitus with diabetic peripheral angiopathy without gangrene E11.51 ; Tinea unguium B35.1 ; Pain in right toe(s) M79.674 ; Pain in left toe(s) M79.675 and Xerosis of skin L85.[address] [address] 05/11/2025 Kb Marti Type 2 diabetes mellitus with diabetic peripheral angiopathy without gangrene E11.51 ; Other hammer toe(s) (acquired), right foot M20.41 ; Tinea unguium B35.1 ; Pain in right toe(s) M79.674 ; Pain in left toe(s) M79.675 and Other hammer toe(s) (acquired), left foot M20.42 [facility] [address] [address] [facility]29[facility] [address] 05/15/2025 Kb Marti Xerosis of skin L85.3 Assessments Encounter Date Diagnosis (ICD Code) Assessment Notes Treatment Notes Treatment Clinical Notes Section Notes 08/29/2024 Type 2 diabetes mellitus with diabetic peripheral angiopathy without gangrene (ICD-10 - E11.51) Q7(A), Q8(2B), Q9(1B,2C) 08/29/2024 Tinea unguium (ICD-10 - B35.1) 05/11/2025 Other hammer toe(s) (acquired), right foot (ICD-10 - M20.41) Patient Educated with: DIABETIC FOOT CARE INSTRUCTIONS.p df (DIABETIC FOOT CARE INSTRUCTIONS.p df) 05/11/2025 Type 2 diabetes mellitus with diabetic peripheral angiopathy without gangrene (ICD-10 - E11.51) 05/15/2025 Xerosis of skin (ICD-10 - L85.3) 05/11/2025 Tinea unguium (ICD-10 - B35.1) 08/29/2024 Pain in right toe(s) (ICD-10 - M79.674) 08/29/2024 Pain in left toe(s) (ICD-10 - M79.675) 05/11/2025 Pain in right toe(s) (ICD-10 - M79.674) 05/11/2025 Pain in left toe(s) (ICD-10 - M79.675) 08/29/2024 Xerosis of skin (ICD-10 - L85.3) 05/11/2025 Other hammer toe(s) (acquired), left foot (ICD-10 - M20.42) Plan Of Treatment Pending Test Test Name Order Date 44398-OLULMWK NAIL, 6 OR MORE 12/21/2023 44527-VGFUEDL NAIL, 6 OR MORE 05/30/2024 80353-SNISIKR NAIL, 6 OR MORE 08/29/2024 16817-SILJBNH NAIL, 6 OR MORE 05/11/2025 99575-Gvgjhbog Plate 05/30/2024 71715-PSIO SKIN LESIONS, OVER 4 05/30/20 24 05088-RUUX SKIN LESIONS, OVER 4 05/11/20 25 75556-VPHX SKIN LESIONS, OVER 4 08/29/20 24 81035-WUYR SKIN LESIONS, 2 TO 4 12/21/19 24 Next Appt Details Provider Name:Kb Ramirez Figueroa , 08/10/2025 09:30:00 AM, [address] [facility], [address], [place], [address], Insurance Providers Payer Name Payer Address Payer Phone Subscriber Number Group Number Insured Name Patient Relationship to Insured Coverage Start Date Coverage End Date Medicare [employer] [facility] [employer] [address] [place] [address] [id number] Stanley Burton Self - patient is the insured [facility] [address] [place] [address] [phone] [id number] Aundrea Burton Spouse - patient is the spouse of the insured Medical (General) History Medical History History ICD Code Anxiety Back,Hip,and Knee pain Cancer Dementia Diabetic High blood pressure Kidney disease Poor circulation Measles Mumps Chicken pox Alzheimers disease Surgical History Surgery Date(Month/Year) trans-radial Breast Stents
--- OUTSIDE RECORDS SUMMARY | 2025-07-28 13:13 | XMS_ITS | Encounter Summary ---
Author Organization [facility] Address [address] [place] [address] Care Team Providers Care Application Design Engineer Name Role Phone Berenice Mix Primary Care Provider [phone] Encounter Details Date Type Department Care Team (Late st Contact Info) Description 07/25/2025 myChart Message [facility] Diabetes Clinic [address] [place] [address] Museum Librarian: Dora Bonds MD [address] [place] [address] Raymundo and the Luc Social History Tobacco Use Types Packs/Day Years [...] Info) Description 09/14/2025 8:15 AM EST Follow-Up [facility] Urology [address] [address] Museum Librarian: Johnna Moss, DENY Lara [address] [place] [address] 10/10/2025 10:00 AM EST Follow-Up [facility] Nephrology Clinic [address] [place] [address] Museum Librarian: Dennys Collins MD [address] [place] [address] 11/24/2025 2:30 PM EST Office Visit [facility] Diabetes [address] [address] Museum Librarian: Breanne Herrera, Breanne Morales NP [address] [place] [address] 04/19/2026 2:30 PM EDT Office Visit [facility] Diabetes [address] [address] Museum Librarian: Dora Bonds MD [address] [place] [address] documented as of this encounter Visit Diagnoses Not on filedocumented in this encounter Care Teams Application Design Engineer Relationship Specialty Start Date End Date Berenice Mix [address] [place] [address] PCP - General 05/14/17 documented as of this encounter
--- OUTSIDE RECORDS SUMMARY | 2025-07-28 13:13 | XMS_ITS | Encounter Summary ---
Author Organization [facility] Address [address] [place] [address] Care Team Providers Care Television Operator Name Role Phone Berenice Mix Primary Care Provider [phone] Encounter Details Date Type Department Care Team (Late st Contact Info) Description 07/27/2025 Orders Only [facility] Diabetes Clinic [address] [place] [address] Tub Puller: Dora Bonds MD [address] [place] [address] [phone] Social History Tobacco Use Types Packs/Day Years [...] Info) Description 09/14/2025 8:15 AM EST Follow-Up [facility] Urology Clinic [address] [place] [address] Tub Puller: Johnna Moss, DENY Lara [address] [place] [address] 10/10/2025 10:00 AM EST Follow-Up [facility] Nephrology Clinic [address] [place] [address] Tub Puller: Dennys Collins MD [address] [place] [address] 11/24/2025 2:30 PM EST Office Visit [facility] Diabetes Clinic [address] [place] [address] Tub Puller: Breanne Sabillon NP [address] [place] [address] 04/19/2026 2:30 PM EDT Office Visit [facility] Diabetes [facility] [address] [place] [address] Tub Puller: Dora Bonds MD [address] [place] [address] documented as of this encounter Visit Diagnoses Not on filedocumented in this encounter Care Teams Television Operator Relationship Specialty Start Date End Date Berenice Mix [address] [place] [address] PCP - General 05/14/17 documented as of this encounter
--- OUTSIDE RECORDS SUMMARY | 2025-07-28 13:13 | XMS_ITS | Encounter Summary ---
Author Organization [facility] Address [address] [facility] [address] [place] [address] Phone Care Team Providers Care Women'S Studies Professor Name Role Phone Berenice Mix MD Primary Care Provider [phone] Kary Quintana MD Unavailable [phone] Shari Chamorro MD Unavailable [phone] Encounter Details Date Type Department Care Team (Late st Contact Info) Description 04/07/2022 Procedure Pass MRI, [facility] Imaging - [place] [address] [place] [address] Social History Tobacco Use Types Packs/Day Years Used Date Smoking Tobacco: Former Cigarettes Smokeless Tobacco: Never Comments:Quit smokin10/26 Sex and Gender Information Value Date Recorded Sex Assigned at Not on file Legal Sex Male 7:03 PM EST Gender Identity Not on file Sexual Orientation Not on file documented as of this encounter Plan of Treatment Upcoming Encounters Date Type Department Care Team (Late st Contact Info) Description 01/08/2026 1:00 PM EDT Office Visit [facility] Department of Neurology [address] [place] [address], [address], [address] [place] [address] Kary Quintana MD [address] [place] [address] [address] [place] [address] [email or web address] documented as of this encounter Visit Diagnoses Not on filedocumented in this encounter Care Teams Women'S Studies Professor Relationship Specialty Start Date End Date Berenice Mix MD [address] [facility] [address] PCP - General 04/25/14 Kary Quintana MD [address] [place] [address] [address] [place] [address] [email or web address] 04/20/25 Shari Chamorro MD [address] [place] [address] [address] [place] [address] [email or web address] 04/20/25 documented as of this encounter Additional Source Comments The information contained in this document represents components of the legal health record. It is not the complete legal health record.[facility]
--- OUTSIDE RECORDS SUMMARY | 2025-07-28 13:13 | XMS_ITS | Encounter Summary ---
Author Organization [facility] Address [address] [place] [address] Care Team Providers Care Cut Lace Machine Operator Name Role Phone Berenice Mix Primary Care Provider [phone] Reason for Visit * Reason Onset Date Comments Symptom Concern 07/10/2025 Encounter Details Date Type Department Care Team (Late st Contact Info) Description 07/10/2025 Telephone [facility] Diabetes Clinic [address] [place] [address] Clasp Machine Operator: Dora Bonds MD [address] [place] [address] Symptom Concern Social History Tobacco Use Types Packs/Day Years [...] on file documented as of this encounter Miscellaneous Notes * Telephone Encounter - Dora Vidal MD - 07/10/2025 4:59 PM EDT Spoke with patient and his . Since he is having significant diarrhea with even the low dose of Mounjaro 2.5 mg weekly, I have recommended stopping this. He also had diarrhea with Ozempic, which resolved when he was off Ozempic for 4- 6 weeks, which makes it less likely that the diarrhea is due to diabetic enteropathy or some other condition (but if diarrhea persists off Mounjaro then might need to see GI). They report that he did not have diarrhea when he had been on Trulicity in the past, and only switched because insurance stopped covering, so I have recommended trying to switch back to Trulicity 0.75 mg weekly; might be able to get approval since he has had diarrhea with both Ozempic and Mounjaro. Otherwise, options are limited due to his CKD- might try a short-acting insulin secretagogue with meals, but he may end up needing prandial insulin, though these options would increase risk of hypoglycemia and weight gain, would complicate his regimen, and would not provide the additional benefits of the GLP-1 agonists. * Telephone Encounter - Donovan Cassidy - 07/10/2025 9:31 AM EDT ?? Endocrinology Phone Note Date/Time of Call: 9:31 AM Caller Name: Aundrea Patient Name: Stanley Relationship to Patient: Callback Number: [phone] Reason for Call: Symptom Concern Endocrine condition(s): DM Any Additional Information: Patient had a medium sized meal Thursday night and within an hour he had to run to the bathroom. It's been off and on all weekend even though he has been eating much personnel representative. Last night off and on all night. He was dizzy and tired. Fell in the bathroom but was able to get himself up. Will be having toast and keep him on a bland diet. Patient's is wondering if this is a start of Diabetic enteropathy. She did send a message on [employer] last Thursday She would also like to know when his follow up should be because she thinks he was supposed to be within 4 weeks, not 8 weeks. Provider: Dora Cassidy Follow-Up Plan: Please return her call documented in this encounter Plan of Treatment Upcoming Encounters Date Type Department Care Team (Late st Contact Info) Description 09/14/2025 8:15 AM EST Follow-Up [facility] Urology Clinic [address] [place] [address] Clasp Machine Operator: Johnna Moss, DENY Lara [address] [place] [address] 10/10/2025 10:00 AM EST Follow-Up [facility] Nephrology Clinic [address] [place] [address] Clasp Machine Operator: Dennys Collins MD [address] [place] [address] 11/24/2025 2:30 PM EST Office Visit [facility] Diabetes Clinic [address] [place] [address] Clasp Machine Operator: Breanne Sabillon NP [address] [place] [address] 04/19/2026 2:30 PM EDT Office Visit [facility] Diabetes Clinic [address] [place] [address] Clasp Machine Operator: Dora Bonds MD [address] [place] [address] documented as of this encounter Visit Diagnoses Not on filedocumented in this encounter Care Teams Cut Lace Machine Operator Relationship Specialty Start Date End Date Berenice Mix [address] [place] [address] PCP - General 05/14/17 documented as of this encounter
== END 2025-07-28 13:14 | disposition home or self-care (01) ==
PROVIDERS: PCP Internal Medicine; Visit Provider Internal Medicine
DX: I12.9 Hypertensive chronic kidney disease with stage 1 through stage 4 chronic kidney disease, or unspecified chronic kidney disease (principal); E11.9 Type 2 diabetes mellitus without complications; N18.30 Chronic kidney disease, stage 3 unspecified; C61 Malignant neoplasm of prostate; G30.9 Alzheimer's disease, unspecified; F02.80 Dementia in other diseases classified elsewhere, unspecified severity, without behavioral disturbance, psychotic disturbance, mood disturbance, and anxiety; E66.9 Obesity, unspecified; Z68.42 Body mass index [BMI] 45.0-49.9, adult

== ENCOUNTER → 2025-07-28 12:35 | Outpatient (BNVA) | payer MEDICARE, OTHER, SELFPAY | PROVIDERS: PCP Internal Medicine; Visit Provider Internal Medicine | DX: Z00.00 Encounter for general adult medical examination without abnormal findings (principal); E11.22 Type 2 diabetes mellitus with diabetic chronic kidney disease; I12.9 Hypertensive chronic kidney disease with stage 1 through stage 4 chronic kidney disease, or unspecified chronic kidney disease; E03.9 Hypothyroidism, unspecified; N18.4 Chronic kidney disease, stage 4 (severe); E78.5 Hyperlipidemia, unspecified; C61 Malignant neoplasm of prostate; G30.9 Alzheimer's disease, unspecified; F02.80 Dementia in other diseases classified elsewhere, unspecified severity, without behavioral disturbance, psychotic disturbance, mood disturbance, and anxiety; E66.9 Obesity, unspecified; Z68.42 Body mass index [BMI] 45.0-49.9, adult; Z79.4 Long term (current) use of insulin; Z79.899 Other long term (current) drug therapy | CPT/HCPCS: 96127; 99212 ==

== ENCOUNTER 2025-09-12 11:18 | Outpatient (AMB) | payer MEDICARE, OTHER, SELFPAY ==
--- NOTE | 2025-09-12 11:38 | A.OFFVIS_ITS ---
Intake Vital Signs 09/12/25 11:48 Height 6 ft Weight 335 lb BMI 45.4 BP 126/78 Blood Pressure Location Lt brachial Position Sitting Respiration 17 Pulse 94 Pulse Source Pulse Oximeter Temp 98.1 F Temp Source Oral Pulse Oximetry (%) 96 Oxygen Delivery Method Room Air Intake Visit Reasons: AWV G0438 Intake Note: Pt is here today for AWV. Allergies codeine Allergy (Unknown, Verified 09/12/25 11:53) Vomiting irbesartan Adverse Reaction (Unknown, Verified 09/12/25 11:53) worsening renal function HPI AWV G0438 HPI Details Initiated the conversation about Advanced Directives. Advanced Directives help? patients prepare for current and future decisions about their medical treatment? and place of care. Discussed with patient that it is a process where a patients? current condition and prognosis are reviewed, their wishes for information? regarding their illness are elicited, and likely medical dilemmas are presented? and options discussed. The form can be amended as needed, reviewed yearly and? make changes as needed IPPE/AWV ? year old presents? for her ? Annual? Wellness Visit, initial visit.? Medical / Social History Reviewed? Past Medical History ?Yes? . ? [place]? of Care / Care Team list updated ?Yes . ? Surgical/Hospitalization? History ?Yes . ? Current Medications? (including OTC and supplements) ?Yes . ? Family History ?Yes? . ? Tobacco? Control form ?Yes . ? AUDIT-C (Alcohol use) form? ?Yes . ? Illicit drug use in Social? History ?Yes . ? Current diagnosis of? depression? ?No ? Appropriate PHQ2/PHQ9? completed ?Yes . ? Data entered by ?Medical? Assignment Editor and reviewed by provider ? Fall Risk ? Fall? History? Have you had any falls with? injury in the past year? ?No . ? Have you had two or more? falls in the past year? ?No . ? Fall Risk Assessment: ?No? falls in the past year . ? HRA filled out by? the patient, reviewed by Provider and scanned. ? IPPE/AWV ? Balance? [place]? ?Yes . ? Tandem? walk ?Yes . ? Walk and? Turn ?Yes . ? Rise from? sit to stand ?Yes . ?Vision? Corrective? lens ?Yes ? Vision? screen ? Up-to-date, has an appointment [] for vision? screening and glaucoma screening ?Hearing? Whisper? test ?pass .? Initiated the conversation about Advanced Directives. Advanced Directives help? patients prepare for current and future decisions about their medical treatment? and place of care. Discussed with patient that it is a process where a patients? current condition and prognosis are reviewed, their wishes for information? regarding their illness are elicited, and likely medical dilemmas are presented? and options discussed. The form can be amended as needed, reviewed yearly and? make changes as needed Written? Plan?Completed. See Patient? Documents. [facility] Medical History TIA (transient ischemic attack) Wound of left leg Annual physical exam Hematuria Hypogonadism Vitamin B 12 deficiency Microalbuminuria CKD (chronic kidney disease), stage III Chronic venous insufficiency Hypothyroidism Prostate cancer Overweight Type 2 diabetes mellitus CAD (coronary artery disease) Hyperlipidemia HTN (hypertension) Surgical History H/O colonoscopy No pertinent past surgical history Family History Father No problems noted. Mother No problems noted. Social History Housing: House Alcohol intake: unknown Patient Tobacco Use Status: Former Tobacco user e-Cigarette/Vaping Use: Never Used Second Hand Smoke Exposure: No service: No Current occupational status: retired Cognitive needs: No Hearing needs: No Vision needs: Yes Questionnaire Medicare Wellness Checkup [age] What gender do you identify with?: male During the past 4 weeks, how much have you been bothered by emotional problems such as feeling anxious, depressed, irritable, sad or downhearted, and blue?: slightly During the past 4 weeks, has your physical & emotional health limited your social activities with family, friends, neighbors, or groups?: not at all During the past 4 weeks, how much bodily pain have you generally had?: mild pain During the past 4 weeks, was someone available to help you if you needed & wanted help?: yes, as much as I wanted During the past 4 weeks, what was the hardest physical activity you could do for at least 2 minutes?: moderate Can you get to places out of walking distance without help? (For eg., can you travel alone on buses, taxis or drive your car?): No Can you go shopping for groceries or clothes without someone's help?: Yes Can you prepare your own meals?: Yes Can you do your housework without help?: Yes Because of any health problems, do you need the help of another person with your personal care needs such as eating, bathing, dressing or getting around the house?: No Can you handle your own money without help?: No During the past 4 weeks, how would you rate your health in general?: good During the past 4 weeks how have things been going for you?: good & bad parts about equal Are you having difficulties driving your car?: not applicable, I don't use a car Do you always fasten your seat belt when you are in a car?: yes, usually During past 4 weeks, have you been bothered by the following: never: Sexual problems? and Trouble eating well?, seldom: Falling or dizzy when standing up and Teeth or denture problems? and sometimes: Problems using the telephone? and Tiredness or fatigue? Have you fallen 2 or more times in the past year?: Yes Are you afraid of falling?: No Are you a smoker?: no During the past 4 weeks, how many drinks of wine, beer, or other alcoholic beverages did you have?: 1 drink or less per week Do you exercise for about 20 minutes 3 or more times a week?: no, I usually do not exercise this much Have you been given information to help with the following?: yes: Keeping track of your medications? and no: Hazards in your house that might hurt you? How often do you have trouble taking medicines the way you have been told to take them?: I always take medicine as prescribed How confident are you that you can control & manage most of your health problems?: very confident What is your race?: White Mini Mental State Exam (MMSE) Orientation What is the (year) (season) (date) (day) (month)?: year, season and month Where are we (state) (county) (town or city) (hospital) (floor)?: state, county and town or city Registration Name of 3 unrelated objects clearly and slowly, then ask patient to repeat all 3 of them. (1st repeat determines score. Make sure they can repeat all three): object 1 and object 2 Attention & Calculation (CHOOSE ONE) Spell WORLD backwards (DLROW): 3 letters Recall Ask patient to repeat the 3 items from question #3.: object 1 and object 2 Language Show patient a wristwatch & ask what it is. Repeat for pencil.: watch and pencil Ask the patient to repeat the phrase 'No ifs, ands, or buts' after you.: incorrect Ask the patient to 'take a piece of paper with their right hand' 'fold paper in half' 'place paper on floor': take paper in right hand, fold paper in half and place paper on floor Print the sentence 'CLOSE YOUR EYES' on a piece. If patient actually closes eyes then score.: followed written direction Give patient a blank piece of paper & ask to write a sentence. Score if it conta ins a noun & verb.: sentence contains subject and verb Score Score: 20 PHQ-9 Over the last 2 weeks, how often have you been bothered by any of the following problems? 1. Little interest or pleasure in doing things: nearly every day 2. Feeling down, depressed, or hopeless: nearly every day 3. Trouble falling or staying asleep, or sleeping too much: nearly every day 4. Feeling tired or having little energy: nearly every day 5. Poor appetite or overeating: nearly every day 6. Feeling bad about yourself - or that you are a failure or have let yourself or your family down: nearly every day 7. Trouble concentrating on things, such as reading the newspaper or watching television: nearly every day 8. Moving or speaking so slowly that other people could have noticed. Or the opposite - being so fidgety or restless that you have been moving around a lot more than usual: nearly every day 9. Thoughts that you would be better off or of hurting yourself in some way: nearly every day Total score: 27 Depression Screening Interpretation: Positive (Patient is established with counselor and geriatric psychiatrist at [facility]) Depression Screening Follow- up: Existing condition and In treatment Depression Screening Done: Yes Source: Developed by Drs. Kameron Cherry, Kiley Knapp, Shad Mosquera and colleagues, with an educational duane from [employer]. Review of Systems Const All systems reviewed & are unremarkable except as noted in HPI and below Eyes Reports no additional complaints ENT Reports no additional complaints Card Reports no additional complaints Resp Reports no additional complaints GI Reports no additional complaints Reports no additional complaints Physical Exam Vital Signs: Last Vital Signs Temp 98.1 F 09/12/25 11:48 Pulse 94 09/12/25 11:48 Resp 17 09/12/25 11:48 BP 126/78 09/12/25 11:48 Pulse Ox 96 09/12/25 11:48 Oxygen Delivery Method Room Air 09/12/25 11:48 BMI result Body Mass Index 45.4 Const General: no acute distress HEENT Head: Yes normal to inspection Ears: TM's normal bilaterally Eyes General: appearance normal, both eyes and all related structures Neck Neck: Yes no lymphadenopathy and Yes supple Resp Effort & Inspection: normal respiratory effort Auscultation: clear to auscultation bilaterally Cardio Rhythm: regular rhythm Heart sounds: S1 normal heart sound present and S2 normal heart sound present GI Inspection: Yes normal to inspection Palpation (GI): Soft to palpation Percussion: Yes normal to percussion Auscultation: normal bowel sounds Extrem Other: Nonpitting edema 4+ bilaterally Assessment & Plan Assessment & Plan (1) Type 2 diabetes mellitus: Comment: Ozempic and Mounjaro caused diarrhea, patient is established with [facility] endocrinology controlled on Trulicity and insulin Code(s): E11.9 - Type 2 diabetes mellitus without complications Plan: Patient is managed by [facility] endocrinology, will obtain blood work results from endocrinology (2) Hypothyroidism: Code(s): E03.9 - Hypothyroidism, unspecified Plan: Continue levothyroxine (3) CKD (chronic kidney disease), stage III: Comment: stage 3/4 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 at [facility] Code(s): N18.30 - Chronic kidney disease, stage 3 unspecified Plan: Avoid nephrotoxins monitor renal function follow-up with nephrology (4) Prostate cancer: Comment: follows up with urologist at [facility] negative PET scan for metastatic dx 10/17 Code(s): C61 - Malignant neoplasm of prostate Plan: Follow-up with urology (5) Alzheimer dementia: Comment: Patient is established with neurologist at [facility] Code(s): G30.9 - Alzheimer's disease, unspecified; F02.80 - Dementia in other diseases classified elsewhere, unspecified severity, without behavioral disturbance, psychotic disturbance, mood disturbance, and anxiety Plan: Follow-up with Neurology at [facility] Quality Reporting (2019) Depression/Bipolar (159/160/161/177) PHQ-9: Total score: 27 Coding Level of Care Code Medicare Subsequent (G0439) Diagnoses Type 2 diabetes mellitus E11.9 Hypothyroidism E03.9 CKD (chronic kidney disease), stage III N18.30 Prostate cancer C61 Alzheimer dementia G30.9; F02.80 CPT Codes Advance Care Planning - Advance Care Planning discussion: On file, no changes ([id number]) Advance Care Planning - Time spent: 1-15 minutes, on File ([id number]) Advance Care Planning Advance Care Planning discussion: On file, no changes Forms completed: Health Care Proxy Time spent: 1-15 minutes, on File
[2025-09-12 11:48] VITALS: BP 126/78; PULSE 94; RESP 17; TEMP 36.7; O2SAT 96; BMI 45.4
== END 2025-09-12 15:10 | disposition home or self-care (01) ==
PROVIDERS: PCP Internal Medicine; Visit Provider Internal Medicine
DX: Z00.00 Encounter for general adult medical examination without abnormal findings (principal); E11.9 Type 2 diabetes mellitus without complications; N18.30 Chronic kidney disease, stage 3 unspecified; C61 Malignant neoplasm of prostate; G30.9 Alzheimer's disease, unspecified; F02.80 Dementia in other diseases classified elsewhere, unspecified severity, without behavioral disturbance, psychotic disturbance, mood disturbance, and anxiety; E03.9 Hypothyroidism, unspecified